=== PATIENT | female | born 1955 | race Caucasian/White ===

== ENCOUNTER → 2025-02-09 | Outpatient (CLI) | payer MEDICARE, MEDICAID, SELFPAY ==
[2025-02-09 10:48] LABS: Platelet Count 320 K/mm3 (150-450)
[2025-02-09 11:01] LABS: International Normalized Ratio 1.1
[2025-02-09 11:02] LABS: Partial Thromboplast Time 25.4 Seconds (24.1-36.2)
--- OUTSIDE RECORDS SUMMARY | 2025-02-09 11:24 | XMS RPT_ITS | CCD ---
Author Organization [facility] Care Team Providers Care Sales And Marketing Administrator Name Role Phone JOAN MATHEW Primary Care Physicia n NILSON HERNANDEZ, DR SALCIDO Admitting Unavailab le JOAN MATHEW Primary Care Unava ilable LUCRECIA LOVELL DO Attending Unavailable MARYCHUY MORENO MD Consulting Unavailable CRISTIAN HERNANDEZ, ROMMEL Consulting U TEQUILA Vera Attending Unavailable PCP, NONE Referring Unavailable JOAN HUERTA CNP Primary Care Unavailable JOAN HUERTA CNP Consulting Unavailable JOAN HUERTA CNP Attending Unavailable JOAN HUERTA CNP Admitting Unavailable PROVIDER, UNKNOWN Consulting Unavailable PROVIDER, UNKNOWN Consulting Unavailable JOAN HUERTA CNP Consulting Unavailable JOAN HUERTA CNP Admitting Unavailable JOAN HUERTA CNP Attending Unavailable JOAN HUERTA CNP Primary Care Unavailable PROVIDER, UNKNOWN Consulting Unavailable PROVIDER, UNKNOWN Consulting Unavailable JOAN HUERTA CNP Consulting Unavailable JOAN HUERTA CNP Admitting Unavailable BRADLEYJOAN BOLTON CNP Attending Unavailable JOAN HUERTA CNP Primary Care Unavailable PROVIDER, UNKNOWN Consulting Unavailable PROVIDER, UNKNOWN Consulting Unavailable JOAN HUERTA CNP Admitting Unavailable JOAN HUERTA CNP Attending Unavailable JOAN HUERTA CNP Consulting Unavailable JOAN HUERTA CNP Primary Care Unavailable PROVIDER, UNKNOWN Consulting Unavailable PROVIDER, UNKNOWN Consulting Unavailable JOAN HUERTA CNP Consulting Unavailable JOAN HUERTA CNP Attending Unavailable JOAN HUERTA CNP Primary Care Unavailable JOAN HUERTA CNP Admitting Unavailable PROVIDER, UNKNOWN Consulting Unavailable PROVIDER, UNKNOWN Consulting Unavailable JOAN HUERTA CNP Primary Care Unavailable JOAN HUERTA CNP Consulting Unavailable JOAN HUERTA CNP Attending Unavailable JOAN HUERTA CNP Admitting Unavailable PROVIDER, UNKNOWN Consulting Unavailable PROVIDER, UNKNOWN Consulting Unavailable JOAN HUERTA CNP Primary Care Unavailable JOAN HUERTA CNP Consulting Unavailable JOAN HUERTA CNP Attending Unavailable BRADLEY, JOAN FIBRE OPTIC CABLE SPLICER Admitting Unavailable PROVIDER, UNKNOWN Consulting Unavailable PROVIDER, UNKNOWN Consulting Unavailable BRADLEY JOAN CNP Consulting Unavailable STEW IRELAND MD Primary Care Unavailable STEW IRELAND MD Attending Unavailable STEW IRELAND MD Admitting Unavailable PROVIDER, UNKNOWN Consulting Unavailable PROVIDER, UNKNOWN Consulting Unavailable Jonathan HERNANDEZ, Dr. Larson Referring Provider Mitch SAENZ, Dr. Campos Attending Provider [phone] Shu HERNANDEZ, Dr. Mesa Primary Care Provider Allergies Allergy Classification Reported Allergen(s) Allergy Type Date of Onset Reaction(s) Facility (2 sources) traMADol; Translations: [tramadol] Drug Allergy 02-09-2025 unknown [facility] (1 source) traMADol Drug Allergy [facility] Repository Medications Current Medications Medication Drug Class(es) Dates Sig (Normalized) Sig (Original) acetaminophen 325 mg oral capsule (2 sources) Start: 02-09-2025 take 2 capsules by mouth every six hours as needed Acetaminophen 325 mg capsule Active 650 mg PO EVERY 6 HOURS as needed February 09, 2025 12:00am Start: 04-22-2023 acetaminophen Dose : 650 mg = 2 tab(s), Oral, q6hWA, PRN Pain, scale 1-10, 0 Refill(s) Start Date: 04/22/23 Status: Ordered Albuterol Sulfate 90 mcg/actuation HFA aerosol inhaler (1 source) Start: 02-09-2025 Albuterol Sulfate 90 mcg/actuation HFA aerosol inhaler Active INHALATION February 09, 2025 12:00am amLODIPine 5 mg oral tablet (1 source) Dihydropyridine Calcium Channel Javier Start: 04-18-2023 amLODIPine 5 mg oral tablet Dose : 5 mg = 1 tab(s), Oral, qDay Start Date: 04/18/23 Status: Ordered apixaban 5 mg oral tablet (1 source) Factor Xa Inhibitor Start: 04-22-2023 End: 05-22-2023 Eliquis 5 mg oral tablet Dose : 5 mg = 1 tab(s), Oral, BID, # 60 tab(s), 0 Refill(s), Pharmacy: [id number], 152.4, cm, 04/18/23 19:54:00 EDT, Height, 103, kg, 04/18/23 19:54:00 EDT, Dosing Weight Start Date: 04/22/23 Stop Date: 05/22/23 Status: Ordered atorvastatin 80 mg oral tablet (1 source) HMG-CoA Reductase Inhibitor Start: 04-18-2023 Lipitor 80 mg oral tablet Dose : 80 mg = 1 tab(s), Oral, qDay Start Date: 04/18/23 Status: Ordered clopidogrel 75 mg oral tablet (1 source) P2Y12 Platelet Inhibitor Start: 02-09-2025 take 1 tablet by mouth once daily Clopidogrel 75 mg tablet Active 75 mg PO daily February 09, 2025 12:00am FLUoxetine 20 mg oral capsule (2 sources) Serotonin Reuptake Inhibitor Start: 02-09-2025 take 1 capsule by mouth once daily Fluoxetine 20 mg capsule Active 20 mg PO daily February 09, 2025 12:00am Start: 04-18-2023 FLUoxetine 20 mg oral capsule Dose : 20 mg = 1 cap(s), Oral, qDay Start Date: 04/18/23 Status: Ordered gabapentin 100 mg oral capsule (1 source) Anti-epileptic Agent Start: 02-09-2025 Gabapentin 100 mg capsule Active mg PO February 09, 2025 12:00am hydroCHLOROthiazide 25 mg oral tablet (2 sources) Thiazide Diuretic Start: 02-09-2025 take 1 tablet by mouth once daily Hydrochlorothiazide 25 mg tablet Active 25 mg PO daily February 09, 2025 12:00am Start: 04-18-2023 hydroCHLOROthi azide 25 mg oral tablet Dose : 25 mg = 1 tab(s), Oral, qDay Start Date: 04/18/23 Status: Ordered levothyroxine sodium 0.2 mg oral tablet (2 sources) l-Thyroxine Start: 02-09-2025 take 1 tablet by mouth once daily Levothyroxine 200 mcg tablet Active 200 ug PO daily February 09, 2025 12:00am Start: 04-18-2023 levothyroxine 200 mcg (0.2 mg) oral tablet Dose : 200 mcg = 1 tab(s), Oral, qDay Start Date: 04/18/23 Status: Ordered metFORMIN hydrochloride 500 mg oral tablet (2 sources) Biguanide Start: 02-09-2025 take 1 tablet by mouth three times daily Metformin 500 mg tablet Active 500 mg PO THREE TIMES A DAY February 09, 2025 12:00am Start: 04-18-2023 metFORMIN 500 mg oral tablet (IR) Dose : 500 mg = 1 tab(s), Oral, TID Start Date: 04/18/23 Status: Ordered microencapsulated potassium chloride 20 meq extended release oral tablet (1 source) Start: 02-09-2025 take 1 tablet by mouth once daily Potassium Chloride 20 mEq tablet,ER particles/crystals Active 20 meq PO daily February 09, 2025 12:00am Problems Problem Classification Problem Date Documented Da te Episodic/Chronic Acute cerebrovascular disease (1 source) Cerebral infarction; Translations: [Cerebral infarction, unspecified] Chronic Acute cerebrovascular disease (1 source) Neurological symptom; Translations: [NIHSS score 4] Episodic Chronic obstructive pulmonary disease and bronchiectasis (2 sources) Chronic obstructive lung disease; Translations: [Chronic obstructive pulmonary disease, unspecified] Onset: 01-28-2025 Chronic Diabetes mellitus with complications (1 source) Type 2 diabetes mellitus with diabetic neuropathy, unspecified; Translations: [Type 2 diabetes mellitus with diabetic neuropathy, unspecified] Onset: 01-28-2025 Chronic Diabetes mellitus without complication (1 source) Type 2 diabetes mellitus without complication; Translations: [Type 2 diabetes mellitus without complications] Chronic Disorders of lipid metabolism (1 source) Hyperlipidemia, unspecified; Translations: [Hyperlipidemia, unspecified] Onset: 01-28-2025 Chronic Essential hypertension (2 sources) Essential hypertension; Translations: [Essential (primary) hypertension] Onset: 01-28-2025 Chronic Fluid and electrolyte disorders (1 source) Hypokalemia; Translations: [Hypokalemia] Onset: 01-28-2025 Episodic Genitourinary symptoms and ill-defined conditions (1 source) Personal history of urinary (tract) infections; Translations: [Personal history of urinary (tract) infections] Onset: 01-28-2025 Episodic Late effects of cerebrovascular disease (2 sources) 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; Translations: [Hemiplegia and hemiparesis following cerebral infarction affecting right dominant side] Chronic Malaise and fatigue (3 sources) Weakness; Translations: [Weakness] Onset: 01-28-2025 Episodic Nausea and vomiting (4 sources) Vomiting, unspecified; Translations: [Vomiting, unspecified] Onset: 01-24-2025 Episodic Other aftercare (1 source) Other long-term (current) drug therapy; Translations: [Other moth exterminator (current) drug therapy] Onset: 01-24-2025 Episodic Other circulatory disease (1 source) Personal history of transient ischemic attack (TIA), and cerebral infarction without residual deficits; Translations: [Personal history of transient ischemic attack (TIA), and cerebral infarction without residual deficits] Onset: 01-28-2025 Episodic Other gastrointestinal disorders (1 source) Diarrhea, unspecified; Translations: [Diarrhea, unspecified] Onset: 02-02-2025 Episodic Other lower respiratory disease (4 sources) Other nonspecific abnormal finding of lung field; Translations: [Other nonspecific abnormal finding of lung field] Onset: 01-24-2025 Episodic Other lower respiratory disease (1 source) Chronic cough; Translations: [Chronic cough] Onset: 01-24-2025 Episodic Other lower respiratory disease (2 sources) Lung mass; Translations: [Other nonspecific abnormal finding of lung field] 02-09-2025 Episodic Other nervous system disorders (1 source) Slurred speech; Translations: [Slurred speech] Episodic Other nutritional; endocrine; and metabolic disorders (3 sources) Abnormal weight loss; Translations: [Abnormal weight loss] Onset: 01-24-2025 Episodic Skin and subcutaneous tissue infections (1 source) Cellulitis of right finger; Translations: [Cellulitis of right finger] Onset: 01-05-2025 Episodic Thyroid disorders (4 sources) Hypothyroidism, unspecified; Translations: [Hypothyroidism, unspecified] Onset: 11-01-2024 Chronic Urinary tract infections (1 source) Urinary tract infectious disease; Translations: [Urinary tract infection, site not specified] Episodic Results Test Name Value Interpretation Reference Range Facility MODIFIED BARIUM SWALLOWon MODIFIED BARIUM SWALLOW [place] [address] Patient: WASHINGTON WOLF Phone#: : 1955 Age: 69 Gender: F Pt. Type: Out Account: [id number] Location: [facility] Ordering: JOAN HUERTA Exam Date: 02/02/2025/9:11 Family Phys: Charge Code: [id number] Physician: Ozark Order #: [id number] Dose#: PROCEDURE: CINERADIOGRAPHY MODIFIED BARIUM SWALLOW COMPARISON: [place], [place], MODIFIED BARIUM SWALLOW, 07/22/2023, 8:52. INDICATIONS: Vomiting. Diarrhea. TECHNIQUE: A swallowing evaluation was performed with fluoroscopy and speech therapy in the usual manner. TOTAL DOSE: 21.96 mGy Time: 1.5 minutes FINDINGS: Patient was given thin liquids, peach, cookie, and pudding textures. ORAL PHASE: Normal deglutition. PHARYNGEAL PHASE: Normal swallowing. ASPIRATION: None. STRUCTURE: Normal. No visible obstruction, stricture, or dilatation. OTHER: Negative. CONCLUSION: 1. No aspiration. Please refer to speech pathology for recommendations. Dictated by: Alyssa Fitzgerald MD on 02/02/2025 at 11:09 Approved by: Alyssa Fitzgerald MD on 02/02/2025 at 11:22 Normal [facility] CT CHEST W/CONTRASTon 2024 CT CHEST W/CONTRAST [place] [address] Patient: WASHINGTON WOLF Phone#: : 1955 Age: 69 Gender: F Pt. Type: Out Account: [id number] Location: [facility] Ordering: JOAN HUERTA Exam Date: 01/31/2025/9:27 Family Phys: Charge Code: [id number] Physician: Ozark Order #: [id number] Dose#: 4.70 PROCEDURE: CT CHEST WITH CONTRAST COMPARISON: None. INDICATIONS: Lung mass. TECHNIQUE: After obtaining the patient's consent, CT images were obtained with non-ionic intravenous contrast material. All CT scans at this facility use dose modulation, iterative reconstruction, and/or weight based dosing when appropriate to reduce radiation dose to as low as reasonably achievable. IV CONTRAST: Visipaque 320,65ml TOTAL DOSE: 4.70 CTDIvol(mGy) FINDINGS: LUNGS: Normal. No visible pulmonary disease. VASCULATURE: Normal. No visible pulmonary arterial thrombus or attenuation. PALOMO: Normal. No mass or adenopathy. MEDIASTINUM: Hypodense right paratracheal lymph node versus mass is present measuring 3.3 by 1.8 x 3.0 centimeters. Large subcarinal mass extending to the right of midline is present and measures 6.3 x 5.8 x 7.8 centimeters. Right hilar adenopathy is present. There are multiple lobular lesions in the right lower lobe. A 7 millimeter right upper lobe nodule is present. Two 7 millimeter and 11 millimeter left lower lobe nodules are present. Several sub centimeter left upper lobe nodules are present. CARDIAC: Normal. No enlargement, pericardial thickening, or significant calcification. AORTA: Normal. No aneurysm or dissection. PLEURA: Normal. No mass or effusion. CHEST WALL: Normal. No mass or axillary adenopathy. LIMITED ABDOMEN: Fatty changes of the liver are present. Limited images of the upper abdomen are unremarkable. BONES: Normal. No bony lesion or fracture. OTHER: Negative. Continued Report - Page 2 of 2 Patient: WASHINGTON WOLF Phone#: : 1955 Age: 69 Gender: F Pt. Type: Out Account: [id number] Location: [facility] Ordering: JOAN HUERTA Exam Date: 01/31/2025/9:27 Family Phys: Charge Code: [id number] Physician: Ozark Order #: [id number] Dose#: 4.70 CONCLUSION: 1. Right paratracheal and subcarinal mass is present. Right hilar adenopathy is present. Multiple bilateral pulmonary nodules are present. The largest are in the right lower lobe. Dictated by: Mckayla Ying MD on 01/31/2025 at 16:32 Approved by: Mckayla Ying MD on 01/31/2025 at 16:39 Normal [facility] CBC + DIFFon 01-30-2025 Baso # 0.01 x10EE3/UL Normal 0.00 - 0.10 [facility] Comment on above: Performed By: #### 2 [id number] #### [facility],[address] [place] [address] Basophils/100 WBC (Bld) 0.3 % Normal 0.0 - 2.0 [facility] Comment on above: Performed By: #### 2 76270 #### [facility],[address] [place] [address] 51727 CBC + DIFF Normal [facility] Comment on above: Result Comment: CBC- COMPLETE BLOOD COUNT Performed By: #### 2 94157 #### [facility],[address] [place] [address] 20273 EO # 0.22 x10EE3/UL Normal 0.00 - 0.50 [facility] Comment on above: Performed By: #### 2 95483 #### [facility],[address] [place] [address] 78177 Eosinophils/100 WBC (Bld) 4.1 % Normal 0.0 - 7.0 [facility] Comment on above: Performed By: #### 2 97097 #### [facility],[address] [place], [place] [id number] Erythrocyte distribution width (RBC) [Ratio] 14.7 % Normal 12.0 - 15.6 [facility] Comment on above: Performed By: #### 2 88943 #### [facility],[address] [place] [address] 77928 Hematocrit (Bld) [Volume fraction] 31.4 % Low 34.0 - 46.0 [facility] Comment on above: Performed By: #### 2 29700 #### [facility],[address] [place] [address] 12947 Hemoglobin (Bld) [Mass/Vol] 10.8 g/dL Low 12.0 - 16.0 [facility] Comment on above: Performed By: #### 2 83497 #### [facility],[address] [place] [address] 91280 Lymph # 1.51 x10EE3/UL Normal 0.80 - 2.80 [facility] Comment on above: Performed By: #### 2 12035 #### [facility],[address] [place] [address] 72924 Lymphocytes/100 WBC (Bld) 27.6 % Normal 20.0 - 45.0 [facility] Comment on above: Performed By: #### 2 60354 #### [facility],[address] [place] [address] MANUAL DIFF N/A Normal [facility] Comment on above: Performed By: #### 2 90054 #### [facility],[address] [place] [address] MCH (RBC) [Entitic mass] 30 pg Normal 27 - 33 [facility] Comment on above: Performed By: #### 2 28097 #### [facility],[address] [place] [address] MCHC 34 X10 3 Normal 32 - 36 [facility] Comment on above: Performed By: #### 2 13438 #### [facility],[address] [place] [address] MCV (RBC) [Entitic vol] 87 fL Normal 80 - 99 [facility] Comment on above: Performed By: #### 2 81498 #### [facility],[address] [place] [address] [place] # 0.50 x10EE3/UL Normal 0.20 - 1.00 [facility] Comment on above: Performed By: #### 2 41092 #### [facility],[address] [place] [address] MONOS % 9.1 % Normal 0.0 - 10.0 [facility] Comment on above: Performed By: #### 2 72406 #### [facility],[address] [place], [place] [id number] Morphology [place] (Bld) [Interp] N/A Normal [facility] Comment on above: Performed By: #### 2 66450 #### [facility],[address] [place] [address] Neut # 3.22 x10EE3/UL Normal 1.50 - 7.10 [facility] Comment on above: Performed By: #### 2 52247 #### [facility],[address] [place] [address] 69159 Neutrophils/100 WBC (Bld) 59.0 % Normal 46.0 - 76.0 [facility] Comment on above: Performed By: #### 2 50948 #### [facility],[address] [place] [address] 80022 PLATELET 251 x10EE3/UL Normal 150 - 450 [facility] Comment on above: Performed By: #### 2 23154 #### [facility],[address] [place] [address] 92676 Platelet mean volume (Bld) [Entitic vol] 10.5 fL Normal 6.6 - 10.5 [facility] Comment on above: Result Comment: AUTO MATED DIFFERENTIAL Performed By: #### 2 41611 #### [facility],[address] [place] [address] 50823 RBC 3.62 x 10EE6/UL Low 4.10 - 5.30 [facility] Comment on above: Performed By: #### 2 02228 #### [facility],[address] [place] [address] 32476 WBC 5.5 x 10EE3/UL Normal 4.5 - 10.8 [facility] Comment on above: Performed By: #### 2 75260 #### [facility],[address] [place] [address] 18347 CMP with eGFRon 01-30-2025 AGE 69 years Normal [facility] Comment on above: Performed By: #### 2 75748 #### [facility],[address] [place] [address] 24972 Albumin [Mass/Vol] 2.7 g/dL Low 3.4 - 5.0 [facility] Comment on above: Performed By: #### 2 19389 #### [facility],[address] [place] [address] 97049 Albumin/Globulin [Mass ratio] 0.6 {ratio} Low 0.9 - 1.6 [facility] Comment on above: Performed By: #### 2 01077 #### [facility],[address] [place] [address] 19232 ALK PHOS 109 U/L Normal 46 - 116 [facility] Comment on above: Performed By: #### 2 72954 #### [facility],[address] [place] [address] 77164 ALT [Catalytic activity/Vol] 16 U/L Normal 16 - 63 [facility] Comment on above: Performed By: #### 2 54306 #### [facility],[address] [place] [address] 84763 Anion gap [Moles/Vol] 12 mmol/L Normal 10 - 20 [facility] Comment on above: Performed By: #### 2 84269 #### [facility],[address] [place] [address] 70289 AST [Catalytic activity/Vol] 33 U/L Normal 13 - 39 [facility] Comment on above: Performed By: #### 2 95863 #### [facility],[address] [place] [address] 47949 B/C RATIO 13 ratio Normal 0 - 30 [facility] Comment on above: Performed By: #### 2 45389 #### [facility],[address] [place] [address] 80696 Bilirubin [Mass/Vol] 1.2 mg/dL High 0.2 - 1.0 [facility] Comment on above: Performed By: #### 2 14295 #### [facility],[address] [place] [address] 58668 Calcium [Mass/Vol] 8.9 mg/dL Normal 8.5 - 10.1 [facility] Comment on above: Performed By: #### 2 99051 #### [facility],[address] [place] [address] 04707 Chloride [Moles/Vol] 104 mmol/L Normal 98 - 107 [facility] Comment on above: Performed By: #### 2 74072 #### [facility],[address] [place] [address] 95467 CMP with eGFR Normal [facility] Comment on above: Result Comment: COMP REHENSIVE METABOLIC PANEL Performed By: #### 2 38638 #### [facility],[address] [place] [address] 04828 CO2 [Moles/Vol] 27.9 mmol/L Normal 21.0 - 32.0 [facility] Comment on above: Performed By: #### 2 16745 #### [facility],[address] [place] [address] Creatinine [Mass/Vol] 0.88 mg/dL Normal 0.55 - 1.02 [facility] Comment on above: Performed By: #### 2 79478 #### [facility],[address] [place] [address] GFR/1.73 sq M.predicted among non-blacks MDRD (S/P/Bld) [Vol rate/Area] mL/min/{1.73_m2} Normal 60 - 999 [facility] Comment on above: Performed By: #### 2 73230 #### [facility],[address] [place] [address] Result Comment: ACCO RDING TO THE NATIONAL KIDNEY DISEASE EDUCATION PROGRAM(NKDE), A NORMAL eGFR IS A VALUE GREATER THAN OR EQUAL TO 60 ML/MIN/1.73 SQ METERS. CHRONIC KIDNEY DISEASE: <60mL/MIN/1.73 SQ METERS KIDNEY FAILURE: <15mL/MIN/1.73 SQ METERS THIS TEST SHOULD ONLY BE USED FOR PATIENTS 18 YEARS OF AGE AND OLDER. Globulin (S) [Mass/Vol] 4.2 g/dL High 1.5 - 3.8 [facility] Comment on above: Performed By: #### 2 30494 #### [facility],[address] [place], [place] [id number] Glucose [Mass/Vol] 108 mg/dL High 74 - 106 [facility] Comment on above: Performed By: #### 2 56801 #### [facility],[address] [place] [address] 27063 Potassium [Moles/Vol] 3.3 mmol/L Low 3.5 - 5.1 [facility] Comment on above: Performed By: #### 2 81024 #### [facility],[address] [place] [address] 90702 Protein [Mass/Vol] 6.9 g/dL Normal 6.4 - 8.2 [facility] Comment on above: Performed By: #### 2 55696 #### [facility],[address] [place] [address] 86372 Sodium [Moles/Vol] 141 mmol/L Normal 136 - 145 [facility] Comment on above: Performed By: #### 2 78332 #### [facility],[address] [place] [address] 91899 Urea nitrogen [Mass/Vol] 11 mg/dL Normal 7 - 18 [facility] Comment on above: Performed By: #### 2 51937 #### [facility],[address] [place] [address] 77272 ABDOMEN 2 VIEWSon 01-24-2025 ABDOMEN [address] [address] Patient: WASHINGTON WOLF Phone#: : 1955 Age: 69 Gender: F Pt. Type: Out Account: [id number] Location: 052 Ordering: JOAN HUERTA Exam Date: 01/24/2025/10:17 Family Phys: Charge Code: [id number] Physician: Ozark Order #: [id number] Dose#: PROCEDURE: ABDOMEN 2 VIEWS COMPARISON: None. INDICATIONS: Vomiting and diarrhea. FINDINGS: BOWEL GAS PATTERN: Normal. No abnormal dilation or deviation. CALCIFICATIONS: None significant. OTHER: Degenerative changes of the spine are present. Curvature of the thoracolumbar spine to the right is present. Surgical clips are present in the right upper abdomen. CONCLUSION: 1. Nonspecific abdomen. Dictated by: Mckayla Ying MD on 01/24/2025 at 15:12 Approved by: Mckayla Ying MD on 01/24/2025 at 15:13 Normal [facility] C-REACTIVE PROTEINon 025 CRP 0.85 mg/dl Normal 0.00 - 0.90 [facility] Comment on above: Performed By: #### 2 37851 #### [facility],[address] [place] [address] 79504 CBC + DIFFon 01-24-2025 Baso # 0.03 x10EE3/UL Normal 0.00 - 0.10 [facility] Comment on above: Performed By: #### 2 27449 #### [facility],[address] [place] [address] 55482 Basophils/100 WBC (Bld) 0.3 % Normal 0.0 - 2.0 [facility] Comment on above: Performed By: #### 2 39967 #### [facility],[address] [place] [address] 54005 CBC + DIFF Normal [facility] Comment on above: Result Comment: CBC- COMPLETE BLOOD COUNT Performed By: #### 2 32524 #### [facility],[address] [place] [address] 73370 EO # 0.13 x10EE3/UL Normal 0.00 - 0.50 [facility] Comment on above: Performed By: #### 2 87750 #### [facility],[address] [place] [address] 36427 Eosinophils/100 WBC (Bld) 1.6 % Normal 0.0 - 7.0 [facility] Comment on above: Performed By: #### 2 83494 #### [facility],[address] [place] [address] 43810 Erythrocyte distribution width (RBC) [Ratio] 14.2 % Normal 12.0 - 15.6 [facility] Comment on above: Performed By: #### 2 18886 #### [facility],[address] [place] [address] Hematocrit (Bld) [Volume fraction] 36.3 % Normal 34.0 - 46.0 [facility] Comment on above: Performed By: #### 2 54161 #### [facility],[address] [place] [address] Hemoglobin (Bld) [Mass/Vol] 12.4 g/dL Normal 12.0 - 16.0 [facility] Comment on above: Performed By: #### 2 53443 #### [facility],[address] [place] [address] Lymph # 1.12 x10EE3/UL Normal 0.80 - 2.80 [facility] Comment on above: Performed By: #### 2 78695 #### [facility],[address] [place] [address] Lymphocytes/100 WBC (Bld) 13.4 % Low 20.0 - 45.0 [facility] Comment on above: Performed By: #### 2 65016 #### [facility],[address] [place] [address] MANUAL DIFF N/A Normal [facility] Comment on above: Performed By: #### 2 90089 #### [facility],[address] [place] [address] MCH (RBC) [Entitic mass] 29 pg Normal 27 - 33 [facility] Comment on above: Performed By: #### 2 82962 #### [facility],[address] [place] [address] MCHC 34 X10 3 Normal 32 - 36 [facility] Comment on above: Performed By: #### 2 18986 #### [facility],[address] [place], [place] [id number] MCV (RBC) [Entitic vol] 86 fL Normal 80 - 99 [facility] Comment on above: Performed By: #### 2 17493 #### [facility],[address] [place] [address] 87663 [place] # 0.53 x10EE3/UL Normal 0.20 - 1.00 [facility] Comment on above: Performed By: #### 2 46128 #### [facility],[address] [place] [address] 87277 MONOS % 6.4 % Normal 0.0 - 10.0 [facility] Comment on above: Performed By: #### 2 21003 #### [facility],[address] [place] [address] 27393 Morphology [place] (Bld) [Interp] N/A Normal [facility] Comment on above: Performed By: #### 2 70926 #### [facility],[address] [place] [address] 33989 Neut # 6.56 x10EE3/UL Normal 1.50 - 7.10 [facility] Comment on above: Performed By: #### 2 42956 #### [facility],[address] [place] [address] 88042 Neutrophils/100 WBC (Bld) 78.3 % High 46.0 - 76.0 [facility] Comment on above: Performed By: #### 2 04530 #### [facility],[address] [place] [address] 16311 PLATELET 291 x10EE3/UL Normal 150 - 450 [facility] Comment on above: Performed By: #### 2 50261 #### [facility],[address] [place] [address] 26616 Platelet mean volume (Bld) [Entitic vol] 11.2 fL High 6.6 - 10.5 [facility] Comment on above: Result Comment: AUTO MATED DIFFERENTIAL Performed By: #### 2 88376 #### [facility],[address] [place] [address] 92670 RBC 4.20 x 10EE6/UL Normal 4.10 - 5.30 [facility] Comment on above: Performed By: #### 2 57068 #### [facility],[address] [place] [address] 16995 WBC 8.4 x 10EE3/UL Normal 4.5 - 10.8 [facility] Comment on above: Performed By: #### 2 59948 #### [facility],[address] [place] [address] 91078 CHEST 2 VIEWSon 01-24-2025 CHEST [address] [address] Patient: WASHINGTON WOLF Phone#: : [phone] Age: 69 Gender: F Pt. Type: Out Account: [id number] Location: [facility] Ordering: JOAN HUERTA Exam Date: 01/24/2025/10:13 Family Phys: Charge Code: [id number] Physician: [place] Order #: [id number] Dose#: PROCEDURE: X-RAY CHEST 2 VIEWS COMPARISON: [facility], XR, CHEST 1 VIEW, 04/17/2023, 13:20. INDICATIONS: Cough, persistent. FINDINGS: LUNGS: Right hilar adenopathy are mass cannot be excluded. Right hilar mass is 4.5 centimeters. Right lower lobe nodules are present. Total dimension is 5.3 x 1.9 centimeters. Similar finding is not present on prior exam. Further evaluation by CT is recommended. VASCULATURE: Normal. Unremarkable pulmonary vasculature. CARDIAC: Normal. No cardiac silhouette abnormality or cardiomegaly. MEDIASTINUM: Calcification of the aorta is present. PLEURA: Normal. No effusion or pleural thickening. BONES: Normal. No fracture or visible bony lesion. OTHER: Negative. CONCLUSION: 1. Right hilar and right lower lobe masses. Further evaluation by CT is recommended. Dictated by: Mckayla Ying MD on 01/24/2025 at 15:08 Approved by: Mckayla Ying MD on 01/24/2025 at 15:11 Normal [facility] CMP with eGFRon 01-24-2025 AGE 69 years Normal [facility] Comment on above: Performed By: #### 2 71676 #### [facility],[address] [place] [address] 20731 Albumin [Mass/Vol] 3.3 g/dL Low 3.4 - 5.0 [facility] Comment on above: Performed By: #### 2 54704 #### [facility],[address] [place] [address] Albumin/Globulin [Mass ratio] 0.6 {ratio} Low 0.9 - 1.6 [facility] Comment on above: Performed By: #### 2 38676 #### [facility],[address] [place], [place] [id number] ALK PHOS 131 U/L High 46 - 116 [facility] Comment on above: Performed By: #### 2 84391 #### [facility],[address] [place], [place] [id number] ALT [Catalytic activity/Vol] 15 U/L Low 16 - 63 [facility] Comment on above: Performed By: #### 2 60087 #### [facility],[address] [place] [address] 46607 Anion gap [Moles/Vol] 16 mmol/L Normal 10 - 20 [facility] Comment on above: Performed By: #### 2 33875 #### [facility],[address] [place], [place] [id number] AST [Catalytic activity/Vol] 25 U/L Normal 13 - 39 [facility] Comment on above: Performed By: #### 2 43558 #### [facility],[address] [place] [address] 65544 B/C RATIO 16 ratio Normal 0 - 30 [facility] Comment on above: Performed By: #### 2 93929 #### [facility],[address] [place] [address] 54290 Bilirubin [Mass/Vol] 1.5 mg/dL High 0.2 - 1.0 [facility] Comment on above: Performed By: #### 2 10509 #### [facility],[address] [place] [address] 37669 Calcium [Mass/Vol] 10.1 mg/dL Normal 8.5 - 10.1 [facility] Comment on above: Performed By: #### 2 80334 #### [facility],[address] [place] [address] Chloride [Moles/Vol] 96 mmol/L Low 98 - 107 [facility] Comment on above: Performed By: #### 2 74996 #### [facility],[address] [place] [address] CMP with eGFR Normal [facility] Comment on above: Result Comment: COMP REHENSIVE METABOLIC PANEL Performed By: #### 2 55214 #### [facility],[address] [place], [place] [id number] CO2 [Moles/Vol] 26.6 mmol/L Normal 21.0 - 32.0 [facility] Comment on above: Performed By: #### 2 08762 #### [facility],[address] [place] [address] 34904 Creatinine [Mass/Vol] 1.48 mg/dL High 0.55 - 1.02 [facility] Comment on above: Performed By: #### 2 31354 #### [facility],[address] [place] [address] 44264 eGFR 35 ML/MINUTE Low 60 - 999 [facility] Comment on above: Performed By: #### 2 64860 #### [facility],[address] [place] [address] 97413 eGFR(AA) 42 ML/MINUTE Low 60 - 999 [facility] Comment on above: Result Comment: ACCO RDING TO THE NATIONAL KIDNEY DISEASE EDUCATION PROGRAM(NKDE), A NORMAL eGFR IS A VALUE GREATER THAN OR EQUAL TO 60 ML/MIN/1.73 SQ METERS. CHRONIC KIDNEY DISEASE: <60mL/MIN/1.73 SQ METERS KIDNEY FAILURE: <15mL/MIN/1.73 SQ METERS THIS TEST SHOULD ONLY BE USED FOR PATIENTS 18 YEARS OF AGE AND OLDER. Performed By: #### 2 70614 #### [facility],[address] [place] [address] 86444 Globulin (S) [Mass/Vol] 5.2 g/dL High 1.5 - 3.8 [facility] Comment on above: Performed By: #### 2 41724 #### [facility],[address] [place] [address] 65576 Glucose [Mass/Vol] 152 mg/dL High 74 - 106 [facility] Comment on above: Performed By: #### 2 00661 #### [facility],[address] [place] [address] 79103 Potassium [Moles/Vol] 3.0 mmol/L Low 3.5 - 5.1 [facility] Comment on above: Performed By: #### 2 72688 #### [facility],[address] [place] [address] 50088 Protein [Mass/Vol] 8.5 g/dL High 6.4 - 8.2 [facility] Comment on above: Performed By: #### 2 94228 #### [facility],[address] [place] [address] 36021 Sodium [Moles/Vol] 136 mmol/L Normal 136 - 145 [facility] Comment on above: Performed By: #### 2 07311 #### [facility],[address] [place] [address] 42229 Urea nitrogen [Mass/Vol] 23 mg/dL High 7 - 18 [facility] Comment on above: Performed By: #### 2 60211 #### [facility],[address] [place] [address] 93309 HEMOGLOBIN A1C (POM)on 01-24 Glucose [Mass/Vol] 162.8 mg/dL High 0.0 - 0.0 [facility] Comment on above: Result Comment: BLDo HEMOGLOBIN A1C REFERENCE RANGESBLDo Suggested Diagnosis HbA1c(%) HbA1C (mmol/mol Diabetic >/=6.5 >/=48 Prediabetes 5.7 - 6.4 39 - 47 Normal <5.7 <39 Performed By: #### 2 88871 #### [place] [address] HbA1c (Bld) [Mass fraction] 7.3 % High 0.0 - 6.5 [facility] Comment on above: Performed By: #### 2 44282 #### [place] [address] LIPASEon 01-24-2025 Lipase [Catalytic activity/Vol] 31.0 U/L Normal 15.0 - 78.0 [facility] Comment on above: Result Comment: *PLE ASE NOTE THAT RANGES FOR LIPASE HAVE CHANGED OF 08/21/23 DUE TO AN ASSAY UPDATE BY THE REPRODUCER.THE NEW ASSAY RANGE IS 6-250 U/L, WITH A REFERENCE RANGE OF 16-77 U/L. Performed By: #### 2 43870 #### [place] [id number] MAGNESIUMon 01-24-2025 Magnesium [Mass/Vol] 1.6 mg/dL Low 1.8 - 2.4 [facility] Comment on above: Performed By: #### 2 60299 #### [facility],[address] [place], [place] [id number] SEDRATEon 01-24-2025 SEDRATE 74 mm/hr High 0 - 30 [facility] Comment on above: Performed By: #### 2 33413 #### [place] [id number] T4-FREE (FREE THYROXINE)on 0 01-24-2025 Free T4 [Mass/Vol] 3.23 ng/dL High 0.76 - 1.46 [facility] Comment on above: Result Comment: P otential of falsely elevated results when biotin concentrations are > 10 ng/mL. Performed By: #### 2 41718 #### [facility],[address] [place] [address] 17889 TSHon 01-24-2025 TSH Qn m[IU]/L Low 0.35 - 3.74 [facility] Comment on above: Performed By: #### 2 39882 #### [facility],[address] [place] [address] 49506 WOUND CULTURE WITH GRAM STAI Non 01-05-2025 WOUND CULTURE WITH GRAM STAIN WOUND CULTURE 114CANDIDA ALBICANS 1+ Rosa albicans GRAM STAIN OF CULTURE No organisms seen Normal [facility] Comment on above: Performed By: #### 4 [id number] #### [place] [id number] [place] T4, FREE [CCL]on 11-03-2024 Free T4 [Mass/Vol] 0.7 ng/dL Low 0.9-1.7 [facility] Comment on above: Result Comment: [facility] [address] [place] [address] Uli Goodrich III, M.D. [id number] Performed By: #### 2 88268 #### [facility],[address] [place] [address] 91553 T4 Free SerPl-mCncon 025 Free T4 [Mass/Vol] 0.7 ng/dL Low 0.9-1.7 [facility] Comment on above: Order Comment: Speci men Type: BLOOD SPECIMEN Ordering Facility: [facility] Address: [address] [place] [address] Performed By: #### 3 024-7 #### [facility] CLIA [id number] [address] [place] [address] [place] TSHon 11-01-2024 TSH Qn 27.16 m[IU]/L High 0.35 - 3.74 [facility] Comment on above: Performed By: #### 2 72679 #### [facility],[address] [place] [address] LABORATORYOrdered By: Ho Vides on 04-22-2023 Blood Glucose Testing Reason Routine (04/22/23 11:27 AM) [facility] Glucose [Mass/Vol] 106 mg/dL Invalid Interpretation Code 82 - 115 mg/dL [facility] LABORATORYOrdered By: Daniela Ramachandran on 04-22-2023 Glucose [Mass/Vol] 134 mg/dL Invalid Interpretation Code 82 - 115 mg/dL [facility] .Auto Diffon 04-21-2023 Basophil, Absolute 0.0 10 3/mcL Normal 0.0-0.3 [facility] ([place]) Comment on above: Performed By: #### G IVANA TOBIN, RAFAEL, W, CBC, ADIFF #### [address] [address] Basophils/100 WBC (Bld) 0.7 % Normal 0.0-2.5 [facility] ([place]) Comment on above: Performed By: #### G IVANA TOBIN, RAFAEL, W, CBC, ADIFF #### [address] [address] Eosinophil, Absolute 0.3 10 3/mcL Normal 0.0-0.7 [facility] ([place]) Comment on above: Performed By: #### G FR, IVANA, BMP, MDW, CBC, ADIFF #### [address] [address] Eosinophils/100 WBC (Bld) 4.4 % Normal 0.0-6.0 [facility] ([place]) Comment on above: Performed By: #### G , IVANA, BMP, MDW, CBC, ADIFF #### [address] [address] Lymphocyte, Absolute 1.8 10 3/mcL Normal 0.9-4.3 [facility] ([place]) Comment on above: Performed By: #### G FR, IVANA, BMP, MDW, CBC, ADIFF #### [address] [address] Lymphocytes/100 WBC (Bld) 29.3 % Normal 20.0-40.0 [facility] ([place]) Comment on above: Performed By: #### G FR, ANEU, BMP, MDW, CBC, ADIFF #### [address] [address] Monocyte, Absolute 0.4 10 3/mcL Normal 0.1-1.4 [facility] ([place]) Comment on above: Performed By: #### G FR, ANEU, BMP, MDW, CBC, ADIFF #### [address] [address] Monocytes/100 WBC (Bld) 7.1 % Normal 2.0-13.0 [facility] ([place]) Comment on above: Performed By: #### G FR, ANEU, BMP, MDW, CBC, ADIFF #### [address] [address] Neutrophils/100 WBC (Bld) 58.5 % Normal 50.0-75.0 [facility] ([place]) Comment on above: Performed By: #### G FR, ANEU, BMP, MDW, CBC, ADIFF #### [address] [address] .GFRon 04-21-2023 GFR Non- >60 Normal [facility] ([place]) Comment on above: Result Comment: GFR Population mean for , Non- Americans Ages 20-29 = 116 mL/min/1.73 sq.m. Ages 30-39 = 107 mL/min/1.73 sq.m. Ages 40-49 = 99 mL/min/1.73 sq.m. Ages 50-59 = 93 mL/min/1.73 sq.m. Ages 60-69 = 85 mL/min/1.73 sq.m. Ages 70+ = 75 mL/min/1.73 sq.m. Chronic Kidney Disease: Less than 60 mL/min/1.73 square meters End Stage Renal Disease: Less than 15 mL/min/1.73 square meters Performed By: #### G FR, ANEU, BMP, MDW, CBC, ADIFF #### [address] [address] GFR >60 Normal [facility] ([place]) Comment on above: Result Comment: GFR Population mean for , Non- Americans Ages 20-29 = 116 mL/min/1.73 sq.m. Ages 30-39 = 107 mL/min/1.73 sq.m. Ages 40-49 = 99 mL/min/1.73 sq.m. Ages 50-59 = 93 mL/min/1.73 sq.m. Ages 60-69 = 85 mL/min/1.73 sq.m. Ages 70+ = 75 mL/min/1.73 sq.m. Chronic Kidney Disease: Less than 60 mL/min/1.73 square meters End Stage Renal Disease: Less than 15 mL/min/1.73 square meters Performed By: #### G IVANA TOBIN BMP, VINCENT, CBC, ADIFF #### [address] [address] .NEUABSon 04-21-2023 Neutrophil, Absolute 3.6 10 3/mcL Normal 2.3-8.1 [facility] ([place]) Comment on above: Performed By: #### G IVANA TOBIN BMP, MDW, CBC, ADIFF #### [address] [address] BMPon 04-21-2023 BUN/Creatinine Ratio 13.8 ratio Normal 10.0-22.0 [facility] ([place]) Comment on above: Performed By: #### G IVANA TOBIN BMP, MDW, CBC, ADIFF #### [address] [address] Calcium [Mass/Vol] 8.7 mg/dL Normal 8.7-10.4 [facility] ([place]) Comment on above: Performed By: #### G IVANA TOBIN BMP, VINCENT, CBC, ADIFF #### [address] [address] Chloride [Moles/Vol] 106 mmol/L Normal 98-110 [facility] ([place]) Comment on above: Performed By: #### G IVANA TOBIN BMP, VINCENT, CBC, ADIFF #### [address] [address] CO2 [Moles/Vol] 30 mmol/L Normal 22-32 [facility] ([place]) Comment on above: Performed By: #### G FR, IVANA, RAFAEL, W, CBC, ADIFF #### [address] [address] Creatinine [Mass/Vol] 0.65 mg/dL Normal 0.50-1.20 [facility] ([place]) Comment on above: Performed By: #### G , IVANA, RAFAEL, W, CBC, ADIFF #### [place] [phone] Electrolyte Balance 4.0 mEq/L Normal 4.0-15.0 [facility] ([place]) Comment on above: Performed By: #### G , IVANA, RAFAEL, VINCENT, CBC, ADIFF #### [place] [phone] Glucose [Mass/Vol] 123 mg/dL High 82-115 [facility] ([place]) Comment on above: Performed By: #### G IVANA TOBIN, RAFAEL, VINCENT, CBC, ADIFF #### [place] [phone] Potassium [Moles/Vol] 4.4 mmol/L Normal 3.5-5.0 [facility] ([place]) Comment on above: Performed By: #### G , IVANA, RAFAEL, W, CBC, ADIFF #### [address] [address] Sodium [Moles/Vol] 140 mmol/L Normal 136-145 [facility] ([place]) Comment on above: Performed By: #### G , IVANA, RAFAEL, W, CBC, ADIFF #### [address] [address] Urea nitrogen [Mass/Vol] 9.0 mg/dL Normal 8.0-22.0 [facility] ([place]) Comment on above: Performed By: #### G , IVANA, RAFAEL, MDW, CBC, ADIFF #### [address] [address] CBCon 04-21-2023 Erythrocyte distribution width (RBC) [Ratio] 13.6 % Normal 11.5-15.5 [facility] ([place]) Comment on above: Performed By: #### G FR, ANEU, BMP, MDW, CBC, ADIFF #### [place] [phone] Hematocrit (Bld) [Volume fraction] 36.7 % Normal 34.0-46.0 [facility] ([place]) Comment on above: Performed By: #### G FR, ANEU, BMP, MDW, CBC, ADIFF #### [place] [address] Hgb 12.5 G/dL Normal 12.0-16.0 [facility] ([place]) Comment on above: Performed By: #### G FR, IVANA, RAFAEL, MDW, CBC, ADIFF #### [place] [address] MCH (RBC) [Entitic mass] 31.6 pg Normal 27.0-33.0 [facility] ([place]) Comment on above: Performed By: #### G FR, ANEU, BMP, MDW, CBC, ADIFF #### [place] [address] MCHC 33.9 G/dL Normal 32.0-36.0 [facility] ([place]) Comment on above: Performed By: #### G FR, ANEU, BMP, MDW, CBC, ADIFF #### [place] [address] MCV (RBC) [Entitic vol] 93.1 fL Normal 80.0-99.0 [facility] ([place]) Comment on above: Performed By: #### G FR, ANEU, BMP, MDW, CBC, ADIFF #### [place] [phone] Platelet 184 10 3/mcL Normal 150-450 [facility] ([place]) Comment on above: Performed By: #### G FR, ANEU, BMP, MDW, CBC, ADIFF #### [facility] [address] [place] [address] Platelet mean volume (Bld) [Entitic vol] 10.3 fL Normal 6.6-10.5 [facility] ([place]) Comment on above: Performed By: #### G FR, ANEU, BMP, MDW, CBC, ADIFF #### [place] [id number] [address] [place] [address]60 RBC 3.94 10 6/mcL Low 4.10-5.30 [facility] ([place]) Comment on above: Performed By: #### G FR, ANEU, BMP, MDW, CBC, ADIFF #### [facility] [address] [place] [address] 74243 WBC 6.1 10 3/mcL Normal 4.5-10.8 [facility] ([place]) Comment on above: Performed By: #### G FR, ANEU, BMP, MDW, CBC, ADIFF #### [place] [id number] [address] [place] [address] LABORATORYOrdered By: Carly Cerda on 04-21-2023 Glucose [Mass/Vol] 121 mg/dL Invalid Interpretation Code 82 - 115 mg/dL [facility] LABORATORYOrdered By: SYSTEM SYSTEM on 04-21-2023 Basophils (Bld) [#/Vol] 0.0 103/mcL Invalid Interpretation Code 0.0 - 0.3 10^3/mcL AH Workflow SS Basophils/100 WBC (Bld) 0.7 % Invalid Interpretation Code 0.0 - 2.5 % AH Workflow SS Calcium [Mass/Vol] 8.7 mg/dL Invalid Interpretation Code 8.7 - 10.4 mg/dL ADM SS Chloride [Moles/Vol] 106 mmol/L Invalid Interpretation Code 98 - 110 mEq/L AH ADM SS CO2 [Moles/Vol] 30 mmol/L Invalid Interpretation Code 22 - 32 mEq/L AH ADM SS Creatinine [Mass/Vol] 0.65 mg/dL Invalid Interpretation Code 0.50 - 1.20 mg/dL ADM SS Electrolyte Balance 4.0 mEq/L Invalid Interpretation Code 4.0 - 15.0 mEq/L ADM SS Eosinophils (Bld) [#/Vol] 0.3 103/mcL Invalid Interpretation Code 0.0 - 0.7 10^3/mcL Workflow SS Eosinophils/100 WBC (Bld) 4.4 % Invalid Interpretation Code 0.0 - 6.0 % Workflow SS Erythrocyte distribution width (RBC) [Ratio] 13.6 % Invalid Interpretation Code 11.5 - 15.5 % Workflow SS GFR/1.73 sq M.predicted among blacks MDRD (S/P/Bld) [Vol rate/Area] ml/min/1.73sqm Invalid Interpretation Code Chemistry S Comment on above: Interpretive Data: GFR Population mean for , Non- Americans Ages 20-29 = 116 mL/min/1.73 sq.m. Ages 30-39 = 107 mL/min/1.73 sq.m. Ages 40-49 = 99 mL/min/1.73 sq.m. Ages 50-59 = 93 mL/min/1.73 sq.m. Ages 60-69 = 85 mL/min/1.73 sq.m. Ages 70+ = 75 mL/min/1.73 sq.m. Chronic Kidney Disease: Less than 60 mL/min/1.73 square meters End Stage Renal Disease: Less than 15 mL/min/1.73 square meters GFR/1.73 sq M.predicted among non-blacks MDRD (S/P/Bld) [Vol rate/Area] ml/min/1.73sqm Invalid Interpretation Code Chemistry S Comment on above: Interpretive Data: GFR Population mean for , Non- Americans Ages 20-29 = 116 mL/min/1.73 sq.m. Ages 30-39 = 107 mL/min/1.73 sq.m. Ages 40-49 = 99 mL/min/1.73 sq.m. Ages 50-59 = 93 mL/min/1.73 sq.m. Ages 60-69 = 85 mL/min/1.73 sq.m. Ages 70+ = 75 mL/min/1.73 sq.m. Chronic Kidney Disease: Less than 60 mL/min/1.73 square meters End Stage Renal Disease: Less than 15 mL/min/1.73 square meters Glucose [Mass/Vol] 123 mg/dL Invalid Interpretation Code 82 - 115 mg/dL ADM SS Hematocrit (Bld) [Volume fraction] 36.7 % Invalid Interpretation Code 34.0 - 46.0 % AH Workflow SS Hemoglobin (Bld) [Mass/Vol] 12.5 G/dL Invalid Interpretation Code 12.0 - 16.0 G/dL AH Workflow SS Lymphocytes (Bld) [#/Vol] 1.8 103/mcL Invalid Interpretation Code 0.9 - 4.3 10^3/mcL AH Workflow SS Lymphocytes/100 WBC (Bld) 29.3 % Invalid Interpretation Code 20.0 - 40.0 % AH Workflow SS Magnesium [Mass/Vol] 1.6 mg/dL Invalid Interpretation Code 1.6 - 2.4 mg/dL AH ADM SS MCH (RBC) [Entitic mass] 31.6 pg Invalid Interpretation Code 27.0 - 33.0 pg AH Workflow SS MCHC 33.9 G/dL Invalid Interpretation Code 32.0 - 36.0 G/dL AH Workflow SS MCV (RBC) [Entitic vol] 93.1 fL Invalid Interpretation Code 80.0 - 99.0 fL AH Workflow SS Monocytes (Bld) [#/Vol] 0.4 103/mcL Invalid Interpretation Code 0.1 - 1.4 10^3/mcL AH Workflow SS Monocytes/100 WBC (Bld) 7.1 % Invalid Interpretation Code 2.0 - 13.0 % AH Workflow SS Neutrophils (Bld) [#/Vol] 3.6 103/mcL Invalid Interpretation Code 2.3 - 8.1 10^3/mcL AH Workflow SS Neutrophils/100 WBC (Bld) 58.5 % Invalid Interpretation Code 50.0 - 75.0 % AH Workflow SS Platelet mean volume (Bld) [Entitic vol] 10.3 fL Invalid Interpretation Code 6.6 - 10.5 fL AH Workflow SS Platelets (Bld) [#/Vol] 184 103/mcL Invalid Interpretation Code 150 - 450 10^3/mcL AH Workflow SS Potassium [Moles/Vol] 4.4 mmol/L Invalid Interpretation Code 3.5 - 5.0 mEq/L AH ADM SS RBC (Bld) [#/Vol] 3.94 106/mcL Invalid Interpretation Code 4.10 - 5.30 10^6/mcL AH Workflow SS Sodium [Moles/Vol] 140 mmol/L Invalid Interpretation Code 136 - 145 mEq/L ADM SS Urea nitrogen [Mass/Vol] 9.0 mg/dL Invalid Interpretation Code 8.0 - 22.0 mg/dL AH ADM SS Urea nitrogen/Creatinine [Mass ratio] 13.8 ratio Invalid Interpretation Code 10.0 - 22.0 ratio AH ADM SS WBC (Bld) [#/Vol] 6.1 103/mcL Invalid Interpretation Code 4.5 - 10.8 10^3/mcL AH Workflow SS MGon 04-21-2023 Magnesium [Mass/Vol] 1.6 mg/dL Normal 1.6-2.4 [facility] ([place]) Comment on above: Performed By: #### G FR, ANEU, BMP, MDW, CBC, ADIFF #### [address] [address] .Auto Diffon 04-20-2023 Basophil, Absolute 0.0 10 3/mcL Normal 0.0-0.3 [facility] ([place]) Comment on above: Performed By: #### A PARMINDER, BMP, ADIFF, GFR, CBC #### [address] [address] Basophils/100 WBC (Bld) 0.7 % Normal 0.0-2.5 [facility] ([place]) Comment on above: Performed By: #### A PARMINDER, BMP, ADIFF, GFR, CBC #### [address] [address] Eosinophil, Absolute 0.1 10 3/mcL Normal 0.0-0.7 [facility] ([place]) Comment on above: Performed By: #### A PARMINDER, BMP, ADIFF, GFR, CBC #### [address] [address] Eosinophils/100 WBC (Bld) 2.2 % Normal 0.0-6.0 [facility] ([place]) Comment on above: Performed By: #### A PARMINDER, BMP, ADIFF, GFR, CBC #### [address] [address] Lymphocyte, Absolute 1.4 10 3/mcL Normal 0.9-4.3 [facility] ([place]) Comment on above: Performed By: #### A PARMINDER, BMP, ADIFF, GFR, CBC #### [address] [address] Lymphocytes/100 WBC (Bld) 20.5 % Normal 20.0-40.0 [facility] ([place]) Comment on above: Performed By: #### A PARMINDER, BMP, ADIFF, GFR, CBC #### [address] [address] Monocyte, Absolute 0.4 10 3/mcL Normal 0.1-1.4 [facility] ([place]) Comment on above: Performed By: #### A PARMINDER, BMP, ADIFF, GFR, CBC #### [address] [address] Monocytes/100 WBC (Bld) 5.6 % Normal 2.0-13.0 [facility] ([place]) Comment on above: Performed By: #### A PARMINDER, BMP, ADIFF, GFR, CBC #### [address] [address] Neutrophils/100 WBC (Bld) 71.0 % Normal 50.0-75.0 [facility] ([place]) Comment on above: Performed By: #### A PARMINDER, BMP, ADIFF, GFR, CBC #### [address] [address] .GFRon 04-20-2023 GFR Non- >60 Normal [facility] ([place]) Comment on above: Result Comment: GFR Population mean for , Non- Americans Ages 20-29 = 116 mL/min/1.73 sq.m. Ages 30-39 = 107 mL/min/1.73 sq.m. Ages 40-49 = 99 mL/min/1.73 sq.m. Ages 50-59 = 93 mL/min/1.73 sq.m. Ages 60-69 = 85 mL/min/1.73 sq.m. Ages 70+ = 75 mL/min/1.73 sq.m. Chronic Kidney Disease: Less than 60 mL/min/1.73 square meters End Stage Renal Disease: Less than 15 mL/min/1.73 square meters Performed By: #### G FR, ANEU, BMP, MDW, CBC, ADIFF #### [address] [address] GFR >60 Normal [facility] ([place]) Comment on above: Result Comment: GFR Population mean for , Non- Americans Ages 20-29 = 116 mL/min/1.73 sq.m. Ages 30-39 = 107 mL/min/1.73 sq.m. Ages 40-49 = 99 mL/min/1.73 sq.m. Ages 50-59 = 93 mL/min/1.73 sq.m. Ages 60-69 = 85 mL/min/1.73 sq.m. Ages 70+ = 75 mL/min/1.73 sq.m. Chronic Kidney Disease: Less than 60 mL/min/1.73 square meters End Stage Renal Disease: Less than 15 mL/min/1.73 square meters Performed By: #### G , IVANA, RAFAEL, W, CBC, ADIFF #### [address] [address] .NEUABSon 04-20-2023 Neutrophil, Absolute 4.9 10 3/mcL Normal 2.3-8.1 [facility] ([place]) Comment on above: Performed By: #### G FR, IVANA, RAFAEL, MDW, CBC, ADIFF #### [address] [address] [facility] BUN/Creatinine Ratio 14.3 ratio Normal 10.0-22.0 [facility] ([place]) Comment on above: Performed By: #### G FR, ANEU, BMP, MDW, CBC, ADIFF #### [address] [address] Calcium [Mass/Vol] 8.8 mg/dL Normal 8.7-10.4 [facility] ([place]) Comment on above: Performed By: #### G FR, ANEU, BMP, MDW, CBC, ADIFF #### [address] [address] Chloride [Moles/Vol] 107 mmol/L Normal 98-110 [facility] ([place]) Comment on above: Performed By: #### G FR, ANEU, BMP, MDW, CBC, ADIFF #### [address] [address] CO2 [Moles/Vol] 28 mmol/L Normal 22-32 [facility] ([place]) Comment on above: Performed By: #### G , IVANA, RAFAEL, W, CBC, ADIFF #### [address] [address] Creatinine [Mass/Vol] 0.63 mg/dL Normal 0.50-1.20 [facility] ([place]) Comment on above: Performed By: #### G , IVANA, RAFAEL, W, CBC, ADIFF #### [address] [address] Electrolyte Balance 5.0 mEq/L Normal 4.0-15.0 [facility] ([place]) Comment on above: Performed By: #### G , IVANA, RAFAEL, W, CBC, ADIFF #### [address] [address] Glucose [Mass/Vol] 118 mg/dL High 82-115 [facility] ([place]) Comment on above: Performed By: #### G , IVANA, RAFAEL, W, CBC, ADIFF #### [address] [address] Potassium [Moles/Vol] 4.3 mmol/L Normal 3.5-5.0 [facility] ([place]) Comment on above: Performed By: #### G FR, IVANA, BMP, MDW, CBC, ADIFF #### [address] [address] Sodium [Moles/Vol] 140 mmol/L Normal 136-145 [facility] ([place]) Comment on above: Performed By: #### G FR, IVANA, BMP, MDW, CBC, ADIFF #### [address] [address] Urea nitrogen [Mass/Vol] 9.0 mg/dL Normal 8.0-22.0 [facility] ([place]) Comment on above: Performed By: #### G FR, ANEU, BMP, MDW, CBC, ADIFF #### [address] [address] CBCon 04-20-2023 Erythrocyte distribution width (RBC) [Ratio] 13.6 % Normal 11.5-15.5 [facility] ([place]) Comment on above: Performed By: #### A PARMINDER, BMP, ADIFF, GFR, CBC #### [place] [phone] Hematocrit (Bld) [Volume fraction] 38.3 % Normal 34.0-46.0 [facility] ([place]) Comment on above: Performed By: #### A PARMINDER, BMP, ADIFF, GFR, CBC #### [place] [address] Hgb 12.8 G/dL Normal 12.0-16.0 [facility] ([place]) Comment on above: Performed By: #### A PARMINDER, BMP, ADIFF, GFR, CBC #### [address] [address] MCH (RBC) [Entitic mass] 31.4 pg Normal 27.0-33.0 [facility] ([place]) Comment on above: Performed By: #### A PARMINDER, BMP, ADIFF, GFR, CBC #### [place] [phone] MCHC 33.5 G/dL Normal 32.0-36.0 [facility] ([place]) Comment on above: Performed By: #### A PARMINDER, BMP, ADIFF, GFR, CBC #### [place] [address] MCV (RBC) [Entitic vol] 93.7 fL Normal 80.0-99.0 [facility] ([place]) Comment on above: Performed By: #### A PARMINDER, BMP, ADIFF, GFR, CBC #### [place] [id number] Platelet 196 10 3/mcL Normal 150-450 [facility] ([place]) Comment on above: Performed By: #### A PARMINDER, BMP, ADIFF, GFR, CBC #### [address] [address] Platelet mean volume (Bld) [Entitic vol] 10.4 fL Normal 6.6-10.5 [facility] ([place]) Comment on above: Performed By: #### A PARMINDER, BMP, ADIFF, GFR, CBC #### [address] [address] RBC 4.09 10 6/mcL Low 4.10-5.30 [facility] ([place]) Comment on above: Performed By: #### A PARMINDER, BMP, ADIFF, GFR, CBC #### [place] [id number] [place] [address] WBC 6.9 10 3/mcL Normal 4.5-10.8 [facility] ([place]) Comment on above: Performed By: #### A PARMINDER, BMP, ADIFF, GFR, CBC #### [facility] [address] [place] [address] LABORATORYOrdered By: Kaveh Drake on 04-20-2023 Blood Glucose Testing Reason Routine (04/20/23 9:44 PM) [facility] LABORATORYOrdered By: Byron Ramachandran on 04-20-2023 Blood Glucose Testing Reason Routine (04/20/23 4:15 PM) [facility] LABORATORYOrdered By: SYSTEM SYSTEM on 04-20-2023 Basophils (Bld) [#/Vol] 0.0 103/mcL Invalid Interpretation Code 0.0 - 0.3 10^3/mcL Workflow SS Basophils/100 WBC (Bld) 0.7 % Invalid Interpretation Code 0.0 - 2.5 % Workflow SS Calcium [Mass/Vol] 8.8 mg/dL Invalid Interpretation Code 8.7 - 10.4 mg/dL ADM SS Chloride [Moles/Vol] 107 mmol/L Invalid Interpretation Code 98 - 110 mEq/L ADM SS CO2 [Moles/Vol] 28 mmol/L Invalid Interpretation Code 22 - 32 mEq/L ADM SS Creatinine [Mass/Vol] 0.63 mg/dL Invalid Interpretation Code 0.50 - 1.20 mg/dL ADM SS Electrolyte Balance 5.0 mEq/L Invalid Interpretation Code 4.0 - 15.0 mEq/L ADM SS Eosinophils (Bld) [#/Vol] 0.1 103/mcL Invalid Interpretation Code 0.0 - 0.7 10^3/mcL AH Workflow SS Eosinophils/100 WBC (Bld) 2.2 % Invalid Interpretation Code 0.0 - 6.0 % Workflow SS Erythrocyte distribution width (RBC) [Ratio] 13.6 % Invalid Interpretation Code 11.5 - 15.5 % Workflow SS GFR/1.73 sq M.predicted among blacks MDRD (S/P/Bld) [Vol rate/Area] ml/min/1.73sqm Invalid Interpretation Code Chemistry S Comment on above: Interpretive Data: GFR Population mean for , Non- Americans Ages 20-29 = 116 mL/min/1.73 sq.m. Ages 30-39 = 107 mL/min/1.73 sq.m. Ages 40-49 = 99 mL/min/1.73 sq.m. Ages 50-59 = 93 mL/min/1.73 sq.m. Ages 60-69 = 85 mL/min/1.73 sq.m. Ages 70+ = 75 mL/min/1.73 sq.m. Chronic Kidney Disease: Less than 60 mL/min/1.73 square meters End Stage Renal Disease: Less than 15 mL/min/1.73 square meters GFR/1.73 sq M.predicted among non-blacks MDRD (S/P/Bld) [Vol rate/Area] ml/min/1.73sqm Invalid Interpretation Code Chemistry S Comment on above: Interpretive Data: GFR Population mean for , Non- Americans Ages 20-29 = 116 mL/min/1.73 sq.m. Ages 30-39 = 107 mL/min/1.73 sq.m. Ages 40-49 = 99 mL/min/1.73 sq.m. Ages 50-59 = 93 mL/min/1.73 sq.m. Ages 60-69 = 85 mL/min/1.73 sq.m. Ages 70+ = 75 mL/min/1.73 sq.m. Chronic Kidney Disease: Less than 60 mL/min/1.73 square meters End Stage Renal Disease: Less than 15 mL/min/1.73 square meters Glucose [Mass/Vol] 118 mg/dL Invalid Interpretation Code 82 - 115 mg/dL ADM SS Hematocrit (Bld) [Volume fraction] 38.3 % Invalid Interpretation Code 34.0 - 46.0 % Workflow SS Hemoglobin (Bld) [Mass/Vol] 12.8 G/dL Invalid Interpretation Code 12.0 - 16.0 G/dL Workflow SS Lymphocytes (Bld) [#/Vol] 1.4 103/mcL Invalid Interpretation Code 0.9 - 4.3 10^3/mcL AH Workflow SS Lymphocytes/100 WBC (Bld) 20.5 % Invalid Interpretation Code 20.0 - 40.0 % Workflow SS MCH (RBC) [Entitic mass] 31.4 pg Invalid Interpretation Code 27.0 - 33.0 pg AH Workflow SS MCHC 33.5 G/dL Invalid Interpretation Code 32.0 - 36.0 G/dL Workflow SS MCV (RBC) [Entitic vol] 93.7 fL Invalid Interpretation Code 80.0 - 99.0 fL Workflow SS Monocytes (Bld) [#/Vol] 0.4 103/mcL Invalid Interpretation Code 0.1 - 1.4 10^3/mcL Workflow SS Monocytes/100 WBC (Bld) 5.6 % Invalid Interpretation Code 2.0 - 13.0 % Workflow SS Neutrophils (Bld) [#/Vol] 4.9 103/mcL Invalid Interpretation Code 2.3 - 8.1 10^3/mcL Workflow SS Neutrophils/100 WBC (Bld) 71.0 % Invalid Interpretation Code 50.0 - 75.0 % Workflow SS Platelet mean volume (Bld) [Entitic vol] 10.4 fL Invalid Interpretation Code 6.6 - 10.5 fL Workflow SS Platelets (Bld) [#/Vol] 196 103/mcL Invalid Interpretation Code 150 - 450 10^3/mcL AH Workflow SS Potassium [Moles/Vol] 4.3 mmol/L Invalid Interpretation Code 3.5 - 5.0 mEq/L AH ADM SS RBC (Bld) [#/Vol] 4.09 106/mcL Invalid Interpretation Code 4.10 - 5.30 10^6/mcL AH Workflow SS Sodium [Moles/Vol] 140 mmol/L Invalid Interpretation Code 136 - 145 mEq/L ADM SS Urea nitrogen [Mass/Vol] 9.0 mg/dL Invalid Interpretation Code 8.0 - 22.0 mg/dL ADM SS Urea nitrogen/Creatinine [Mass ratio] 14.3 ratio Invalid Interpretation Code 10.0 - 22.0 ratio AH ADM SS WBC (Bld) [#/Vol] 6.9 103/mcL Invalid Interpretation Code 4.5 - 10.8 10^3/[facility] AH Workflow SS .GFRon 04-19-2023 GFR >60 Normal [facility] ([place]) Comment on above: Result Comment: GFR Population mean for , Non- Americans Ages 20-29 = 116 mL/min/1.73 sq.m. Ages 30-39 = 107 mL/min/1.73 sq.m. Ages 40-49 = 99 mL/min/1.73 sq.m. Ages 50-59 = 93 mL/min/1.73 sq.m. Ages 60-69 = 85 mL/min/1.73 sq.m. Ages 70+ = 75 mL/min/1.73 sq.m. Chronic Kidney Disease: Less than 60 mL/min/1.73 square meters End Stage Renal Disease: Less than 15 mL/min/1.73 square meters Performed By: #### G , CMP #### [address] [address] GFR Non- >60 Normal [facility] ([place]) Comment on above: Result Comment: GFR Population mean for , Non- Americans Ages 20-29 = 116 mL/min/1.73 sq.m. Ages 30-39 = 107 mL/min/1.73 sq.m. Ages 40-49 = 99 mL/min/1.73 sq.m. Ages 50-59 = 93 mL/min/1.73 sq.m. Ages 60-69 = 85 mL/min/1.73 sq.m. Ages 70+ = 75 mL/min/1.73 sq.m. Chronic Kidney Disease: Less than 60 mL/min/1.73 square meters End Stage Renal Disease: Less than 15 mL/min/1.73 square meters Performed By: #### G FR, CMP #### [address] [address] A1Con 04-19-2023 HbA1c (Bld) [Mass fraction] 7.2 % High 4.0-6.0 [facility] ([place]) Comment on above: Performed By: #### G FR, ANEU, BMP, MDW, CBC, ADIFF #### [address] [address] [facility] 04-19-2023 Albumin Level 3.3 G/dL Normal 3.2-4.8 [facility] ([place]) Comment on above: Performed By: #### Edith TOBIN, CMP #### [place] [address] Albumin/Globulin [Mass ratio] 1.1 {ratio} Normal 0.9-1.6 [facility] ([place]) Comment on above: Performed By: #### Edith TOBIN, CMP #### [place] [address] ALP [Catalytic activity/Vol] 98 U/L Normal 38-126 [facility] ([place]) Comment on above: Performed By: #### Edith TOBIN, CMP #### [place] [address] ALT [Catalytic activity/Vol] 17 U/L Normal 10-49 [facility] ([place]) Comment on above: Performed By: #### Edith TOBIN, CMP #### [place] [address] AST [Catalytic activity/Vol] 18 U/L Normal 8-34 [facility] ([place]) Comment on above: Performed By: #### Edith TOBIN, CMP #### [place] [address] Bili Total 1.00 mg/dL Normal 0.20-1.20 [facility] ([place]) Comment on above: Result Comment: Use of this assay is not recommended for patients undergoing treatment with eltrombopag due to the potential for falsely elevated results. Performed By: #### Edith TOBIN, CMP #### [place] [address] BUN/Creatinine Ratio 19.4 ratio Normal 10.0-22.0 [facility] ([place]) Comment on above: Performed By: #### Edith TOBIN, CMP #### [place] [phone] Calcium [Mass/Vol] 8.2 mg/dL Low 8.7-10.4 [facility] ([place]) Comment on above: Performed By: #### Edith TOBIN, CMP #### [address] [address] Chloride [Moles/Vol] 108 mmol/L Normal 98-110 [facility] ([place]) Comment on above: Performed By: #### G , CMP #### [address] [address] CO2 [Moles/Vol] 27 mmol/L Normal 22-32 [facility] ([place]) Comment on above: Performed By: #### G , CMP #### [address] [address] Creatinine [Mass/Vol] 0.62 mg/dL Normal 0.50-1.20 [facility] ([place]) Comment on above: Performed By: #### Edith TOBIN, CMP #### [address] [address] Electrolyte Balance 5.0 mEq/L Normal 4.0-15.0 [facility] ([place]) Comment on above: Performed By: #### Edith TOBIN, CMP #### [address] [address] Globulin 3.0 G/dL Normal 1.5-3.8 [facility] ([place]) Comment on above: Performed By: #### Edith TOBIN, CMP #### [address] [address] Glucose [Mass/Vol] 138 mg/dL High 82-115 [facility] ([place]) Comment on above: Performed By: #### Edith TOBIN, CMP #### [address] [address] Potassium [Moles/Vol] 4.0 mmol/L Normal 3.5-5.0 [facility] ([place]) Comment on above: Performed By: #### Edith TOBIN, CMP #### [address] [address] Sodium [Moles/Vol] 140 mmol/L Normal 136-145 [facility] ([place]) Comment on above: Performed By: #### Edith TOBIN, CMP #### [address] [address] Total Protein 6.3 G/dL Normal 5.7-8.2 [facility] ([place]) Comment on above: Result Comment: No te - New Reference Range in effect 20 Performed By: #### G , CMP #### [place] [id number] [place] [address] Urea nitrogen [Mass/Vol] 12.0 mg/dL Normal 8.0-22.0 [facility] ([place]) Comment on above: Performed By: #### G , CMP #### [facility] [address] [place] [address] LABORATORYOrdered By: SYSTEM SYSTEM on 04-19-2023 Albumin BCP dye [Mass/Vol] 3.3 G/dL Invalid Interpretation Code 3.2 - 4.8 G/dL ADM SS Albumin/Globulin [Mass ratio] 1.1 {ratio} Invalid Interpretation Code 0.9 - 1.6 ratio AH ADM SS ALP [Catalytic activity/Vol] 98 U/L Invalid Interpretation Code 38 - 126 U/L ADM SS ALT No additional P-5'-P [Catalytic activity/Vol] 17 U/L Invalid Interpretation Code 10 - 49 U/L AH ADM SS AST [Catalytic activity/Vol] 18 U/L Invalid Interpretation Code 8 - 34 U/L AH ADM SS Bilirubin [Mass/Vol] 1.00 mg/dL Invalid Interpretation Code 0.20 - 1.20 mg/dL AH ADM SS Comment on above: Interpretive Data: U se of this assay is not recommended for patients undergoing treatment with eltrombopag due to the potential for falsely elevated results. Calcium [Mass/Vol] 8.2 mg/dL Invalid Interpretation Code 8.7 - 10.4 mg/dL AH ADM SS Chloride [Moles/Vol] 108 mmol/L Invalid Interpretation Code 98 - 110 mEq/L AH ADM SS CO2 [Moles/Vol] 27 mmol/L Invalid Interpretation Code 22 - 32 mEq/L AH ADM SS Creatinine [Mass/Vol] 0.62 mg/dL Invalid Interpretation Code 0.50 - 1.20 mg/dL AH ADM SS Electrolyte Balance 5.0 mEq/L Invalid Interpretation Code 4.0 - 15.0 mEq/L AH ADM SS GFR/1.73 sq M.predicted among blacks MDRD (S/P/Bld) [Vol rate/Area] ml/min/1.73sqm Invalid Interpretation Code ADM Comment on above: Interpretive Data: GFR Population mean for , Non- Americans Ages 20-29 = 116 mL/min/1.73 sq.m. Ages 30-39 = 107 mL/min/1.73 sq.m. Ages 40-49 = 99 mL/min/1.73 sq.m. Ages 50-59 = 93 mL/min/1.73 sq.m. Ages 60-69 = 85 mL/min/1.73 sq.m. Ages 70+ = 75 mL/min/1.73 sq.m. Chronic Kidney Disease: Less than 60 mL/min/1.73 square meters End Stage Renal Disease: Less than 15 mL/min/1.73 square meters GFR/1.73 sq M.predicted among non-blacks MDRD (S/P/Bld) [Vol rate/Area] ml/min/1.73sqm Invalid Interpretation Code ADM Comment on above: Interpretive Data: GFR Population mean for , Non- Americans Ages 20-29 = 116 mL/min/1.73 sq.m. Ages 30-39 = 107 mL/min/1.73 sq.m. Ages 40-49 = 99 mL/min/1.73 sq.m. Ages 50-59 = 93 mL/min/1.73 sq.m. Ages 60-69 = 85 mL/min/1.73 sq.m. Ages 70+ = 75 mL/min/1.73 sq.m. Chronic Kidney Disease: Less than 60 mL/min/1.73 square meters End Stage Renal Disease: Less than 15 mL/min/1.73 square meters Globulin 3.0 G/dL Invalid Interpretation Code 1.5 - 3.8 G/dL ADM SS Glucose [Mass/Vol] 138 mg/dL Invalid Interpretation Code 82 - 115 mg/dL ADM SS Potassium [Moles/Vol] 4.0 mmol/L Invalid Interpretation Code 3.5 - 5.0 mEq/L ADM SS Protein [Mass/Vol] 6.3 G/dL Invalid Interpretation Code 5.7 - 8.2 G/dL ADM SS Comment on above: Interpretive Data: * *Note - New Reference Range in effect 20 Sodium [Moles/Vol] 140 mmol/L Invalid Interpretation Code 136 - 145 mEq/L AH ADM SS Urea nitrogen [Mass/Vol] 12.0 mg/dL Invalid Interpretation Code 8.0 - 22.0 mg/dL ADM SS Urea nitrogen/Creatinine [Mass ratio] 19.4 ratio Invalid Interpretation Code 10.0 - 22.0 ratio AH ADM SS No Panel Informationon 04-19 Microscopic examination of blood, culture Culture has been received in lab and is no growth to date. Routine cultures are held for 5 days. [facility] .Auto Diffon 04-18-2023 Basophil, Absolute 0.1 10 3/mcL Normal 0.0-0.3 [facility] ([place]) Comment on above: Performed By: #### G FR, ANEU, BMP, MDW, CBC, ADIFF #### [address] [address] Basophils/100 WBC (Bld) 1.0 % Normal 0.0-2.5 [facility] ([place]) Comment on above: Performed By: #### G FR, ANEU, BMP, MDW, CBC, ADIFF #### [address] [address] Eosinophil, Absolute 0.1 10 3/mcL Normal 0.0-0.7 [facility] ([place]) Comment on above: Performed By: #### G FR, ANEU, BMP, MDW, CBC, ADIFF #### [address] [address] Eosinophils/100 WBC (Bld) 1.3 % Normal 0.0-6.0 [facility] ([place]) Comment on above: Performed By: #### G FR, ANEU, BMP, MDW, CBC, ADIFF #### [address] [address] Lymphocyte, Absolute 1.8 10 3/mcL Normal 0.9-4.3 [facility] ([place]) Comment on above: Performed By: #### G FR, ANEU, BMP, MDW, CBC, ADIFF #### [address] [address] Lymphocytes/100 WBC (Bld) 23.8 % Normal 20.0-40.0 [facility] ([place]) Comment on above: Performed By: #### G FR, ANEU, BMP, MDW, CBC, ADIFF #### [address] [address] Monocyte, Absolute 0.6 10 3/mcL Normal 0.1-1.4 [facility] ([place]) Comment on above: Performed By: #### G FR, ANEU, BMP, MDW, CBC, ADIFF #### [address] [address] Monocytes/100 WBC (Bld) 7.7 % Normal 2.0-13.0 [facility] ([place]) Comment on above: Performed By: #### G FR, ANEU, BMP, MDW, CBC, ADIFF #### [address] [address] Neutrophils/100 WBC (Bld) 66.2 % Normal 50.0-75.0 [facility] ([place]) Comment on above: Performed By: #### G FR, ANEU, BMP, MDW, CBC, ADIFF #### [address] [address] .GFRon 04-18-2023 GFR >60 Normal [facility] ([place]) Comment on above: Result Comment: GFR Population mean for , Non- Americans Ages 20-29 = 116 mL/min/1.73 sq.m. Ages 30-39 = 107 mL/min/1.73 sq.m. Ages 40-49 = 99 mL/min/1.73 sq.m. Ages 50-59 = 93 mL/min/1.73 sq.m. Ages 60-69 = 85 mL/min/1.73 sq.m. Ages 70+ = 75 mL/min/1.73 sq.m. Chronic Kidney Disease: Less than 60 mL/min/1.73 square meters End Stage Renal Disease: Less than 15 mL/min/1.73 square meters Performed By: #### G FR, ANEU, BMP, MDW, CBC, ADIFF #### [address] [address] GFR Non- >60 Normal [facility] ([place]) Comment on above: Result Comment: GFR Population mean for , Non- Americans Ages 20-29 = 116 mL/min/1.73 sq.m. Ages 30-39 = 107 mL/min/1.73 sq.m. Ages 40-49 = 99 mL/min/1.73 sq.m. Ages 50-59 = 93 mL/min/1.73 sq.m. Ages 60-69 = 85 mL/min/1.73 sq.m. Ages 70+ = 75 mL/min/1.73 sq.m. Chronic Kidney Disease: Less than 60 mL/min/1.73 square meters End Stage Renal Disease: Less than 15 mL/min/1.73 square meters Performed By: #### G IVANA TOBIN BMP, VINCENT, CBC, ADIFF #### [address] [address] .MDWon 04-18-2023 Monocyte Distribution Width 17.68 Normal 0.00-20.00 [facility]) Comment on above: Result Comment: For ED adult patients suspected of sepsis, MDW<=20.0 does not rule out sepsis or risk of sepsis Performed By: #### G IVANA TOBIN BMP, VINCENT, CBC, ADIFF #### [address] [address] .NEUABSon 04-18-2023 Neutrophil, Absolute 4.9 10 3/mcL Normal 2.3-8.1 [facility] ([place]) Comment on above: Performed By: #### G IVANA TOBIN BMP, VINCENT, CBC, ADIFF #### [address] [address] BUN/Creatinine Ratio 13.5 ratio Normal 10.0-22.0 [facility] ([place]) Comment on above: Performed By: #### G IVANA TOBIN, RAFAEL, VINCENT, CBC, ADIFF #### [address] [address] Calcium [Mass/Vol] 8.9 mg/dL Normal 8.7-10.4 [facility] ([place]) Comment on above: Performed By: #### G , IVANA, RAFAEL, VINCENT, CBC, ADIFF #### [address] [address] Chloride [Moles/Vol] 106 mmol/L Normal 98-110 [facility] ([place]) Comment on above: Performed By: #### G FR, IVANA, RAFAEL, VINCENT, CBC, ADIFF #### [address] [address] CO2 [Moles/Vol] 26 mmol/L Normal 22-32 [facility] ([place]) Comment on above: Performed By: #### G , IVANA, RAFAEL, W, CBC, ADIFF #### [address] [address] Creatinine [Mass/Vol] 0.74 mg/dL Normal 0.50-1.20 [facility] ([place]) Comment on above: Performed By: #### G , IVANA, RAFAEL, VINCENT, CBC, ADIFF #### [place] [address] Electrolyte Balance 8.0 mEq/L Normal 4.0-15.0 [facility] ([place]) Comment on above: Performed By: #### G IVANA TOBIN, RAFAEL, VINCENT, CBC, ADIFF #### [place] [address] Glucose [Mass/Vol] 152 mg/dL High 82-115 [facility] ([place]) Comment on above: Performed By: #### G , IVANA, RAFAEL, VINCENT, CBC, ADIFF #### [place] [phone] Potassium [Moles/Vol] 3.4 mmol/L Low 3.5-5.0 [facility] ([place]) Comment on above: Performed By: #### G , IVANA, RAFAEL, W, CBC, ADIFF #### [place] [phone] Sodium [Moles/Vol] 140 mmol/L Normal 136-145 [facility] ([place]) Comment on above: Performed By: #### Edith TOBIN, IVANA, RAFAEL, W, CBC, ADIFF #### [place] [address] Urea nitrogen [Mass/Vol] 10.0 mg/dL Normal 8.0-22.0 [facility] ([place]) Comment on above: Performed By: #### G FR, ANEU, BMP, MDW, CBC, ADIFF #### [place] [id number] CBCon 04-18-2023 Erythrocyte distribution width (RBC) [Ratio] 13.4 % Normal 11.5-15.5 [facility] ([place]) Comment on above: Performed By: #### G FR, ANEU, BMP, MDW, CBC, ADIFF #### [place] [address] Hematocrit (Bld) [Volume fraction] 39.8 % Normal 34.0-46.0 [facility] ([place]) Comment on above: Performed By: #### G FR, IVANA, BMP, MDW, CBC, ADIFF #### [place] [id number] Hgb 13.4 G/dL Normal 12.0-16.0 [facility] ([place]) Comment on above: Performed By: #### G , IVANA, BMP, MDW, CBC, ADIFF #### [place] [id number] MCH (RBC) [Entitic mass] 31.1 pg Normal 27.0-33.0 [facility] ([place]) Comment on above: Performed By: #### G FR, ANEU, BMP, MDW, CBC, ADIFF #### [place] [id number] MCHC 33.6 G/dL Normal 32.0-36.0 [facility] [facility] Comment on above: Performed By: #### G FR, ANEU, BMP, MDW, CBC, ADIFF #### [place] [address] MCV (RBC) [Entitic vol] 92.6 fL Normal 80.0-99.0 [facility] ([place]) Comment on above: Performed By: #### G FR, ANEU, BMP, MDW, CBC, ADIFF #### [place] [id number] [place] [address] Platelet 199 10 3/mcL Normal 150-450 [facility] ([place]) Comment on above: Performed By: #### G FR, ANEU, BMP, MDW, CBC, ADIFF #### [place] [id number] [place] [phone] Platelet mean volume (Bld) [Entitic vol] 10.5 fL Normal 6.6-10.5 [facility] ([place]) Comment on above: Performed By: #### G FR, ANEU, BMP, MDW, CBC, ADIFF #### [place] [id number] [place] [address] RBC 4.30 10 6/mcL Normal 4.10-5.30 [facility] ([place]) Comment on above: Performed By: #### G FR, ANEU, BMP, MDW, CBC, ADIFF #### [address] [address] WBC 7.5 10 3/mcL Normal 4.5-10.8 [facility] ([place]) Comment on above: Performed By: #### G FR, ANEU, BMP, MDW, CBC, ADIFF #### [address] [address] LABORATORYOrdered By: SYSTEM SYSTEM on 04-18-2023 Basophils (Bld) [#/Vol] 0.1 103/mcL Invalid Interpretation Code 0.0 - 0.3 10^3/mcL Workflow SS Basophils/100 WBC (Bld) 1.0 % Invalid Interpretation Code 0.0 - 2.5 % Workflow SS Eosinophils (Bld) [#/Vol] 0.1 103/mcL Invalid Interpretation Code 0.0 - 0.7 10^3/mcL Workflow SS Eosinophils/100 WBC (Bld) 1.3 % Invalid Interpretation Code 0.0 - 6.0 % Workflow SS Erythrocyte distribution width (RBC) [Ratio] 13.4 % Invalid Interpretation Code 11.5 - 15.5 % Workflow SS HbA1c (Bld) [Mass fraction] 7.2 % Invalid Interpretation Code 4.0 - 6.0 % Auto Chem SS Hematocrit (Bld) [Volume fraction] 39.8 % Invalid Interpretation Code 34.0 - 46.0 % AH Workflow SS Hemoglobin (Bld) [Mass/Vol] 13.4 G/dL Invalid Interpretation Code 12.0 - 16.0 G/dL AH Workflow SS Lymphocytes (Bld) [#/Vol] 1.8 103/mcL Invalid Interpretation Code 0.9 - 4.3 10^3/mcL AH Workflow SS Lymphocytes/100 WBC (Bld) 23.8 % Invalid Interpretation Code 20.0 - 40.0 % AH Workflow SS MCH (RBC) [Entitic mass] 31.1 pg Invalid Interpretation Code 27.0 - 33.0 pg AH Workflow SS MCHC 33.6 G/dL Invalid Interpretation Code 32.0 - 36.0 G/dL AH Workflow SS MCV (RBC) [Entitic vol] 92.6 fL Invalid Interpretation Code 80.0 - 99.0 fL AH Workflow SS Monocyte distribution width Auto (Bld) [Entitic vol] 17.68 1 Invalid Interpretation Code 0.00 - 20.00 AH Workflow SS Comment on above: Result Comment: For ED adult patients suspected of sepsis, MDW<=20.0 does not rule out sepsis or risk of sepsis Monocytes (Bld) [#/Vol] 0.6 103/mcL Invalid Interpretation Code 0.1 - 1.4 10^3/mcL AH Workflow SS Monocytes/100 WBC (Bld) 7.7 % Invalid Interpretation Code 2.0 - 13.0 % AH Workflow SS Neutrophils (Bld) [#/Vol] 4.9 103/mcL Invalid Interpretation Code 2.3 - 8.1 10^3/mcL AH Workflow SS Neutrophils/100 WBC (Bld) 66.2 % Invalid Interpretation Code 50.0 - 75.0 % AH Workflow SS Platelet mean volume (Bld) [Entitic vol] 10.5 fL Invalid Interpretation Code 6.6 - 10.5 fL AH Workflow SS Platelets (Bld) [#/Vol] 199 103/mcL Invalid Interpretation Code 150 - 450 10^3/mcL AH Workflow SS RBC (Bld) [#/Vol] 4.30 106/mcL Invalid Interpretation Code 4.10 - 5.30 10^6/mcL AH Workflow SS WBC (Bld) [#/Vol] 7.5 103/mcL Invalid Interpretation Code 4.5 - 10.8 10^3/mcL AH Workflow SS LABORATORYOrdered By: Sylvia Montana on 04-18-2023 Cholesterol [Mass/Vol] 179 mg/dL Invalid Interpretation Code 50 - 199 mg/dL ADM SS Comment on above: Interpretive Data: C holesterol Reference Interval: Less than 200 Desirable 200-239 Borderline high risk 240 and above High risk Cholesterol in HDL [Mass/Vol] 30 mg/dL Invalid Interpretation Code 40 - 59 mg/dL ADM SS Cholesterol in LDL [Mass/Vol] 116 mg/dL Invalid Interpretation Code 0 - 129 mg/dL ADM SS Triglyceride [Mass/Vol] 163 mg/dL Invalid Interpretation Code 3 - 149 mg/dL ADM SS LIPIDon 04-18-2023 Cholesterol [Mass/Vol] 179 mg/dL Normal 50-199 [facility] ([place]) Comment on above: Result Comment: Chol esterol Reference Interval: Less than 200 Desirable 200-239 Borderline high risk 240 and above High risk Performed By: #### G , IVANA, RAFAEL, VINCENT, CBC, ADIFF #### [address] [address] Cholesterol in HDL [Mass/Vol] 30 mg/dL Low 40-59 [facility] ([place]) Comment on above: Performed By: #### G , IVANA, RAFAEL, VINCENT, CBC, ADIFF #### [address] [address] Cholesterol in LDL [Mass/Vol] 116 mg/dL Normal 0-129 [facility] ([place]) Comment on above: Performed By: #### G , VIANA, RAFAEL, VINCENT, CBC, ADIFF #### [address] [address] Triglyceride [Mass/Vol] 163 mg/dL High 3-149 [facility] ([place]) Comment on above: Performed By: #### G , IVANA, RAFAEL, W, CBC, ADIFF #### [address] [address] MRI BRAIN W/O CONTRASTon MRI BRAIN W/O CONTRAST ORIGINAL EXAMINATION: MRI OF THE BRAIN WITHOUT CONTRAST 04/18/2023 1:51 pm TECHNIQUE: Multiplanar multisequence MRI of the brain was performed without the administration of intravenous contrast. COMPARISON: Head CT [id number] from outside facility the. HISTORY: ORDERING SYSTEM PROVIDED HISTORY: Reason for Exam: TIA Fall. Difficulty walking. Right side and leg numbness. Right-sided weakness. FINDINGS: INTRACRANIAL STRUCTURES/VENTRICL ES: There is restricted diffusion in the left basal ganglia extending to the left periventricular region corresponding to hypodense area on CT consistent with acute infarct. No mass effect or midline shift. No evidence of an acute intracranial hemorrhage. The ventricles are mildly enlarged with commensurate enlargement of the sulci most consistent with mild age-related volume loss. The sellar/suprasellar regions appear unremarkable. The normal signal voids within the major intracranial vessels appear maintained. ORBITS: The visualized portion of the orbits demonstrate no acute abnormality. SINUSES: A mucous retention cyst is shown in the left maxillary sinus. The paranasal sinuses and mastoid air cells are predominantly clear however. BONES/SOFT TISSUES: The bone marrow signal intensity appears normal. The soft tissues demonstrate no acute abnormality. 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 Interpreted by: Brooke Jiang MD Preliminary Report By: Brooke Jiang MD Electronically signed By Brooke Jiang MD Dictated Date: 04/18/2023 4:17:50 PM Prelim Date: 04/18/2023 4:21:44 PM Sign Date: 04/18/2023 4:21:44 PM Ordering Provider: OMARI COOPER Normal [facility] ([place]) [facility] 04-18-2023 Color (U) Yellow Normal [facility] ([place]) Comment on above: Performed By: #### G IVANA TOBIN BMP, MDW, CBC, ADIFF #### [address] [address] Glucose (U) [Mass/Vol] Negative Normal Negative [facility] ([place]) Comment on above: Performed By: #### G IVANA TOBIN BMP, VINCENT, CBC, ADIFF #### [address] [address] Ketones Ql (U) 15 mg/dL Abnormal Neg-Trace [facility] ([place]) Comment on above: Performed By: #### G IVANA TOBIN BMP, MDW, CBC, ADIFF #### [address] [address] UA Appear Clear Normal Clear [facility] ([place]) Comment on above: Performed By: #### G FR, ANEU, RAFAEL, W, CBC, ADIFF #### [address] [address] UA Blood Negative Normal Neg-Trace [facility] ([place]) Comment on above: Performed By: #### G FR, ANEU, BMP, W, CBC, ADIFF #### [address] [address] UA Leuk Est Negative Normal Negative [facility] ([place]) Comment on above: Performed By: #### G FR, ANEU, BMP, W, CBC, ADIFF #### [address] [address] UA Nitrite Negative Normal Negative [facility] ([place]) Comment on above: Performed By: #### G FR, ANEU, BMP, W, CBC, ADIFF #### [address] [address] UA pH 5.0 Normal 5.0 - 8.0 [facility] ([place]) Comment on above: Performed By: #### G FR, ANEU, BMP, W, CBC, ADIFF #### [address] [address] UA Protein 30 mg/dL Normal Negative [facility] ([place]) Comment on above: Performed By: #### G FR, ANEU, BMP, MDW, CBC, ADIFF #### [address] [address] UA Spec Grav >=1.030 Abnormal 1.006-1.029 [facility] ([place]) Comment on above: Performed By: #### G FR, ANEU, BMP, MDW, CBC, ADIFF #### [address] [address] UA Specimen Type Clean Catch Normal [facility] ([place]) Comment on above: Performed By: #### G FR, ANEU, BMP, MDW, CBC, ADIFF #### [address] [address] UA Urobilinogen 1.0 E.U./dL Normal 0.2-1.0 [facility] ([place]) Comment on above: Performed By: #### G FR, ANEU, BMP, MDW, CBC, ADIFF #### [address] [address] Urobilinogen (U) [Mass/Vol] Negative Normal Neg-Trace [facility] ([place]) Comment on above: Performed By: #### G FR, ANEU, BMP, MDW, CBC, ADIFF #### [address] [address] .Auto Diffon 04-17-2023 Basophil, Absolute 0.1 10 3/mcL Normal 0.0-0.3 [facility] ([place]) Comment on above: Performed By: #### G FR, ANEU, BMP, MDW, CBC, ADIFF #### [address] [address] Basophils/100 WBC (Bld) 1.1 % Normal 0.0-2.5 [facility] ([place]) Comment on above: Performed By: #### G FR, ANEU, BMP, MDW, CBC, ADIFF #### [address] [address] Eosinophil, Absolute 0.1 10 3/mcL Normal 0.0-0.7 [facility] ([place]) Comment on above: Performed By: #### G FR, ANEU, BMP, MDW, CBC, ADIFF #### [address] [address] Eosinophils/100 WBC (Bld) 0.9 % Normal 0.0-6.0 [facility] ([place]) Comment on above: Performed By: #### G FR, ANEU, BMP, MDW, CBC, ADIFF #### [address] [address] Lymphocyte, Absolute 1.6 10 3/mcL Normal 0.9-4.3 [facility] ([place]) Comment on above: Performed By: #### G FR, ANEU, BMP, MDW, CBC, ADIFF #### [address] [address] Lymphocytes/100 WBC (Bld) 22.9 % Normal 20.0-40.0 [facility] ([place]) Comment on above: Performed By: #### G FR, ANEU, BMP, MDW, CBC, ADIFF #### [address] [address] Monocyte, Absolute 0.5 10 3/mcL Normal 0.1-1.4 [facility] ([place]) Comment on above: Performed By: #### G FR, ANEU, BMP, MDW, CBC, ADIFF #### [address] [address] Monocytes/100 WBC (Bld) 6.5 % Normal 2.0-13.0 [facility] ([place]) Comment on above: Performed By: #### G FR, ANEU, BMP, MDW, CBC, ADIFF #### [address] [address] Neutrophils/100 WBC (Bld) 68.6 % Normal 50.0-75.0 [facility] ([place]) Comment on above: Performed By: #### G FR, ANEU, BMP, MDW, CBC, ADIFF #### [address] [address] .GFRon 04-17-2023 GFR >60 Normal [facility] ([place]) Comment on above: Result Comment: GFR Population mean for , Non- Americans Ages 20-29 = 116 mL/min/1.73 sq.m. Ages 30-39 = 107 mL/min/1.73 sq.m. Ages 40-49 = 99 mL/min/1.73 sq.m. Ages 50-59 = 93 mL/min/1.73 sq.m. Ages 60-69 = 85 mL/min/1.73 sq.m. Ages 70+ = 75 mL/min/1.73 sq.m. Chronic Kidney Disease: Less than 60 mL/min/1.73 square meters End Stage Renal Disease: Less than 15 mL/min/1.73 square meters Performed By: #### G FR, ANEU, BMP, MDW, CBC, ADIFF #### [address] [address] GFR Non- >60 Normal [facility] ([place]) Comment on above: Result Comment: GFR Population mean for , Non- Americans Ages 20-29 = 116 mL/min/1.73 sq.m. Ages 30-39 = 107 mL/min/1.73 sq.m. Ages 40-49 = 99 mL/min/1.73 sq.m. Ages 50-59 = 93 mL/min/1.73 sq.m. Ages 60-69 = 85 mL/min/1.73 sq.m. Ages 70+ = 75 mL/min/1.73 sq.m. Chronic Kidney Disease: Less than 60 mL/min/1.73 square meters End Stage Renal Disease: Less than 15 mL/min/1.73 square meters Performed By: #### G , IVANA, RAFAEL, W, CBC, ADIFF #### [address] [address] .MDWon 04-17-2023 Monocyte Distribution Width 18.24 Normal 0.00-20.00 [facility] ([place]) Comment on above: Result Comment: For ED adult patients suspected of sepsis, MDW<=20.0 does not rule out sepsis or risk of sepsis Performed By: #### G , IVANA, RAFAEL, MDW, CBC, ADIFF #### [place] [address] .NEUABSon 04-17-2023 Neutrophil, Absolute 4.9 10 3/mcL Normal 2.3-8.1 [facility] ([place]) Comment on above: Performed By: #### G , IVANA, RAFAEL, MDW, CBC, ADIFF #### [address] [address] BMPon 04-17-2023 BUN/Creatinine Ratio 13.2 ratio Normal 10.0-22.0 [facility] ([place]) Comment on above: Performed By: #### G , IVANA, RAFAEL, MDW, CBC, ADIFF #### [address] [address] Calcium [Mass/Vol] 8.7 mg/dL Normal 8.7-10.4 [facility] ([place]) Comment on above: Performed By: #### G FR, ANEU, BMP, MDW, CBC, ADIFF #### [address] [address] Chloride [Moles/Vol] 105 mmol/L Normal 98-110 [facility] ([place]) Comment on above: Performed By: #### G FR, ANEU, BMP, MDW, CBC, ADIFF #### [address] [address] CO2 [Moles/Vol] 23 mmol/L Normal 22-32 [facility] ([place]) Comment on above: Performed By: #### G FR, ANEU, BMP, MDW, CBC, ADIFF #### [address] [address] Creatinine [Mass/Vol] 0.68 mg/dL Normal 0.50-1.20 [facility] ([place]) Comment on above: Performed By: #### G FR, IVANA, BMP, MDW, CBC, ADIFF #### [place] [phone] Electrolyte Balance 8.0 mEq/L Normal 4.0-15.0 [facility] ([place]) Comment on above: Performed By: #### G FR, ANEU, BMP, MDW, CBC, ADIFF #### [place] [phone] Glucose [Mass/Vol] 120 mg/dL High 82-115 [facility] ([place]) Comment on above: Performed By: #### G FR, ANEU, BMP, MDW, CBC, ADIFF #### [place] [phone] Potassium [Moles/Vol] 3.5 mmol/L Normal 3.5-5.0 [facility] ([place]) Comment on above: Result Comment: Spec imen slightly hemolyzed. Performed By: #### G FR, ANEU, BMP, MDW, CBC, ADIFF #### [address] [address] Sodium [Moles/Vol] 136 mmol/L Normal 136-145 [facility] ([place]) Comment on above: Performed By: #### G FR, ANEU, BMP, MDW, CBC, ADIFF #### [place] [address] Urea nitrogen [Mass/Vol] 9.0 mg/dL Normal 8.0-22.0 [facility] ([place]) Comment on above: Performed By: #### G FR, ANEU, BMP, MDW, CBC, ADIFF #### [place] [address] CBCon 04-17-2023 Erythrocyte distribution width (RBC) [Ratio] 13.4 % Normal 11.5-15.5 [facility] ([place]) Comment on above: Performed By: #### G FR, ANEU, BMP, MDW, CBC, ADIFF #### [place] [address] Hematocrit (Bld) [Volume fraction] 40.8 % Normal 34.0-46.0 [facility] ([place]) Comment on above: Performed By: #### G FR, ANEU, BMP, MDW, CBC, ADIFF #### [place] [address] Hgb 13.5 G/dL Normal 12.0-16.0 [facility] ([place]) Comment on above: Performed By: #### G FR, ANEU, BMP, MDW, CBC, ADIFF #### [place] [address] MCH (RBC) [Entitic mass] 30.9 pg Normal 27.0-33.0 [facility] ([place]) Comment on above: Performed By: #### G FR, ANEU, BMP, MDW, CBC, ADIFF #### [place] [address] MCHC 33.2 G/dL Normal 32.0-36.0 [facility] ([place]) Comment on above: Performed By: #### G FR, ANEU, BMP, MDW, CBC, ADIFF #### [place] [address] MCV (RBC) [Entitic vol] 93.3 fL Normal 80.0-99.0 [facility] ([place]) Comment on above: Performed By: #### G FR, ANEU, BMP, MDW, CBC, ADIFF #### [address] [address] Platelet 219 10 3/mcL Normal 150-450 [facility] ([place]) Comment on above: Performed By: #### G FR, ANEU, BMP, MDW, CBC, ADIFF #### [address] [address] Platelet mean volume (Bld) [Entitic vol] 10.4 fL Normal 6.6-10.5 [facility] ([place]) Comment on above: Performed By: #### G FR, ANEU, BMP, MDW, CBC, ADIFF #### [place] [address] RBC 4.38 10 6/mcL Normal 4.10-5.30 [facility] ([place]) Comment on above: Performed By: #### G FR, ANEU, BMP, MDW, CBC, ADIFF #### [place] [address] WBC 7.1 10 3/mcL Normal 4.5-10.8 [facility] ([place]) Comment on above: Performed By: #### G FR, ANEU, BMP, MDW, CBC, ADIFF #### [address] [address] LABORATORYOrdered By: Rosana Bauer on 04-17-2023 Appearance (U) Clear (04/17/23 11:05 PM) Invalid Interpretation Code Clear Auto Urine SS Bilirubin Ql (U) Negative (04/17/23 11:05 PM) Invalid Interpretation Code Neg-Trace AH Auto Urine SS Color (U) Yellow (04/17/23 11:05 PM) Invalid Interpretation Code AH Auto Urine SS Glucose Test strip (U) [Mass/Vol] Negative Invalid Interpretation Code Negative AH Auto Urine SS Hemoglobin Auto test strip (U) [Mass/Vol] Negative (04/17/23 11:05 PM) Invalid Interpretation Code Neg-Trace AH Auto Urine SS Ketones Ql (U) 15 mg/dL Invalid Interpretation Code Neg-Trace AH Auto Urine SS UA Leuk Est Negative (04/17/23 11:05 PM) Invalid Interpretation Code Negative AH Auto Urine SS UA Nitrite Negative (04/17/23 11:05 PM) Invalid Interpretation Code Negative AH Auto Urine SS UA pH 5.0 (04/17/23 11:05 PM) Invalid Interpretation Code 5.0 - 8.0 AH Auto Urine SS UA Protein 30 mg/dL Invalid Interpretation Code Negative AH Auto Urine SS UA Spec Grav >=1.030 *ABN* (04/17/23 11:05 PM) Invalid Interpretation Code 1.006-1.029 AH Auto Urine SS UA Specimen Type Clean Catch (04/17/23 11:05 PM) Invalid Interpretation Code AH Auto Urine SS UA Urobilinogen 1.0 E.U./dL Invalid Interpretation Code 0.2-1.0 AH Auto Urine SS LABORATORYOrdered By: SYSTEM SYSTEM on 04-17-2023 Monocyte distribution width Auto (Bld) [Entitic vol] 18.24 1 Invalid Interpretation Code 0.00 - 20.00 AH Workflow SS Comment on above: Result Comment: For ED adult patients suspected of sepsis, MDW<=20.0 does not rule out sepsis or risk of sepsis No Panel Informationon 04-17 Culture Urine 10,000 - 50,000 cfu/ml Multiple bacterial morphotypes present. Probable Contamination. Suggest recollection if clinically indicated. [facility] VitD, 1,25 Dihydroxyon 07-10 1,25 Dihydroxy VitD2 11.9 pg/mL Normal [facility] Comment on above: Performed By: #### 1 25VTD #### [facility] [address] [place], [place] [address] 1,25 Dihydroxy VitD3 48.3 pg/mL Normal [facility] Comment on above: Performed By: #### 1 25VTD #### [facility] [address] [place], [place] [address] Vit D,1,25 DiOH High 15.0-60.0 [facility] Comment on above: Result Comment: 60.2 This test was developed and its performance characteristics determined by [facility]'s [facility] [place] ([facility]). It has not been cleared or approved by the FDA. [facility] is regulated under CLIA as qualified to perform high complexity testing. This test is used for clinical purposes. It should not be regarded as investigational or for research. Performed By: #### 1 25VTD #### [facility] [address] [place] [address] Hemoglobin A1con 07-04-2020 HbA1c (Bld) [Mass fraction] 7.2 % High 4.3-5.6 [facility] Comment on above: Performed By: #### H WILLIAM1C #### [facility] [address] [place] [address] HbA1c (Bld) [Mass fraction] 160 mg/dL Normal [facility] Comment on above: Performed By: #### H BA1C #### [facility] [phone] Hemoglobin A1con 12-24-2019 HbA1c (Bld) [Mass fraction] 6.7 % High 4.3-5.6 [facility] Comment on above: Performed By: #### H WILLIAM1C #### [facility] [phone] HbA1c (Bld) [Mass fraction] 146 mg/dL Normal [facility] Comment on above: Performed By: #### H BA1C #### [facility] [phone] Hemoglobin A1con 09-28-2019 HbA1c (Bld) [Mass fraction] 7.1 % High 4.3-5.6 [facility] Comment on above: Performed By: #### H BA1C #### [facility] [address] [place] [address] HbA1c (Bld) [Mass fraction] 157 mg/dL Normal [facility] Comment on above: Performed By: #### H BA1C #### [facility] [address] [place] [address] Vital Signs Date Time Vital Sign Value Performing Clinician Facility 02-09-2025 09:50-0400 Body height 152.[address] Neo Castillo MD Work Phone: [facility] 02-09-2025 09:50-0400 Body mass index (BMI) [Ratio] 28.5 kg/m2 Dr. Neo Castillo MD Work Phone: [facility] 02-09-2025 09:50-0400 Body temperature 97.5 [degF] Dr. Neo Castillo MD Work Phone: [facility] 02-09-2025 09:50-0400 Body weight 66.[address] Neo Castillo MD Work Phone: [facility] 02-09-2025 09:50-0400 Diastolic blood pressure 69 mm[Hg] Dr. Neo Castillo MD Work Phone: [facility] 02-09-2025 09:50-0400 Heart rate 92 /min Dr. eNo Castlilo MD Work Phone: [facility] 02-09-2025 09:50-0400 Respiratory rate 18 /min Dr. Neo Castillo MD Work Phone: [facility] 02-09-2025 09:50-0400 SaO2% (BldA) [Mass fraction] 92 % Dr. Neo Castillo MD Work Phone: [facility] 02-09-2025 09:50-0400 Systolic blood pressure 114 mm[Hg] Dr. Neo Castillo MD Work Phone: [facility] 04-22-2023 11:45-0400 Reason For Taking VItal Signs DR OMARI COOPER MD [facility] 04-22-2023 10:19-04[address] Cuff Size DR OMARI COOPER MD [facility] 04-22-2023 10:19-[address] OMARI COOPER MD [address] [place] [address] 04-22-2023 10:19-[address] OMARI COOPER MD [address] [place] [address] 04-22-2023 10:19-0400 Body temperature 98.42 [degF] DR OMARI COOPER MD [address] [place] [address] 04-22-2023 10:19-0400 Diastolic Blood Pressure Non-Invasive [address] OMARI COOPER MD [address] [place] [address] 04-22-2023 10:19-0400 Heart rate 77 /min DR OMARI COOPER MD [address] [place] [address] 04-22-2023 10:19-0400 Respiratory rate 16 /min DR OMARI COOPER MD [address] [place] [address] 04-22-2023 10:19-0400 Systolic Blood Pressure Non-Invasive [address] OMARI COOPER MD [address] [place] [address] 04-22-2023 06:20-[address] Cuff Size DR OMARI COOPER MD [address] [place] [address] 04-22-2023 06:20-[address] OMARI COOPER MD [address] [place] [address] 04-22-2023 06:20-[address] OMARI COOPER MD [address] [place] [address] 04-22-2023 06:20-0400 Body temperature 98.6 [degF] DR OMARI COOPER MD [address] [place] [address] 04-22-2023 06:20-0400 Diastolic Blood Pressure Non-Invasive [address] OMARI COOPER MD [address] [place] [address] 04-22-2023 06:20-0400 Heart rate 71 /min DR OMARI COOPER MD [address] [place] [address] 04-22-2023 06:20-0400 Respiratory rate 20 /min DR OMARI COOPER MD [address] [place] [address] 04-22-2023 06:20-0400 Systolic Blood Pressure Non-Invasive [address] OMARI COOPER MD [address] [place] [address] 04-22-2023 05:24-0400 Reason For Taking VItal Signs DR OMARI COOPER MD [address] [place] [address] 04-22-2023 02:38-[address] Cuff Size DR OMARI COOPER MD [address] 04-22-2023 02:38-[address] OMARI COOPER MD [address] 04-22-2023 02:38-[address] OMARI COOPER MD [address] [place] [address] 04-22-2023 02:38-0400 Body temperature 98.42 [degF] DR OMARI COOPER MD [address] 04-22-2023 02:38-0400 Diastolic Blood Pressure Non-Invasive [address] OMARI COOPER MD [address] [place] [address] 04-22-2023 02:38-0400 Heart rate 66 /min DR OMARI COOPER MD [address] [place] [address] 04-22-2023 02:38-0400 Respiratory rate 18 /min DR OMARI COOPER MD [address] 04-22-2023 02:38-0400 Systolic Blood Pressure Non-Invasive [address] OMARI COOPER MD [address] [place] [address] 04-21-2023 23:04-0400 Heart rate 66 /min DR OMARI COOPER MD [address] 04-21-2023 15:50-0400 Body height 152.[address] OMARI COOPER MD [address] [place] [address] 04-21-2023 15:50-0400 Body weight [address] OMARI COOPER MD [address] [place] [address] 04-21-2023 15:50-0400 Body weight 44.35 kg/m2 DR OMARI COOPER MD [facility] [facility] 04-21-2023 03:02-0400 Heart rate 58 /min DR OMARI COOPER MD [address] [place] [address] 04-20-2023 23:22-0400 Heart rate 65 /min DR OMARI COOPER MD [address] [place] [address] 04-20-2023 18:51-0400 Heart rate 72 /min DR OMARI COOPER MD [address] [place] [address] 04-20-2023 16:11-0400 Heart rate 69 /min DR OMARI COOPER MD [address] 04-20-2023 07:45-0400 Mean blood pressure 85 mm[Hg] DR OMARI COOPER MD [address] 04-20-2023 07:00-0400 Mean blood pressure 93 mm[Hg] DR OMARI COOPER MD [address] [place] [address] 04-19-2023 03:00-0400 Heart rate 70 /min DR OMARI COOPER MD [address] [place] [address] 04-17-2023 20:55-0400 Body weight [address] OMARI COOPER MD [facility] Encounters Encounter Date Encounter Type Care Provider Facility Start: 02-09-2025 End: 02-09-[address] Neo Castillo MD Work Phone: [facility] Work Phone: Start: 02-09-2025 End: 02-09-[address] Andres Meyer DO -[facility] Work Phone: Start: 02-06-2025 ambulatory JOAN [facility] [employer] [facility] [facility] Start: 02-02-2025 End: 02-02-2025 ambulatory JOAN [employer] [facility] Start: 01-31-2025 End: 01-31-2025 ambulatory JOAN [employer] [facility] Start: 01-28-2025 ambulatory JOAN [employer] Start: 01-24-2025 End: 01-24-2025 ambulatory JOAN SULTANA [facility] Start: 01-05-2025 End: 01-05-2025 ambulatory TEQUILA MEYER [facility] Start: 11-01-2024 End: 11-01-2024 ambulatory JOAN SULTANA [facility] Start: 04-17-2023 End: 04-22-2023 Evaluation and management of inpatient DR OMARI COOPER MD Facility:A Start: 04-17-2023 End: 04-22-2023 Evaluation and management of inpatient DR OMARI COOPER MD [facility] Procedures Date Procedure Procedure Detail Performing Clinician Carpal tunnel syndrome (disorder) DR OMARI COOPER MD Plan of Treatment Date Care Activity Detail Author Partial thromboplastin time, activated [facility] Platelets [#/volume] in Blood [facility] Prothrombin time [facility] Payers Date Payer Category Payer Medicaid [id number] 2023 Medicare [id number] 2023 Private Health Insurance [id number] 1955 Unknown [id number] 2.16.8 [id number] 1955 Unknown [id number] 2.16. [id number] 1954 Unknown [id number] 2.16.8 [id number] 1954 Unknown [id number] 2.16.8 [id number] 1954 Unknown [id number] 2.16.8 [id number] 1954 Unknown [id number] 2.16.8 [id number] 1954 Unknown [id number] 2.16.8 [id number] 1954 Unknown [id number] 2.16.8 [id number] 1954 Unknown [id number] 2.16.8 [id number] 1954 Unknown [id number] 2.16.8 [id number] Unknown SHAYY [id number] Social History Date Type Detail Facility Start: 04-17-2023 End: 02-09-2025 Tobacco smoking status Ex-smoker (finding) [facility] Sex Assigned At Sex [facility] Start: 1955 Sex Assigned At Female [facility] Functional Status Date Assessment Result Facility 04-22-2023 Functional Status Current Home Treatments Oxygen therapy [facility] 04-22-2023 Functional Status Adult Protective Servic es [facility] 04-22-2023 Functional Status Room check performed [facility] 04-22-2023 Functional Status [facility] 04-22-2023 Functional Status Done [facility] 04-22-2023 Functional Status Min A 13 [facility] 04-22-2023 Functional Status [facility] 04-22-2023 Functional Status Hospital bed [facility] 04-21-[address] [facility] 04-21-2023 Functional Status One assist [facility] 04-21-[address] [facility] 04-21-2023 Functional Status One assist [facility] 04-21-[address] [facility] 04-21-2023 Functional Status Min A [address] [facility] 04-21-[address] [facility] 04-20-2023 Functional Status Multilevel home [facility] 04-20-[address] [facility] 04-20-2023 Functional Status Maintained [facility] 04-19-2023 Functional Status [facility] 04-19-2023 Functional Status [facility] 04-19-2023 Functional Status No Living Envi ronment Information Available [facility] 04-18-2023 Functional Status [facility] Mental Status Date Assessment Result Facility 04-22-2023 Mental Status Oriented x 4 [facility] 04-22-2023 Mental Status [facility] 04-22-2023 Mental Status [facility] Clinical Notes 04-17-2023 to 04-22-2023 Note Date & Type Note Facility 04-22-2023 Hospital Discharge instructions Patient Education 04/22/2023 12:47:22 Warning Signs of a Stroke Warning Signs of a Stroke A stroke is a medical emergency and should be treated right away every second counts. A stroke is caused by a decrease or block in blood flow to the brain. When this occurs, certain areas of the brain do not get enough oxygen, and brain cells begin to . A stroke can lead to brain damage and can sometimes be life-threatening. However, if someone having a stroke gets medical treatment right away, he or she has better chances of surviving and recovering from the stroke. Being able to recognize the symptoms of a stroke is very important. Types of strokes There are two main types of strokes: Ischemic strokes. This is the most common type of stroke. These strokes happen when a blood vessel that supplies blood to the brain is being blocked. Hemorrhagic strokes. These strokes result from bleeding in the brain due to a blood vessel leaking or bursting (rupturing). A transient ischemic attack (TIA) is a warning stroke that causes stroke-like symptoms that go away quickly. Unlike a stroke, a TIA does not cause permanent damage to the brain. However, the symptoms of a TIA are the same as a stroke, and they also require medical treatment right away. Having a TIA is a sign that you are at higher risk for a permanent stroke. Warning signs of a stroke The symptoms of stroke may vary and will reflect the part of the brain that is involved. Symptoms usually happen suddenly. BE FAST is an easy way to remember the main warning signs of a stroke. B - Balance Signs are dizziness, sudden trouble walking, or loss of balance. E - Eyes Signs are trouble seeing or a sudden change in vision. F - Face Signs are sudden weakness or numbness of the face, or the face or eyelid drooping on one side. A - Arms Signs are weakness or numbness in an arm. This happens suddenly and usually on one side of the body. S - Speech Signs are sudden trouble speaking, slurred speech, or trouble understanding what people say. T - Time Time to call emergency services. Write down what time symptoms started. Other signs of a stroke Some less common signs of a stroke include: A sudden, severe headache with no known cause. Nausea or vomiting. Seizure. A stroke may be happening even if only one BE FAST symptoms is present. These symptoms may represent a serious problem that is an emergency. Do not wait to see if the symptoms will go away. Get medical help right away. Call your local emergency services (911 in the [place] Do not drive yourself to the hospital. Summary A stroke is a medical emergency and should be treated right away every second counts. BE FAST is an easy way to remember the main warning signs of a stroke. Call local emergency services right away if you or someone else has any stroke symptoms, even if the symptoms go away. Make note of what time the first symptoms appeared. Emergency responders or emergency room staff will need to know this information. Do not wait to see if symptoms will go away. Call 911 even if only one of the BE FAST symptoms appears. This information is not intended to replace advice given to you by your health care provider. Make sure you discuss any questions you have with your health care provider. Document Released: 11/27/2017 Document Revised: 07/23/2018 Document Reviewed: 11/27/2017 [employer] Patient Education 2020 [employer] 04/22/2023 12:47:19 Stroke Prevention, [id number]-[id number] Stroke Prevention Some medical conditions and lifestyle choices can lead to a higher risk for a stroke. You can help to prevent a stroke by making nutrition, lifestyle, and other changes. What nutrition changes can be made? Eat healthy foods. ?Choose foods that are high in fiber. These include: ?Fresh fruits. ?Fresh vegetables. ?Whole grains. ?Eat at least 5 or more servings of fruits and vegetables each day. Try to fill half of your plate at each meal with fruits and vegetables. ?Choose lean protein foods. These include: ?Lowfat (lean) cuts of meat. ?Chicken without skin. ?Fish. ?Tofu. ?Beans. ?Nuts. ?Eat low-fat dairy products. ?Avoid foods that: ?Are high in salt (sodium). ?Have saturated fat. ?Have trans fat. ?Have cholesterol. ?Are processed. ?Are premade. Follow eating guidelines as told by your doctor. These may include: ?Reducing how many calories you eat and drink each day. ?Limiting how much salt you eat or drink each day to 1,500 milligrams (mg). ?Using only healthy fats for cooking. These include: ?[place] oil. ?Canola oil. ?Lowpoint oil. ?Counting how many carbohydrates you eat and drink each day. What lifestyle changes can be made? Try to stay at a healthy weight. Talk to your doctor about what a good weight is for you. Get at least 30 minutes of moderate physical activity at least 5 days a week. This can include: ?Fast walking. ?Biking. ?Swimming. Do not use any products that have nicotine or tobacco. This includes cigarettes and e-cigarettes. If you need help quitting, ask your doctor. Avoid being around tobacco smoke in general. Limit how much alcohol you drink to no more than 1 drink a day for non women and 2 drinks a day for men. One drink equals 12 oz of beer, 5 oz of wine, or 1 oz of hard liquor. Do not use drugs. Avoid taking control pills. Talk to your doctor about the risks of taking control pills if: ?You are over 35 years old. ?You smoke. ?You get migraines. ?You have had a blood clot. What other changes can be made? Manage your cholesterol. ?It is important to eat a healthy diet. ?If your cholesterol cannot be managed through your diet, you may also need to take medicines. Take medicines as told by your doctor. Manage your diabetes. ?It is important to eat a healthy diet and to exercise regularly. ?If your blood sugar cannot be managed through diet and exercise, you may need to take medicines. Take medicines as told by your doctor. Control your high blood pressure (hypertension). ?Try to keep your blood pressure below 130/80. This can help lower your risk of stroke. ?It is important to eat a healthy diet and to exercise regularly. ?If your blood pressure cannot be managed through diet and exercise, you may need to take medicines. Take medicines as told by your doctor. ?Ask your doctor if you should check your blood pressure at home. ?Have your blood pressure checked every year. Do this even if your blood pressure is normal. Talk to your doctor about getting checked for a sleep disorder. Signs of this can include: ?Snoring a lot. ?Feeling very tired. Take kwxj-yjx-bpoaklg and prescription medicines only as told by your doctor. These may include aspirin or blood thinners (antiplatelets or anticoagulants). Make sure that any other medical conditions you have are managed. Where to find more information [place] St[employer] Association: www.strokeassociation.org National Stroke Association: www.stroke.org Get help right away if: You have any symptoms of stroke. BE FAST is an easy way to remember the main warning signs: ?B - Balance. Signs are dizziness, sudden trouble walking, or loss of balance. ?E - Eyes. Signs are trouble seeing or a sudden change in how you see. ?F - Face. Signs are sudden weakness or loss of feeling of the face, or the face or eyelid drooping on one side. ?A - Arms. Signs are weakness or loss of feeling in an arm. This happens suddenly and usually on one side of the body. ?S - Speech. Signs are sudden trouble speaking, slurred speech, or trouble understanding what people say. ?T - Time. Time to call emergency services. Write down what time symptoms started. You have other signs of stroke, such as: ?A sudden, very bad headache with no known cause. ?Feeling sick to your stomach (nausea). ?Throwing up (vomiting). ?Jerky movements you cannot control (seizure). These symptoms may represent a serious problem that is an emergency. Do not wait to see if the symptoms will go away. Get medical help right away. Call your local emergency services (911 in the [place] Do not drive yourself to the hospital. Summary You can prevent a stroke by eating healthy, exercising, not smoking, drinking less alcohol, and treating other health problems, such as diabetes, high blood pressure, or high cholesterol. Do not use any products that contain nicotine or tobacco, such as cigarettes and e-cigarettes. Get help right away if you have any signs or symptoms of a stroke. This information is not intended to replace advice given to you by your health care provider. Make sure you discuss any questions you have with your health care provider. Document Released: 02/08/2013 Document Revised: 10/06/2019 Document Reviewed: 11/11/2017 [employer] Patient Education 2020 [employer] 04/22/2023 12:47:18 Stroke Prevention Stroke Prevention Some medical conditions and behaviors are associated with a higher chance of having a stroke. You can help prevent a stroke by making nutrition, lifestyle, and other changes, including managing any medical conditions you may have. What nutrition changes can be made? Eat healthy foods. You can do this by: ?Choosing foods high in fiber, such as fresh fruits and vegetables and whole grains. ?Eating at least 5 or more servings of fruits and vegetables a day. Try to fill half of your plate at each meal with fruits and vegetables. ?Choosing lean protein foods, such as lean cuts of meat, poultry without skin, fish, tofu, beans, and nuts. ?Eating low-fat dairy products. ?Avoiding foods that are high in salt (sodium). This can help lower blood pressure. ?Avoiding foods that have saturated fat, trans fat, and cholesterol. This can help prevent high cholesterol. ?Avoiding processed and premade foods. Follow your health care provider's specific guidelines for losing weight, controlling high blood pressure (hypertension), lowering high cholesterol, and managing diabetes. These may include: ?Reducing your daily calorie intake. ?Limiting your daily sodium intake to 1,500 milligrams (mg). ?Using only healthy fats for cooking, such as olive oil, canola oil, or sunflower oil. ?Counting your daily carbohydrate intake. What lifestyle changes can be made? Maintain a healthy weight. Talk to your health care provider about your ideal weight. Get at least 30 minutes of moderate physical activity at least 5 days a week. Moderate activity includes brisk walking, biking, and swimming. Do not use any products that contain nicotine or tobacco, such as cigarettes and e-cigarettes. If you need help quitting, ask your health care provider. It may also be helpful to avoid exposure to secondhand smoke. Limit alcohol intake to no more than 1 drink a day for non women and 2 drinks a day for men. One drink equals 12 oz of beer, 5 oz of wine, or 1 oz of hard liquor. Stop any illegal drug use. Avoid taking control pills. Talk to your health care provider about the risks of taking control pills if: ?You are over 35 years old. ?You smoke. ?You get migraines. ?You have ever had a blood clot. What other changes can be made? Manage your cholesterol levels. ?Eating a healthy diet is important for preventing high cholesterol. If cholesterol cannot be managed through diet alone, you may also need to take medicines. ?Take any prescribed medicines to control your cholesterol as told by your health care provider. Manage your diabetes. ?Eating a healthy diet and exercising regularly are important parts of managing your blood sugar. If your blood sugar cannot be managed through diet and exercise, you may need to take medicines. ?Take any prescribed medicines to control your diabetes as told by your health care provider. Control your hypertension. ?To reduce your risk of stroke, try to keep your blood pressure below 130/80. ?Eating a healthy diet and exercising regularly are an important part of controlling your blood pressure. If your blood pressure cannot be managed through diet and exercise, you may need to take medicines. ?Take any prescribed medicines to control hypertension as told by your health care provider. ?Ask your health care provider if you should monitor your blood pressure at home. ?Have your blood pressure checked every year, even if your blood pressure is normal. Blood pressure increases with age and some medical conditions. Get evaluated for sleep disorders (sleep apnea). Talk to your health care provider about getting a sleep evaluation if you snore a lot or have excessive sleepiness. Take kwfi-rkh-yriarvz and prescription medicines only as told by your health care provider. Aspirin or blood thinners (antiplatelets or anticoagulants) may be recommended to reduce your risk of forming blood clots that can lead to stroke. Make sure that any other medical conditions you have, such as atrial fibrillation or atherosclerosis, are managed. What are the warning signs of a stroke? The warning signs of a stroke can be easily remembered as BEFAST. B is for balance. Signs include: ?Dizziness. ?Loss of balance or coordination. ?Sudden trouble walking. E is for eyes. Signs include: ?A sudden change in vision. ?Trouble seeing. F is for face. Signs include: ?Sudden weakness or numbness of the face. ?The face or eyelid drooping to one side. A is for arms. Signs include: ?Sudden weakness or numbness of the arm, usually on one side of the body. S is for speech. Signs include: ?Trouble speaking (aphasia). ?Trouble understanding. T is for time. ?These symptoms may represent a serious problem that is an emergency. Do not wait to see if the symptoms will go away. Get medical help right away. Call your local emergency services (911 in the [place] Do not drive yourself to the hospital. Other signs of stroke may include: ?A sudden, severe headache with no known cause. ?Nausea or vomiting. ?Seizure. Where to find more information For more information, visit: [place] St[employer] Association: www.strokeassociation.org National Stroke Association: www.stroke.org Summary You can prevent a stroke by eating healthy, exercising, not smoking, limiting alcohol intake, and managing any medical conditions you may have. Do not use any products that contain nicotine or tobacco, such as cigarettes and e-cigarettes. If you need help quitting, ask your health care provider. It may also be helpful to avoid exposure to secondhand smoke. Remember BEFAST for warning signs of stroke. Get help right away if you or a loved one has any of these signs. This information is not intended to replace advice given to you by your health care provider. Make sure you discuss any questions you have with your health care provider. Document Released: 09/17/2005 Document Revised: 07/23/2018 Document Reviewed: 09/15/2017 [employer] Patient Education 2020 [employer] / ?.??. Follow Up Care 04/17/2023 20:31:47 With:[facility], Skilled [phone] Address:Unknown When:1-2 days With:JOAN HUERTA APRN-[employer] Address: [address] [place] [address] [phone] When:5 to 7 days With:[facility] Address: [address] [place] [address]- When:Within 5 Week(s) Comments:Stroke follow-up With:ROMMEL FOSTER MD Address: [address] [facility] [address] [facility] [place] [address]- When:Within 3 Week(s) Comments:Left atrial mass [facility] 04-22-2023 Note Discharge Instructions Thank you for allowing [facility] to assist you with your healthcare needs. The following is important discharge information regarding your hospital visit. Your Care Team JOAN HUERTA Your Diagnosis Stroke like symptoms What to do next Instructions From Your Doctor -> Continue apixaban, Lipitor 80 for stroke -> Follow-up with [facility] as outpatient -> Given mobile atheroma, continue apixaban 5 mg twice daily, continue to follow-up with cardiology as outpatient -> snf goal BP < 130/80 mmHg, goal LDL < 70, goal Hba1c <7% -> She will need 30-day monitor on DC. Follow Up Appointments Follow Up with [facility], [facility] [phone] When Within 1-2 days Follow Up with JOAN HUERTA When Within 5 to 7 days Where: [address] [place] [address]- [phone] Follow Up with [facility] When In 5 weeks Why: Stroke follow-up Where: [address] [place] [address]- Follow Up with ROMMEL FOSTER MD When In 3 weeks Why: Left atrial mass Where: [address] [facility] [address] [facility] [place] [place] [address]- The Following Activity and Diet Have Been Ordered for You Transfer of Care Activity - Ordered -- Activity As Tolerated, 04/22/23 11:22:00 EDT Transfer of Care Diet - Ordered -- Type of Diet: Regular Diet, 04/22/23 11:22:00 EDT The Following Equipment Has Been Ordered for You Home Equipment - None No qualifying data available. The Following Treatments Have Been Ordered for You Discharge Labs No qualifying data available. Discharge Radiology No qualifying data available. Other Therapies Discharge Event Monitor Instructions - Ordered -- 04/22/23 11:23:05 EDT, You have been ordered mobile outpatient telemetry. You should receive a device in the mail with further instructions. If you have not received a device within 7 days after discharge, please call [facility] at [phone]. Transfer of Care OT - Ordered -- Reason for therapy: Stroke, 04/22/23 11:22:00 EDT Transfer of Care PT - Ordered -- Reason for therapy: Stroke, 04/22/23 11:22:00 EDT Post Acute Orders Transfer of Care Code Status - Ordered -- Full Code, Constant Order Transfer of Care Orders Electronically Signed By - Ordered -- 04/22/23 11:22:00 EDT, LUCRECIA LOVELL DO Transfer of Care Prognosis - Ordered -- Fair, Patient Aware: Yes Transfer of Care Rehab Potential - Ordered -- Rehab potential fair, 04/22/23 11:22:37 EDT Someone Will Contact You Regarding These Home Health Referrals No home referrals have been ordered for you. No one will call you. Allergies traMADol Medications Please ask your primary doctor or pharmacist before taking any other medication not listed, including over the counter drugs, herbal medications, vitamins and or supplements as they may interact with your home medications. What How Much When Instructions Last Dose New acetaminophen 650 Milligram by mouth Every six (6) hours WHILE AWAKE as needed for Pain, scale 1-10 New apixaban (Eliquis 5 mg oral tablet) 1 tab(s) by mouth Two (2) times a day Duration: 30 Days Pickup at [facility] 1725 Unchanged amLODIPine (amLODIPine 5 mg oral tablet) 1 tab(s) by mouth Once a day Unchanged atorvastatin (Lipitor 80 mg oral tablet) 1 tab(s) by mouth Once a day Unchanged FLUoxetine (FLUoxetine 20 mg oral capsule) 1 cap by mouth Once a day Unchanged hydroCHLOROthiazide (hydroCHLOROthiazide 25 mg oral tablet) 1 tab(s) by mouth Once a day Unchanged levothyroxine (levothyroxine 200 mcg (0.2 mg) oral tablet) 1 tab(s) by mouth Once a day Unchanged metFORMIN (metFORMIN 500 mg oral tablet (IR)) 1 tab(s) by mouth Three (3) times a day Pharmacy Information [facility]: [address] [place], [place] [id number] [phone] What How Much When Comments Stop Taking meloxicam (meloxicam 7.5 mg oral tablet) 1 tab(s) by mouth Two (2) times a day Please take this list to your next doctor s visit. Bring all medications you take, including over the counter medications, herbals and other supplements with you to your doctor s visit. Patients and families are reminded to discard old lists and to update any records with all medication providers or retail pharmacies. Education Materials Warning Signs of a Stroke A stroke is a medical emergency and should be treated right away every second counts. A stroke is caused by a decrease or block in blood flow to the brain. When this occurs, certain areas of the brain do not get enough oxygen, and brain cells begin to . A stroke can lead to brain damage and can sometimes be life-threatening. However, if someone having a stroke gets medical treatment right away, he or she has better chances of surviving and recovering from the stroke. Being able to recognize the symptoms of a stroke is very important. Types of strokes There are two main types of strokes: Ischemic strokes. This is the most common type of stroke. These strokes happen when a blood vessel that supplies blood to the brain is being blocked. Hemorrhagic strokes. These strokes result from bleeding in the brain due to a blood vessel leaking or bursting (rupturing). A transient ischemic attack (TIA) is a warning stroke that causes stroke-like symptoms that go away quickly. Unlike a stroke, a TIA does not cause permanent damage to the brain. However, the symptoms of a TIA are the same as a stroke, and they also require medical treatment right away. Having a TIA is a sign that you are at higher risk for a permanent stroke. Warning signs of a stroke The symptoms of stroke may vary and will reflect the part of the brain that is involved. Symptoms usually happen suddenly. BE FAST is an easy way to remember the main warning signs of a stroke. B - Balance Signs are dizziness, sudden trouble walking, or loss of balance. E - Eyes Signs are trouble seeing or a sudden change in vision. F - Face Signs are sudden weakness or numbness of the face, or the face or eyelid drooping on one side. A - Arms Signs are weakness or numbness in an arm. This happens suddenly and usually on one side of the body. S - Speech Signs are sudden trouble speaking, slurred speech, or trouble understanding what people say. T - Time Time to call emergency services. Write down what time symptoms started. Other signs of a stroke Some less common signs of a stroke include: A sudden, severe headache with no known cause. Nausea or vomiting. Seizure. A stroke may be happening even if only one BE FAST symptoms is present. These symptoms may represent a serious problem that is an emergency. Do not wait to see if the symptoms will go away. Get medical help right away. Call your local emergency services (911 in the [place] Do not drive yourself to the hospital. Summary A stroke is a medical emergency and should be treated right away every second counts. BE FAST is an easy way to remember the main warning signs of a stroke. Call local emergency services right away if you or someone else has any stroke symptoms, even if the symptoms go away. Make note of what time the first symptoms appeared. Emergency responders or emergency room staff will need to know this information. Do not wait to see if symptoms will go away. Call 911 even if only one of the BE FAST symptoms appears. This information is not intended to replace advice given to you by your health care provider. Make sure you discuss any questions you have with your health care provider. Document Released: 11/27/2017 Document Revised: 07/23/2018 Document Reviewed: 11/27/2017 [employer] Patient Education 2020 [employer] / ?.??. Stroke Prevention Some medical conditions and lifestyle choices can lead to a higher risk for a stroke. You can help to prevent a stroke by making nutrition, lifestyle, and other changes. What nutrition changes can be made? Eat healthy foods. ? Choose foods that are high in fiber. These include: ? Fresh fruits. ? Fresh vegetables. ? Whole grains. ? Eat at least 5 or more servings of fruits and vegetables each day. Try to fill half of your plate at each meal with fruits and vegetables. ? Choose lean protein foods. These include: ? Lowfat (lean) cuts of meat. ? Chicken without skin. ? Fish. ? Tofu. ? Beans. ? Nuts. ? Eat low-fat dairy products. ? Avoid foods that: ? Are high in salt (sodium). ? Have saturated fat. ? Have trans fat. ? Have cholesterol. ? Are processed. ? Are premade. Follow eating guidelines as told by your doctor. These may include: ? Reducing how many calories you eat and drink each day. ? Limiting how much salt you eat or drink each day to 1,500 milligrams (mg). ? Using only healthy fats for cooking. These include: ? [place] oil. ? Canola oil. ? [place] oil. ? Counting how many carbohydrates you eat and drink each day. What lifestyle changes can be made? Try to stay at a healthy weight. Talk to your doctor about what a good weight is for you. Get at least 30 minutes of moderate physical activity at least 5 days a week. This can include: ? Fast walking. ? Biking. ? Swimming. Do not use any products that have nicotine or tobacco. This includes cigarettes and e-cigarettes. If you need help quitting, ask your doctor. Avoid being around tobacco smoke in general. Limit how much alcohol you drink to no more than 1 drink a day for non women and 2 drinks a day for men. One drink equals 12 oz of beer, 5 oz of wine, or 1 oz of hard liquor. Do not use drugs. Avoid taking control pills. Talk to your doctor about the risks of taking control pills if: ? You are over 35 years old. ? You smoke. ? You get migraines. ? You have had a blood clot. What other changes can be made? Manage your cholesterol. ? It is important to eat a healthy diet. ? If your cholesterol cannot be managed through your diet, you may also need to take medicines. Take medicines as told by your doctor. Manage your diabetes. ? It is important to eat a healthy diet and to exercise regularly. ? If your blood sugar cannot be managed through diet and exercise, you may need to take medicines. Take medicines as told by your doctor. Control your high blood pressure (hypertension). ? Try to keep your blood pressure below 130/80. This can help lower your risk of stroke. ? It is important to eat a healthy diet and to exercise regularly. ? If your blood pressure cannot be managed through diet and exercise, you may need to take medicines. Take medicines as told by your doctor. ? Ask your doctor if you should check your blood pressure at home. ? Have your blood pressure checked every year. Do this even if your blood pressure is normal. Talk to your doctor about getting checked for a sleep disorder. Signs of this can include: ? Snoring a lot. ? Feeling very tired. Take kuza-qla-nvxdhdg and prescription medicines only as told by your doctor. These may include aspirin or blood thinners (antiplatelets or anticoagulants). Make sure that any other medical conditions you have are managed. Where to find more information [place] Stroke Association: www.strokeassociation.org National Stroke Association: www.stroke.org Get help right away if: You have any symptoms of stroke. BE FAST is an easy way to remember the main warning signs: ? B - Balance. Signs are dizziness, sudden trouble walking, or loss of balance. ? E - Eyes. Signs are trouble seeing or a sudden change in how you see. ? F - Face. Signs are sudden weakness or loss of feeling of the face, or the face or eyelid drooping on one side. ? A - Arms. Signs are weakness or loss of feeling in an arm. This happens suddenly and usually on one side of the body. ? S - Speech. Signs are sudden trouble speaking, slurred speech, or trouble understanding what people say. ? T - Time. Time to call emergency services. Write down what time symptoms started. You have other signs of stroke, such as: ? A sudden, very bad headache with no known cause. ? Feeling sick to your stomach (nausea). ? Throwing up (vomiting). ? Jerky movements you cannot control (seizure). These symptoms may represent a serious problem that is an emergency. Do not wait to see if the symptoms will go away. Get medical help right away. Call your local emergency services (911 in the [place] Do not drive yourself to the hospital. Summary You can prevent a stroke by eating healthy, exercising, not smoking, drinking less alcohol, and treating other health problems, such as diabetes, high blood pressure, or high cholesterol. Do not use any products that contain nicotine or tobacco, such as cigarettes and e-cigarettes. Get help right away if you have any signs or symptoms of a stroke. This information is not intended to replace advice given to you by your health care provider. Make sure you discuss any questions you have with your health care provider. Document Released: 02/08/2013 Document Revised: 10/06/2019 Document Reviewed: 11/11/2017 [employer] Patient Education 2020 [employer] Stroke Prevention Some medical conditions and behaviors are associated with a higher chance of having a stroke. You can help prevent a stroke by making nutrition, lifestyle, and other changes, including managing any medical conditions you may have. What nutrition changes can be made? Eat healthy foods. You can do this by: ? Choosing foods high in fiber, such as fresh fruits and vegetables and whole grains. ? Eating at least 5 or more servings of fruits and vegetables a day. Try to fill half of your plate at each meal with fruits and vegetables. ? Choosing lean protein foods, such as lean cuts of meat, poultry without skin, fish, tofu, beans, and nuts. ? Eating low-fat dairy products. ? Avoiding foods that are high in salt (sodium). This can help lower blood pressure. ? Avoiding foods that have saturated fat, trans fat, and cholesterol. This can help prevent high cholesterol. ? Avoiding processed and premade foods. Follow your health care provider's specific guidelines for losing weight, controlling high blood pressure (hypertension), lowering high cholesterol, and managing diabetes. These may include: ? Reducing your daily calorie intake. ? Limiting your daily sodium intake to 1,500 milligrams (mg). ? Using only healthy fats for cooking, such as olive oil, canola oil, or sunflower oil. ? Counting your daily carbohydrate intake. What lifestyle changes can be made? Maintain a healthy weight. Talk to your health care provider about your ideal weight. Get at least 30 minutes of moderate physical activity at least 5 days a week. Moderate activity includes brisk walking, biking, and swimming. Do not use any products that contain nicotine or tobacco, such as cigarettes and e-cigarettes. If you need help quitting, ask your health care provider. It may also be helpful to avoid exposure to secondhand smoke. Limit alcohol intake to no more than 1 drink a day for non women and 2 drinks a day for men. One drink equals 12 oz of beer, 5 oz of wine, or 1 oz of hard liquor. Stop any illegal drug use. Avoid taking control pills. Talk to your health care provider about the risks of taking control pills if: ? You are over 35 years old. ? You smoke. ? You get migraines. ? You have ever had a blood clot. What other changes can be made? Manage your cholesterol levels. ? Eating a healthy diet is important for preventing high cholesterol. If cholesterol cannot be managed through diet alone, you may also need to take medicines. ? Take any prescribed medicines to control your cholesterol as told by your health care provider. Manage your diabetes. ? Eating a healthy diet and exercising regularly are important parts of managing your blood sugar. If your blood sugar cannot be managed through diet and exercise, you may need to take medicines. ? Take any prescribed medicines to control your diabetes as told by your health care provider. Control your hypertension. ? To reduce your risk of stroke, try to keep your blood pressure below 130/80. ? Eating a healthy diet and exercising regularly are an important part of controlling your blood pressure. If your blood pressure cannot be managed through diet and exercise, you may need to take medicines. ? Take any prescribed medicines to control hypertension as told by your health care provider. ? Ask your health care provider if you should monitor your blood pressure at home. ? Have your blood pressure checked every year, even if your blood pressure is normal. Blood pressure increases with age and some medical conditions. Get evaluated for sleep disorders (sleep apnea). Talk to your health care provider about getting a sleep evaluation if you snore a lot or have excessive sleepiness. Take ieym-dwx-nobtvka and prescription medicines only as told by your health care provider. Aspirin or blood thinners (antiplatelets or anticoagulants) may be recommended to reduce your risk of forming blood clots that can lead to stroke. Make sure that any other medical conditions you have, such as atrial fibrillation or atherosclerosis, are managed. What are the warning signs of a stroke? The warning signs of a stroke can be easily remembered as BEFAST. B is for balance. Signs include: ? Dizziness. ? Loss of balance or coordination. ? Sudden trouble walking. E is for eyes. Signs include: ? A sudden change in vision. ? Trouble seeing. F is for face. Signs include: ? Sudden weakness or numbness of the face. ? The face or eyelid drooping to one side. A is for arms. Signs include: ? Sudden weakness or numbness of the arm, usually on one side of the body. S is for speech. Signs include: ? Trouble speaking (aphasia). ? Trouble understanding. T is for time. ? These symptoms may represent a serious problem that is an emergency. Do not wait to see if the symptoms will go away. Get medical help right away. Call your local emergency services (911 in the [place] Do not drive yourself to the hospital. Other signs of stroke may include: ? A sudden, severe headache with no known cause. ? Nausea or vomiting. ? Seizure. Where to find more information For more information, visit: [place] Stroke Association: www.strokeassociation.org National Stroke Association: www.stroke.org Summary You can prevent a stroke by eating healthy, exercising, not smoking, limiting alcohol intake, and managing any medical conditions you may have. Do not use any products that contain nicotine or tobacco, such as cigarettes and e-cigarettes. If you need help quitting, ask your health care provider. It may also be helpful to avoid exposure to secondhand smoke. Remember BEFAST for warning signs of stroke. Get help right away if you or a loved one has any of these signs. This information is not intended to replace advice given to you by your health care provider. Make sure you discuss any questions you have with your health care provider. Document Released: 09/17/2005 Document Revised: 07/23/2018 Document Reviewed: 09/15/2017 [employer] Patient Education 2020 [employer] Additional Information VACCINATE! IT SAVES LIVES! Members of the community who have not yet received the COVID-19 vaccine and would like to receive it can visit one of [facility] vaccine clinics. There are many vaccine clinic locations within the [facility]. For locations and available times, please visit https://gettheshot.coronavirus.[place].gov/. It is important to note that some COVID mobile vaccine clinics are held outdoors and may be canceled in rainy or stormy conditions. To learn more about pediatric vaccinations (ages 5-11), we invite you to visit the [facility] webpage. https://www.[facility].org/pag es/6225-Cmrut-Scesiohshvj-Frequent jp-Azugf-Wcajrxvge.html To learn more about the COVID-19 vaccine, we invite you to visit the CDC website for a list of frequently asked questions.https://www.cdc.gov/ally navirus/2019-ncov/vaccines/faq.htm rimma [employer] Patient Portal Access Instructions: Stay connected with your healthcare team and access your personal medical information anytime with the [facility] Patient Portal. Please follow the directions below to create your [employer] account: 1.Access the email account you provided upon registration to the hospital/physician office.2.Look for an invitation email from [facility].3.Open the email and access the invitation link: Accept Invitation to [employer].4.Fill in the required nguyen to create your account. To access your account, visit [email or web address]. Click the blue button labeled Access Patient Portal and then log in with the username and password that you created in the steps above. You will be able to view your test results, lab results, a summary of your visits, upcoming appointments and more. There is also a convenient messaging option where you can send secure messages to your provider. In addition, you will have the ability to download any documents or summaries to your computer and/or send the information securely to a physician. Remember that your healthcare information is confidential, so carefully consider who you will allow to register on the [facility] Patient Portal for access to your information. You can also access the [facility] on the [facility] bacilio. Simply click on Patient Portal and then log into your account. If you would like to receive a full copy of your medical records, please contact the [facility] Medical Records Department by calling [phone], Thursday through Thursday between 8 a.m. and 4:30 p.m. HOW TO SAFELY DISPOSE OF PRESCRIPTION MEDICATIONS Please use one of the following methods to safely dispose of your unused medications. 1.Use a drug disposal kit: the drug disposal pouch allows you to safely discard your old and unused drugs. Ask your nurse to give you one when you are discharged.2.Visit a local take-back location: Many local pharmacies and police departments have programs that collect old and unwanted prescription drugs. Call your local pharmacy or go to http://TrustYou[employer]/4S5Nk9t to find one close to you.3.Make use of household items: Use cat litter or old coffee grounds to dispose medications if other options are not available. Mix your drugs with these household products, seal them in an airtight container and throw it into the garbage. Call [facility]: [phone] to be sure your drugs can be disposed of in this way. Some medicines may require a different approach.4.Never flush your medications down the toilet. IF YOU HAVE BEEN PRESCRIBED AN OPIOID FOR PAIN If you have been prescribed an opioid (such as hydrocodone, oxycodone or morphine), it is critical to understand the possible side effects and risks of opioid pain medications. Even when taken as directed, opioids can have several side effects including: Tolerance, meaning you might need to take more of a medication for the same pain relief. Nausea, vomiting and/or constipation. Sleepiness, dizziness, dry mouth, confusion, depression or itching. Physical dependence, meaning you have withdrawal symptoms when a medication is stopped, can develop within a few days. KNOW YOUR RESPONSIBILITIES It is important to know exactly how much and how often to take the opioid pain medications you are prescribed. Never take opioids in higher amounts or more often than prescribed. Do not combine opioids with alcohol or other drugs that cause drowsiness, such as benzodiazepines, also known as benzos, including diazepam and alprazolam, muscle relaxants or sleep aids. Never sell or share prescription opioids. This is illegal. Store opioids in a secure place and out of reach of others (including children, family, friends and visitors). The last page of this document has been signed and retained as a CHART COPY. Signatures Patient Education Materials Warning Signs of a Stroke Stroke Prevention, Leuh-ak-Vepx Stroke Prevention Medication Leaflets My discharge plan and instructions have been reviewed and explained to me and I,WASHINGTON WOLF understand my current condition and have read and understand these discharge instructions. I have received a written copy of the plan/instructions. If I have questions, I am aware that I should contact my doctor. 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 The following is important discharge information regarding your hospital visit. Your Care Team JOAN HUERTA APRN-RD Your Diagnosis Stroke like symptoms What to do next Instructions From Your Doctor -> Continue apixaban, Lipitor 80 for stroke -> Follow-up with [facility] as [facility] -> Given mobile atheroma, continue apixaban 5 mg twice daily, continue to follow-up with cardiology as outpatient -> snf goal BP < 130/80 mmHg, goal LDL < 70, goal Hba1c <7% -> She will need 30-day monitor on DC. Follow Up Appointments Follow Up with [facility], Skilled [phone] When Within 1-2 days Follow Up with JOAN HUERTA APRN-RD When Within 5 to 7 days Where: [address] [place] [address]- [phone] [facility] with [facility] When In 5 weeks Why: Stroke follow-up Where: [address] [place] [address]- Follow Up with ROMMEL FOSTER MD When In 3 weeks Why: Left atrial mass Where: [address] [facility] [address] [facility] [place] [address]- The Following Activity and Diet Have Been Ordered for You Transfer of Care Activity - Ordered -- Activity As Tolerated, 04/22/23 11:22:00 EDT Transfer of Care Diet - Ordered -- Type of Diet: Regular Diet, 04/22/23 11:22:00 EDT The Following Equipment Has Been Ordered for You No qualifying data available. The Following Treatments Have Been Ordered for You Discharge Labs No qualifying data available. Discharge Radiology No qualifying data available. Other Therapies Discharge Event Monitor Instructions - Ordered -- 04/22/23 11:23:05 EDT, You have been ordered mobile outpatient telemetry. You should receive a device in the mail with further instructions. If you have not received a device within 7 days after discharge, please call [facility] at [phone]. Transfer of Care OT - Ordered -- Reason for therapy: Stroke, 04/22/23 11:22:00 EDT Transfer of Care PT - Ordered -- Reason for therapy: Stroke, 04/22/23 11:22:00 EDT Post Acute Orders Transfer of Care Code Status - Ordered -- Full Code, Constant Order Transfer of Care Orders Electronically Signed By - Ordered -- 04/22/23 11:22:00 EDT, LUCRECIA LOVELL DO Transfer of Care Prognosis - Ordered -- Fair, Patient Aware: Yes Transfer of Care Rehab Potential - Ordered -- Rehab potential fair, 04/22/23 11:22:37 EDT Someone Will Contact You Regarding These Home Health Referrals No home referrals have been ordered for you. No one will call you. Allergies traMADol Medications Please ask your primary doctor or pharmacist before taking any other medication not listed, including over the counter drugs, herbal medications, vitamins and or supplements as they may interact with your home medications. What How Much When Instructions Last Dose New acetaminophen 650 Milligram by mouth Every six (6) hours WHILE AWAKE as needed for Pain, scale 1-10 New apixaban (Eliquis 5 mg oral tablet) 1 tab(s) by mouth Two (2) times a day Duration: 30 Days Pickup at [facility] Unchanged amLODIPine (amLODIPine 5 mg oral tablet) 1 tab(s) by mouth Once a day Unchanged atorvastatin (Lipitor 80 mg oral tablet) 1 tab(s) by mouth Once a day Unchanged FLUoxetine (FLUoxetine 20 mg oral capsule) 1 cap by mouth Once a day Unchanged hydroCHLOROthiazide (hydroCHLOROthiazide 25 mg oral tablet) 1 tab(s) by mouth Once a day Unchanged levothyroxine (levothyroxine 200 mcg (0.2 mg) oral tablet) 1 tab(s) by mouth Once a day Unchanged metFORMIN (metFORMIN 500 mg oral tablet (IR)) 1 tab(s) by mouth Three (3) times a day Pharmacy Information [facility]: [address] [place], [place] [id number] [phone] What How Much When Comments Stop Taking meloxicam (meloxicam 7.5 mg oral tablet) 1 tab(s) by mouth Two (2) times a day Please take this list to your next doctor s visit. Bring all medications you take, including over the counter medications, herbals and other supplements with you to your doctor s visit. Patients and families are reminded to discard old lists and to update any records with all medication providers or retail pharmacies. Education Materials Warning Signs of a Stroke A stroke is a medical emergency and should be treated right away every second counts. A stroke is caused by a decrease or block in blood flow to the brain. When this occurs, certain areas of the brain do not get enough oxygen, and brain cells begin to . A stroke can lead to brain damage and can sometimes be life-threatening. However, if someone having a stroke gets medical treatment right away, he or she has better chances of surviving and recovering from the stroke. Being able to recognize the symptoms of a stroke is very important. Types of strokes There are two main types of strokes: Ischemic strokes. This is the most common type of stroke. These strokes happen when a blood vessel that supplies blood to the brain is being blocked. Hemorrhagic strokes. These strokes result from bleeding in the brain due to a blood vessel leaking or bursting (rupturing). A transient ischemic attack (TIA) is a warning stroke that causes stroke-like symptoms that go away quickly. Unlike a stroke, a TIA does not cause permanent damage to the brain. However, the symptoms of a TIA are the same as a stroke, and they also require medical treatment right away. Having a TIA is a sign that you are at higher risk for a permanent stroke. Warning signs of a stroke The symptoms of stroke may vary and will reflect the part of the brain that is involved. Symptoms usually happen suddenly. BE FAST is an easy way to remember the main warning signs of a stroke. B - Balance Signs are dizziness, sudden trouble walking, or loss of balance. E - Eyes Signs are trouble seeing or a sudden change in vision. F - Face Signs are sudden weakness or numbness of the face, or the face or eyelid drooping on one side. A - Arms Signs are weakness or numbness in an arm. This happens suddenly and usually on one side of the body. S - Speech Signs are sudden trouble speaking, slurred speech, or trouble understanding what people say. T - Time Time to call emergency services. Write down what time symptoms started. Other signs of a stroke Some less common signs of a stroke include: A sudden, severe headache with no known cause. Nausea or vomiting. Seizure. A stroke may be happening even if only one BE FAST symptoms is present. These symptoms may represent a serious problem that is an emergency. Do not wait to see if the symptoms will go away. Get medical help right away. Call your local emergency services (911 in the [place] Do not drive yourself to the hospital. Summary A stroke is a medical emergency and should be treated right away every second counts. BE FAST is an easy way to remember the main warning signs of a stroke. Call local emergency services right away if you or someone else has any stroke symptoms, even if the symptoms go away. Make note of what time the first symptoms appeared. Emergency responders or emergency room staff will need to know this information. Do not wait to see if symptoms will go away. Call 911 even if only one of the BE FAST symptoms appears. This information is not intended to replace advice given to you by your health care provider. Make sure you discuss any questions you have with your health care provider. Document Released: 11/27/2017 Document Revised: 07/23/2018 Document Reviewed: 11/27/2017 [employer] Patient Education 2020 [employer] / ?.??. Stroke Prevention Some medical conditions and lifestyle choices can lead to a higher risk for a stroke. You can help to prevent a stroke by making nutrition, lifestyle, and other changes. What nutrition changes can be made? Eat healthy foods. ? Choose foods that are high in fiber. These include: ? Fresh fruits. ? Fresh vegetables. ? Whole grains. ? Eat at least 5 or more servings of fruits and vegetables each day. Try to fill half of your plate at each meal with fruits and vegetables. ? Choose lean protein foods. These include: ? Lowfat (lean) cuts of meat. ? Chicken without skin. ? Fish. ? Tofu. ? Beans. ? Nuts. ? Eat low-fat dairy products. ? Avoid foods that: ? Are high in salt (sodium). ? Have saturated fat. ? Have trans fat. ? Have cholesterol. ? Are processed. ? Are premade. Follow eating guidelines as told by your doctor. These may include: ? Reducing how many calories you eat and drink each day. ? Limiting how much salt you eat or drink each day to 1,500 milligrams (mg). ? Using only healthy fats for cooking. These include: ? [place] oil. ? Canola oil. ? [place] oil. ? Counting how many carbohydrates you eat and drink each day. What lifestyle changes can be made? Try to stay at a healthy weight. Talk to your doctor about what a good weight is for you. Get at least 30 minutes of moderate physical activity at least 5 days a week. This can include: ? Fast walking. ? Biking. ? Swimming. Do not use any products that have nicotine or tobacco. This includes cigarettes and e-cigarettes. If you need help quitting, ask your doctor. Avoid being around tobacco smoke in general. Limit how much alcohol you drink to no more than 1 drink a day for non women and 2 drinks a day for men. One drink equals 12 oz of beer, 5 oz of wine, or 1 oz of hard liquor. Do not use drugs. Avoid taking control pills. Talk to your doctor about the risks of taking control pills if: ? You are over 35 years old. ? You smoke. ? You get migraines. ? You have had a blood clot. What other changes can be made? Manage your cholesterol. ? It is important to eat a healthy diet. ? If your cholesterol cannot be managed through your diet, you may also need to take medicines. Take medicines as told by your doctor. Manage your diabetes. ? It is important to eat a healthy diet and to exercise regularly. ? If your blood sugar cannot be managed through diet and exercise, you may need to take medicines. Take medicines as told by your doctor. Control your high blood pressure (hypertension). ? Try to keep your blood pressure below 130/80. This can help lower your risk of stroke. ? It is important to eat a healthy diet and to exercise regularly. ? If your blood pressure cannot be managed through diet and exercise, you may need to take medicines. Take medicines as told by your doctor. ? Ask your doctor if you should check your blood pressure at home. ? Have your blood pressure checked every year. Do this even if your blood pressure is normal. Talk to your doctor about getting checked for a sleep disorder. Signs of this can include: ? Snoring a lot. ? Feeling very tired. Take uifn-vba-xwahung and prescription medicines only as told by your doctor. These may include aspirin or blood thinners (antiplatelets or anticoagulants). Make sure that any other medical conditions you have are managed. Where to find more information [place] Stroke Association: www.strokeassociation.org National Stroke Association: www.stroke.org Get help right away if: You have any symptoms of stroke. BE FAST is an easy way to remember the main warning signs: ? B - Balance. Signs are dizziness, sudden trouble walking, or loss of balance. ? E - Eyes. Signs are trouble seeing or a sudden change in how you see. ? F - Face. Signs are sudden weakness or loss of feeling of the face, or the face or eyelid drooping on one side. ? A - Arms. Signs are weakness or loss of feeling in an arm. This happens suddenly and usually on one side of the body. ? S - Speech. Signs are sudden trouble speaking, slurred speech, or trouble understanding what people say. ? T - Time. Time to call emergency services. Write down what time symptoms started. You have other signs of stroke, such as: ? A sudden, very bad headache with no known cause. ? Feeling sick to your stomach (nausea). ? Throwing up (vomiting). ? Jerky movements you cannot control (seizure). These symptoms may represent a serious problem that is an emergency. Do not wait to see if the symptoms will go away. Get medical help right away. Call your local emergency services (911 in the [place] Do not drive yourself to the hospital. Summary You can prevent a stroke by eating healthy, exercising, not smoking, drinking less alcohol, and treating other health problems, such as diabetes, high blood pressure, or high cholesterol. Do not use any products that contain nicotine or tobacco, such as cigarettes and e-cigarettes. Get help right away if you have any signs or symptoms of a stroke. This information is not intended to replace advice given to you by your health care provider. Make sure you discuss any questions you have with your health care provider. Document Released: 02/08/2013 Document Revised: 10/06/2019 Document Reviewed: 11/11/2017 [employer] Patient Education 2020 [employer] Stroke Prevention Some medical conditions and behaviors are associated with a higher chance of having a stroke. You can help prevent a stroke by making nutrition, lifestyle, and other changes, including managing any medical conditions you may have. What nutrition changes can be made? Eat healthy foods. You can do this by: ? Choosing foods high in fiber, such as fresh fruits and vegetables and whole grains. ? Eating at least 5 or more servings of fruits and vegetables a day. Try to fill half of your plate at each meal with fruits and vegetables. ? Choosing lean protein foods, such as lean cuts of meat, poultry without skin, fish, tofu, beans, and nuts. ? Eating low-fat dairy products. ? Avoiding foods that are high in salt (sodium). This can help lower blood pressure. ? Avoiding foods that have saturated fat, trans fat, and cholesterol. This can help prevent high cholesterol. ? Avoiding processed and premade foods. Follow your health care provider's specific guidelines for losing weight, controlling high blood pressure (hypertension), lowering high cholesterol, and managing diabetes. These may include: ? Reducing your daily calorie intake. ? Limiting your daily sodium intake to 1,500 milligrams (mg). ? Using only healthy fats for cooking, such as olive oil, canola oil, or sunflower oil. ? Counting your daily carbohydrate intake. What lifestyle changes can be made? Maintain a healthy weight. Talk to your health care provider about your ideal weight. Get at least 30 minutes of moderate physical activity at least 5 days a week. Moderate activity includes brisk walking, biking, and swimming. Do not use any products that contain nicotine or tobacco, such as cigarettes and e-cigarettes. If you need help quitting, ask your health care provider. It may also be helpful to avoid exposure to secondhand smoke. Limit alcohol intake to no more than 1 drink a day for non women and 2 drinks a day for men. One drink equals 12 oz of beer, 5 oz of wine, or 1 oz of hard liquor. Stop any illegal drug use. Avoid taking control pills. Talk to your health care provider about the risks of taking control pills if: ? You are over 35 years old. ? You smoke. ? You get migraines. ? You have ever had a blood clot. What other changes can be made? Manage your cholesterol levels. ? Eating a healthy diet is important for preventing high cholesterol. If cholesterol cannot be managed through diet alone, you may also need to take medicines. ? Take any prescribed medicines to control your cholesterol as told by your health care provider. Manage your diabetes. ? Eating a healthy diet and exercising regularly are important parts of managing your blood sugar. If your blood sugar cannot be managed through diet and exercise, you may need to take medicines. ? Take any prescribed medicines to control your diabetes as told by your health care provider. Control your hypertension. ? To reduce your risk of stroke, try to keep your blood pressure below 130/80. ? Eating a healthy diet and exercising regularly are an important part of controlling your blood pressure. If your blood pressure cannot be managed through diet and exercise, you may need to take medicines. ? Take any prescribed medicines to control hypertension as told by your health care provider. ? Ask your health care provider if you should monitor your blood pressure at home. ? Have your blood pressure checked every year, even if your blood pressure is normal. Blood pressure increases with age and some medical conditions. Get evaluated for sleep disorders (sleep apnea). Talk to your health care provider about getting a sleep evaluation if you snore a lot or have excessive sleepiness. Take szxj-vku-kcjxzwd and prescription medicines only as told by your health care provider. Aspirin or blood thinners (antiplatelets or anticoagulants) may be recommended to reduce your risk of forming blood clots that can lead to stroke. Make sure that any other medical conditions you have, such as atrial fibrillation or atherosclerosis, are managed. What are the warning signs of a stroke? The warning signs of a stroke can be easily remembered as BEFAST. B is for balance. Signs include: ? Dizziness. ? Loss of balance or coordination. ? Sudden trouble walking. E is for eyes. Signs include: ? A sudden change in vision. ? Trouble seeing. F is for face. Signs include: ? Sudden weakness or numbness of the face. ? The face or eyelid drooping to one side. A is for arms. Signs include: ? Sudden weakness or numbness of the arm, usually on one side of the body. S is for speech. Signs include: ? Trouble speaking (aphasia). ? Trouble understanding. T is for time. ? These symptoms may represent a serious problem that is an emergency. Do not wait to see if the symptoms will go away. Get medical help right away. Call your local emergency services (911 in the [place] Do not drive yourself to the hospital. Other signs of stroke may include: ? A sudden, severe headache with no known cause. ? Nausea or vomiting. ? Seizure. Where to find more information For more information, visit: [place] Stroke Association: www.strokeassociation.org National Stroke Association: www.stroke.org Summary You can prevent a stroke by eating healthy, exercising, not smoking, limiting alcohol intake, and managing any medical conditions you may have. Do not use any products that contain nicotine or tobacco, such as cigarettes and e-cigarettes. If you need help quitting, ask your health care provider. It may also be helpful to avoid exposure to secondhand smoke. Remember BEFAST for warning signs of stroke. Get help right away if you or a loved one has any of these signs. This information is not intended to replace advice given to you by your health care provider. Make sure you discuss any questions you have with your health care provider. Document Released: 09/17/2005 Document Revised: 07/23/2018 Document Reviewed: 09/15/2017 [employer] Patient Education 2020 [employer] Additional Information VACCINATE! IT SAVES LIVES! Members of the community who have not yet received the COVID-19 vaccine and would like to receive it can visit one of [facility] vaccine clinics. There are many vaccine clinic locations within the [facility]. For locations and available times, please visit https://gettheshot.coronavirus.pri o.gov/. It is important to note that some COVID mobile vaccine clinics are held outdoors and may be canceled in rainy or stormy conditions. To learn more about pediatric vaccinations (ages 5-11), we invite you to visit the [employer] webpage. https://www.[employer].org/pag es/0722-Ydiux-Fsvaawavpje-Frequent ni-Hhsbt-Dsfjsutpd.html To learn more about the COVID-19 vaccine, we invite you to visit the CDC website for a list of frequently asked questions.https://www.cdc.gov/ally navirus/2019-ncov/vaccines/faq.htm l [facility] Patient Portal Access Instructions: Stay connected with your healthcare team and access your personal medical information anytime with the [employer] [facility] Patient Portal. Please follow the directions below to create your [facility] account: 1.Access the email account you provided upon registration to the hospital/physician office.2.Look for an invitation email from [facility].3.Open the email and access the invitation link: Accept Invitation to [facility].4.Fill in the required nguyen to create your account. To access your account, visit [employer]. Click the blue button labeled Access Patient Portal and then log in with the username and password that you created in the steps above. You will be able to view your test results, lab results, a summary of your visits, upcoming appointments and more. There is also a convenient messaging option where you can send secure messages to your provider. In addition, you will have the ability to download any documents or summaries to your computer and/or send the information securely to a physician. Remember that your healthcare information is confidential, so carefully consider who you will allow to register on the [employer] Patient Portal for access to your information. You can also access the [facility] Patient Portal on the [facility]. Simply click on Patient Portal and then log into your account. If you would like to receive a full copy of your medical records, please contact the [facility] Medical Records Department by calling [phone], Thursday through Thursday between 8 a.m. and 4:30 p.m. HOW TO SAFELY DISPOSE OF PRESCRIPTION MEDICATIONS Please use one of the following methods to safely dispose of your unused medications. 1.Use a drug disposal kit: the drug disposal pouch allows you to safely discard your old and unused drugs. Ask your nurse to give you one when you are discharged.2.Visit a local take-back location: Many local pharmacies and police departments have programs that collect old and unwanted prescription drugs. Call your local pharmacy or go to http://[employer]You[employer]/3J3Sr9o to find one close to you.3.Make use of household items: Use cat litter or old coffee grounds to dispose medications if other options are not available. Mix your drugs with these household products, seal them in an airtight container and throw it into the garbage. Call [facility]: [phone] to be sure your drugs can be disposed of in this way. Some medicines may require a different approach.4.Never flush your medications down the toilet. IF YOU HAVE BEEN PRESCRIBED AN OPIOID FOR PAIN If you have been prescribed an opioid (such as hydrocodone, oxycodone or morphine), it is critical to understand the possible side effects and risks of opioid pain medications. Even when taken as directed, opioids can have several side effects including: Tolerance, meaning you might need to take more of a medication for the same pain relief. Nausea, vomiting and/or constipation. Sleepiness, dizziness, dry mouth, confusion, depression or itching. Physical dependence, meaning you have withdrawal symptoms when a medication is stopped, can develop within a few days. KNOW YOUR RESPONSIBILITIES It is important to know exactly how much and how often to take the opioid pain medications you are prescribed. Never take opioids in higher amounts or more often than prescribed. Do not combine opioids with alcohol or other drugs that cause drowsiness, such as benzodiazepines, also known as benzos, including diazepam and alprazolam, muscle relaxants or sleep aids. Never sell or share prescription opioids. This is illegal. Store opioids in a secure place and out of reach of others (including children, family, friends and visitors). The last page of this document has been signed and retained as a CHART COPY. Signatures Patient Education Materials Warning Signs of a Stroke Stroke Prevention, Evlx-cp-Izkm Stroke Prevention Medication Leaflets My discharge plan and instructions have been reviewed and explained to me and I,WASHINGTON WOLF understand my current condition and have read and understand these discharge instructions. I have received a written copy of the plan/instructions. If I have questions, I am aware that I should contact my doctor. 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 The following is important discharge information regarding your hospital visit. Your Care Team JOAN HUERTA Your Diagnosis Stroke like symptoms What to do next Instructions From Your Doctor -> Continue apixaban, Lipitor 80 for stroke -> Follow-up with [facility] as [facility] -> Given mobile atheroma, continue apixaban 5 mg twice daily, continue to follow-up with cardiology as outpatient -> watermaster goal BP < 130/80 mmHg, goal LDL < 70, goal Hba1c <7% -> She will need 30-day monitor on DC. Follow Up Appointments Follow Up with [facility], Skilled [phone] When Within 1-2 days Follow Up with JOAN HUERTA When Within 5 to 7 days Where: [address] [place] [address] [phone] Follow Up with [facility] When In 5 weeks Why: Stroke follow-up Where: [address] [place] [address]- Follow Up with ROMMEL FOSTER MD When In 3 weeks Why: Left atrial mass Where: [address] [facility] [place] [address]- The Following Activity and Diet Have Been Ordered for You Transfer of Care Activity - Ordered -- Activity As Tolerated, 04/22/23 11:22:00 EDT Transfer of Care Diet - Ordered -- Type of Diet: Regular Diet, 04/22/23 11:22:00 EDT The Following Equipment Has Been Ordered for You No qualifying data available. The Following Treatments Have Been Ordered for You Discharge Labs No qualifying data available. Discharge Radiology No qualifying data available. Other Therapies Discharge Event Monitor Instructions - Ordered -- 04/22/23 11:23:05 EDT, You have been ordered mobile outpatient telemetry. You should receive a device in the mail with further instructions. If you have not received a device within 7 days after discharge, please call [facility] at [phone]. Transfer of Care OT - Ordered -- Reason for therapy: Stroke, 04/22/23 11:22:00 EDT Transfer of Care PT - Ordered -- Reason for therapy: Stroke, 04/22/23 11:22:00 EDT Post Acute Orders Transfer of Care Code Status - Ordered -- Full Code, Constant Order Transfer of Care Orders Electronically Signed By - Ordered -- 04/22/23 11:22:00 EDT, LUCRECIA LOVELL DO Transfer of Care Prognosis - Ordered -- Fair, Patient Aware: Yes Transfer of Care Rehab Potential - Ordered -- Rehab potential fair, 04/22/23 11:22:37 EDT Someone Will Contact You Regarding These Home Health Referrals No home referrals have been ordered for you. No one will call you. Allergies traMADol Medications Please ask your primary doctor or pharmacist before taking any other medication not listed, including over the counter drugs, herbal medications, vitamins and or supplements as they may interact with your home medications. What How Much When Instructions Last Dose New acetaminophen 650 Milligram by mouth Every six (6) hours WHILE AWAKE as needed for Pain, scale 1-10 New apixaban (Eliquis 5 mg oral tablet) 1 tab(s) by mouth Two (2) times a day Duration: 30 Days Pickup at [facility] Unchanged amLODIPine (amLODIPine 5 mg oral tablet) 1 tab(s) by mouth Once a day Unchanged atorvastatin (Lipitor 80 mg oral tablet) 1 tab(s) by mouth Once a day Unchanged FLUoxetine (FLUoxetine 20 mg oral capsule) 1 cap by mouth Once a day Unchanged hydroCHLOROthiazide (hydroCHLOROthiazide 25 mg oral tablet) 1 tab(s) by mouth Once a day Unchanged levothyroxine (levothyroxine 200 mcg (0.2 mg) oral tablet) 1 tab(s) by mouth Once a day Unchanged metFORMIN (metFORMIN 500 mg oral tablet (IR)) 1 tab(s) by mouth Three (3) times a day Pharmacy Information [facility]: [address] [place], [place] [id number] [phone] What How Much When Comments Stop Taking meloxicam (meloxicam 7.5 mg oral tablet) 1 tab(s) by mouth Two (2) times a day Please take this list to your next doctor s visit. Bring all medications you take, including over the counter medications, herbals and other supplements with you to your doctor s visit. Patients and families are reminded to discard old lists and to update any records with all medication providers or retail pharmacies. Additional Information VACCINATE! IT SAVES LIVES! Members of the community who have not yet received the COVID-19 vaccine and would like to receive it can visit one of [facility] vaccine clinics. There are many vaccine clinic locations within the [facility]. For locations and available times, please visit [email or web address].[place].[email or web address] It is important to note that some COVID mobile vaccine clinics are held outdoors and may be canceled in rainy or stormy conditions. To learn more about pediatric vaccinations (ages 5-11), we invite you to visit the [facility] webpage. [email or web address] To learn more about the COVID-19 vaccine, we invite you to visit the CDC website for a list of frequently asked questions.https://www.cdc.gov/ally navirus/2019-ncov/vaccines/faq.htm [facility] Patient Portal Access Instructions: Stay connected with your healthcare team and access your personal medical information anytime with the [facility] Patient Portal. Please follow the directions below to create your [facility] account: 1.Access the email account you provided upon registration to the hospital/physician office.2.Look for an invitation email from [facility].3.Open the email and access the invitation link: Accept Invitation to [facility].4.Fill in the required nguyen to create your account. To access your account, visit [email or web address]. Click the blue button labeled Access Patient Portal and then log in with the username and password that you created in the steps above. You will be able to view your test results, lab results, a summary of your visits, upcoming appointments and more. There is also a convenient messaging option where you can send secure messages to your provider. In addition, you will have the ability to download any documents or summaries to your computer and/or send the information securely to a physician. Remember that your healthcare information is confidential, so carefully consider who you will allow to register on the [facility] Patient Portal for access to your information. You can also access the [facility] Patient Portal on the [facility]ilio. Simply click on Patient Portal and then log into your account. If you would like to receive a full copy of your medical records, please contact the [facility] Medical Records Department by calling [phone], Thursday through Thursday between 8 a.m. and 4:30 p.m. HOW TO SAFELY DISPOSE OF PRESCRIPTION MEDICATIONS Please use one of the following methods to safely dispose of your unused medications. 1.Use a drug disposal kit: the drug disposal pouch allows you to safely discard your old and unused drugs. Ask your nurse to give you one when you are discharged.2.Visit a local take-back location: Many local pharmacies and police departments have programs that collect old and unwanted prescription drugs. Call your local pharmacy or go to http://bit.ly/6Z8Oi9e to find one close to you.3.Make use of household items: Use cat litter or old coffee grounds to dispose medications if other options are not available. Mix your drugs with these household products, seal them in an airtight container and throw it into the garbage. Call [facility]: [phone] to be sure your drugs can be disposed of in this way. Some medicines may require a different approach.4.Never flush your medications down the toilet. IF YOU HAVE BEEN PRESCRIBED AN OPIOID FOR PAIN If you have been prescribed an opioid (such as hydrocodone, oxycodone or morphine), it is critical to understand the possible side effects and risks of opioid pain medications. Even when taken as directed, opioids can have several side effects including: Tolerance, meaning you might need to take more of a medication for the same pain relief. Nausea, vomiting and/or constipation. Sleepiness, dizziness, dry mouth, confusion, depression or itching. Physical dependence, meaning you have withdrawal symptoms when a medication is stopped, can develop within a few days. KNOW YOUR RESPONSIBILITIES It is important to know exactly how much and how often to take the opioid pain medications you are prescribed. Never take opioids in higher amounts or more often than prescribed. Do not combine opioids with alcohol or other drugs that cause drowsiness, such as benzodiazepines, also known as benzos, including diazepam and alprazolam, muscle relaxants or sleep aids. Never sell or share prescription opioids. This is illegal. Store opioids in a secure place and out of reach of others (including children, family, friends and visitors). The last page of this document has been signed and retained as a CHART COPY. Signatures Patient Education Materials Medication Leaflets My discharge plan and instructions have been reviewed and explained to me and I,W[place] WOLF understand my current condition and have read and understand these discharge instructions. I have received a written copy of the plan/instructions. If I have questions, I am aware that I should contact my doctor. 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 Type 2 diabetes Urinary tract infection Hypokalemia Hyperlipidemia Hypothyroidism Hospital Course 67-year-old female with PMHx COPD not on home O2, HTN, DM 2, hypothyroidism presents to ED from ED for right-sided deficits. History obtained by patient, ED physician, chart review. Daughter states that the patient was having slurred speech and incorrect word choice. Noted weakness this past Thursday(04/15) However, at 5 PM the patient fell due to her right-sided weakness. Patient had CT scan of the brain which showed caudate infarct. This was followed by an MRI which also confirmed the infarct. Patient had a 2D echocardiogram which shows 7 x 5 immobile lesion mass near the mitral valve and for this she underwent a PRINCE . 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 Few bubbles were noted on the 45th beat concerning for extracardiac shunt. Given these findings, it was determined that patient would benefit from anticoagulation. Patient was started on Eliquis 5 twice daily. Cardio was consulted and reviewed findings. Patient was noted to have a urinary tract infection and underwent 3 days of IV antibiotics for treatment. No longer on antibiotics. Allergies traMADol Consults Consult to Physician (Physician Consult) - Ordered -- 04/18/23 19:44:00 EDT, CAROL ANN OCAMPO MD, Routine, Stroke concern on CT. Transfer form for eval by neuro. Consult to Physician (Physician Consult) - Ordered -- 04/19/23 11:12:00 EDT, ROMMEL FOSTER MD, Routine, Stroke, Mass in [place]- needs further evaluation, query PRINCE v. cardiac MRI Imaging Results and Diagnostics MRI Brain w/o Contrast Result Date: April 18, 2023 Verified By: BROOKE JIANG MD CLINICAL STATEMENT: IMPRESSION: Acute infarct in the left basal ganglia extending to the left periventricularregion. Objective Vitals and Measurements T: 36.9 C (Oral) TMIN: 36.7 C (Oral) TMAX: 37.0 C (Oral) HR: 77 RR: 16 BP: 113/78 SpO2: 100% HT: 152.4 cm WT: 103.0 kg BMI: 44.35 Weight Dosing Weight: 103 kg (04/21/23) Dosing Weight: 103 kg (04/17/23) Please see today's progress note Code Status Code Status - Ordered -- 04/17/23 21:41:00 EDT, Full Code, Constant Order Admission Date 04/17/23 Discharge Date 04/22/23 Patient Instructions -> Continue apixaban, Lipitor 80 for stroke -> Follow-up with [facility] as outpatient -> Given mobile atheroma, continue apixaban 5 mg twice daily, continue to follow-up with cardiology as outpatient -> watermaster goal BP < 130/80 mmHg, goal LDL < 70, goal Hba1c <7% -> She will need 30-day monitor on DC. Medications New Prescription [id number] Milligram by mouth every six (6) hours WHILE AWAKE as needed Pain, scale 1-10. apixaban (Eliquis 5 mg oral tablet)1 tab(s) by mouth two (2) times a day for 30 Days. Refills: 0. Unchanged amLODIPine (amLODIPine 5 mg oral tablet)1 tab(s) by mouth once a day. atorvastatin (Lipitor 80 mg oral tablet)1 tab(s) by mouth once a day. FLUoxetine (FLUoxetine 20 mg oral capsule)1 cap by mouth once a day. hydroCHLOROthiazide (hydroCHLOROthiazide 25 mg oral tablet)1 tab(s) by mouth once a day. levothyroxine (levothyroxine 200 mcg (0.2 mg) oral tablet)1 tab(s) by mouth once a day. metFORMIN (metFORMIN 500 mg oral tablet (IR))1 tab(s) by mouth three (3) times a day. Discontinued meloxicam (meloxicam 7.5 mg oral tablet)1 tab(s) by mouth two (2) times a day. Follow Up Follow Up with JOAN HUERTA APRN-RD When Within 5 to 7 days Where: [address] [place] [address]- [phone] [facility] When In 5 weeks Why: Stroke follow-up Where: [address] [place] [address]- Follow Up with ROMMEL FOSTER MD When In 3 weeks Why: Left atrial mass Where: [address] [facility] [place] [address]- Follow Up Appointments No qualifying data available. Follow Up Labs/Studies Discharge Labs No Follow-up Labs Discharge Studies No Follow-up Studies Discharge Diet Transfer of Care Diet - Ordered -- Type of Diet: Regular Diet, 04/22/23 11:22:00 EDT Discharge Activity Transfer of Care Activity - Ordered -- Activity As Tolerated, 04/22/23 11:22:00 EDT Condition on Discharge Stable Readmission Risk/Palliative Score LACE Score: 13 (04/20/23 08:19:00) Palliative Total Score: 1 (04/20/23 08:19:00) Discharge Disposition Rehab Information Provided To Patient Time Spent >35 minutes with >50% of the time spent counseling patient and/or coordinating care Digitally Signed by LUCRECIA LOVELL DO on 04/22/2023 11:23 AM [facility] 04-22-2023 Note Date of Service 04/22/23 Chief Complaint 67-year-old female with PMHx COPD not on home O2, HTN, DM 2, hypothyroidism presents to ED from ED for right-sided deficits. History obtained by patient, ED physician, chart review. Daughter states that the patient was having slurred speech and incorrect word choice. Noted weakness this past Thursday(04/15) However, at 5 PM the patient fell due to her right-sided weakness. Patient had CT scan of the brain which showed caudate infarct. This was followed by an MRI which also confirmed the infarct. Patient had a 2D echocardiogram which shows 7 x 5 immobile lesion mass near the mitral valve and for this she underwent a PRINCE . 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 Few bubbles were noted on the 45th beat concerning for extracardiac shunt. Given these findings, it was determined that patient would benefit from anticoagulation. Patient was started on Eliquis 5 twice daily. Cardio was consulted and reviewed findings. Patient was noted to have a urinary tract infection and underwent 3 days of IV antibiotics for treatment. No longer on antibiotics. Subjective Patient seen and examined this morning. No new acute concerns. No chest pain, shortness of breath. Eagerly awaiting discharge so that she can start rehab. Objective Vitals and Measurements T: 37.0 C (Oral) TMIN: 36.7 C (Oral) TMAX: 37.6 C (Oral) HR: 71 RR: 20 BP: 103/66 SpO2: 97% HT: 152.4 cm WT: 103.0 kg BMI: 44.35 Intake and Output 7AM Yesterday to 7AM Today Intake and Output (Last 24 hours) Intake Oral Intake 480.00 Output Urinary Catheter Output: 2300.00 Total Summary Total Intake 480.00 Total Output 2300.00 Fluid Balance -1820.00 Physical Exam Constitutional - well nourished, alert, no gross deformities Head - atraumatic, normocephalic Eyes - Pupils equal, round, reactive to light, no conjunctival injection, extra ocular movements grossly intact, no scleral icterus Ears, Nose, and Throat - trachea midline Respiratory - Clear to auscultation without rales, rhonchi, wheezing or diminished breath sounds Cardiovascular - regular rate and rhythm without murmurs. Normal S1 and S2. No cyanosis or edema Gastrointestinal (Abdomen) -no significant abdominal distention Musculoskeletal - no obvious deformity, swelling, or clubbing. Skin: Skin normal color, texture and turgor with no lesions or eruptions Weight Dosing Weight: 103 kg (04/21/23) Dosing Weight: 103 kg (04/17/23) Medications Medications (15) Active Scheduled: (9) amLODIPine 5 mg tablet 5 mg 1 tab(s), Oral, qDay apixaban 5 mg tablet 5 mg 1 tab(s), Oral, BID atorvastatin 40 mg tablet 40 mg 1 tab(s), Oral, qDay cefTRIAXone IVP syringe 1 gram(s) 10 mL, IV Push (INT), qDay fluoxetine 20 mg Capsule 20 mg 1 cap(s), Oral, qDay hydrochlorothiazide 25 mg tablet 25 mg 1 tab(s), Oral, qDay insulin lispro 100 units/mL Soln (3 mL) Give 0-5 units/dose, Subcutaneous, TIDAC levothyroxine 200 mcg Tablet 200 mcg 1 tab(s), Oral, qDay metformin 500 mg Tablet 500 mg 1 tab(s), Oral, TID Continuous: (1) NS + KCL 20 mEq/L 1,000 mL 1,000 mL, Intravenous, 100 mL/hr PRN: (5) acetaminophen 325 mg Tablet 650 mg 2 tab(s), Oral, q6hWA melatonin 3 mg tablet 3 mg 1 tab(s), Oral, qHS melatonin 3 mg tablet 3 mg 1 tab(s), Oral, qHS ondansetron 2 mg/ 1 mL 2 mL INJ 4 mg 2 mL, IV Push, q4h ondansetron 4 mg DIS tablet 4 mg 1 tab(s), Oral, q6h Lab Results 04/21 05:04 WBC: 6.1 Hgb: 12.5 Hct: 36.7 Platelet: 184 Neutrophil %: 58.5 Glucose Level: 123 H Sodium Level: 140 Potassium Level: 4.4 BUN: 9.0 Creatinine Lvl (s): 0.65 Imaging Results and Diagnostics MRI Brain w/o Contrast Result Date: April 18, 2023 Verified By: BROOKE JIANG MD CLINICAL STATEMENT: IMPRESSION: Acute infarct in the left basal ganglia extending to the left periventricularregion. EKG No qualifying data available. 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 Type 2 diabetes Urinary tract infection Hypokalemia Hyperlipidemia Hypothyroidism On discharge: -> Continue apixaban, Lipitor 40 for stroke -> Follow-up with [facility] as outpatient -> Given mobile atheroma, continue apixaban 5 mg twice daily, continue to follow-up with cardiology as outpatient -> watermaster goal BP < 130/80 mmHg, goal LDL < 70, goal Hba1c <7% -> She will need 30-day monitor on DC. DVT aspirin Patient is full code Disposition: Pending Placement. (precert pending) Digitally Signed by LUCRECIA LOVELL DO on 04/22/2023 09:40 AM [facility] 04-21-2023 Note Date of Service 04/21/23 Chief Complaint 67-year-old female with PMHx COPD not on home O2, HTN, DM 2, hypothyroidism presents to ED from ED for right-sided deficits. History obtained by patient, ED physician, chart review. Daughter states that the patient was having slurred speech and incorrect word choice. Noted weakness this past Thursday(04/15) However, at 5 PM the patient fell due to her right-sided weakness. Patient had CT scan of the brain which showed left caudate infarct. This was followed by an MRI which also confirmed the infarct. Patient had a 2D echocardiogram which shows 7 x 5 immobile lesion mass near the mitral valve and for this she underwent a PRINCE . 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 Few bubbles were noted on the 45th beat concerning for extracardiac shunt. Given these findings, it was determined that patient would benefit from anticoagulation. Patient was started on Eliquis 5 twice daily. Subjective Patient seen and examined this morning. Patient states that she is tired and did not get much sleep overnight. She does report some improvement in her right leg. She is still significantly inhibited compared to baseline but was able to get up to walker with therapy (although short-lived). Objective Vitals and Measurements T: 37.6 C (Oral) TMIN: 36.5 C (Oral) TMAX: 37.6 C (Oral) HR: 67 RR: 20 BP: 139/88 SpO2: 97% Intake and Output 7AM Yesterday to 7AM Today Intake and Output (Last 24 hours) Intake Oral Intake 240.00 Output Urine Voided 600.00 Urinary Catheter Output: 2150.00 Total Summary Total Intake 240.00 Total Output 2750.00 Fluid Balance -2510.00 Physical Exam Constitutional - well nourished, alert, no gross deformities Head - atraumatic, normocephalic Eyes - Pupils equal, round, reactive to light, no conjunctival injection, extra ocular movements grossly intact, no scleral icterus Ears, Nose, and Throat - trachea midline Respiratory - Clear to auscultation without rales, rhonchi, wheezing or diminished breath sounds Cardiovascular - regular rate and rhythm without murmurs. Normal S1 and S2. No cyanosis or edema Gastrointestinal (Abdomen) -no significant abdominal distention Musculoskeletal - no obvious deformity, swelling, or clubbing. Skin: Skin normal color, texture and turgor with no lesions or eruptions Weight Dosing Weight: 103 kg (04/18/23) Dosing Weight: 103 kg (04/17/23) Medications Medications (15) Active Scheduled: (9) amLODIPine 5 mg tablet 5 mg 1 tab(s), Oral, qDay apixaban 5 mg tablet 5 mg 1 tab(s), Oral, BID atorvastatin 40 mg tablet 40 mg 1 tab(s), Oral, qDay cefTRIAXone IVP syringe 1 gram(s) 10 mL, IV Push (INT), qDay fluoxetine 20 mg Capsule 20 mg 1 cap(s), Oral, qDay hydrochlorothiazide 25 mg tablet 25 mg 1 tab(s), Oral, qDay insulin lispro 100 units/mL Soln (3 mL) Give 0-5 units/dose, Subcutaneous, TIDAC levothyroxine 200 mcg Tablet 200 mcg 1 tab(s), Oral, qDay metformin 500 mg Tablet 500 mg 1 tab(s), Oral, TID Continuous: (1) NS + KCL 20 mEq/L 1,000 mL 1,000 mL, Intravenous, 100 mL/hr PRN: (5) acetaminophen 325 mg Tablet 650 mg 2 tab(s), Oral, q6hWA melatonin 3 mg tablet 3 mg 1 tab(s), Oral, qHS melatonin 3 mg tablet 3 mg 1 tab(s), Oral, qHS ondansetron 2 mg/ 1 mL 2 mL INJ 4 mg 2 mL, IV Push, q4h ondansetron 4 mg DIS tablet 4 mg 1 tab(s), Oral, q6h Lab Results 04/21 05:04 WBC: 6.1 Hgb: 12.5 Hct: 36.7 Platelet: 184 Neutrophil %: 58.5 Glucose Level: 123 H Sodium Level: 140 Potassium Level: 4.4 BUN: 9.0 Creatinine Lvl (s): 0.65 04/20 12:54 WBC: 6.9 Hgb: 12.8 Hct: 38.3 Platelet: 196 Neutrophil %: 71.0 Glucose Level: 118 H Sodium Level: 140 Potassium Level: 4.3 BUN: 9.0 Creatinine Lvl (s): 0.63 Imaging Results and Diagnostics MRI Brain w/o Contrast Result Date: April 18, 2023 Verified By: BROOKE JIANG MD CLINICAL STATEMENT: IMPRESSION: Acute infarct in the left basal ganglia extending to the left periventricularregion. EKG No qualifying data available. 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 Type 2 diabetes Urinary tract infection Hypokalemia Hyperlipidemia Hypothyroidism S/p PRINCE. 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 Started on Eliquis. Will follow-up with cardiology as outpatient. Patient is also at risk for arrhythmia if it is amyloid. She will need 30-day monitor. Seen by neurology. Continue statin/Eliquis. snf goal BP < 130/80 mmHg, goal LDL < 70, goal Hba1c <7% Patient has received 3 days of ceftriaxone for empiric treatment of urinary tract infection. Cultures contaminated. PT/OT recommending inpatient therapy, patient is agreeable. DVT aspirin Patient is full code Disposition: Pending Placement. Digitally Signed by LUCRECIA LOVELL DO on 04/21/2023 12:15 PM [facility] 04-20-2023 Cardiology Progress note Date of Service 04/20/2023 Chief Complaint Mitral valve echodensity, acute left basal ganglia stroke Subjective Patient had PRINCE today which showed a mobile atheroma in the sinotubular junction. After discussion with neurology, decision has been made to start patient on apixaban 5 mg twice daily. The risk and benefits were explained to the patient and the patient's daughter over the phone. Objective Vitals and Measurements T: 36.5 C (Oral) TMIN: 36.4 C (Oral) TMAX: 36.6 C (Oral) HR: 69(Apical) RR: 20 BP: 134/66 SpO2: 90% Intake and Output 7AM Yesterday to 7AM Today Intake and Output (Last 24 hours) Intake Oral Intake 0.00 Output Urinary Catheter Output: 1000.00 Urine Count 1.00 Total Summary Total Intake 0.00 Total Output 1000.00 Fluid Balance -1000.00 Physical Exam General: Alert awake oriented 3 Head: Normocephalic atraumatic Eyes: Pupils equal reacting to light and accommodation Neck: Supple, trachea midline Chest: Clear to auscultation, no crackles, no wheezes Heart: S1, S2 normal, rate rhythm regular, no significant murmurs. Abdomen: Soft, bowel sounds present, nontender, no distention Extremities: Nontender, no edema Skin: Warm to touch, intact Weight Dosing Weight: 103 kg (04/18/23) Dosing Weight: 103 kg (04/17/23) Medications Medications (15) Active Scheduled: (9) amLODIPine 5 mg tablet 5 mg 1 tab(s), Oral, qDay apixaban 5 mg tablet 5 mg 1 tab(s), Oral, BID atorvastatin 40 mg tablet 40 mg 1 tab(s), Oral, qDay cefTRIAXone IVP syringe 1 gram(s) 10 mL, IV Push (INT), qDay fluoxetine 20 mg Capsule 20 mg 1 cap(s), Oral, qDay hydrochlorothiazide 25 mg tablet 25 mg 1 tab(s), Oral, qDay insulin lispro 100 units/mL Soln (3 mL) Give 0-5 units/dose, Subcutaneous, TIDAC levothyroxine 200 mcg Tablet 200 mcg 1 tab(s), Oral, qDay metformin 500 mg Tablet 500 mg 1 tab(s), Oral, TID Continuous: (1) NS + KCL 20 mEq/L 1,000 mL 1,000 mL, Intravenous, 100 mL/hr PRN: (5) acetaminophen 325 mg Tablet 650 mg 2 tab(s), Oral, q6hWA melatonin 3 mg tablet 3 mg 1 tab(s), Oral, qHS melatonin 3 mg tablet 3 mg 1 tab(s), Oral, qHS ondansetron 2 mg/ 1 mL 2 mL INJ 4 mg 2 mL, IV Push, q4h ondansetron 4 mg DIS tablet 4 mg 1 tab(s), Oral, q6h Lab Results 04/20 12:54 WBC: 6.9 Hgb: 12.8 Hct: 38.3 Platelet: 196 Neutrophil %: 71.0 Glucose Level: 118 H Sodium Level: 140 Potassium Level: 4.3 BUN: 9.0 Creatinine Lvl (s): 0.63 04/19 08:01 Glucose Level: 138 H Sodium Level: 140 Potassium Level: 4.0 BUN: 12.0 Creatinine Lvl (s): 0.62 EKG No qualifying data available. Assessment/Plan Orders: apixaban, Start: 04/20/23 21:00:00 EDT, Dose = 5 mg, = 1 tab(s), Oral, BID, Indication for Use Atrial fibrillation, 0, 04/20/23 15:28:00 EDT 1. 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 Moderate to severe concentric LVH: Likely hypertensive heart disease 3. CVA 4. Hypertension 5. Diabetes mellitus 6. Hyperlipidemia 7. Obstructive sleep apnea on nocturnal oxygen As patient was noted to have a mobile atheroma on the sinotubular junction on PRINCE today, decision was made to start apixaban 5 mg twice daily. Await final PRINCE report. Discontinue aspirin, continue with Eliquis and atorvastatin. Above was discussed by Dr. Smith with Neurology service. Digitally Signed by GUERA RIVERA MD on 04/20/2023 06:27 PM [facility] 04-20-2023 Cardiology Progress note Date of Service 04/20/2023 Chief Complaint Mitral valve echodensity, acute left basal ganglia stroke Subjective Patient had PRINCE today which showed a mobile atheroma in the sinotubular junction. After discussion with neurology, decision has been made to start patient on apixaban 5 mg twice daily. The risk and benefits were explained to the patient and the patient's daughter over the phone. Objective Vitals and Measurements T: 36.5 C (Oral) TMIN: 36.4 C (Oral) TMAX: 36.6 C (Oral) HR: 69(Apical) RR: 20 BP: 134/66 SpO2: 90% Intake and Output 7AM Yesterday to 7AM Today Intake and Output (Last 24 hours) Intake Oral Intake 0.00 Output Urinary Catheter Output: 1000.00 Urine Count 1.00 Total Summary Total Intake 0.00 Total Output 1000.00 Fluid Balance -1000.00 Physical Exam General: Alert awake oriented 3 Head: Normocephalic atraumatic Eyes: Pupils equal reacting to light and accommodation Neck: Supple, trachea midline Chest: Clear to auscultation, no crackles, no wheezes Heart: S1, S2 normal, rate rhythm regular, no significant murmurs. Abdomen: Soft, bowel sounds present, nontender, no distention Extremities: Nontender, no edema Skin: Warm to touch, intact Weight Dosing Weight: 103 kg (04/18/23) Dosing Weight: 103 kg (04/17/23) Medications Medications (15) Active Scheduled: (9) amLODIPine 5 mg tablet 5 mg 1 tab(s), Oral, qDay apixaban 5 mg tablet 5 mg 1 tab(s), Oral, BID atorvastatin 40 mg tablet 40 mg 1 tab(s), Oral, qDay cefTRIAXone IVP syringe 1 gram(s) 10 mL, IV Push (INT), qDay fluoxetine 20 mg Capsule 20 mg 1 cap(s), Oral, qDay hydrochlorothiazide 25 mg tablet 25 mg 1 tab(s), Oral, qDay insulin lispro 100 units/mL Soln (3 mL) Give 0-5 units/dose, Subcutaneous, TIDAC levothyroxine 200 mcg Tablet 200 mcg 1 tab(s), Oral, qDay metformin 500 mg Tablet 500 mg 1 tab(s), Oral, TID Continuous: (1) NS + KCL 20 mEq/L 1,000 mL 1,000 mL, Intravenous, 100 mL/hr PRN: (5) acetaminophen 325 mg Tablet 650 mg 2 tab(s), Oral, q6hWA melatonin 3 mg tablet 3 mg 1 tab(s), Oral, qHS melatonin 3 mg tablet 3 mg 1 tab(s), Oral, qHS ondansetron 2 mg/ 1 mL 2 mL INJ 4 mg 2 mL, IV Push, q4h ondansetron 4 mg DIS tablet 4 mg 1 tab(s), Oral, q6h Lab Results 04/20 12:54 WBC: 6.9 Hgb: 12.8 Hct: 38.3 Platelet: 196 Neutrophil %: 71.0 Glucose Level: 118 H Sodium Level: 140 Potassium Level: 4.3 BUN: 9.0 Creatinine Lvl (s): 0.63 04/19 08:01 Glucose Level: 138 H Sodium Level: 140 Potassium Level: 4.0 BUN: 12.0 Creatinine Lvl (s): 0.62 EKG No qualifying data available. Assessment/Plan Orders: apixaban, Start: 04/20/23 21:00:00 EDT, Dose = 5 mg, = 1 tab(s), Oral, BID, Indication for Use Atrial fibrillation, 0, 04/20/23 15:28:00 EDT 1. 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 Moderate to severe concentric LVH: Likely hypertensive heart disease 3. CVA 4. Hypertension 5. Diabetes mellitus 6. Hyperlipidemia 7. Obstructive sleep apnea on nocturnal oxygen As patient was noted to have a mobile atheroma on the sinotubular junction on PRINCE today, decision was made to start apixaban 5 mg twice daily. Await final PRINCE report. Discontinue aspirin, continue with Eliquis and atorvastatin. Above was discussed by Dr. Smith with Neurology service. Digitally Signed by GUERA RIVERA MD on 04/20/2023 06:27 PM [facility] 04-20-2023 Cardiology Progress note Date of Service 04/20/2023 Chief Complaint Mitral valve echodensity, acute left basal ganglia stroke Subjective Patient had PRINCE today which showed a mobile atheroma in the sinotubular junction. After discussion with neurology, decision has been made to start patient on apixaban 5 mg twice daily. The risk and benefits were explained to the patient and the patient's daughter over the phone. Objective Vitals and Measurements T: 36.5 C (Oral) TMIN: 36.4 C (Oral) TMAX: 36.6 C (Oral) HR: 69(Apical) RR: 20 BP: 134/66 SpO2: 90% Intake and Output 7AM Yesterday to 7AM Today Intake and Output (Last 24 hours) Intake Oral Intake 0.00 Output Urinary Catheter Output: 1000.00 Urine Count 1.00 Total Summary Total Intake 0.00 Total Output 1000.00 Fluid Balance -1000.00 Physical Exam General: Alert awake oriented 3 Head: Normocephalic atraumatic Eyes: Pupils equal reacting to light and accommodation Neck: Supple, trachea midline Chest: Clear to auscultation, no crackles, no wheezes Heart: S1, S2 normal, rate rhythm regular, no significant murmurs. Abdomen: Soft, bowel sounds present, nontender, no distention Extremities: Nontender, no edema Skin: Warm to touch, intact Weight Dosing Weight: 103 kg (04/18/23) Dosing Weight: 103 kg (04/17/23) Medications Medications (15) Active Scheduled: (9) amLODIPine 5 mg tablet 5 mg 1 tab(s), Oral, qDay apixaban 5 mg tablet 5 mg 1 tab(s), Oral, BID atorvastatin 40 mg tablet 40 mg 1 tab(s), Oral, qDay cefTRIAXone IVP syringe 1 gram(s) 10 mL, IV Push (INT), qDay fluoxetine 20 mg Capsule 20 mg 1 cap(s), Oral, qDay hydrochlorothiazide 25 mg tablet 25 mg 1 tab(s), Oral, qDay insulin lispro 100 units/mL Soln (3 mL) Give 0-5 units/dose, Subcutaneous, TIDAC levothyroxine 200 mcg Tablet 200 mcg 1 tab(s), Oral, qDay metformin 500 mg Tablet 500 mg 1 tab(s), Oral, TID Continuous: (1) NS + KCL 20 mEq/L 1,000 mL 1,000 mL, Intravenous, 100 mL/hr PRN: (5) acetaminophen 325 mg Tablet 650 mg 2 tab(s), Oral, q6hWA melatonin 3 mg tablet 3 mg 1 tab(s), Oral, qHS melatonin 3 mg tablet 3 mg 1 tab(s), Oral, qHS ondansetron 2 mg/ 1 mL 2 mL INJ 4 mg 2 mL, IV Push, q4h ondansetron 4 mg DIS tablet 4 mg 1 tab(s), Oral, q6h Lab Results 04/20 12:54 WBC: 6.9 Hgb: 12.8 Hct: 38.3 Platelet: 196 Neutrophil %: 71.0 Glucose Level: 118 H Sodium Level: 140 Potassium Level: 4.3 BUN: 9.0 Creatinine Lvl (s): 0.63 04/19 08:01 Glucose Level: 138 H Sodium Level: 140 Potassium Level: 4.0 BUN: 12.0 Creatinine Lvl (s): 0.62 EKG No qualifying data available. Assessment/Plan Orders: apixaban, Start: 04/20/23 21:00:00 EDT, Dose = 5 mg, = 1 tab(s), Oral, BID, Indication for Use Atrial fibrillation, 0, 04/20/23 15:28:00 EDT 1. 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 Moderate to severe concentric LVH: Likely hypertensive heart disease 3. CVA 4. Hypertension 5. Diabetes mellitus 6. Hyperlipidemia 7. Obstructive sleep apnea on nocturnal oxygen As patient was noted to have a mobile atheroma on the sinotubular junction on PRINCE today, decision was made to start apixaban 5 mg twice daily. Await final PRINCE report. Discontinue aspirin, continue with Eliquis and atorvastatin. Above was discussed by Dr. Smith with Neurology service. Digitally Signed by GUERA RIVERA MD on 04/20/2023 06:27 PM [facility] 04-20-2023 Note Exam Date Time Procedure Performing Provider Status 04/20/23 11:45 AM Transesophageal Echo cardiogram - CV Auth (Verified) [facility] 08-28-2023 Note Date of Service 04/20/23 Chief Complaint 67-year-old female with PMHx COPD not on home O2, HTN, DM 2, hypothyroidism presents to ED from ED for right-sided deficits. History obtained by patient, ED physician, chart review. Daughter states that the patient was having slurred speech and incorrect word choice. Noted weakness this past Thursday(04/15) However, at 5 PM the patient fell due to her right-sided weakness. Patient had CT scan of the brain which showed left caudate infarct. This was followed by an MRI which also confirmed the infarct. Patient had a 2D echocardiogram which shows 7 x 5 immobile lesion mass near the mitral valve and for this she is going to undergo PRINCE . Patient is on aspirin and statin at this time. Cardiology is consulted as well as neurology. Patient to be discharged to the [facility] because of family being there versus [facility]. Subjective Patient seen and examined after PRINCE. Doing well. Sitting up in bed. States she is working hard withphysical therapy and was able to get up with walker (she does admit she needs increased help). No fevers or chills. Denies recent weight loss. Denies any obvious bleeding. Other than her right leg weakness she has no acute concerns or complaints. Objective Vitals and Measurements T: 36.6 C (Oral) TMIN: 36.4 C (Oral) TMAX: 37.2 C (Oral) HR: 65 RR: 18 BP: 157/57 SpO2: 96% Intake and Output 7AM Yesterday to 7AM Today Intake and Output (Last 24 hours) Intake Oral Intake 0.00 Output Urinary Catheter Output: 1999. Urine Count 1.00 Total Summary Total Intake 0.00 Total Output 2000.00 Fluid Balance -2000.00 Physical Exam Constitutional - well nourished, alert, no gross deformities Head - atraumatic, normocephalic Eyes - Pupils equal, round, reactive to light, no conjunctival injection, extra ocular movements grossly intact, no scleral icterus Ears, Nose, and Throat - trachea midline Respiratory - Clear to auscultation without rales, rhonchi, wheezing or diminished breath sounds Cardiovascular - regular rate and rhythm without murmurs. Normal S1 and S2. No cyanosis or edema Gastrointestinal (Abdomen) -no significant abdominal distention Musculoskeletal - no obvious deformity, swelling, or clubbing. Skin: Skin normal color, texture and turgor with no lesions or eruptions Weight Dosing Weight: 103 kg (04/18/23) Dosing Weight: 103 kg (04/17/23) Medications Medications (15) Active Scheduled: (9) amLODIPine 5 mg tablet 5 mg 1 tab(s), Oral, qDay aspirin 81 mg EC 81 mg 1 tab(s), Oral, qDayM atorvastatin 40 mg tablet 40 mg 1 tab(s), Oral, qDay cefTRIAXone IVP syringe 1 gram(s) 10 mL, IV Push (INT), qDay fluoxetine 20 mg Capsule 20 mg 1 cap(s), Oral, qDay hydrochlorothiazide 25 mg tablet 25 mg 1 tab(s), Oral, qDay insulin lispro 100 units/mL Soln (3 mL) Give 0-5 units/dose, Subcutaneous, TIDAC levothyroxine 200 mcg Tablet 200 mcg 1 tab(s), Oral, qDay metformin 500 mg Tablet 500 mg 1 tab(s), Oral, TID Continuous: (1) NS + KCL 20 mEq/L 1,000 mL 1,000 mL, Intravenous, 100 mL/hr PRN: (5) acetaminophen 325 mg Tablet 650 mg 2 tab(s), Oral, q6hWA melatonin 3 mg tablet 3 mg 1 tab(s), Oral, qHS melatonin 3 mg tablet 3 mg 1 tab(s), Oral, qHS ondansetron 2 mg/ 1 mL 2 mL INJ 4 mg 2 mL, IV Push, q4h ondansetron 4 mg DIS tablet 4 mg 1 tab(s), Oral, q6h Lab Results 04/19 08:01 Glucose Level: 138 H Sodium Level: 140 Potassium Level: 4.0 BUN: 12.0 Creatinine Lvl (s): 0.62 EKG No qualifying data available. 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 Type 2 diabetes Urinary tract infection Hypokalemia Hyperlipidemia Hypothyroidism Cardiology consulted for PRINCE given possible echodensity. Additionally likely has hypertensive heartdisease however differentials do include amyloidosis. We will definitely follow-up with cardiology as outpatient. Patient is also at risk for arrhythmia if it is amyloid. She will need 30-day monitor. Seen by neurology. Continue aspirin/statin. PRINCE planned for today. Depending on PRINCE results, may need infectious disease consult to follow cardiac lesion given concern for endocarditis however at this time blood cultures are negative. CBC shows no leukocytosis. No fevers. Are likely thrombus. snf goal BP < 130/80 mmHg, goal LDL < 70, goal Hba1c <7% Patient has received 3 days of ceftriaxone for empiric treatment of urinary tract infection. Cultures contaminated. Okay to discontinue PT/OT recommending inpatient therapy, patient is agreeable. DVT aspirin Patient is full code Disposition: Pending PRINCE results. Depending on appearance May need infectious disease consult versus anticoagulation. Digitally Signed by LUCRECIA LOVELL DO on 04/20/2023 06:14 PM [id number] Neurology Progress note Date of Service April 20, 2023 Chief Complaint Stroke Subjective Patient seen and examined today. She continues to have right-sided weakness that is unchanged. Alsohaving some numbness. No new complaints. No headache, dizziness, double vision. Patient is scheduled for PRINCE today. No acute events overnight. Objective Vitals and Measurements T: 36.6 C (Oral) TMIN: 36.4 C (Oral) TMAX: 37.2 C (Oral) HR: 65 RR: 18 BP: 157/57 SpO2: 96% Intake and Output 7AM Yesterday to 7AM Today Intake and Output (Last 24 hours) Intake Oral Intake 0.00 Output Urinary Catheter Output: 2000.00 Urine Count 1.00 Total Summary Total Intake 0.00 Total Output 2000.00 Fluid Balance -2000.00 Physical Exam Neurologic Exam Mental Status: Orientation: oriented to person, [facility], and month Language: normal fluency, normal simple comprehension, normal repetition, and normal naming Speech: dysarthricmildly, easily understood Cranial Nerves: Pupils: 4mm -> 2mm bilaterally Visual Nguyen: full to confrontation bilaterally CN III, IV, : EOMI. No nystagmus CN V: normal light touch and temp sensation in V1, V2, V3, bilaterally. CN VII: face symmetric at rest. Facial muscle strength intact CN VIII: intact grossly CN IX/CN X: normal symmetric palate elevation, no uvula deviation CN XI: strength of trapezius and SCM muscles intact, bilaterally CN XII: tongue protrudes in the midline, no atrophy or fasciculations Sensation: Light touch: reduced in RUE/RLE Motor: Muscle Bulk: No atrophy or fasciculations Muscle Tone: physiologic tone in upper and lower extremities Involuntary movements: none Pronator drift: present in RUE Strength: LUE: 5/5 proximally, 5/5 distally RUE: 5-/5 proximally, 5-/5 distally LLE: 5/5 proximally, 5/5 distally RLE: 4+/5 proximally, 4+/5 distally Reflexes: R L B 2 2 T 2 2 P 2 2 Toes equivocal as the patient was pulling away/unable to relax Coordination: Syfggi-pcpj-vmmayw movements intact bilaterally Weight Dosing Weight: 103 kg (04/18/23) Dosing Weight: 103 kg (04/17/23) Medications Medications (15) Active Scheduled: (9) amLODIPine 5 mg tablet 5 mg 1 tab(s), Oral, qDay aspirin 81 mg EC 81 mg 1 tab(s), Oral, qDayM atorvastatin 40 mg tablet 40 mg 1 tab(s), Oral, qDay cefTRIAXone IVP syringe 1 gram(s) 10 mL, IV Push (INT), qDay fluoxetine 20 mg Capsule 20 mg 1 cap(s), Oral, qDay hydrochlorothiazide 25 mg tablet 25 mg 1 tab(s), Oral, qDay insulin lispro 100 units/mL Soln (3 mL) Give 0-5 units/dose, Subcutaneous, TIDAC levothyroxine 200 mcg Tablet 200 mcg 1 tab(s), Oral, qDay metformin 500 mg Tablet 500 mg 1 tab(s), Oral, TID Continuous: (1) NS + KCL 20 mEq/L 1,000 mL 1,000 mL, Intravenous, 100 mL/hr PRN: (5) acetaminophen 325 mg Tablet 650 mg 2 tab(s), Oral, q6hWA melatonin 3 mg tablet 3 mg 1 tab(s), Oral, qHS melatonin 3 mg tablet 3 mg 1 tab(s), Oral, qHS ondansetron 2 mg/ 1 mL 2 mL INJ 4 mg 2 mL, IV Push, q4h ondansetron 4 mg DIS tablet 4 mg 1 tab(s), Oral, q6h Lab Results 04/19 08:01 Glucose Level: 138 H Sodium Level: 140 Potassium Level: 4.0 BUN: 12.0 Creatinine Lvl (s): 0.62 Imaging Results and Diagnostics MRI Brain w/o Contrast Result Date: April 18, 2023 Verified By: BROOKE JIANG MD CLINICAL STATEMENT: IMPRESSION: Acute infarct in the left basal ganglia extending to the left periventricularregion. Assessment/Plan Acute stroke Left basal ganglia stroke Abnormal echocardiogram Work-up has revealed a left subcortical basal leanly infarct. Her work-up has also been remarkable for an immobile mass seen in the left atrium, that was commented to be secondary to likely degenerative changes opposed to a vegetation or thrombus. Plan: Aspirin 81 mg daily Lipitor 40 mg daily Patient unfortunately arrived in a prolonged fashion, would not recommend dual antiplatelet therapythis far out from the onset of her stroke symptoms Cardiology consult placed for a mobile mass seen in left atrium unsure if this is truly related to degenerative change or potentially represents a vegetation, thrombus or potentially some type of Libman-Sacks endocarditis. -Discussed pt with cardiology- they would like to start patient on anticoagulation based on PRINCE findings. This is reasonable form neuro side and can be started whenever needed from neuro standpoint. ASA can be discontinued unless needed from cardiac standpoint. Cardio on board. LDL 116 A1C 7.2% Stroke etiology, risk factors, & stroke prevention discussed in length by LIAISON OFFICER. Patient receptive to education at this time. ->Frequent neurochecks ->watermaster goal BP < 130/80 mmHg, goal LDL < 70, goal Hba1c <7% ->Avoid hypotension DVT prophylaxis-SCDs Case discussed with collaborating physician, who agrees with plan. Will follow PRINCE peripherally & follow up as needed. Please call/page with questions/concerns. Time Spent I spent a total of 51 minutes reviewing the patient s diagnostic labs/tests, seeing and examining the patient and documenting in the medical record. Digitally Signed by HINA MCCLAIN on 04/20/2023 10:23 AM Digitally Signed by HINA MCCLAIN on 04/20/2023 03:28 PM [id number] Cardiology Consult note Date of Service 04/19/2023 Reason for Consultation Abnormal echo Referring Physician Hospitalist History of Present Illness Patient is a 67-year-old female with past medical history of hypertension, diabetes mellitus, dyslipidemia, COPD, sleep apnea and nocturnal oxygen, hypothyroidism who is currently being treated for acute left basal ganglia stroke. Transthoracic echocardiogram performed yesterday showed moderate to severe concentric LVH, low normal systolic function EF of 55%, possible hypokinesis of anterolateral inferolateral myocardium. Patient had moderate mitral annular calcification. In addition there was a 7 x 5 mm mobile echodensity on LA aspect of posterior mitral annulus appears separate from the mitral annular calcification. Differential listed was degenerative changes versus mass. Patient also had a possible prominent bigg terminalis in the right atrium. No shunt was seen with bubble studies. Patient denies any chest pain or shortness of breath. Denies any palpitations lightheadedness dizziness or loss of consciousness. Patient denies any dysphagia loose teeth peptic ulcer disease. Patient has sleep apnea and uses nocturnal oxygen. No CPAP. Review of Systems All systems reviewed. No additional symptoms noted. Physical Exam Vitals and Measurements T: 36.7 C (Oral) TMIN: 36.6 C (Oral) TMAX: 37.2 C (Oral) HR: 65 RR: 18 BP: 139/75 SpO2: 98% HT: 152.4 cm WT: 103.0 kg BMI: 44.35 Weight Dosing Weight: 103 kg (04/18/23) Dosing Weight: 103 kg (04/17/23) General: Alert awake oriented 3 Head: Normocephalic atraumatic Eyes: Pupils equal reacting to light and accommodation Neck: Supple, trachea midline Chest: Clear to auscultation, no crackles, no wheezes Heart: S1, S2 normal, rate rhythm regular, no significant murmurs. Abdomen: Soft, bowel sounds present, nontender, no distention Extremities: Nontender, no edema Skin: Warm to touch, intact Lab Results 04/19 08:01 Glucose Level: 138 H Sodium Level: 140 Potassium Level: 4.0 BUN: 12.0 Creatinine Lvl (s): 0.62 04/18 06:03 WBC: 7.5 Hgb: 13.4 Hct: 39.8 Platelet: 199 Neutrophil %: 66.2 Glucose Level: 152 H Sodium Level: 140 Potassium Level: 3.4 L BUN: 10.0 Creatinine Lvl (s): 0.74 Assessment/Plan Stroke like symptoms Impression: 1. Echodensity in mitral valve on left atrial aspect: Degenerative changes versus mass 2. Moderate to severe concentric LVH: Likely hypertensive heart disease 3. CVA 4. Hypertension 5. Diabetes mellitus 6. Hyperlipidemia 7. Obstructive sleep apnea on nocturnal oxygen Plan: The echodensity in mitral valve left atrial aspect could be degenerative changes versus mass. Considering patient having acute CVA we will proceed with transesophageal echocardiogram. No contraindication noted for PRINCE. Patient has moderate to severe concentric LVH. Likely hypertensive heart disease. Differential includes amyloidosis. This work-up could be done as an outpatient. Continue aspirin Lipitor. Continue optimal blood pressure management. If the PRINCE does not show any significant pathology patient could be followed up with cardiology as outpatient. Explained procedural details for PRINCE. Enquired about potential contraindications for PRINCE inluding dysphagia, loose teeth, peptic ulcer disease, significant airway disease etc. Explained potential risks including but not limited to Esophageal perforation, respiratory or hemodynamic compromise etc. Patient expressed understanding and agreement with proceeding with PRINCE If no clear etiology found for CVA patient would benefit from outpatient 30-day CardioNet monitoring. Problem List/Past Medical History Ongoing No qualifying data Historical No qualifying data Procedure/Surgical History Carpal tunnel Medications Inpatient acetaminophen, 650 mg= 2 tab(s), Oral, q6hWA, PRN amLODIPine, 5 mg= 1 tab(s), Oral, qDay aspirin, 81 mg= 1 tab(s), Oral, qDayM cefTRIAXone, 1 gram(s)= 10 mL, IV Push (INT), qDay FLUoxetine, 20 mg= 1 cap(s), Oral, qDay HumaLOG 100 units/mL subcutaneous solution, Give 0-5 units/dose, Subcutaneous, TIDAC hydroCHLOROthiazide, 25 mg= 1 tab(s), Oral, qDay levothyroxine, 200 mcg= 1 tab(s), Oral, qDay Lipitor, 40 mg= 1 tab(s), Oral, qDay melatonin, 3 mg= 1 tab(s), Oral, qHS, PRN melatonin, 3 mg= 1 tab(s), Oral, qHS, PRN metFORMIN 500 mg oral tablet (IR), 500 mg= 1 tab(s), Oral, TID NS + 20mEq KCL/Liter IV Premix 1,000 mL, 1000 mL, Intravenous Zofran, 4 mg= 2 mL, IV Push, q4h, PRN Zofran ODT, 4 mg= 1 tab(s), Oral, q6h, PRN Home amLODIPine 5 mg oral tablet, 5 mg= 1 tab(s), Oral, qDay FLUoxetine 20 mg oral capsule, 20 mg= 1 cap(s), Oral, qDay hydroCHLOROthiazide 25 mg oral tablet, 25 mg= 1 tab(s), Oral, qDay levothyroxine 200 mcg (0.2 mg) oral tablet, 200 mcg= 1 tab(s), Oral, qDay Lipitor 80 mg oral tablet, 80 mg= 1 tab(s), Oral, qDay meloxicam 7.5 mg oral tablet, 7.5 mg= 1 tab(s), Oral, BID metFORMIN 500 mg oral tablet (IR), 500 mg= 1 tab(s), Oral, TID Allergies traMADol Social History Alcohol Use: Never., 04/17/2023 Substance Abuse Use: Never., 04/17/2023 Tobacco Nicotine Use: Former smoker, quit more than 30 days ago., 04/17/2023 Immunizations No qualifying data available. Digitally Signed by ROMMEL FOSTER MD on 04/19/2023 05:51 PM Digitally Signed by ROMMEL FOSTER MD on 04/19/2023 05:53 PM [id number] Note. MICRO - Microbiology PROCEDURE: Blood Culture (bacterial) [*1] SOURCE: Blood BODY SITE: COLLECTED DATE/TIME: 04/19/2023 14:04 EDT RECEIVED DATE/TIME: 04/19/2023 14:25 EDT START DATE/TIME: 04/19/2023 14:25 EDT FREE TEXT SOURCE: PRELIMINARY REPORTS Preliminary Report [] Verified Date/Time/Personnel: 04/19/2023 14:59 EDT Culture has been received in lab and is no growth to date. Routine cultures are held for 5 days. Performing Locations *1: This test was performed at: [facility], [address] [place] [address], [facility] , [facility] ([place])04-19-2023 Note. MICRO - Microbiology PROCEDURE: Blood Culture (bacterial) [*1] SOURCE: Blood BODY SITE: COLLECTED DATE/TIME: 04/19/2023 14:04 EDT RECEIVED DATE/TIME: 04/19/2023 14:25 EDT START DATE/TIME: 04/19/2023 14:25 EDT FREE TEXT SOURCE: PRELIMINARY REPORTS Preliminary Report [] Verified Date/Time/Personnel: 04/19/2023 14:59 EDT Culture has been received in lab and is no growth to date. Routine cultures are held for 5 days. Performing Locations *1: This test was performed at: [facility], [address] [place] [address], [id number] , [facility] ([place])04-19-2023 Neurology Consult note Date of Service April 19, 2023 Reason for Consultation Stroke Referring Physician Dr. Cooper History of Present Illness The patient is a 67-year-old woman with past medical history of type 2 diabetes, hypertension, COPD, and hypothyroidism who presented with right-sided weakness. She states that she believes her symptoms started on Thursday. She feels as though her right-sided weakness has been relatively unchanged. She has had no recent health changes or medication changes. She does admit to increased urinary frequency, but suspected that was due to drinking an excess amount of caffeine. Stroke work-up has been completed already. A left basal ganglia infarct was revealed. The patient'shemoglobin A1c is 7.2. LDL is slightly elevated at 116. Her blood pressure remains somewhat elevated between 1 30-1 60 systolic. An echocardiogram was completed which revealed an immobile mass in the left atrium, that was commented to be suspected to degenerative change as opposed to a vegetation or thrombus. The patient denies any recent chills, fevers. She denies IV drug use. She denies tobacco use and alcohol use. Review of Systems Review of systems discussed and reviewed. Negative other than that stated in HPI. Physical Exam Vitals and Measurements T: 37.2 C (Oral) TMIN: 36.6 C (Oral) TMAX: 37.2 C (Oral) HR: 60 RR: 18 BP: 145/59 SpO2: 100% HT: 152.4 cm WT: 103.0 kg BMI: 44.35 Weight Dosing Weight: 103 kg (04/18/23) Dosing Weight: 103 kg (04/17/23) Physical Examination: General: No acute distress. Well nourished. Wel developed. Eye: No conjunctival erythema. HEENT: Normocephalic. Atraumatic. Normal hearing. Moist oral mucosa. No pharyngeal erythema. MSK: Normal ROM. No tenderness. No swelling. No deformity. Skin: Warm. Dry. Intact. No rashes. No lesions. Psychiatric: Cooperative. Appropriate mood and affect. Neurologic: Higher cortical function: Patient was spontaneously alert and awake. No dysarthria or aphasia. CN: Visual nguyen intact. Pupils equally round and reactie to light. Optic disc margins sharp and intact. Extraocular muscles intact. Facial sensation equal over all trigeminal divisions to light touch. eye closure strong bilaterally. Very mild decreased right nasolabial fold. Strong bite strength bilaterally. Palate elevates in midline. Tongue protrudes in midline. Shoulders elevate symmetrically. Head turns with equal strength bilaterally. Motor: No tremor. Normal bulk for age. No spasticity. R L Deltoid 5 5 Bicep 5 5 Tricep 4- 5 Open Shank Coverer 4- 5 Wrist Flex 5 5 Wrist Ext 5 5 Finger Flex 5 5 Finger Ext 5 5 FDI 5 5 APB 5 5 Hip Flex 4- 5 Knee Flex 4- 5 Knee Ext 4- 5 Plantarflex 4- 5 Dorsiflex 4- 5 EHL 4- 5 Sensation: Intact to light touch in all four extremities Reflexes: R L Brach 2+ 2+ Biceps 2+ 2+ Triceps 2+ 2+ Patella 3+ 2+ Achilles 2+ 2+ Plantar Extensor Down Coordination: FNF performed normally bilaterally. Unable to fully assess [id number] due to current weakness. Gait: Deferred at this time due to weakness. Lab Results 04/19 08:01 Glucose Level: 138 H Sodium Level: 140 Potassium Level: 4.0 BUN: 12.0 Creatinine Lvl (s): 0.62 04/18 06:03 WBC: 7.5 Hgb: 13.4 Hct: 39.8 Platelet: 199 Neutrophil %: 66.2 Glucose Level: 152 H Sodium Level: 140 Potassium Level: 3.4 L BUN: 10.0 Creatinine Lvl (s): 0.74 Imaging Results and Diagnostics MRI Brain w/o Contrast Result Date: April 18, 2023 Verified By: BROOKE JIANG MD CLINICAL STATEMENT: IMPRESSION: Acute infarct in the left basal ganglia extending to the left periventricularregion. Assessment/Plan Stroke like symptoms Orders: Blood Culture (bacterial) Blood Culture (bacterial) Consult to Physician Left basal ganglia stroke Type 2 diabetes Hyperlipidemia Hypertension Abnormal echocardiogram The patient is a 67-year-old woman with past medical history of type 2 diabetes, hypertension, COPD, and hypothyroidism, who presented with subacute right-sided weakness since Thursday of this past week. Work-up has revealed a left subcortical basal leanly infarct. Her work-up has also been remarkable for an immobile mass seen in the left atrium, that was commented to be secondary to likely degenerative changes opposed to a vegetation or thrombus. Plan: Aspirin 81 mg daily Lipitor 40 mg daily Patient unfortunately arrived in a prolonged fashion, would not recommend dual antiplatelet therapythis far out from the onset of her stroke symptoms Cardiology consult placed for a mobile mass seen in left atrium unsure if this is truly related to degenerative change or potentially represents a vegetation, thrombus or potentially some type of Libman-Sacks endocarditis. Given that this would significantly change her management depending on the etiology, would recommend further evaluation per cardiology recommendation with [facility] versus cardiac MRI Will continue to follow. Yun Rowan DO Neurology >35 mins was spent in [id number] time and coordination of care for this patient, including butnot limited to personally gathering history, examining the patient, reviewing labs and images and records, counseling patient and/or family about diagnosis and potential workup if applicable, as detailed above as well as discussing the case with patient's nurse/medical team where applicable. Problem List/Past Medical History Ongoing No qualifying data Historical No qualifying data Procedure/Surgical History Carpal tunnel Medications Inpatient acetaminophen, 650 mg= 2 tab(s), Oral, q6hWA, PRN amLODIPine, 5 mg= 1 tab(s), Oral, qDay aspirin, 81 mg= 1 tab(s), Oral, qDayM cefTRIAXone, 1 gram(s)= 10 mL, IV Push (INT), qDay FLUoxetine, 20 mg= 1 cap(s), Oral, qDay HumaLOG 100 units/mL subcutaneous solution, Give 0-5 units/dose, Subcutaneous, TIDAC hydroCHLOROthiazide, 25 mg= 1 tab(s), Oral, qDay levothyroxine, 200 mcg= 1 tab(s), Oral, qDay Lipitor, 80 mg= 1 tab(s), Oral, qDay melatonin, 3 mg= 1 tab(s), Oral, qHS, PRN melatonin, 3 mg= 1 tab(s), Oral, qHS, PRN metFORMIN 500 mg oral tablet (IR), 500 mg= 1 tab(s), Oral, TID NS + 20mEq KCL/Liter IV Premix 1,000 mL, 1000 mL, Intravenous Zofran, 4 mg= 2 mL, IV Push, q4h, PRN Zofran ODT, 4 mg= 1 tab(s), Oral, q6h, PRN Home amLODIPine 5 mg oral tablet, 5 mg= 1 tab(s), Oral, qDay FLUoxetine 20 mg oral capsule, 20 mg= 1 cap(s), Oral, qDay hydroCHLOROthiazide 25 mg oral tablet, 25 mg= 1 tab(s), Oral, qDay levothyroxine 200 mcg (0.2 mg) oral tablet, 200 mcg= 1 tab(s), Oral, qDay Lipitor 80 mg oral tablet, 80 mg= 1 tab(s), Oral, qDay meloxicam 7.5 mg oral tablet, 7.5 mg= 1 tab(s), Oral, BID metFORMIN 500 mg oral tablet (IR), 500 mg= 1 tab(s), Oral, TID Allergies traMADol Social History Alcohol Use: Never., 04/17/2023 Substance Abuse Use: Never., 04/17/2023 Tobacco Nicotine Use: Former smoker, quit more than 30 days ago., 04/17/2023 Immunizations No qualifying data available. Digitally Signed by YUN ROWAN DO on 04/19/2023 12:38 PM [id number] Note. MICRO - Microbiology PROCEDURE: Urine Culture [*1] SOURCE: Urine BODY SITE: COLLECTED DATE/TIME: 04/17/2023 23:05 EDT RECEIVED DATE/TIME: 04/17/2023 23:22 EDT START DATE/TIME: 04/17/2023 23:22 EDT FREE TEXT SOURCE: FINAL REPORTS Final Report [] Verified Date/Time/Personnel: 04/19/2023 09:17 EDT 10,000 - 50,000 cfu/ml Multiple bacterial morphotypes present. Probable Contamination. Suggest recollection if clinically indicated. PRELIMINARY REPORTS Preliminary Report [] Verified Date/Time/Personnel: 04/18/2023 13:01 EDT Culture results pending. Performing Locations *1: This test was performed at: [facility] [address] [place] [address], [phone] , [facility] ([place])04-18-2023 Note ORIGINAL EXAMINATION: MRI OF THE BRAIN WITHOUT CONTRAST 04/18/2023 1:51 pm TECHNIQUE: Multiplanar multisequence MRI of the brain was performed without the administration of intravenous contrast. COMPARISON: [place] [id number] from outside facility the. HISTORY: ORDERING SYSTEM PROVIDED HISTORY: Reason for Exam: TIA Fall. Difficulty walking. Right side and leg numbness. Right-sided weakness. FINDINGS: INTRACRANIAL STRUCTURES/VENTRICLES: There is restricted diffusion in the left basal ganglia extending to the left periventricular region corresponding to hypodense area on CT consistent with acute infarct. No mass effect or midline shift. No evidence of an acute intracranial hemorrhage. The ventricles are mildly enlarged with commensurate enlargement of the sulci most consistent with mild age-related volume loss. The sellar/suprasellar regions appear unremarkable. The normal signal voids within the major intracranial vessels appear maintained. ORBITS: The visualized portion of the orbits demonstrate no acute abnormality. SINUSES: A mucous retention cyst is shown in the left maxillary sinus. The paranasal sinuses and mastoid air cells are predominantly clear however. BONES/SOFT TISSUES: The bone marrow signal intensity appears normal. The soft tissues demonstrate no acute abnormality. 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 Interpreted by: Brooke Jiang MD Preliminary Report By: Brooke Jiang MD Electronically signed By Brooke Jiang MD Dictated Date: 04/18/2023 4:17:50 PM Prelim Date: 04/18/2023 4:21:44 PM Sign Date: 04/18/2023 4:21:44 PM Ordering Provider: [facility]08-26-2023 Note* Exam Date Time Procedure Performing Provider Status 04/18/23 9:09 AM Echocardiogram, Adul t with Bubble Study- Auth (Verified) [facility] 08-26-2023 History and physical note Date of Service 04/17/23 Chief Complaint Patient states has not felt well since Thursday after fall denies hitting head, has been getting weaker and weaker everyday. Today need help with ambulation and became incontinent of bowel . History of Present Illness 67-year-old female with PMHx COPD not on home O2, HTN, DM 2, hypothyroidism presents to ED from ED for right-sided deficits. History obtained by patient, ED physician, chart review. Daughter states that the patient was having slurred speech and incorrect word choice. Noted weakness this past Thursday. Initially had attributed to grief as 1 day prior and had a in the family with .However, at 5 PM the patient fell due to her right-sided weakness. No reported LOC or headimpact. The patient denies difficulty swallowing, acute visual changes. She has been having a burning sensation in the feet. Weakness is ongoing. She denies other acute complaints. No current tobaccouse. No current ASA use. In the ED she was initially tachycardic. Rate normalized at the time my evaluation. Labs and imaging obtained at [facility] on 04/17/[address] head showed mildly diminished attenuation of the left caudate nucleus suspicious for ischemia. CXR shows no acute disease. CTA carotid shows hard plaque at origin of ICA bilaterally with no significant stenosis or aneurysmal dilatation. CTA head shows no significant stenosis or aneurysmal dilatation. UA showed 4+ bacteria, 25 leukocytes concerning for infection. CMP with T. bili 1.2, globulin 4.1, alk phos 123, glucose 135. Otherwise no remarkable abnormality. ECG is NSR. She was transferred from ER to our ER. Reason for transfer is for evaluation by neurology. NIH was 4 in the ED for mild to moderate aphasia, partial sensory loss, RLE motor deficit, dysarthria. Review of Systems Pertinent review of systems are included in the HPI. All other systems were reviewed and are negative for acute changes from the patient's baseline. Physical Exam Vitals and Measurements T: 36.4 C (Oral) HR: 114 RR: 18 BP: 161/82 SpO2: 96% WT: 103.0 kg Weight Dosing Weight: 103 kg (04/17/23) GA: Alert and oriented x3, no acute distress Abd: Not distended HEENT: NCAT, sclera anicteric, oral mucosa moist Pulmonary: No tachypnea or use of accessory respiratory muscles. MSK: No gross deformities Cardiovascular: Not tachycardic Skin: Warm and dry Neuro: Right-sided upper and lower extremity 4+ strength. Cranial nerves II through XII with no gross deficit. Speech is fluid. Psychiatric: Thought content, associations, attention are all normal. Assessment/Plan Left caudate nucleus CVA. Patient with right-sided deficits over at least the past 2 days. Also with intermittent dysarthria. 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 She was transferred to our ER for evaluation by neurologist. imaging showed CTA head neck with no LVO or significant steno sis. CT showing left caudate nucleus infarct. -MRI brain -Echo with bubble -Lipid profile -Neurology consult ASA 81 mg DM 2. Chronic. Glucose was elevated at . ADA diet and ISS A1c Concern for UTI. She was treated for concern for UTI. Had 25 leukocytes and 4+ bacteria. She has nosigns or symptoms. We will continue empiric ceftriaxone for now Follow-up urine culture HTN. BP is currently stable. We will address home medications once verified. COPD. Not currently in exacerbation. No wheezing on examination. O2 saturation is in the low 90s. She is not on home O2. Continue medications. Medications were not verified by pharmacy at the time of this dictation. Reconciliation to be completed once medications are verified; will address additional chronic medical problems at that time. DVT prophylaxis: SCDs Note dictated using voice recognition software and may contain typographical errors. Problem List/Past Medical History Ongoing No qualifying data Historical No qualifying data Procedure/Surgical History Carpal tunnel Medications No qualifying data available Allergies traMADol Social History Alcohol Use: Never., 04/17/2023 Substance Abuse Use: Never., 04/17/2023 Tobacco Nicotine Use: Former smoker, quit more than 30 days ago., 04/17/2023 Family History Nonsignificant Immunizations No qualifying data available. Code Status Code Status - Ordered -- 04/17/23 21:41:00 EDT, Full Code, Constant Order Digitally Signed by OMARI COOPER MD on 04/17/2023 09:55 PM [id number] History and physical note Date of Service 04/17/23 Chief Complaint Patient states has not felt well since Thursday after fall denies hitting head, has been getting weaker and weaker everyday. Today need help with ambulation and became incontinent of bowel . History of Present Illness 67-year-old female with PMHx COPD not on home O2, HTN, DM 2, hypothyroidism presents to ED from ED for right-sided deficits. History obtained by patient, ED physician, chart review. Daughter states that the patient was having slurred speech and incorrect word choice. Noted weakness this past Thursday. Initially had attributed to grief as 1 day prior and had a in the family with .However, at 5 PM the patient fell due to her right-sided weakness. No reported LOC or headimpact. The patient denies difficulty swallowing, acute visual changes. She has been having a burning sensation in the feet. Weakness is ongoing. She denies other acute complaints. No current tobaccouse. No current ASA use. In the ED she was initially tachycardic. Rate normalized at the time my evaluation. Labs and imaging obtained at [facility] on 04/17/[address] head showed mildly diminished attenuation of the left caudate nucleus suspicious for ischemia. CXR shows no acute disease. CTA carotid shows hard plaque at origin of ICA bilaterally with no significant stenosis or aneurysmal dilatation. CTA head shows no significant stenosis or aneurysmal dilatation. UA showed 4+ bacteria, 25 leukocytes concerning for infection. CMP with T. bili 1.2, globulin 4.1, alk phos 123, glucose 135. Otherwise no remarkable abnormality. ECG is NSR. She was transferred from ER to our ER. Reason for transfer is for evaluation by neurology. NIH was 4 in the ED for mild to moderate aphasia, partial sensory loss, RLE motor deficit, dysarthria. Review of Systems Pertinent review of systems are included in the HPI. All other systems were reviewed and are negative for acute changes from the patient's baseline. Physical Exam Vitals and Measurements T: 36.4 C (Oral) HR: 114 RR: 18 BP: 161/82 SpO2: 96% WT: 103.0 kg Weight Dosing Weight: 103 kg (04/17/23) GA: Alert and oriented x3, no acute distress Abd: Not distended HEENT: NCAT, sclera anicteric, oral mucosa moist Pulmonary: No tachypnea or use of accessory respiratory muscles. MSK: No gross deformities Cardiovascular: Not tachycardic Skin: Warm and dry Neuro: Right-sided upper and lower extremity 4+ strength. Cranial nerves II through XII with no gross deficit. Speech is fluid. Psychiatric: Thought content, associations, attention are all normal. Assessment/Plan Left caudate nucleus CVA. Patient with right-sided deficits over at least the past 2 days. Also with intermittent dysarthria. 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 She was transferred to our ER for evaluation by neurologist. imaging showed CTA head neck with no LVO or significant steno sis. CT showing left caudate nucleus infarct. -MRI brain -Echo with bubble -Lipid profile -Neurology consult ASA 81 mg DM 2. Chronic. Glucose was elevated at . ADA diet and ISS A1c Concern for UTI. She was treated for concern for UTI. Had 25 leukocytes and 4+ bacteria. She has nosigns or symptoms. We will continue empiric ceftriaxone for now Follow-up urine culture HTN. BP is currently stable. We will address home medications once verified. COPD. Not currently in exacerbation. No wheezing on examination. O2 saturation is in the low 90s. She is not on home O2. Continue medications. Medications were not verified by pharmacy at the time of this dictation. Reconciliation to be completed once medications are verified; will address additional chronic medical problems at that time. DVT prophylaxis: SCDs Note dictated using voice recognition software and may contain typographical errors. Problem List/Past Medical History Ongoing No qualifying data Historical No qualifying data Procedure/Surgical History Carpal tunnel Medications No qualifying data available Allergies traMADol Social History Alcohol Use: Never., 04/17/2023 Substance Abuse Use: Never., 04/17/2023 Tobacco Nicotine Use: Former smoker, quit more than 30 days ago., 04/17/2023 Family History Nonsignificant Immunizations No qualifying data available. Code Status Code Status - Ordered -- 04/17/23 21:41:00 EDT, Full Code, Constant Order Digitally Signed by OMARI COOPER MD on 04/17/2023 09:55 PM [facility] [id number] Evaluation + Plan noteExtracted from: Title:History and Physical Author:ARCADIO COOPER ON Date:04/17/23 Left caudate nucleus CVA. Pa tient with right-sided deficits over at least the past 2 days. Also with intermittent dysarthria. 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 She was transferred to our ER for evaluation by neurologist. imaging showed CTA head neck with no LVO or significant stenosis. CT showing left caudate nucleus infarct. -MRI brain -Echo with bubble -Lipid profile -Neurology consult ASA 81 mg DM 2. Chronic. Glucose was elevated at . ADA diet and ISS A1c Concern for UTI. She was treated for concern for UTI. Had 25 leukocytes and 4+ bacteria. She has no signs or symptoms. We will continue empiric ceftriaxone for now Follow-up urine culture HTN. BP is currently stable. We will address home medications once verified. COPD. Not currently in exacerbation. No wheezing on examination. O2 saturation is in the low 90s. She is not on home O2. Continue medications. Medications were not verified by pharmacy at the time of this dictation. Reconciliation to be completed once medications are verified; will address additional chronic medical problems at that time. DVT prophylaxis: SCDs Note dictated using voice recognition software and may contain typographical errors. Addendum by OMARI COOPER MD on April 18, 2023 05:15:30 EDT Medications not yet verified. They will need reconciled. [facility] Evaluation note* Diagnosis Onset Date Resolution Status Admit Date Lung mass acute February 09 9:39am [facility] Work Phone: Hospital course Narrative No data available for this section [facility] Reason for referral (narrative)No reason for referral information availableBlKaiser [facility] Work Phone: Summary Purpose Family History No Family History Records Found No data available for this section No Family History Records FoundNo Family History Records FoundNo Family History Records FoundNo Family History Records Found Advance Directives No Advanced Directives Records FoundNo Advanced Directives Records FoundNo Advanced Directives Records FoundNo Advanced Directives Records FoundNo Advanced Directives Records Found Chief Complaint and Reason for Visit Chief Complaint Admit Date Pulmonary Nodules February 09, 2025 9:39 am Reason for Visit Admit Date Lung mass February 09, 2025 9:39 am Additional Source Comments INFORMATION SOURCE (unrecogn ized section and content) DATE CREATED AUTHOR 07/10/2020 [facility] DATE CREATED AUTHOR AUTHOR'S ORGANIZ ATION 04/23/2023 [facility] ([place]) DATE CREATED AUTHOR AUTHOR'S ORGANIZ ATION 11/05/2024 [facility] DATE CREATED AUTHOR AUTHOR'S ORGANIZ ATION [facility]/08/2025 [facility] DATE CREATED AUTHOR AUTHOR'S UNRULY ATION 02/08/2025 [facility] Patient Care team informatio n (unrecognized section and content) Team Status: Active Member Role Status Dates Dr. Stew Ireland MD Primary Care Provider Active Team Status: Inactive Member Role Status Dates Dr. Neo Castillo MD Referring Provider Active Start: February 09, 2025 End: February 09, 2025 Dr. Andres Meyer DO Attending Provider Active S tart: February 09, 2025 End: February 09, 2025 Dr. Stew Ireland MD Primary Care Provider Active Start: February 09, 2025 End: February 09, 2025 Goals (unrecognized section and content) Goals may be documented in a n alternate section FOR RECORDS PERTAINING TO PATIENTS WHO ARE OR HAVE BEEN ENROLLED IN A CHEMICAL DEPENDENCY/SUBSTANCEABUSE PROGRAM, SOME INFORMATION MAY BE OMITTED. This clinical summary was aggregated from multiple sources. Caution should be exercised in using it in the provision of clinical care. This summary normalizes information from multiple sources, and as a consequence, information in this document may materially change the coding, format and clinical context of patient data. In addition, data may be omitted in some cases. CLINICAL DECISIONS SHOULD BE BASED ON THE PRIMARY CLINICAL RECORDS. [employer] provides no warranty or guarantee of the accuracy or completeness of information in this document.
== END | disposition home or self-care (01) ==
PROVIDERS: PCP Student in an Organized Health Care Education/Training Program; Referring Provider Internal Medicine Critical Care Medicine; Visit Provider Internal Medicine Critical Care Medicine
DX: R91.8 Other nonspecific abnormal finding of lung field (principal)
CPT/HCPCS: 36415; 85049; 85610; 85730

== ENCOUNTER 2025-02-16 10:42 | Day surgery (SDC) | payer MEDICARE, MEDICAID, SELFPAY ==
--- NOTE | 2025-02-13 13:35 | PCM.HP.STD ---
HPI - General HPI Narrative The patient is a 69-year-old female who was initially referred to the pulmonary medicine office on February 09, 2025 for the evaluation of a lung mass. The patient presented to our office with a questionable history of COPD and chronic tobacco dependency, currently in remission, after having undergone an chest x-ray which was abnormal. Accordingly, a dedicated chest CT was obtained and follow-up. That imaging study was completed through [facility], dated January 31, 2025, and demonstrated a large peritracheal mass measuring 3 x 3.3 cm along with a large subcarinal mass measuring 7 cm and multiple additional subcentimeter nodules scattered bilaterally. The patient has a [id number] smoking history, having quit completely in 2021. She did not grow up in a smoking household. The patient has never been evaluated by a web press operator assistant in the past. She has never completed pulmonary function studies. The patient does not utilize any inhalers at her baseline. However, she does report that she utilizes 2 L/min of supplemental oxygen on a nightly basis. In addition, the patient is currently prescribed Plavix due to a history of CVA. [facility] Home Medications ?Medication ?Instructions ?Recorded ?Last Taken ?Type acetaminophen 325 mg capsule 650 mg PO Q6H PRN 02/09/25 Unknown History albuterol sulfate 90 mcg/actuation inhalation 02/09/25 Unknown History aerosol inhaler clopidogrel 75 mg tablet 75 mg PO QDAY 02/09/25 Unknown History fluoxetine 20 mg capsule 20 mg PO QDAY 02/09/25 Unknown History gabapentin 100 mg capsule mg PO 02/09/25 Unknown History hydrochlorothiazide 25 mg tablet 25 mg PO QDAY 02/09/25 Unknown History levothyroxine 200 mcg tablet 200 mcg PO QDAY 02/09/25 Unknown History metformin 500 mg tablet 500 mg PO TID 02/09/25 Unknown History potassium chloride 20 mEq 20 meq PO QDAY 02/09/25 Unknown History tablet,extended release(part/cryst) Allergy/AdvReac Type Severity Reaction Status Date / Time tramadol Allergy Unknown unknown Verified 02/09/25 09:55 Social History (Updated 02/09/25 @ 09:53 by Libby Spence LPN) Smoking Status: Former smoker how long ago did patient quit smokin stopped smoke 1.5 packs days. ROS ROS Narrative 10 systems were reviewed with pertinent positives as noted in HPI. Physical Exam Const alert and no apparent distress General Appearance: cooperative HEENT normocephalic and head/scalp atraumatic Eyes PERRL and EOMs intact bilaterally Neck supple General: trachea midline Resp normal respiratory effort Auscultation: diminished lung sounds Cardio regular rate and regular rhythm GI normal to inspection, nondistended, normoactive bowel sounds Extremity no clubbing, cyanosis or edema Skin General Skin Exam: no breakdown Neuro CN's II-XII intact bilaterally and no focal motor deficits Psych cooperative and affect normal Assessment & Plan Assessment/Plan (1) Lung mass: PLAN: The patient presented to the outpatient pulmonary office for the evaluation of lung masses which was identified on CT imaging of the chest through [facility] dated January 31, 2025. The dominant lesions are located in the right paratracheal region along with the subcarinal region. In light of the patient's tobacco abuse history, these findings are worrisome for malignancy. Accordingly, I would recommend that we proceed with EBUS facilitated transbronchial needle aspiration to obtain a definitive diagnosis. The risks and benefits of the proposed procedure were discussed with the patient. She is in agreement to proceed. The patient was instructed to continue to hold her Plavix until after the biopsies have been completed.
--- NOTE | 2025-02-14 21:19 | PAT.ANE_ITS ---
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 When Was Last Pacemaker Check QUESTION #4 FULL TEXT: You/Your Family Experience fever (hyperthermia) with Anesthesia Last Oral Intake Last Oral intake: Last Oral Intake NPO since Meds taken in AM with sips of water? 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 Female Yes 02/14/25 11:59 HX of Motion Sickness Yes 02/14/25 11:59 HX of N/V After Surgery No 02/14/25 11:59 Non-Smoker Yes 02/14/25 11:59 Duration of Surgery greater Yes 02/14/25 11:59 than 60 minutes Number of Risk Factors 4 02/14/25 11:59 PONV Score Severe Risk 02/14/25 11:59 Height & Weight Height & Weight: Anesthesia: Height & Weight Height 5 ft 02/09/25 09:50 Respiratory Assessment Respiratory Assessment - power plant installer: Respiratory Tract Infection Hx - power plant installer Hx Respiratory Tract Infection No 02/14/25 11:59 STOP Sleep Apnea STOP Sleep Apnea - power plant installer: STOP Sleep Apnea - power plant installer Hx Hypertension Yes: CONTROLLED WITH MED 02/14/25 11:59 Hx Sleep Apnea No 02/14/25 11:59 CPAP BIPAP Do you snore loudly (louder No 02/14/25 11:59 than talking or can be heard Do you often feel tired/ Yes 02/14/25 11:59 fatigued/ sleepy during daytime? Has anyone observed you stop No 02/14/25 11:59 breathing during sleep? STOP Results Positive 02/14/25 11:59 QUESTION #5 FULL TEXT : Do you snore loudly (louder than talking or can be heard through closed doors)? 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 Specify any problems Hx of Preganancy in last 3 No 02/14/25 11:59 Months Nurse Filling Out Transfusion DSCHRIBER 02/14/25 11:59 & Questions: Date: 02/14/25 02/14/25 11:59 Time: 12:00 02/14/25 11:59 Patient unable to answer at this time (ie. confused, unrespo /Reproduction History /Reproductive History - power plant installer: /Reproductive Hx- power plant installer Hx Now No 02/14/25 11:59 Gestational Age (in weeks): EDC: Hx Hx Para Hx Section SAB No 02/14/25 11:59 PFSH Medical History (Updated 02/14/25 @ 12:11 by Ana Laura Medina) Wears glasses Wears dentures Depression Thyroid disease Diabetes Rheumatoid arthritis Walker as ambulation aid High cholesterol Easy bruising Stroke/cerebrovascular accident Syncope Dietary restriction Vomiting History of IBS Gastric reflux Former smoker On home oxygen therapy COPD (chronic obstructive pulmonary disease) Shortness of breath on exertion History of edema Cardiology follow-up encounter Hypertension Home Medications ?Medication ?Instructions ?Recorded ?Last Taken ?Type acetaminophen 325 mg capsule 650 mg PO Q6H PRN pain Unknown History albuterol sulfate 90 mcg/actuation 2 puff inhalation Q 6H PRN 02/09/25 Unknown History aerosol inhaler shortness of breath or wheez ing clopidogrel 75 mg tablet 75 mg PO QDAY 02/09/2502/09 History fluoxetine 20 mg capsule 20 mg PO QDAY 02/09/25 Unkno wn History gabapentin 100 mg capsule 200 mg PO QHS 02/09/25 Unkno wn History hydrochlorothiazide 25 mg tablet 25 mg PO QDAY 5 Unknown History levothyroxine 200 mcg tablet 200 mcg PO QDAY 02/09/25 Unknown History metformin 500 mg tablet 1,000 mg PO DAILY 02/09/25 U nknown History potassium chloride 20 mEq 20 meq PO QDAY 02/09/25 Unkn own History tablet,extended release(part/cryst) amlodipine 5 mg tablet 5 mg PO DAILY 02/14/25 Unkno wn History aspirin 81 mg tablet,delayed 81 mg PO DAILY 02/14/25 U nknown History release (Adult Aspirin Regimen) atorvastatin 80 mg tablet (Lipitor) 80 mg PO QHS 02/14 Unknown History famotidine 20 mg tablet (Pepcid) 20 mg PO DAILY Unknown History metformin 500 mg tablet 500 mg PO QHS 02/14/25 Unkno wn History Allergy/AdvReac Type Severity Reaction Status Date / Time tramadol Allergy Unknown unknown Verified 02/14/25 11:59 Surgical History (Updated 02/14/25 @ 12:11 by Ana Laura Medina) History of Hx laparoscopic cholecystectomy Social History (Updated 02/09/25 @ 09:53 by Libby Spence LPN) Smoking Status: Former smoker how long ago did patient quit smokin stopped smoke 1.5 packs days. Audit: Pertinent Findings Pertinent Findings EKG Perinent findings: April 17, 2023. Normal sinus rhythm. Right bundle b ranch block. Left posterior fascicular block. (See echo below). Echo (EF%) pertinent findings: October 01, 2023. Normal systolic function. No aortic stenosis. Consult pertinent findings: May 03, 2024. Dr. Colon. 1. CVA?continue aspirin and Plavix. Continue atorvastatin. 2. Hzcntsfyvoqc-bnjtptkbys-dnwqayqg hydrochlorothiazide and amlodipine. Recommendation Anesthesia Recommendation Anesthesia recommendation: OPTIMIZED for anesthesia
[2025-02-16] VITALS (9 sets, daily range): BP systolic 93–139; BP diastolic 63–70; PULSE 98–122; RESP 16–20; TEMP 36.3–36.9; O2SAT 92–96; BMI 28.0
--- NOTE | 2025-02-16 | ASPIG_PTH ---
PATIENT: WASHINGTON WOLF LOC: EN U#:[id number] AGE/SX: 69/F ROOM: RE02/16/[address]: Dr. Andres Meyer DO : 1955 BED: DIS: 02/16/2025 SPEC #: [id number] RECD: 02/16/25 12:00 STATUS: DIANA COLLEEN #: [id number] PAOLO: 02/16/25 00:[address]: Andres Meyer DEPT: CYTOLOGY RECD BY: Isabelle Anglin ENTERED: 02/16/25 13:00 SP TYPE: ASP OUT OTHR DR: Dr. Bonita Ireland MD Tissues: A - Lung, NOS B - Lung, NOS Procedures: FNA Specimen Adequacy Immunohistochemical Stains Special Stain Group II Surgery Specimen Level IV Cytology Other IHC Stain ADDITIONAL HEADER OPERATION: Endobronchial ultrasound PRE-OP DIAGNOSIS: Lung mass TISSUE SUBMITTED: A- B : EBUS DIAGNOSIS CYTOLOGY A. TBNA, site 7, #1-3, EBUS (smear x6, cytospin, cellblock): * Non-diagnostic (necrotic material). B. TBNA, site 4R, #4-6, EBUS (smear x6, cytospin, cellblock): - Neuroendocrine tumor - see note. Note: IHC was performed. The tumor cells are: Positive for E-cadherin, panKeratin (focal), CK5/6 (focal), Chromogranin, Synaptophysin, and Ki67 (approximately 25% by manual immunohistologic technique). Negative for Calretinin, CK20, GATA3, CD45, p40, and Napsin A. These findings support a diagnosis of neuroendocrine tumor. The limited amount of material present for evaluation limits the assessment and does not allow reliable distinction between atypical carcinoid and large cell neuroendocrine carcinoma. Selected slides/images were reviewed in intradepartmental consultation by Dr Perry Johansen (thoracic pathology division, [facility]. COMMENT The specimen is evaluated at the time of biopsy by Dr. Chiu. Immediate Evaluation = 1. Abundant debris suggestive of necrosis. Few atypical cells, degenerated. Few benign bronchial cells. 2. Abundant debris. Benign bronchial cells. 3. Abundant debris and blood. Few benign bronchial cells. 4. Atypical cells suspicious for carcinoma. 5. Atypical cells suspicious for carcinoma. 6. Non-diagnostic (acellular). CYTOLOGY STUDY Slides are reviewed. All matched controls reacted appropriately. These tests were developed and their performance characteristics determined by [facility]. They may not have been cleared or approved by the U.[place]. Food and Drug Administration. The FDA has determined that such clearance or approval is not necessary.? The above immunohistochemical/dualISH?markers are reviewed by the Pathologist. CYTOLOGY GROSS A. Received labeled with the patient's name and and designated EBUS, TBNA, site 7 #1-3. The specimen consists of two stained smears for AMANUEL. B. Received labeled with the patient's name and and designated EBUS, TBNA, site 4R #4-6. The specimen consists of two stained smears for AMANUEL. CPT: 05707o8,[id number]
[2025-02-16] MEDS: Lactated Ringers 1,000 ML 15 ML IV (11:14)
--- NOTE | 2025-02-16 11:22 | PCM.PRE.AN2 ---
ASA Classification* ASA Classification ASA Classification: 3 Assessment & Plan Anesthesia* Anesthesia Assessment Anesthesia Assessment: Discussed sedation and/or anesthesia options, risks, benefits, and alternatives with patient/parents/legal guardian/POA. Questions invited. The patient/parents/legal guardian/POA seems to understand and agrees to proceed with anesthesia plan. Reviewed the physical assessment, medical history, allergy history and patient home medications list prior to surgery/procedure/anesthetic and documented any changes. Performed airway and anesthesia risk assessments. Anesthesia Type Anesthesia Type: General History Source History Obtained from:: Patient and Chart Anesthesia Focused Assessment* Temperature: 97.4 F Pulse Rate: 101 Blood Pressure: 104/68 Respiratory Rate: 17 Pulse Ox: 93 Oxygen Delivery Method: Room Air Airway Assessment Mouth opens: >3 cm Mallampati Score: I Teeth Condition: Full (Patient has full upper and lower dentures. 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 When Was Last Pacemaker Check QUESTION #4 FULL TEXT: You/Your Family Experience fever (hyperthermia) with Anesthesia Last Oral Intake Last Oral intake: Last Oral Intake NPO since 00:00 02/16/25 11:08 Meds taken in AM with sips of water? 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 Female Yes 02/14/25 11:59 HX of Motion Sickness Yes 02/14/25 11:59 HX of N/V After Surgery No 02/14/25 11:59 Non-Smoker Yes 02/14/25 11:59 Duration of Surgery greater Yes 02/14/25 11:59 than 60 minutes Number of Risk Factors 4 02/14/25 11:59 PONV Score Severe Risk 02/14/25 11:59 Height & Weight Height & Weight: Anesthesia: Height & Weight Height 5 ft 02/16/25 11:08 Weight: 65 kg 02/16/25 11:08 Body Mass Index (BMI) 28.0 02/16/25 11:08 Respiratory Assessment Respiratory Assessment - home appliance installer: Respiratory Tract Infection Hx - home appliance installer Hx Respiratory Tract Infection No 02/14/25 11:59 Any additional information?: Yes Hx Respiratory Tract Infection: No History of Anesthesia Respiratory Infection details: Patient has chronic cough. Increasing in frequency more recently. STOP Sleep Apnea STOP Sleep Apnea - home appliance installer: STOP Sleep Apnea - home appliance installer Hx Hypertension Yes: CONTROLLED WITH MED 02/14/25 11:59 Hx Sleep Apnea No 02/14/25 11:59 CPAP BIPAP Do you snore loudly (louder No 02/14/25 11:59 than talking or can be heard Do you often feel tired/ Yes 02/14/25 11:59 fatigued/ sleepy during daytime? Has anyone observed you stop No 02/14/25 11:59 breathing during sleep? STOP Results Positive 02/14/25 11:59 QUESTION #5 FULL TEXT : Do you snore loudly (louder than talking or can be heard through closed doors)? 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 Specify any problems Hx of Preganancy in last 3 No 02/14/25 11:59 Months Nurse Filling Out Transfusion DSCHRIBER 02/14/25 11:59 & Questions: Date: 02/14/25 02/14/25 11:59 Time: 12:00 02/14/25 11:59 Patient unable to answer at this time (ie. confused, unrespo /Reproduction History /Reproductive History - home appliance installer: /Reproductive Hx- home appliance installer Hx Now No 02/14/25 11:59 Gestational Age (in weeks): EDC: Hx Hx Para Hx Section SAB No 02/14/25 11:59 Active Medications Active Medications: Current Medications Generic Name Dose Route Start Last Admin Trade Name Freq PRN Reason Stop Dose Admin Lactated Ringer's 1,000 mls @ 15 mls/hr 02/16/25 11:00 02/16/25 11:14 IV 15 mls/hr .Q48H PACO Administration PFSH Medical History Wears glasses Wears dentures Depression Thyroid disease Diabetes Rheumatoid arthritis Walker as ambulation aid High cholesterol Easy bruising Stroke/cerebrovascular accident Syncope Dietary restriction Vomiting History of IBS Gastric reflux Former smoker On home oxygen therapy COPD (chronic obstructive pulmonary disease) Shortness of breath on exertion History of edema Cardiology follow-up encounter Hypertension Home Medications ?Medication ?Instructions ?Recorded ?Last Taken ?Type acetaminophen 325 mg capsule 650 mg PO Q6H PRN pain 02/09/25 02/15/25 History albuterol sulfate 90 mcg/actuation 2 puff inhalation Q6H PRN 02/09/25 02/15/25 History aerosol inhaler shortness of breath or wheezing clopidogrel 75 mg tablet 75 mg PO QDAY 02/09/25 02/09/25 History fluoxetine 20 mg capsule 20 mg PO QDAY 02/09/25 02/16/25 History gabapentin 100 mg capsule 200 mg PO QHS 02/09/25 02/15/25 History hydrochlorothiazide 25 mg tablet 25 mg PO QDAY 02/09/25 02/16/25 History levothyroxine 200 mcg tablet 200 mcg PO QDAY 02/09/25 02/16/25 History metformin 500 mg tablet 1,000 mg PO DAILY 02/09/25 02/16/25 History potassium chloride 20 mEq 20 meq PO QDAY 02/09/25 02/16/25 History tablet,extended release(part/cryst) amlodipine 5 mg tablet 5 mg PO DAILY 02/14/25 02/16/25 History aspirin 81 mg tablet,delayed 81 mg PO DAILY 02/14/25 02/16/25 History release (Adult Aspirin Regimen) atorvastatin 80 mg tablet (Lipitor) 80 mg PO QHS 02/14/25 02/15/25 History famotidine 20 mg tablet (Pepcid) 20 mg PO DAILY 02/14/25 02/16/25 History metformin 500 mg tablet 500 mg PO QHS 02/14/25 02/15/25 History Allergy/AdvReac Type Severity Reaction Status Date / Time tramadol Allergy Unknown unknown Verified 02/16/25 11:05 Surgical History History of Hx laparoscopic cholecystectomy Social History Smoking Status: Former smoker how long ago did patient quit smokin stopped smoke 1.5 packs days. Review of Systems (Anesthesia) ROS Narrative System reviewed and no additional complaints, except as documented.
[2025-02-16 11:31] LABS: Bedside Glucose 141 mg/dL (74-106)
[2025-02-16] MEDS: Lidocaine Jelly 2% 20 ML Syringe (URO-JET) 1 APPLIC (12:15)
--- NOTE | 2025-02-16 12:35 | PCM.POST.ANE ---
Anesthesia: Postop Eval I Current Vital Signs Temperature: 98.4 F Pulse Rate: 118 Blood Pressure: 139/70 Respiratory Rate: 20 Pulse Ox: 93 Assessment Airway patent: Yes Spontaneous unlabored respirations: Yes nausea: No Vomiting: No Anesthesia Complication: No Fluid Hydration Crystalloid volume administer (ml): 300 Total IV fluid infused: 300 Progress Note Anesthesia document: Postop Eval 1 completed: Yes
--- NOTE | 2025-02-16 12:36 | OP.BRONCH_ITS ---
Patient Name: Gwen Schultz Procedure Date: 02/16/2025 11:28 AM Date of : 1955 Age: 69 Procedure: Bronchoscopy Indications: Mediastinal adenopathy, Lung mass suspicious for cancer Providers: Andres Meyer MD Complications: No immediate complications Procedure: Pre-Anesthesia Assessment: - A History and Physical has been performed. Patient meds and allergies have been reviewed. The risks and benefits of the procedure and the sedation options and risks were discussed with the patient. All questions were answered and informed consent was obtained. Patient identification and proposed procedure were verified prior to the procedure by the physician and the nurse in the procedure room. Mental Status Examination: alert and oriented. Airway Examination: normal oropharyngeal airway. Respiratory Examination: poor air movement. CV Examination: normal. ASA Grade Assessment: II - A patient with mild systemic disease. After reviewing the risks and benefits, the patient was deemed in satisfactory condition to undergo the procedure. The anesthesia plan was to use general anesthesia. Immediately prior to administration of medications, the patient was re-assessed for adequacy to receive sedatives. The heart rate, respiratory rate, oxygen saturations, blood pressure, adequacy of pulmonary ventilation, and response to care were monitored throughout the procedure. The physical status of the patient was re-assessed after the procedure. After I obtained informed consent, the scope was passed under direct vision. Throughout the procedure, the patient's blood pressure, pulse, and oxygen saturations were monitored continuously. The ultrasound bronchoscope was introduced through the mouth, via laryngeal mask airway and advanced to the tracheobronchial tree. The procedure was accomplished without difficulty. The patient tolerated the procedure well. Findings: The laryngeal mask airway is in good position. The vocal cords appear normal. The subglottic space is normal. The trachea is of normal caliber. The [place] is sharp. The tracheobronchial tree was examined to at least the first subsegmental level. Bronchial mucosa and anatomy are normal; there are no endobronchial lesions, and no secretions. The scope was withdrawn and replaced with the EBUS bronchoscope to accomplish the ultrasound examination. Lymph Nodes: An endobronchial ultrasound endoscope was utilized to systematically examine the right lower paratracheal region (level 4R) and subcarinal mediastinum (level 7) in order to assist with guiding the biopsy needle. Lymph node/mass sampling was performed via endobronchial ultrasound for suspected lung cancer. Sampling by transbronchial needle aspiration was also performed using an Olympus ViziShot 21 gauge needle in the right lower paratracheal region (level 4R) and subcarinal mediastinum (level 7) and sent for routine cytology. - The 7 (subcarinal) node was evaluated. Three samples with the needle were obtained. - The 4R (lower paratracheal) node was evaluated. Three samples with the needle were obtained. Impression: - Mediastinal adenopathy - Lung mass suspicious for cancer - The airway examination was normal. - Endobronchial ultrasound was performed. - Lymph node/mass sampling was performed. Recommendation: - Await biopsy results. Procedure Code(s): --- Professional --- 62610, Bronchoscopy, rigid or flexible, including fluoroscopic guidance, when performed; with endobronchial ultrasound (EBUS) guided transtracheal and/or transbronchial sampling (eg, aspiration[s]/biopsy[ies]), one or two mediastinal and/or hilar lymph node stations or structures Diagnosis Code(s): --- Professional --- R59.0, Localized enlarged lymph nodes R91.8, Other nonspecific abnormal finding of lung field R09.89, Other specified symptoms and signs involving the circulatory and respiratory systems CPT copyright 2021 [employer]. All rights reserved. The codes documented in this report are preliminary and upon [employer] reader review may be revised to meet current compliance requirements. DO Andres Bailey MD 02/16/2025 12:36:15 PM This report has been signed electronically. Number of Addenda: 0 Note Initiated On: 02/16/2025 11:28 AM
--- NOTE | 2025-02-16 18:12 | POSTOPAN2_ITS ---
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 Spontaneous unlabored Yes 02/16/25 18:11 LEGAL NURSE CONSULTANT.CSIR respirations Mental status nausea No 02/16/25 18:11 LEGAL NURSE CONSULTANT.CSIR Vomiting No 02/16/25 18:11 LEGAL NURSE CONSULTANT.CSIR Anesthesia Postop Eval I: Fluid Summary Crystalloid volume administer 300 02/16/25 18:11 LEGAL NURSE CONSULTANT.CSIR (ml) Colloids volume administered ( ml) Blood Product volume administered (ml) Total IV fluid infused 300 02/16/25 18:11 LEGAL NURSE CONSULTANT.CSIR Anesthesia Postop Eval I: Summary Notes Anesthesia Complication No 02/16/25 18:11 LEGAL NURSE CONSULTANT.CSIR Anesthesia Complication Comment: Post-operative progress note Anesthesia: Postop Eval II Evaluation Mental status: Awake Pain Level: 1 nausea: No Vomiting: No
--- NOTE | 2025-02-16 18:12 | PCM.POSTANE2 ---
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 Spontaneous unlabored Yes 02/16/25 18:11 CHUCKING AND BORING MACHINE OPERATOR.CSIR respirations Mental status nausea No 02/16/25 18:11 CHUCKING AND BORING MACHINE OPERATOR.CSIR Vomiting No 02/16/25 18:11 CHUCKING AND BORING MACHINE OPERATOR.CSIR Anesthesia Postop Eval I: Fluid Summary Crystalloid volume administer 300 02/16/25 18:11 CHUCKING AND BORING MACHINE OPERATOR.CSIR (ml) Colloids volume administered ( ml) Blood Product volume administered (ml) Total IV fluid infused 300 02/16/25 18:11 CHUCKING AND BORING MACHINE OPERATOR.CSIR Anesthesia Postop Eval I: Summary Notes Anesthesia Complication No 02/16/25 18:11 CHUCKING AND 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
== END 2025-02-16 13:40 | disposition home or self-care (01) ==
LOC: EN 10:47 → AC 10:48
PROVIDERS: PCP Student in an Organized Health Care Education/Training Program; Referring Provider Internal Medicine Critical Care Medicine; Visit Provider Internal Medicine Critical Care Medicine
PROC: BB4BZZZ Ultrasonography of Pleura (ICD-10-PCS; CPT 31652; principal; 2025-02-16 11:00)
DX: C7A.8 Other malignant neuroendocrine tumors (principal); J44.9 Chronic obstructive pulmonary disease, unspecified; E11.9 Type 2 diabetes mellitus without complications; I10 Essential (primary) hypertension; E78.00 Pure hypercholesterolemia, unspecified; Z99.81 Dependence on supplemental oxygen; Z79.02 Long term (current) use of antithrombotics/antiplatelets; Z79.82 Long term (current) use of aspirin; Z79.84 Long term (current) use of oral hypoglycemic drugs; Z79.899 Other long term (current) drug therapy; Z87.891 Personal history of nicotine dependence
CPT/HCPCS: 31652; 82962; 88161; 88172; 88305; 88313; 88341; 88342

== ENCOUNTER → 2025-03-07 | Outpatient (CLI) | payer MEDICARE, MEDICAID, SELFPAY ==
--- NOTE | 2025-03-07 09:30 | PET_ITS ---
PROCEDURE: PET/CT TUMOR BASE -THIGH INIT 03/07/2025 REASON FOR EXAM: 69 y/o F with LUNG TECHNIQUE: Following the intravenous administration of radionucleotide, image acquisition on a dedicated PET/CT unit was performed at one hour post injection. A preliminary CT study encompassing the Skull base, neck, chest, abdomen, pelvis, and proximal thighs was performed for purposes of attenuation correction and anatomic localization. The proximal thighs were also included. The patient's blood glucose level was 125 mg/dL (allowable range: 50-180 mg/dL). RADIOPHARMACEUTICAL: 14.034 mCi 18F-FDG (Fluorodeoxyglucose F18) IV was injected into he patient. RADIATION DOSE SUMMARY: Effective Dose: Approximately 7 mSv for a standard whole-body PET scan Organ Doses: Varies by organ, with higher doses typically to the bladder, liver, and brain COMPARISON: COMPARISON FROM CT, PET OR OTHER PERTINENT EXAMS: . FINDINGS: Physiologic uptake: There may be expected metabolic uptake within the brain, tongue and floor of the mouth and larynx/vocal cords, heart, trixie (many normal individuals have hilar uptake in less than 3 nodes with mildly avid hilar nodes less than 2.7 SUV), liver and spleen, system, and GI tract and symmetric muscle uptake. FDG AVID AND NON-AVID LESIONS. Reported avid SUV values (g/mL*) are maximum SUV. NECK: Right tonsil uptake and left vocal cord uptake represent tonsillitis. inflammatory process, or physiologic uptake. The vocal cord uptake may represent phonation prior to imaging. At the base of the neck there is a paratracheal FDG avid lesion/estimated 2.5 cm FDG avid lymph node is seen in the right subclavicular right lobe of the thyroid gland demonstrates a 1 cm hypermetabolic focus. There is a hypermetabolic lesion in the left T1 vertebral body CHEST: Chest wall-the FDG-avid nodules are seen in the left axilla close to the left shoulder joint. Axilla-subcentimeter left axillary nodule is FDG avid. Subpleural low-level nodule is seen. Subcentimeter lesion in the right axilla is FDG avid Lung parenchyma- There are two tiny subcentimeter FDG avid pulmonary nodules. There are 7 subcentimeter left subpleural nodules and two on the right. Mediastinum-2.8 cm right periaortic FDG avid lesion. Marked FDG-avid in the pericardium includes a 2.5 and a 3.2 cm AP window lymph nodes are identified which are FDG-avid. A subcarinal 5.6 cm mass is FDG avid. Pleura- Seven left side and two right side subcentimeter FDG avid A 3.6 cm right perihilar mass is highly FDG avid. ABDOMEN: Stomach- No significant abnormalities. Liver- No significant abnormalities. Spleen- No significant abnormalities. Pancrease- No significant abnormalities. Kidneys- The pattern of uptake in the kidneys is suspicious, but difficult to prove metastatic due to the normal physiologic uptake.. Bowel- Normal bowel activity. Spine- FDG avid L3 lesion.. Also in left sacral alum and distal sacral lesion. PELVIS: Bowel- Normal physiologic bowel activity is identified. Masses- There are no pelvic masses. LOWER EXTREMITIES: Bones- With the use of bone window settings, there are no osteolytic or osteoblastic lesions. There are no FDG avid lesions within the visualized portion of the axial skeleton. PET/PET/CT Tumor Base -Thigh Init IMPRESSION: FDG avid- Numerous metastatic lesions in base of neck, through the chest includ ing mediastinal, right perihilar, pulmonary and subpleural and spinal and sacral foci. Suspicious- suspicious kidney uptake pattern Non-FDG avid- No non-FDG avid cysts. Other: No additional comments. Please note the low-dose CT scan was performed to facilitate PET image reconstr uction and anatomic localization and does not replace a diagnostic CT. Any diagnostic CT requested and performed at the time of the PET will be reported separately. Reading [facility]
--- OUTSIDE RECORDS SUMMARY | 2025-03-07 11:20 | XMS RPT_ITS | CCD ---
Author Organization [facility] Care Team Providers Care Vacuum Kettle Cook Name Role Phone JOAN MATHEW Primary Care [...] Consulting Unavailable JOAN HUERTA CNP Consulting Unavailable BONITA IRELAND MD Primary Care Unavailable BONITA IRELAND MD Attending Unavailable BONITA IRELAND MD Admitting Unavailable PROVIDER, UNKNOWN Consulting Unavailable PROVIDER, UNKNOWN Consulting Unavailable Jonathan HERNANDEZ, Dr. Larson Referring Provider Mitch SAENZ, Dr. Campos Attending Provider [phone] Shu HERNANDEZ, Dr. Mesa Primary Care Provider Dr. Andres Meyer DO Referring Provider Mitch SAENZ, Dr. Campos Other Provider Shu HERNANDEZ, Dr. Mesa Referring Provider Patrice GLIDING PILOT INSTRUCTOR-C, Latoya Attending Provider Kalashleightti, Bonita Primary Care Unavailable Dai Meyerk Attending Unavailable Neo Castillo Referring Unavailable BrownAndres Attending Unavailable Kalisetti, Bonita Primary Care Unavailable Brown, Andres Attending Unavailable Brown, Andres Referring Unavailable Brown, Andres Consulting Unavailable Kalisetti, Bonita Primary Care Unavailable Brown, Andres Attending Unavailable Kalisetti, Bonita Primary Care Unavailable Brown, Andres Referring Unavailable Brown, Andres Attending Unavailable Kalisetti, Bonita Primary Care Unavailable Brown, Andres Referring Unavailable Kalisetti, Bonita Referring Unavailable Patrice GLIDING PILOT INSTRUCTOR, Latoya Attending Unavailable Kalisetti, Bonita Primary Care Unavailable Kalisetti, Bonita Primary Care Unavailable Patrice GLIDING PILOT INSTRUCTOR, Latoya Attending Unavailable Patrice GLIDING PILOT INSTRUCTOR, Latoya Referring Unavailable Allergies Allergy Classification Reported Allergen(s) Allergy Type Date of Onset Reaction(s) Facility (5 sources) traMADol; Translations: [tramadol] Drug Allergy 02-09-2025 unknown [facility] (1 source) traMADol Drug Allergy [facility] Repository (1 source) traMADol Drug Allergy 02-28-2025 [facility] Repository Medications Current Medications Medication Drug Class(es) Dates Sig (Normalized) Sig (Original) acetaminophen 325 mg oral capsule (5 sources) Start: 02-09-2025 take 2 capsules by mouth every six hours as needed for pain Acetaminophen 325 mg capsule Active 650 mg PO EVERY 6 HOURS as needed for pain February 09, 2025 12:00am Start: 04-22-2023 acetaminophen Dose : 650 mg = 2 tab(s), Oral, q6hWA, PRN Pain, scale 1-10, 0 Refill(s) Start Date: 04/22/23 Status: Ordered [id number] 200 actuat albuterol 0.09 mg/actuat metered dose inhaler (3 sources) beta2-Adrenergic Agonist Start: 02-09-2025 Albuterol Sulfate 90 mcg/actuation HFA aerosol inhaler Active 2 NMA INHALATION EVERY 6 HOURS as needed for shortness of breath or wheezing February 09, 2025 12:00am Albuterol Sulfate 90 mcg/actuation HFA aerosol inhaler (1 source) Start: 02-09-2025 Albuterol Sulfate 90 mcg/actuation HFA aerosol inhaler Active INHALATION February 09, 2025 12:00am amLODIPine 5 mg oral tablet (4 sources) Dihydropyridine Calcium Channel Javier Start: 02-14-2025 take 1 tablet by mouth once daily Amlodipine 5 mg tablet Active 5 mg PO DAILY February 14, 2025 12:00am Start: 04-18-2023 amLODIPine 5 m g oral tablet Dose : 5 mg = 1 tab(s), Oral, qDay Start Date: 04/18/23 Status: Ordered apixaban 5 mg oral tablet (1 source) Factor Xa Inhibitor Start: 04-22-2023 End: 05-22-2023 Eliquis 5 mg oral tablet Dose : 5 mg = 1 tab(s), Oral, BID, # 60 tab(s), 0 Refill(s), Pharmacy: [id number], 152.4, cm, 04/18/23 19:54:00 EDT, Height, 103, kg, 04/18/23 19:54:00 EDT, Dosing Weight Start Date: 04/22/23 Stop Date: 05/22/23 Status: Ordered aspirin 81 mg delayed release oral tablet (3 sources) Platelet Aggregation Inhibitor, Nonsteroidal Anti-inflammatory Drug Start: 02-14-2025 take 1 tablet by mouth once daily Aspirin (Adult Aspirin Regimen) 81 mg tablet,delayed release (DR/EC) Active 81 mg PO DAILY February 14, 2025 12:00am atorvastatin 80 mg oral tablet (4 sources) HMG-CoA Reductase Inhibitor Start: 02-14-2025 take 1 tablet by mouth at bedtime Atorvastatin (Lipitor) 80 mg tablet Active 80 mg PO AT BEDTIME February 14, 2025 12:00am Start: 04-18-2023 Lipitor 80 mg oral tablet Dose : 80 mg = 1 tab(s), Oral, qDay Start Date: 04/18/23 Status: Ordered clopidogrel 75 mg oral tablet (4 sources) P2Y12 Platelet Inhibitor Start: 02-09-2025 take 1 tablet by mouth once daily Clopidogrel 75 mg tablet Active 75 mg PO daily February 09, 2025 12:00am famotidine 20 mg oral tablet (3 sources) Histamine-2 Receptor Antagonist Start: 02-14-2025 take 1 tablet by mouth once daily Famotidine (Pepcid) 20 mg tablet Active 20 mg PO DAILY February 14, 2025 12:00am FLUoxetine 20 mg oral capsule (5 sources) Serotonin Reuptake Inhibitor Start: 02-09-2025 take 1 capsule by mouth once daily Fluoxetine 20 mg capsule Active 20 mg PO daily February 09, 2025 12:00am Start: 04-18-2023 FLUoxetine 20 mg oral capsule Dose : 20 mg = 1 cap(s), Oral, qDay Start Date: 04/18/23 Status: Ordered gabapentin 100 mg oral capsule (4 sources) Anti-epileptic Agent Start: 02-09-2025 take 2 capsules by mouth at bedtime Gabapentin 100 mg capsule Active 200 mg PO AT BEDTIME February 09, 2025 12:00am Start: 02-09-2025 Gabapentin 100 mg capsule Active mg PO February 09, 2025 12:00am hydroCHLOROthiazide 25 mg oral tablet (5 sources) Thiazide Diuretic Start: 02-09-2025 take 1 tablet by mouth once daily Hydrochlorothiazide 25 mg tablet Active 25 mg PO daily February 09, 2025 12:00am Start: 04-18-2023 hydroCHLOROthi azide 25 mg oral tablet Dose : 25 mg = 1 tab(s), Oral, qDay Start Date: 04/18/23 Status: Ordered levothyroxine sodium 0.2 mg oral tablet (5 sources) l-Thyroxine Start: 02-09-2025 take 1 tablet by mouth once daily Levothyroxine 200 mcg tablet Active 200 ug PO daily February 09, 2025 12:00am Start: 04-18-2023 levothyroxine 200 mcg (0.2 mg) oral tablet Dose : 200 mcg = 1 tab(s), Oral, qDay Start Date: 04/18/23 Status: Ordered metFORMIN hydrochloride 500 mg oral tablet (8 sources) Biguanide Start: 02-14-2025 take 1 tablet by mouth at bedtime Metformin 500 mg tablet Active 500 mg PO AT BEDTIME February 14, 2025 12:00am Start: 02-09-2025 take 2 tablets by mo [facility] once daily Metformin 500 mg tablet Active 1000 mg PO DAILY February 09, 2025 12:00am Start: 02-09-2025 take 1 tablet by sherice three times daily Metformin 500 mg tablet Active 500 mg PO THREE TIMES A DAY February 09, 2025 12:00am Start: 04-18-2023 metFORMIN 500 mg oral tablet (IR) Dose : 500 mg = 1 tab(s), Oral, TID Start Date: 04/18/23 Status: Ordered microencapsulated potassium chloride 20 meq extended release oral tablet (4 sources) Start: 02-09-2025 take 1 tablet by mouth once daily Potassium Chloride 20 mEq tablet,ER particles/crystals Active 20 meq PO daily February 09, 2025 12:00am Problems Problem Classification Problem Date Documented Da te Episodic/Chronic Acute cerebrovascular disease (1 source) Cerebral infarction; Translations: [Cerebral infarction, unspecified] Chronic Acute cerebrovascular disease (1 source) Neurological symptom; Translations: [NIHSS score 4] Episodic Chronic obstructive pulmonary disease and bronchiectasis (7 sources) Chronic obstructive lung disease; Translations: [Chronic obstructive pulmonary disease, unspecified] Onset: 01-28-2025 Chronic Comment on above: PRN INHALER Diabetes mellitus with complications (1 source) Type [...] cerebral infarction affecting right dominant side] Chronic Lymphadenitis (1 source) Localized enlarged lymph nodes; Translations: [Localized enlarged lymph nodes] Onset: 02-16-2025 Episodic Malaise and fatigue (3 sources) Weakness; Translations: [Weakness] Onset: 01-28-2025 Episodic Nausea and vomiting (4 sources) Vomiting, unspecified; Translations: [Vomiting, unspecified] Onset: 01-24-2025 Episodic Other aftercare (1 source) Other vermin exterminator (current) drug therapy; Translations: [Other vermin exterminator (current) drug therapy] Onset: 01-24-2025 Episodic Other and unspecified benign neoplasm (2 sources) Neuroendocrine neoplasm of lung; Translations: [Other benign neuroendocrine tumors] 02-28-2025 Episodic Other and unspecified benign neoplasm (1 source) Other benign neuroendocrine tumors; Translations: [Other benign neuroendocrine tumors] Onset: 03-01-2025 Episodic Other circulatory disease (1 source) Personal history of transient ischemic attack (TIA), and cerebral infarction without residual deficits; Translations: [Personal history of transient ischemic attack (TIA), and cerebral infarction without residual deficits] Onset: 01-28-2025 Episodic Other circulatory disease (1 source) Other specified symptoms and signs involving the circulatory and respiratory systems; Translations: [Other specified symptoms and signs involving the circulatory and respiratory systems] Onset: 02-16-2025 Episodic Other gastrointestinal disorders (1 source) Diarrhea, unspecified; Translations: [Diarrhea, unspecified] Onset: 02-02-2025 Episodic Other lower respiratory disease (6 sources) Other nonspecific abnormal finding of lung field; Translations: [Other nonspecific abnormal finding of lung field] Onset: 01-24-2025 Episodic Other lower respiratory disease (1 source) Chronic cough; Translations: [Chronic cough] Onset: 01-24-2025 Episodic Other lower respiratory disease (10 sources) Lung mass; Translations: [Other nonspecific abnormal [...] unspecified; Translations: [Hypothyroidism, unspecified] Onset: 11-01-2024 Chronic Unclassified (1 source) Neuroendocrine neoplasm of lung Unclassified (2 sources) D3A.8 - Other benign neuroendocrine tumors Urinary tract infections (1 source) Urinary tract infectious disease; Translations: [Urinary tract infection, site not specified] Episodic Results Test Name Value Interpretation Reference Range Facility Pulmonary Visit Reporton Pulmonary Visit Report [facility] [place] [facility] [address] [place] [address] OFFICE VISIT Date of Service: 02/28/25 MR#: [id number] Acct: [id number] Name: GWEN WOLF Rep #: [id number] : 1955 Provider: SID Ibrahim Age/Sex: 69/F Location: 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 I am referring her to [facility] by way of [facility] for evaluation and treatment. I have ordered a PET scan for cancer staging. All questions were answered, and emotional support provided. (2) COPD (chronic obstructive pulmonary disease): Status: Chronic Qualifiers: COPD type: emphysema Emphysema type: centrilobular Qualified Code(s): J43.2 - Centrilobular emphysema Comment: PRN INHALER Plan: She is agreeable to a pulmonary function test for clarification and quantification of disease. She likely has some degree of COPD. If the test indicate only mild COPD, test results will be discussed at the 6 month follow up as she is essentially asymptomatic at this time. However, if she has moderate or worse COPD with either hyperinflation or air trapping, I will call the daughter to notify her. They agree to call the office with new or worsening symptoms or if she develops an exacerbation. Orders: Orders PET/CT Tumor Base -Thigh Init Today D3A.8 - Other benign neuroendocrine tumors, R91.8 - Other nonspecific abnormal finding of lung field PFT Complete - DLCO, Spirometry b/a bronchodilators, lung volumes 03/09/25 J44.9 - Chronic obstructive pulmonary disease, unspecified Referrals [facility]: Oncology Referral [facility] D3A.8 - Other benign neuroendocrine tumors Plan Details Additional Comments: This note was generated with [employer] software. It may contain incorrect words, spelling, and punctuation that were not noted in checking the note before signing. Follow Up: 6 Months HPI Biopsy Results Chief Complaint: Test results HPI Comments Details: This patient presents to the office today to discuss test results. She is in a wheelchair. She is accompanied today by 2 daughters and 2 granddaughters. She has not recently been to the ED or urgent care for any respiratory illness. She has not required any antibiotics or prednisone for any breathing problems. She is not currently on a maintenance inhaler. She does have an albuterol rescue inhaler but has used it very rarely. She is not sure if it has been helpful when utilized. She does have a greater than 80-lfjd-iopi smoking history smoking between 1/2 to 1 pack/day quitting completely in 2021. She reports occasional shortness of breath on exertion. She has a daily cough that can be productive of clear to pale yellow-colored sputum. She does experience wheezing but denies any chest tightness, chest pain or palpitations. She denies any fever, chills or body aches. She is compliant with supplemental oxygen wearing 2 L/min with sleep. She is currently residing in a detention and reports that they check her oxygen saturation several times throughout the day. She does note that it is usually checked when she is sitting at rest on room air and found to be greater than 90%. Test results personally reviewed with the patient: EBUS completed on February 16, 2025. Tissue pathology has returned and is consistent Neuroendocrine tumor. Intake Vital Signs 02/16/25 11:08 02/28/25 09:51 Height 5 ft 5 ft Weight: 142 lb BMI 27.7 BP 96/60 Blood Pressure Location Lt brachial Position Sitting Respiration 18 Pulse 113 H Pulse Source Monitor Temp 97.5 F L Temperature Source Temporal Artery Pulse Oximetry (%) 98 Oxygen Delivery Method room air Intake Visit Reasons: Biopsy Results Air Quality Chemist Required: No DME Vendor: yarely canales Accompanied by: family Allergies tramadol Allergy (Unknown, Verified 02/28/25 14:56) unknown Medications ???Medication ???Instructions ???Recorded ???Confirmed ???Type acetaminophen 325 mg capsule 650 mg PO Q6H PRN pain 02/09/25 History albuterol sulfate 90 mcg/actuation 2 puff inhalation Q6H PRN 02/28/25 History aerosol inhaler shortness of breath or wheezing clopidogrel 75 mg tablet 75 mg PO QDAY 02/09/25 02/28/25 Hi story fluoxetine 20 mg capsule 20 mg PO QDAY 02/09/25 02/28/25 Hi story gabapentin 100 mg capsule 200 mg PO QHS 02/09/25 02/28/25 Hi story hydrochlorothiazide 25 mg tablet 25 mg PO QDAY 02/09/25 02/28/25 Hi story levothyroxine 200 mcg tablet 200 mcg PO QDAY 02/09/25 02/28/25 History metformin 500 mg tablet 1,000 mg PO DAILY 02/09/25 5 History potassium chloride 20 mEq 20 meq PO QDAY 02/09/25 02/28/25 H istory tablet,extended release(par (more content not included)... Normal [facility] Bedside Glucoseon 02-16-2025 FINGERSTICK GLU 141 mg/dL High 74-106 [facility] Comment on above: Result Comment: REMY BRADSHAW OF PATIENT CARE PER NURSING PROTOCOL Performed By: #### L 501.080 #### [facility] [address] [place], [address] Bronchoscopy Reporton 2024 Bronchoscopy Report [facility] Medical Records Department [address] [place] [address] Bronchoscopy Report MR#: [id number] Acct: [id number] Name: GWEN WOLF Rep #: [id number] : 1955 69 From: Andres Meyer DO PCP: Dr. Bonita Ireland MD Status:[facility] Patient Name: Gwen Wolf Procedure Date: 02/16/2025 11:28 AM Date of : 1955 Age: 69 Procedure: Bronchoscopy Indications: Mediastinal adenopathy, Lung mass suspicious for cancer Providers: Andres Meyer MD Complications: No immediate complications Procedure: Pre-Anesthesia Assessment: - A History and Physical has been performed. Patient meds and allergies have been reviewed. The risks and benefits of the procedure and the sedation options and risks were discussed with the patient. All questions were answered and informed consent was obtained. Patient identification and proposed procedure were verified prior to the procedure by the physician and the nurse in the procedure room. Mental Status Examination: alert and oriented. Airway Examination: normal oropharyngeal airway. Respiratory Examination: poor air movement. CV Examination: normal. ASA Grade Assessment: II - A patient with mild systemic disease. After reviewing the risks and benefits, the patient was deemed in satisfactory condition to undergo the procedure. The anesthesia plan was to use general anesthesia. Immediately prior to administration of medications, the patient was re-assessed for adequacy to receive sedatives. The heart rate, respiratory rate, oxygen saturations, blood pressure, adequacy of pulmonary ventilation, and response to care were monitored throughout the procedure. The physical status of the patient was re-assessed after the procedure. After I obtained informed consent, the scope was passed under direct vision. Throughout the procedure, the patient's blood pressure, pulse, and oxygen saturations were monitored continuously. The ultrasound bronchoscope was introduced through the mouth, via laryngeal mask airway and advanced to the tracheobronchial tree. The procedure was accomplished without difficulty. The patient tolerated the procedure well. Findings: The laryngeal mask airway is in good position. The vocal cords appear normal. The subglottic space is normal. The trachea is of normal caliber. The [place] is sharp. The tracheobronchial tree was examined to at least the first subsegmental level. Bronchial mucosa and anatomy are normal; there are no endobronchial lesions, and no secretions. The scope was withdrawn and replaced with the EBUS bronchoscope to accomplish the ultrasound examination. Lymph Nodes: An endobronchial ultrasound endoscope was utilized to systematically examine the right lower paratracheal region (level 4R) and subcarinal mediastinum (level 7) in order to assist with guiding the biopsy needle. Lymph node/mass sampling was performed via endobronchial ultrasound for suspected lung cancer. Sampling by transbronchial needle aspiration was also performed using an Olympus ViziShot 21 gauge needle in the right lower paratracheal region (level 4R) and subcarinal mediastinum (level 7) and sent for routine cytology. - The 7 (subcarinal) node was evaluated. Three samples with the needle were obtained. - The 4R (lower paratracheal) node was evaluated. Three samples with the needle were obtained. Impression: - Mediastinal adenopathy - Lung mass suspicious for cancer - The airway examination was normal. - Endobronchial ultrasound was performed. - Lymph node/mass sampling was performed. Recommendation: - Await biopsy results. Procedure Code(s): --- Professional --- 81921, Bronchoscopy, rigid or flexible, including fluoroscopic guidance, when performed; with endobronchial ultrasound (EBUS) guided transtracheal and/or transbronchial sampling (eg, aspiration[s]/biopsy [ies]), one or two mediastinal and/or hilar lymph node stations or structures Diagnosis Code(s): --- Professional --- R59.0, Localized enlarged lymph nodes R91.8, Other nonspecific abnormal finding of lung field R09.89, Other specified symptoms and signs involving the circulatory and respiratory systems CPT copyright 2021 [employer]. All rights reserved. The codes documented in this report are preliminary and upon child care group leader review may be revised to meet current compliance requirements. DO Andres Bailey MD 02/16/2025 12:36:15 PM This report has been signed electronically. Number of Addenda: 0 Note Initiated On: 02/16/2025 11:28 AM 02/16/25 1236 Date Andres Meyer DO Cosigner Signature: Date (if indicated) CC: Dr. Andres Meyer DO; Dr. Bonita Ireland MD Date Dictated: 02/16/258 Date Transcri (more content not included)... Normal [facility] Gl[facility] at [facility] deOrdered By: Andres Meyer on 02-16-2025 Glucose [Mass/Vol] 141 mg/dL High 74-106 [facility] Comment on above: MANAGEMENT OF PATIEN T CARE PER NURSING PROTOCOL Immunohistochemical Stainson 02-16-2025 Immunohistochemical Stains Patient Age/Sex Location Account Attending Physician GWEN WOLF 69/F EN [id number] Dr. Andres Meyer, Specimen: [id number] Received: 02/16/25-1200 Status: DIANA Jean Num: [id number] Spec Type: ASP OUT Subm Dr: DO LESVIA Markham OPERATION: Endobronchial ultrasound PRE-OP DIAGNOSIS: Lung mass TISSUE SUBMITTED: A- B : EBUS DIAGNOSIS CYTOLOGY A. TBNA, site 7, #1-3, EBUS (smear x6, cytospin, cellblock): * Non-diagnostic (necrotic material). B. TBNA, site 4R, #4-6, EBUS (smear x6, cytospin, cellblock): - Neuroendocrine tumor - see note. Note: IHC was performed. The tumor cells are: Positive for E-cadherin, panKeratin (focal), CK5/6 (focal), Chromogranin, Synaptophysin, and Ki67 (approximately 25% by manual immunohistologic technique). Negative for Calretinin, CK20, GATA3, CD45, p40, and Napsin A. These findings support a diagnosis of neuroendocrine tumor. The limited amount of material present for evaluation limits the assessment and does not allow reliable distinction between atypical carcinoid and large cell neuroendocrine carcinoma. Selected slides/images were reviewed in intradepartmental consultation by Dr Perry Johansen (thoracic pathology division, [facility]. COMMENT The specimen is evaluated at the time of biopsy by Dr. Chiu. Immediate Evaluation = 1. Abundant debris suggestive of necrosis. Few atypical cells, degenerated. Few benign bronchial cells. 2. Abundant debris. Benign bronchial cells. 3. Abundant debris and blood. Few benign bronchial cells. 4. Atypical cells suspicious for carcinoma. 5. Atypical cells suspicious for carcinoma. 6. Non-diagnostic (acellular). CYTOLOGY STUDY Slides are reviewed. All matched controls reacted appropriately. These tests were developed and their performance characteristics determined by [facility]. They may not have been cleared or approved by the U.S. Food and Drug Administration. The FDA has determined that such clearance or approval is not Patient Age/Sex Location Account Attending Physician MARYANNGWEN Edith 69/F EN [id number] Dr. Andres Meyer, DO necessary.??? The above immunohistochemical/ dualISH???markers are reviewed by the Pathologist. CYTOLOGY GROSS A. Received labeled with the patient's name and and designated EBUS, TBNA, site 7 #1-3. The specimen consists of two stained smears for AMANUEL. B. Received labeled with the patient's name and and designated EBUS, TBNA, site 4R #4-6. The specimen consists of two stained smears for AMANUEL. CPT: 12317k3,68572t4,8834 2,[id number] Signed (signature on file) Dr. Greer Chiu MD 02/23/25 1521 Normal [facility] Comment on above: Performed By: #### P KRZYSZTOFNY #### [facility] [place], [address] MR/POSTOP.ANEon 02-16-2025 MR/POSTOP.[facility] Medical Records Department [address] [address] Anesthesia Postop Eval I 02/16/25 1235 MR#: [id number] Acct: [id number] Name: GWEN WOLF Rep #: [id number] : 1955 69 From: Beena Juarez CRNA PCP: Dr. Bonita Ireland MD Status:[facility] Y Race: C Location: EN Anesthesia: Postop Eval I Current Vital Signs Temperature: 98.4 F Pulse Rate: 118 Blood Pressure: 139/70 Respiratory Rate: 20 Pulse Ox: 93 Assessment Airway patent: Yes Spontaneous unlabored respirations: Yes nausea: No Vomiting: No Anesthesia Complication: No Fluid Hydration Crystalloid volume administer (ml): 300 Total IV fluid infused: 300 Progress Note Anesthesia document: Postop Eval 1 completed: Yes 02/16/251811 Date Beena Juarez CRNA Cosigner Signature: Date CC: Signed Normal [facility] [id number] 02-16-2025 MR/POSTOPAN2 [facility] Medical Records Department [address] [place] [address] Anesthesia Postop Eval II 02/16/25 181 MR#: [id number] Acct: [id number] Name: GWEN WOLF Rep #: [id number] : 1955 69 From: Beena Juarez CRNA PCP: Dr. Bonita Ireland MD Status:[facility] Y Race: C Location: EN Anesthesia Postop Eval I Sum Postop Eval Completion status Anesthesia document: Postop Eval 1 completed: Yes Anesthesia Postop Eval I Summary Anesthesia Postop Eval I Summary: Anesthesia Postop Eval I: Assessment Summary Airway patent Yes 02/16/25 18:11 PLANT OPERATIONS MANAGER.CSIR Spontaneous unlabored Yes 02/16/25 18:11 PLANT OPERATIONS MANAGER.CSIR respirations Mental status nausea No 02/16/25 18:11 PLANT OPERATIONS MANAGER.CSIR Vomiting No 02/16/25 18:11 PLANT OPERATIONS MANAGER.CSIR Anesthesia Postop Eval I: Fluid Summary Crystalloid volume administer 300 02/16/25 18:11 PLANT OPERATIONS MANAGER.CSIR (ml) Colloids volume administered ( ml) Blood Product volume administered (ml) Total IV fluid infused 300 02/16/25 18:11 PLANT OPERATIONS MANAGER.CSIR Anesthesia Postop Eval I: Summary Notes Anesthesia Complication No 02/16/25 18:11 PLANT OPERATIONS MANAGER.CSIR Anesthesia Complication Comment: Post-operative progress note Anesthesia: Postop Eval II Evaluation Mental status: Awake Pain Level: 1 nausea: No Vomiting: No 02/16/25 181 Date Beena Juarez PLANT OPERATIONS MANAGER Cosigner Signature: Date CC: Signed Normal [facility] MR/TRISTIANon 02-14-2025 /[facility] Medical Records Department [address] [place] [address] PAT - Anesthesia 02/14/252118 MR#: [id number] Acct: [id number] Name: GWEN WOLF Rep #: [id number] : 1955 69 From: Nicola Hameed MD PCP: Dr. Bonita Ireland MD Status:[facility] Y Race: C Location: EN Pre-Assessment Diagnosis/Proposed Procedure Planned Operative Procedure(s): EBUS Anesthesia History Anesthesia History - clinical supervisor: Anesthesia History - clinical supervisor Hx Hospitalization No 02/14/25 11:59 Any Problems With Anesthesia No 02/14/25 11:59 Cholinesterase deficiency No 02/14/25 11:59 You/Your Family Experience No 02/14/25 11:59 fever (hyperthermia) with Relationship Recent Exposure to Contagious Disease Does patient have nerve No 02/14/25 11:59 stimulator Patient instructed to have device shut off --Does patient have Pacemaker or ICD? When Was Last Pacemaker Check QUESTION #4 FULL TEXT: You/Your Family Experience fever (hyperthermia) with Anesthesia Last Oral Intake Last Oral intake: Last Oral Intake NPO since Meds taken in AM with sips of water? Meds patient instructed to take am of surgery PONV PONV - clinical supervisor: PONV - clinical supervisor Female Yes 02/14/25 11:59 HX of Motion Sickness Yes 02/14/25 11:59 HX of N/V After Surgery No 02/14/25 11:59 Non-Smoker Yes 02/14/25 11:59 Duration of Surgery greater Yes 02/14/25 11:59 than 60 minutes Number of Risk Factors 4 02/14/25 11:59 PONV Score Severe Risk 02/14/25 11:59 Height Weight Height Weight: Anesthesia: Height Weight Height 5 ft 02/09/25 09:50 Respiratory Assessment Respiratory Assessment - clinical supervisor: Respiratory Tract Infection Hx - clinical supervisor Hx Respiratory Tract Infection No 02/14/25 11:59 STOP Sleep Apnea STOP Sleep Apnea - clinical supervisor: STOP Sleep Apnea - clinical supervisor Hx Hypertension Yes: CONTROLLED WITH MED 02/14/25 11:59 Hx Sleep Apnea No 02/14/25 11:59 CPAP BIPAP Do you snore loudly (louder No 02/14/25 11:59 than talking or can be heard Do you often feel tired/ Yes 02/14/25 11:59 fatigued/ sleepy during daytime? Has anyone observed you stop No 02/14/25 11:59 breathing during sleep? STOP Results Positive 02/14/25 11:59 QUESTION #5 FULL TEXT : Do you snore loudly (louder than talking or can be heard through closed doors)? 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 Specify any problems Hx of Preganancy in last 3 No 02/14/25 11:59 Months Nurse Filling Out Transfusion DSCHRIBER 02/14/25 11:59 Questions: Date: 02/14/25 02/14/25 11:59 Time: 12:00 02/14/25 11:59 Patient unable to answer at this time (ie. confused, unrespo /Reproducti on History /Reproducti ve History - clinical supervisor: /Reproducti ve Hx- clinical supervisor Hx Now No 02/14/25 11:59 Gestational Age (in weeks): EDC: Hx Hx Para Hx Section SAB No 02/14/25 11:59 [facility] Medical History (Updated 02/14/25 @ 12:11 by Ana Laura Medina) Wears glasses Wears dentures Depression Thyroid disease Diabetes Rheumatoid arthritis Walker as ambulation aid High cholesterol Easy bruising Stroke/cerebrovascul ar accident Syncope Dietary restriction Vomiting History of IBS Gastric reflux Former smoker On home oxygen therapy COPD (chronic obstructive pulmonary disease) Shortness of breath on exertion History of edema Cardiology follow-up encounter Hypertension Home Medications ???Medication ???Instructions ???Recorded ???Last Taken ???Type acetaminophen 325 mg capsule 650 mg PO Q6H PRN pain 02/09/25 Un known History albuterol sulfate 90 mcg/actuation 2 puff inhalation Q6H PRN Unknown History aerosol inhaler shortness of breath or wheezing clopidogrel 75 mg tablet 75 mg PO QDAY 02/09/25 02/09/25 Hi story fluoxetine 20 mg capsule 20 mg (more content not included)... Normal [facility] Activated partial thrombopla stin time (aPTT) in platelet poor plasma by coagulation aOrdered By: Andres Meyer on 02-09-2025 aPTT Coag (PPP) [Time] 25.4 s 24.1-36.2 [facility] International normalized rat io (INR) calculationOrdered By: Andres Meyer on 02-09-2025 INR Coag (Bld) [Relative time] 1.1 {INR} [facility] PLATELET COUNTon 02-09-2025 Platelets (Bld) [#/Vol] 320 10*3/uL Normal 150-450 [facility] Comment on above: Performed By: #### L 300.3900, L100.0625, L300.4310 #### [facility] [address] [place], [address] Partial Thromboplast Timeon 02-09-2025 aPTT Coag (Bld) [Time] 25.4 s Normal 24.1-36.2 [facility] Comment on above: Performed By: #### L 300.3900, L100.0625, L300.4310 ####[facility] [address] [place], [address] Platelet countOrdered By: Nguyen on 02-09-2025 Platelets (Bld) [#/Vol] 320 10*3/uL 150-450 [facility] Prothrombin Time w/INRon INR Coag (PPP) [Relative time] 1.1 {INR} Normal [facility] Comment on above: Performed By: #### L 300.3900, L100.0625, L300.4310 ####[facility] [address] [place], [address] PT Coag (PPP) [Time] 14.0 s Normal 11.7-14.9 [facility] Comment on above: Performed By: #### L 300.3900, L100.0625, L300.4310 ####[facility] [address] [place], [address] Prothrombin timeOrdered By: Andres Meyer on 02-09-2025 PT Coag (PPP) [Time] 14.0 s 11.7-14.9 [facility] Pulmonary Visit Reporton Pulmonary Visit Report [facility] [place] [facility] [address] [place] [address] OFFICE VISIT Date of Service: 02/09/25 MR#: [id number] Acct: [id number] Name: GWEN WOLF Rep #: [id number] : 1955 Provider: Dr. Andres Meyer DO Age/Sex: 69/F Location: [facility] Status: Signed Assessment and Plan Assessment and Plan (1) Lung mass: Status: Acute Plan: The patient presented today for the evaluation of lung masses which were identified on CT imaging of the chest through [facility] dated January 31, 2025. The dominant lesions are located in the right paratracheal region along with the subcarinal region. In light of the patient's tobacco abuse history, these findings are worrisome for malignancy. Accordingly, I would recommend that we proceed with EBUS facilitated transbronchial needle aspiration to obtain a definitive diagnosis. The risks and benefits of the proposed procedure were discussed with the patient. She is in agreement to proceed. Preprocedural lab work will be obtained. Orders: Orders PLATELET COUNT Today Prothrombin Time w/INR Today R91.8 - Other nonspecific abnormal finding of lung field Partial Thromboplast Time Today R91.8 - Other nonspecific abnormal finding of lung field HPI HPI Comments Details: The patient is a 69-year-old female who presents to the clinic today in referral for the evaluation of a lung mass. Multiple family members were present at today's office visit. The patient presented to our office today with a questionable history of COPD and chronic tobacco dependency, currently in remission, after having undergone an chest x-ray which was abnormal. Accordingly, a dedicated chest CT was obtained and follow-up. That imaging study was completed through [facility], dated January 31, 2025, and demonstrated a large peritracheal mass measuring 3 x 3.3 cm along with a large subcarinal mass measuring 7 cm and multiple additional subcentimeter nodules scattered bilaterally. The patient has a 16-ugsd-vovy smoking history, having quit completely in 2021. She did not grow up in a smoking household. The patient has never been evaluated by a seedling puller in the past. She has never completed pulmonary function studies. The patient does not utilize any inhalers at her baseline. However, she does report that she utilizes 2 L/min of supplemental oxygen on a nightly basis. The patient does have baseline exertional shortness of breath along with an occasional wheeze and cough. In addition, the patient is currently prescribed Plavix due to a history of CVA. Intake Vital Signs 02/09/25 09:50 Height 5 ft Weight: 146 lb BMI 28.5 BP 114/69 Blood Pressure Location Rt brachial Position Sitting Respiration 18 Pulse 92 Pulse Source Monitor Temp 97.5 F L Temperature Source Temporal Artery Pulse Oximetry (%) 92 Oxygen Delivery Method room air Intake Visit Reasons: Pulmonary Nodules Air Quality Chemist Required: No Is patient in pain?: No Allergies tramadol Allergy (Unknown, Verified 02/09/25 09:55) unknown Medications ???Medication ???Instructions ???Recorded ???Confirmed ???Type acetaminophen 325 mg capsule 650 mg PO Q6H PRN 02/09/25 5 History albuterol sulfate 90 mcg/actuation inhalation 02/09/25 02/09/25 His tory aerosol inhaler clopidogrel 75 mg tablet 75 mg PO QDAY 02/09/25 02/09/25 Hi story fluoxetine 20 mg capsule 20 mg PO QDAY 02/09/25 02/09/25 Hi story gabapentin 100 mg capsule mg PO 02/09/25 02/09/25 History hydrochlorothiazide 25 mg tablet 25 mg PO QDAY 02/09/25 02/09/25 Hi story levothyroxine 200 mcg tablet 200 mcg PO QDAY 02/09/25 02/09/25 History metformin 500 mg tablet 500 mg PO TID 02/09/25 02/09/25 Hi story potassium chloride 20 mEq 20 meq PO QDAY 02/09/25 02/09/25 H istory tablet,extended release(part/cryst) Have you fallen in the past year?: No PFSH Social History (Updated 02/09/25 @ 09:53 by Libby Spence LPN) Smoking Status: Former smoker how long ago did patient quit smokin stopped smoke 1.5 packs days. Review of Systems Resp Respiratory: Yes as per HPI Exam Const Constitutional: Positive conversant, cooperative, in no acute respiratory distress, well developed, well nourished and good hygiene Head Head: Yes normocephalic and Yes atraumatic Eyes Eye: Positive clear conjunctiva; Negative nystagmus or scleral abnormality Ears Ear: Positive hearing normal and external ears normal Nose Nose: Yes external nose normal Mouth Mouth: Positive oral mucosae normal and posterior oropharynx is adequate; Negative no lesions Neck Neck: Positive normal visual inspection and trachea midline; Negative lymphadenopathy Chest Wall Chest: Positive symmetric chest movement Normal AP diameter. (more content not included)... Normal [facility] MODIFIED BARIUM SWALLOWon MODIFIED BARIUM SWALLOW [facility] [address] [place], [place] [id number] Patient: GWEN WOLF Phone#: : 1955 Age: 69 Gender: F Pt. Type: Out Account: [id number] Location: [facility] Ordering: JOAN HUERTA Exam Date: 02/02/2025/9:11 Family Phys: Charge Code: [id number] Physician: Loving Order #: [id number] Dose#: PROCEDURE: CINERADIOGRAPHY MODIFIED BARIUM SWALLOW COMPARISON: [place], MODIFIED BARIUM SWALLOW, 07/22/2023, 8:52. INDICATIONS: [...] Fitzgerald MD on 02/02/2025 at 11:22 Normal [facility] CT CHEST W/CONTRASTon 2024 CT CHEST W/CONTRAST [address] [address] Patient: GWEN WOLF Phone#: : 1955 Age: 69 Gender: F Pt. Type: Out Account: [id number] Location: 052 Ordering: JOAN HUERTA Exam Date: 01/31/20259:27 Family Phys: Charge Code: [id number] Physician: Loving Order #: [id number] Dose#: 4.70 PROCEDURE: CT CHEST WITH CONTRAST [...] Report - Page 2 of 2 Patient: GWEN WOLF Phone#: : 1955 Age: 69 Gender: F Pt. Type: Out Account: [id number] Location: 052 Ordering: JOAN HUERTA Exam Date: 01/31/2025/9:27 Family Phys: Charge Code: [id number] Physician: Loving Order #: [id number] Dose#: 4.70 CONCLUSION: 1. Right paratracheal and subcarinal mass is present. Right hilar adenopathy is present. Multiple bilateral pulmonary nodules are present. The largest are in the right lower lobe. Dictated by: Mckayla Ying MD on 01/31/2025 at 16:32 Approved by: Mckayla Ying MD on 01/31/2025 at 16:39 Normal [facility] CBC + DIFFon 01-30-2025 Baso # 0.01 x10EE3/UL Normal 0.00 - 0.10 [facility] Comment on above: Performed By: #### 2 30931 #### [place] [address] Basophils/100 WBC (Bld) 0.3 % Normal 0.0 - 2.0 [facility] Comment on above: Performed By: #### 2 05899 #### [facility],[address] [place] [address] CBC + DIFF Normal [facility] Comment on above: Result Comment: CBC- COMPLETE BLOOD COUNT Performed By: #### 2 97471 #### [place] [address] EO # 0.22 x10EE3/UL Normal 0.00 - 0.50 [facility] Comment on above: Performed By: #### 2 10981 #### [facility],[address] [place] [address] Eosinophils/100 WBC (Bld) 4.1 % Normal 0.0 - 7.0 [facility] Comment on above: Performed By: #### 2 57267 #### [place] [address] Erythrocyte distribution width (RBC) [Ratio] 14.7 % Normal 12.0 - 15.6 [facility] Comment on above: Performed By: #### 2 54310 #### [facility],[address] [place] [address] Hematocrit (Bld) [Volume fraction] 31.4 % Low 34.0 - 46.0 [facility] Comment on above: Performed By: #### 2 69621 #### [facility],[address] [place], [place] [id number] Hemoglobin (Bld) [Mass/Vol] 10.8 g/dL Low 12.0 - 16.0 [facility] Comment on above: Performed By: #### 2 86964 #### [facility],[address] [place] [address] Lymph # 1.51 x10EE3/UL Normal 0.80 - 2.80 [facility] Comment on above: Performed By: #### 2 13333 #### [facility],[address] [place] [address] Lymphocytes/100 WBC (Bld) 27.6 % Normal 20.0 - 45.0 [facility] Comment on above: Performed By: #### 2 80345 #### [facility],[address] [place] [address] MANUAL DIFF N/A Normal [facility] Comment on above: Performed By: #### 2 87031 #### [facility],[address] [place], [place] [id number] MCH (RBC) [Entitic mass] 30 pg Normal 27 - 33 [facility] Comment on above: Performed By: #### 2 56179 #### [facility],[address] [place], [place] [id number] MCHC 34 X10 3 Normal 32 - 36 [facility] Comment on above: Performed By: #### 2 81702 #### [facility],[address] [place], [place] [id number] MCV (RBC) [Entitic vol] 87 fL Normal 80 - 99 [facility] Comment on above: Performed By: #### 2 82659 #### [facility],[address] [place] [address] [place] # 0.50 x10EE3/UL Normal 0.20 - 1.00 [facility] Comment on above: Performed By: #### 2 91807 #### [facility],[address] [place] [address] MONOS % 9.1 % Normal 0.0 - 10.0 [facility] Comment on above: Performed By: #### 2 34668 #### [facility],[address] [place] [address] Morphology [place] (Bld) [Interp] N/A Normal [facility] Comment on above: Performed By: #### 2 31934 #### [facility],[address] [place] [address] Neut # 3.22 x10EE3/UL Normal 1.50 - 7.10 [facility] Comment on above: Performed By: #### 2 89510 #### [facility],[address] [place] [address] Neutrophils/100 WBC (Bld) 59.0 % Normal 46.0 - 76.0 [facility] Comment on above: Performed By: #### 2 53890 #### [facility],[address] [place] [address] PLATELET 251 x10EE3/UL Normal 150 - [address] [facility] Comment on above: Performed By: #### 2 57990 #### [facility],[address] [place] [address] Platelet mean volume (Bld) [Entitic vol] 10.5 fL Normal 6.6 - 10.5 [facility] Comment on above: Result Comment: AUTO MATED DIFFERENTIAL Performed By: #### 2 81468 #### [facility],[address] [place] [address]60[address] RBC 3.62 x 10EE6/UL Low 4.10 - 5.30 [facility] Comment on above: Performed By: #### 2 86891 #### [facility],[address] [place] [address] 15164 WBC 5.5 x 10EE3/UL Normal 4.5 - 10.8 [facility] Comment on above: Performed By: #### 2 33248 #### [facility],[address] [place] [address] 15850 CMP with eGFRon 01-30-2025 AGE 69 years Normal [facility] Comment on above: Performed By: #### 2 43313 #### [facility],[address] [place] [address] Albumin [Mass/Vol] 2.7 g/dL Low 3.4 - 5.0 [facility] Comment on above: Performed By: #### 2 86907 #### [facility],[address] [place], [place] [phone] Albumin/Globulin [Mass ratio] 0.6 {ratio} Low 0.9 - 1.6 [facility] Comment on above: Performed By: #### 2 79760 #### [facility],[address] [place] [address] ALK PHOS 109 U/L Normal 46 - 116 [facility] Comment on above: Performed By: #### 2 99953 #### [facility],[address] [place] [address]77 ALT [Catalytic activity/Vol] 16 U/L Normal 16 - 63 [facility] Comment on above: Performed By: #### 2 16472 #### [facility],[address] [place] [address] 12093 Anion gap [Moles/Vol] 12 mmol/L Normal 10 - 20 [facility] Comment on above: Performed By: #### 2 39146 #### [facility],[address] [place] [address] 17368 AST [Catalytic activity/Vol] 33 U/L Normal 13 - 39 [facility] Comment on above: Performed By: #### 2 15085 #### [facility],[address] [place] [address] B/C RATIO 13 ratio Normal 0 - 30 [facility] Comment on above: Performed By: #### 2 76113 #### [facility],[address] [place] [address] Bilirubin [Mass/Vol] 1.2 mg/dL High 0.2 - 1.0 [facility] Comment on above: Performed By: #### 2 60992 #### [facility],[address] [place] [address] Calcium [Mass/Vol] 8.9 mg/dL Normal 8.5 - 10.1 [facility] Comment on above: Performed By: #### 2 58111 #### [facility],[address] [place] [address] 93516 Chloride [Moles/Vol] 104 mmol/L Normal 98 - 107 [facility] Comment on above: Performed By: #### 2 00014 #### [facility],[address] [place] [address] CMP with eGFR Normal [facility] Comment on above: Result Comment: COMP REHENSIVE METABOLIC PANEL Performed By: #### 2 44643 #### [facility],[address] [place] [address]236 CO2 [Moles/Vol] 27.9 mmol/L Normal 21.0 - 32.0 [facility] Comment on above: Performed By: #### 2 58033 #### [facility],[address] [place] [address]7930 Creatinine [Mass/Vol] 0.88 mg/dL Normal 0.55 - 1.02 [facility] Comment on above: Performed By: #### 2 10034 #### [facility],[address] [place] [address] GFR/1.73 sq M.predicted among non-blacks MDRD (S/P/Bld) [Vol rate/Area] mL/min/{1.73_m2} Normal 60 - 999 [facility] Comment on above: Performed By: #### 2 87183 #### [facility],[address] [place] [address] Result Comment: ACCO RDING TO THE NATIONAL KIDNEY DISEASE EDUCATION PROGRAM(NKDE), A NORMAL eGFR IS A VALUE GREATER THAN OR EQUAL TO 60 ML/MIN/1.73 SQ METERS. CHRONIC KIDNEY DISEASE: <60mL/MIN/1.73 SQ METERS KIDNEY FAILURE: <15mL/MIN/1.73 SQ METERS THIS TEST SHOULD ONLY BE USED FOR PATIENTS 18 YEARS OF AGE AND OLDER. Globulin (S) [Mass/Vol] 4.2 g/dL High 1.5 - 3.8 [facility] Comment on above: Performed By: #### 2 10479 #### [facility],[address] [place] [address]673 Glucose [Mass/Vol] 108 mg/dL High 74 - 106 [facility] Comment on above: Performed By: #### 2 16197 #### [facility],[address] [place] [address] Potassium [Moles/Vol] 3.3 mmol/L Low 3.5 - 5.1 [facility] Comment on above: Performed By: #### 2 85181 #### [facility],[address] [place] [address] Protein [Mass/Vol] 6.9 g/dL Normal 6.4 - 8.2 [facility] Comment on above: Performed By: #### 2 23773 #### [facility],[address] [place] [address] 01790 Sodium [Moles/Vol] 141 mmol/L Normal 136 - 145 [facility] Comment on above: Performed By: #### 2 41053 #### [facility],[address] [place] [address] 75661 Urea nitrogen [Mass/Vol] 11 mg/dL Normal 7 - 18 [facility] Comment on above: Performed By: #### 2 85583 #### [facility],[address] [place], [place] [address] ABDOMEN 2 VIEWSon 01-24-2025 ABDOMEN 2 VIEWS [place] [address] Patient: GWEN WOLF Phone#: : 1955 Age: 69 Gender: F Pt. Type: Out Account: [id number] Location: 052 Ordering: JOAN HUERTA Exam Date: 01/24/2025/10:17 Family Phys: Charge Code: [id number] Physician: Loving Order #: [id number] Dose#: PROCEDURE: ABDOMEN 2 VIEWS COMPARISON: None. [...] Ying MD on 01/24/2025 at 15:13 Normal [facility] C-REACTIVE PROTEINon 025 CRP 0.85 mg/dl Normal 0.00 - 0.90 [facility] Comment on above: Performed By: #### 2 95786 #### [facility],[address] [place] [address] CBC + DIFFon 01-24-2025 Baso # 0.03 x10EE3/UL Normal 0.00 - 0.10 [facility] Comment on above: Performed By: #### 2 72102 #### [address] [address] Basophils/100 WBC (Bld) 0.3 % Normal 0.0 - 2.0 [facility] Comment on above: Performed By: #### 2 70183 #### [address],[place] [address] CBC + DIFF Normal [facility] Comment on above: Result Comment: CBC- COMPLETE BLOOD COUNT Performed By: #### 2 64651 #### [facility],[address] [place] [address] EO # 0.13 x10EE3/UL Normal 0.00 - 0.50 [facility] Comment on above: Performed By: #### 2 29933 #### [facility],[address] [place] [address] Eosinophils/100 WBC (Bld) 1.6 % Normal 0.0 - 7.0 [facility] Comment on above: Performed By: #### 2 82396 #### [facility],[address] [place] [address] Erythrocyte distribution width (RBC) [Ratio] 14.2 % Normal 12.0 - 15.6 [facility] Comment on above: Performed By: #### 2 16716 #### [facility],[address] [place] [address] Hematocrit (Bld) [Volume fraction] 36.3 % Normal 34.0 - 46.0 [facility] Comment on above: Performed By: #### 2 65935 #### [facility],[address] [place] [address] 14584 Hemoglobin (Bld) [Mass/Vol] 12.4 g/dL Normal 12.0 - 16.0 [facility] Comment on above: Performed By: #### 2 20985 #### [facility],[address] [place] [address] 48525 Lymph # 1.12 x10EE3/UL Normal 0.80 - 2.80 [facility] Comment on above: Performed By: #### 2 28565 #### [facility],[address] [place] [address] 68373 Lymphocytes/100 WBC (Bld) 13.4 % Low 20.0 - 45.0 [facility] Comment on above: Performed By: #### 2 28831 #### [facility],[address] [place] [address] MANUAL DIFF N/A Normal [facility] Comment on above: Performed By: #### 2 50619 #### [facility],[address] [place] [address] MCH (RBC) [Entitic mass] 29 pg Normal 27 - 33 [facility] Comment on above: Performed By: #### 2 06841 #### [facility],[address] [place] [address] MCHC 34 X10 3 Normal 32 - 36 [facility] Comment on above: Performed By: #### 2 90300 #### [facility],[address] [place] [address] MCV (RBC) [Entitic vol] 86 fL Normal 80 - 99 [facility] Comment on above: Performed By: #### 2 62533 #### [facility],[address] [place] [address] [place] # 0.53 x10EE3/UL Normal 0.20 - 1.00 [facility] Comment on above: Performed By: #### 2 01023 #### [facility],[address] [place] [address] MONOS % 6.4 % Normal 0.0 - 10.0 [facility] Comment on above: Performed By: #### 2 27230 #### [facility],[address] [place] [address] Morphology [place] (Bld) [Interp] N/A Normal [facility] Comment on above: Performed By: #### 2 39281 #### [facility],[address] [place] [address] Neut # 6.56 x10EE3/UL Normal 1.50 - 7.10 [facility] Comment on above: Performed By: #### 2 37104 #### [facility],[address] [place] [address] 15906 Neutrophils/100 WBC (Bld) 78.3 % High 46.0 - 76.0 [facility] Comment on above: Performed By: #### 2 76071 #### [facility],[address] [place] [address] 54444 PLATELET 291 x10EE3/UL Normal 150 - [address] [facility] Comment on above: Performed By: #### 2 58935 #### [facility],[address] [place] [address] 72284 Platelet mean volume (Bld) [Entitic vol] 11.2 fL High 6.6 - 10.5 [facility] Comment on above: Result Comment: AUTO MATED DIFFERENTIAL Performed By: #### 2 32361 #### [facility],[address] [place] [address] 40219 RBC 4.20 x 10EE6/UL Normal 4.10 - 5.30 [facility] Comment on above: Performed By: #### 2 92464 #### [facility],[address] [place] [address] 43843 WBC 8.4 x 10EE3/UL Normal 4.5 - 10.8 [facility] Comment on above: Performed By: #### 2 19304 #### [facility],[address] [place] [address] 05167 CHEST 2 VIEWSon 01-24-2025 CHEST 2 VIEWS [place] [address] Patient: GWEN WOLF Phone#: : 1955 Age: 69 Gender: F Pt. Type: Out Account: [id number] Location: [facility] Ordering: JOAN HUERTA Exam Date: 01/24/2025/10:13 Family Phys: Charge Code: [id number] Physician: Loving Order #: [id number] Dose#: PROCEDURE: X-RAY CHEST 2 VIEWS COMPARISON: [facility], XR, CHEST 1 VIEW, 04/17/2023, 13:20. INDICATIONS: [...] Ying MD on 01/24/2025 at 15:11 Normal [facility] CMP with eGFRon 01-24-2025 AGE 69 years Normal [facility] Comment on above: Performed By: #### 2 64790 #### [facility],[address] [place] [address] 46141 Albumin [Mass/Vol] 3.3 g/dL Low 3.4 - 5.0 [facility] Comment on above: Performed By: #### 2 99630 #### [facility],[address] [place] [address] 43874 Albumin/Globulin [Mass ratio] 0.6 {ratio} Low 0.9 - 1.6 [facility] Comment on above: Performed By: #### 2 50182 #### [facility],[address] [place] [address] 07048 ALK PHOS 131 U/L High 46 - 116 [facility] Comment on above: Performed By: #### 2 09302 #### [facility],[address] [place] [address] 00182 ALT [Catalytic activity/Vol] 15 U/L Low 16 - 63 [facility] Comment on above: Performed By: #### 2 66391 #### [facility],[address] [place] [address] 12874 Anion gap [Moles/Vol] 16 mmol/L Normal 10 - 20 [facility] Comment on above: Performed By: #### 2 86778 #### [facility],[address] [place] [address] 83238 AST [Catalytic activity/Vol] 25 U/L Normal 13 - 39 [facility] Comment on above: Performed By: #### 2 11687 #### [facility],[address] [place] [address] 50350 B/C RATIO 16 ratio Normal 0 - 30 [facility] Comment on above: Performed By: #### 2 96636 #### [facility],[address] [place] [address] 13150 Bilirubin [Mass/Vol] 1.5 mg/dL High 0.2 - 1.0 [facility] Comment on above: Performed By: #### 2 36958 #### [facility],[address] [place] [address] 84923 Calcium [Mass/Vol] 10.1 mg/dL Normal 8.5 - 10.1 [facility] Comment on above: Performed By: #### 2 03121 #### [facility],[address] [place] [address] 20016 Chloride [Moles/Vol] 96 mmol/L Low 98 - 107 [facility] Comment on above: Performed By: #### 2 88909 #### [facility],[address] [place] [address] 03285 CMP with eGFR Normal [facility] Comment on above: Result Comment: COMP REHENSIVE METABOLIC PANEL Performed By: #### 2 46866 #### [facility],[address] [place] [address] 05877 CO2 [Moles/Vol] 26.6 mmol/L Normal 21.0 - 32.0 [facility] Comment on above: Performed By: #### 2 55829 #### [facility],[address] [place] [address] 48397 Creatinine [Mass/Vol] 1.48 mg/dL High 0.55 - 1.02 [facility] Comment on above: Performed By: #### 2 44642 #### [facility],[address] [place] [address] 33828 eGFR 35 ML/MINUTE Low 60 - 999 [facility] Comment on above: Performed By: #### 2 53396 #### [facility],[address] [place] [address] 06351 eGFR(AA) 42 ML/MINUTE Low 60 - 999 [facility] Comment on above: Result Comment: ACCO RDING TO THE NATIONAL KIDNEY DISEASE EDUCATION PROGRAM(NKDE), A NORMAL eGFR IS A VALUE GREATER THAN OR EQUAL TO 60 ML/MIN/1.73 SQ METERS. CHRONIC KIDNEY DISEASE: <60mL/MIN/1.73 SQ METERS KIDNEY FAILURE: <15mL/MIN/1.73 SQ METERS THIS TEST SHOULD ONLY BE USED FOR PATIENTS 18 YEARS OF AGE AND OLDER. Performed By: #### 2 04566 #### [facility],[address] [place] [address] 16918 Globulin (S) [Mass/Vol] 5.2 g/dL High 1.5 - 3.8 [facility] Comment on above: Performed By: #### 2 92781 #### [facility],[address] [place] [address] 45382 Glucose [Mass/Vol] 152 mg/dL High 74 - 106 [facility] Comment on above: Performed By: #### 2 11128 #### [facility],[address] [place] [address] 73868 Potassium [Moles/Vol] 3.0 mmol/L Low 3.5 - 5.1 [facility] Comment on above: Performed By: #### 2 82699 #### [facility],[address] [place] [address] 37017 Protein [Mass/Vol] 8.5 g/dL High 6.4 - 8.2 [facility] Comment on above: Performed By: #### 2 84837 #### [facility],[address] [place], [place] [id number] Sodium [Moles/Vol] 136 mmol/L Normal 136 - 145 [facility] Comment on above: Performed By: #### 2 13291 #### [facility],[address] [place], [place] [id number] Urea nitrogen [Mass/Vol] 23 mg/dL High 7 - 18 [facility] Comment on above: Performed By: #### 2 72518 #### [facility],[address] [place], [place] [id number] HEMOGLOBIN A1C (POM)on 01-24 Glucose [Mass/Vol] 162.8 mg/dL High 0.0 - 0.0 [facility] Comment on above: Result Comment: BLDo HEMOGLOBIN A1C REFERENCE RANGESBLDo Suggested Diagnosis HbA1c(%) HbA1C (mmol/mol Diabetic >/=6.5 >/=48 Prediabetes 5.7 - 6.4 39 - 47 Normal <5.7 <39 Performed By: #### 2 59426 #### [facility],[address] [place], [place] [id number] HbA1c (Bld) [Mass fraction] 7.3 % High 0.0 - 6.5 [facility] Comment on above: Performed By: #### 2 33247 #### [facility],[address] [place], [place] [phone] LIPASEon 01-24-2025 Lipase [Catalytic activity/Vol] 31.0 U/L Normal 15.0 - 78.0 [facility] Comment on above: Result Comment: *PLE ASE NOTE THAT RANGES FOR LIPASE HAVE CHANGED OF 08/21/23 DUE TO AN ASSAY UPDATE BY THE BRILLIANDEER LOOPER.THE NEW ASSAY RANGE IS 6-250 U/L, WITH A REFERENCE RANGE OF 16-77 U/L. Performed By: #### 2 52103 #### [facility],[address] [place] [address] 45751 MAGNESIUMon 01-24-2025 Magnesium [Mass/Vol] 1.6 mg/dL Low 1.8 - 2.4 [facility] Comment on above: Performed By: #### 2 91959 #### [facility],[address] [place], [place] [phone] SEDRATEon 01-24-2025 SEDRATE 74 mm/hr High 0 - 30 [facility] Comment on above: Performed By: #### 2 98896 #### [facility],[address] [place] [address] T4-FREE (FREE THYROXINE)on 0 01-24-2025 Free T4 [Mass/Vol] 3.23 ng/dL High 0.76 - 1.46 [facility] Comment on above: Result Comment: P otential of falsely elevated results when biotin concentrations are > 10 ng/mL. Performed By: #### 2 45569 #### [facility],[address] [place], [place] [phone] TSHon 01-24-2025 TSH Qn m[IU]/L Low 0.35 - 3.74 [facility] Comment on above: Performed By: #### 2 74829 #### [facility],[address] [place], [place] [phone] WOUND CULTURE WITH GRAM STAI Non 01-05-2025 WOUND CULTURE WITH GRAM STAIN WOUND CULTURE 114CANDIDA ALBICANS 1+ Rosa albicans GRAM STAIN OF CULTURE No organisms seen Normal [facility] Comment on above: Performed By: #### 4 [id number] #### [facility] [address] T4, FREE [CCL]on 11-03-2024 Free T4 [Mass/Vol] 0.7 ng/dL Low 0.9-1.7 [facility] Comment on above: Result Comment: [facility] [address] [place] [address] Uli Goodrich III, M.D. [id number] Performed By: #### 2 84055 #### [facility],[address] [place], [place] [id number] T4 Free SerPl-mCncon 025 Free T4 [Mass/Vol] 0.7 ng/dL Low 0.9-1.7 [facility] Comment on above: Order Comment: Speci men Type: BLOOD SPECIMEN Ordering Facility: [facility] Address: [address] [place] [address] Performed By: #### 3 024-7 #### [facility] CLIA [id number] [address] [place] [address] [place] TSHon 11-01-2024 TSH Qn 27.16 m[IU]/L High 0.35 - 3.74 [facility] Comment on above: Performed By: #### 2 49685 #### [facility],[address] [place] [address] LABORATORYOrdered By: Ho Vides on 04-22-2023 Blood Glucose Testing Reason Routine (04/22/23 11:27 AM) [facility] Glucose [Mass/Vol] 106 mg/dL Invalid Interpretation Code 82 - 115 mg/dL [facility] LABORATORYOrdered By: Daniela Ramachandran on 04-22-2023 Glucose [Mass/Vol] 134 mg/dL Invalid Interpretation Code 82 - 115 mg/dL [facility] .Auto Diffon 04-21-2023 Basophil, Absolute 0.0 10 3/mcL Normal 0.0-0.3 [facility] ([place]) Comment on above: Performed By: #### G FR, ANEU, BMP, MDW, CBC, ADIFF #### [facility] [address] [place] [address] 15293 Basophils/100 WBC (Bld) 0.7 % Normal 0.0-2.5 A [facility] ([place] Comment on above: Performed By: #### G FR, ANEU, BMP, MDW, CBC, ADIFF #### [address] [address] Eosinophil, Absolute 0.3 10 3/mcL Normal 0.0-0.7 [facility] ([place] Comment on above: Performed By: #### G FR, ANEU, BMP, MDW, CBC, ADIFF #### [address] [address] Eosinophils/100 WBC (Bld) 4.4 % Normal 0.0-6.0 [facility] ([place]) Comment on above: Performed By: #### G FR, ANEU, BMP, MDW, CBC, ADIFF #### [address] [address] Lymphocyte, Absolute 1.8 10 3/mcL Normal 0.9-4.3 [facility] ([place] Comment on above: Performed By: #### G FR, ANEU, BMP, MDW, CBC, ADIFF #### [address] [address] Lymphocytes/100 WBC (Bld) 29.3 % Normal 20.0-40.0 [facility] ([place] Comment on above: Performed By: #### G FR, ANEU, BMP, MDW, CBC, ADIFF #### [address] [address] Monocyte, Absolute 0.4 10 3/mcL Normal 0.1-1.4 [facility] ([place] Comment on above: Performed By: #### G FR, ANEU, BMP, MDW, CBC, ADIFF #### [address] [address] Monocytes/100 WBC (Bld) 7.1 % Normal 2.0-13.0 A [facility] ([place] Comment on above: Performed By: #### G FR, ANEU, BMP, MDW, CBC, ADIFF #### [address] [address] Neutrophils/100 WBC (Bld) 58.5 % Normal 50.0-75.0 [facility] ([place] Comment on above: Performed By: #### G FR, IVANA, RAFAEL, VICNENT, CBC, ADIFF #### [address] [address] .GFRon 04-21-2023 GFR Non- >60 Normal [facility] ([place] Comment on above: Result Comment: GFR Population [...] meters Performed By: #### G FR, ANEU, RAFAEL, VINCENT, CBC, ADIFF #### [address] [address] GFR >60 Normal [facility] ([place] Comment on above: Result Comment: GFR Population [...] Performed By: #### G FR, ANEU, BMP, VINCENT, CBC, ADIFF #### [address] [address] .NEUABSon 04-21-2023 Neutrophil, Absolute 3.6 10 3/mcL Normal 2.3-8.1 [facility] ([place] Comment on above: Performed By: #### G FR, ANEU, BMP, MDW, CBC, ADIFF #### [address] [address] BMPon 04-21-2023 BUN/Creatinine Ratio 13.8 ratio Normal 10.0-22.0 [facility] ([place] Comment on above: Performed By: #### G FR, ANEU, BMP, MDW, CBC, ADIFF #### [place] [phone] Calcium [Mass/Vol] 8.7 mg/dL Normal 8.7-10.4 [facility] ([place] Comment on above: Performed By: #### G FR, ANEU, BMP, MDW, CBC, ADIFF #### [place] [phone] Chloride [Moles/Vol] 106 mmol/L Normal 98-110 [facility] ([place] Comment on above: Performed By: #### G FR, ANEU, BMP, MDW, CBC, ADIFF #### [place] [phone] CO2 [Moles/Vol] 30 mmol/L Normal 22-32 [facility] ([place] Comment on above: Performed By: #### G FR, ANEU, BMP, MDW, CBC, ADIFF #### [address] [address] Creatinine [Mass/Vol] 0.65 mg/dL Normal 0.50-1.20 [facility] ([place]) Comment on above: Performed By: #### G FR, ANEU, BMP, MDW, CBC, ADIFF #### [address] [address] Electrolyte Balance 4.0 mEq/L Normal 4.0-15.0 [facility] ([place]) Comment on above: Performed By: #### G FR, ANEU, BMP, MDW, CBC, ADIFF #### [address] [address] Glucose [Mass/Vol] 123 mg/dL High 82-115 [facility] ([place] Comment on above: Performed By: #### G FR, ANEU, BMP, MDW, CBC, ADIFF #### [place] [phone] Potassium [Moles/Vol] 4.4 mmol/L Normal 3.5-5.0 [facility] ([place] Comment on above: Performed By: #### G FR, ANEU, BMP, MDW, CBC, ADIFF #### [place] [phone] Sodium [Moles/Vol] 140 mmol/L Normal 136-145 [facility] ([place] Comment on above: Performed By: #### G FR, ANEU, BMP, MDW, CBC, ADIFF #### [place] [address] Urea nitrogen [Mass/Vol] 9.0 mg/dL Normal 8.0-22.0 [facility] ([place] Comment on above: Performed By: #### G FR, ANEU, BMP, MDW, CBC, ADIFF #### [place] [address] CBCon 04-21-2023 Erythrocyte distribution width (RBC) [Ratio] 13.6 % Normal 11.5-15.5 [facility] ([place] Comment on above: Performed By: #### G FR, ANEU, BMP, MDW, CBC, ADIFF #### [place] [address] Hematocrit (Bld) [Volume fraction] 36.7 % Normal 34.0-46.0 [facility] ([place] Comment on above: Performed By: #### G FR, ANEU, BMP, MDW, CBC, ADIFF #### [place] [phone] Hgb 12.5 G/dL Normal 12.0-16.0 [facility] ([place] Comment on above: Performed By: #### G FR, ANEU, BMP, MDW, CBC, ADIFF #### [place] [address] MCH (RBC) [Entitic mass] 31.6 pg Normal 27.0-33.0 [facility] ([place] Comment on above: Performed By: #### G FR, IVANA, BMP, MDW, CBC, ADIFF #### [place] [address] MCHC 33.9 G/dL Normal 32.0-36.0 [facility] ([place] Comment on above: Performed By: #### G FR, IVANA, BMP, MDW, CBC, ADIFF #### [place] [address] MCV (RBC) [Entitic vol] 93.1 fL Normal 80.0-99.0 A [facility] ([place] Comment on above: Performed By: #### G , IVANA, BMP, MDW, CBC, ADIFF #### [place] [address] Platelet 184 10 3/mcL Normal 150-450 [facility] ([place] Comment on above: Performed By: #### G , IVANA, BMP, MDW, CBC, ADIFF #### [place] [address] Platelet mean volume (Bld) [Entitic vol] 10.3 fL Normal 6.6-10.5 [facility] ([place] Comment on above: Performed By: #### G FR, ANEU, BMP, MDW, CBC, ADIFF #### [place] [address] RBC 3.94 10 6/mcL Low 4.10-5.30 [facility] ([place] Comment on above: Performed By: #### G FR, ANEU, BMP, MDW, CBC, ADIFF #### [place] [address] WBC 6.1 10 3/mcL Normal 4.5-10.8 [facility] ([place] Comment on above: Performed By: #### G FR, ANEU, BMP, MDW, CBC, ADIFF #### [place] [address] LABORATORYOrdered By: Carly Cerda on 04-21-2023 Glucose [Mass/Vol] 121 mg/dL Invalid Interpretation Code 82 - 115 mg/dL [facility] LABORATORYOrdered By: SYSTEM SYSTEM on 04-21-2023 [...] - 110 mEq/L ADM SS CO2 [Moles/Vol] 30 mmol/L Invalid Interpretation Code 22 - 32 mEq/L ADM SS Creatinine [Mass/Vol] 0.65 mg/dL Invalid [...] 46.0 % Workflow SS Hemoglobin (Bld) [Mass/Vol] 12.5 G/dL Invalid Interpretation Code 12.0 - 16.0 G/dL Workflow SS Lymphocytes (Bld) [#/Vol] 1.8 103/mcL Invalid Interpretation Code 0.9 - 4.3 10^3/mcL Workflow SS Lymphocytes/100 WBC (Bld) 29.3 % Invalid Interpretation Code 20.0 - 40.0 % Workflow SS Magnesium [Mass/Vol] 1.6 mg/dL Invalid Interpretation Code 1.6 - 2.4 mg/dL ADM SS MCH (RBC) [Entitic mass] 31.6 pg Invalid Interpretation Code 27.0 - 33.0 pg Workflow SS MCHC 33.9 G/dL Invalid Interpretation Code 32.0 - 36.0 G/dL Workflow SS MCV (RBC) [Entitic vol] 93.1 fL Invalid Interpretation Code 80.0 - 99.0 fL Workflow SS Monocytes (Bld) [#/Vol] 0.4 103/mcL Invalid Interpretation Code 0.1 - 1.4 10^3/mcL Workflow SS Monocytes/100 WBC (Bld) 7.1 % [...] mg/dL ADM SS Urea nitrogen/Creatinine [Mass ratio] 13.8 ratio Invalid Interpretation Code 10.0 - 22.0 ratio AH ADM SS WBC (Bld) [#/Vol] 6.1 103/mcL Invalid Interpretation Code 4.5 - 10.8 10^3/mcL Workflow SS MGon 04-21-2023 Magnesium [Mass/Vol] 1.6 mg/dL Normal 1.6-2.4 [facility] ([place] Comment on above: Performed By: #### G FR, ANEU, BMP, MDW, CBC, ADIFF #### [address] [address] .Auto Diffon 04-20-2023 Basophil, Absolute 0.0 10 3/mcL Normal 0.0-0.3 [facility] ([place] Comment on above: Performed By: #### A PARMINDER, BMP, ADIFF, GFR, CBC #### [address] [address] Basophils/100 WBC (Bld) 0.7 % Normal 0.0-2.5 A [facility] ([place]) Comment on above: Performed By: #### A PARMINDER, BMP, ADIFF, GFR, CBC #### [address] [address] Eosinophil, Absolute 0.1 10 3/mcL Normal 0.0-0.7 [facility] ([place]) Comment on above: Performed By: #### A PARMINDER, BMP, ADIFF, GFR, CBC #### [address] [address] Eosinophils/100 WBC (Bld) 2.2 % Normal 0.0-6.0 [facility] ([place]) Comment on above: Performed By: #### A PARMINDER, BMP, ADIFF, GFR, CBC #### [address] [address] Lymphocyte, Absolute 1.4 10 3/mcL Normal 0.9-4.3 [facility] ([place]) Comment on above: Performed By: #### A PARMINDER, BMP, ADIFF, GFR, CBC #### [address] [address] Lymphocytes/100 WBC (Bld) 20.5 % Normal 20.0-40.0 [facility] ([place]) Comment on above: Performed By: #### A PARMINDER, BMP, ADIFF, GFR, CBC #### [address] [address] Monocyte, Absolute 0.4 10 3/mcL Normal 0.1-1.4 [facility] ([place] Comment on above: Performed By: #### A PARMINDER, BMP, ADIFF, GFR, CBC #### [address] [address] Monocytes/100 WBC (Bld) 5.6 % Normal 2.0-13.0 [facility] ([place]) Comment on above: Performed By: #### A PARMINDER, BMP, ADIFF, GFR, CBC #### [address] [address] Neutrophils/100 WBC (Bld) 71.0 % Normal 50.0-75.0 [facility] ([place]) Comment on above: Performed By: #### A PARMINDER, BMP, ADIFF, GFR, CBC #### [address] [address] .GFRon 04-20-2023 GFR Non- >60 Normal [facility] ([place]) Comment on above: Result Comment: GFR Population [...] FR, ANEU, BMP, W, CBC, ADIFF #### [place] [address] GFR >60 Normal [facility] ([place]) Comment on above: Result Comment: GFR Population [...] FR, ANEU, BMP, MDW, CBC, ADIFF #### [place] [id number] [address] [place] [address] .NEUABSon 04-20-2023 Neutrophil, Absolute 4.9 10 3/mcL Normal 2.3-8.1 [facility] ([place] Comment on above: Performed By: #### G FR, ANEU, BMP, MDW, CBC, ADIFF #### Candace [address] [address] BMPon 04-20-2023 BUN/Creatinine Ratio 14.3 ratio Normal 10.0-22.0 [facility] ([place] Comment on above: Performed By: #### G FR, ANEU, BMP, MDW, CBC, ADIFF #### [address] [address] Calcium [Mass/Vol] 8.8 mg/dL Normal 8.7-10.4 [facility] ([place] Comment on above: Performed By: #### G FR, ANEU, BMP, MDW, CBC, ADIFF #### [place] [phone] Chloride [Moles/Vol] 107 mmol/L Normal 98-110 [facility] ([place] Comment on above: Performed By: #### G FR, ANEU, BMP, MDW, CBC, ADIFF #### [place] [phone] CO2 [Moles/Vol] 28 mmol/L Normal 22-32 [facility] ([place] Comment on above: Performed By: #### G FR, ANEU, BMP, MDW, CBC, ADIFF #### [place] [phone] Creatinine [Mass/Vol] 0.63 mg/dL Normal 0.50-1.20 [facility] ([place] Comment on above: Performed By: #### G FR, ANEU, BMP, MDW, CBC, ADIFF #### [place] [phone] Electrolyte Balance 5.0 mEq/L Normal 4.0-15.0 [facility] ([place]) Comment on above: Performed By: #### G FR, ANEU, BMP, MDW, CBC, ADIFF #### [place] [phone] Glucose [Mass/Vol] 118 mg/dL High 82-115 [facility] ([place] Comment on above: Performed By: #### G FR, ANEU, BMP, MDW, CBC, ADIFF #### [address] [address] Potassium [Moles/Vol] 4.3 mmol/L Normal 3.5-5.0 [facility] ([place]) Comment on above: Performed By: #### G IVANA TOBIN, RAFAEL, W, CBC, ADIFF #### [place] [address] Sodium [Moles/Vol] 140 mmol/L Normal 136-145 [facility] ([place] Comment on above: Performed By: #### G , IVANA, RAFAEL, W, CBC, ADIFF #### [place] [address] Urea nitrogen [Mass/Vol] 9.0 mg/dL Normal 8.0-22.0 [facility] ([place] Comment on above: Performed By: #### G IVANA TOBIN, RAFAEL, W, CBC, ADIFF #### [place] [address] CBCon 04-20-2023 Erythrocyte distribution width (RBC) [Ratio] 13.6 % Normal 11.5-15.5 [facility] ([place] Comment on above: Performed By: #### A PARMINDER, BMP, ADIFF, GFR, CBC #### [place] [address] Hematocrit (Bld) [Volume fraction] 38.3 % Normal 34.0-46.0 [facility] ([place] Comment on above: Performed By: #### A PARMINDER, BMP, ADIFF, GFR, CBC #### [place] [address] Hgb 12.8 G/dL Normal 12.0-16.0 [facility] ([place] Comment on above: Performed By: #### A PARMINDER, BMP, ADIFF, GFR, CBC #### [place] [address] MCH (RBC) [Entitic mass] 31.4 pg Normal 27.0-33.0 [facility] ([place] Comment on above: Performed By: #### A PARMINDER, BMP, ADIFF, GFR, CBC #### [place] [address] MCHC 33.5 G/dL Normal 32.0-36.0 [facility] ([place] Comment on above: Performed By: #### A PARMINDER, BMP, ADIFF, GFR, CBC #### [address] [address] MCV (RBC) [Entitic vol] 93.7 fL Normal 80.0-99.0 A [facility] ([place] Comment on above: Performed By: #### A PARMINDER, BMP, ADIFF, GFR, CBC #### [address] [address] Platelet 196 10 3/mcL Normal 150-450 [facility] ([place] Comment on above: Performed By: #### A PAMRINDER, BMP, ADIFF, GFR, CBC #### [address] [address] Platelet mean volume (Bld) [Entitic vol] 10.4 fL Normal 6.6-10.5 [facility] ([place] Comment on above: Performed By: #### A PARMINDER, BMP, ADIFF, GFR, CBC #### [address] [address] RBC 4.09 10 6/mcL Low 4.10-5.30 [facility] ([place] Comment on above: Performed By: #### A PARMINDER, BMP, ADIFF, GFR, CBC #### [address] [address] WBC 6.9 10 3/mcL Normal 4.5-10.8 [facility] ([place] Comment on above: Performed By: #### A PARMINDER, BMP, ADIFF, GFR, CBC #### [address] [address] LABORATORYOrdered By: Kaveh Drake on 04-20-2023 Blood Glucose Testing Reason Routine (04/20/23 9:44 PM) [facility] LABORATORYOrdered By: Byron Ramachandran on 04-20-2023 Blood Glucose Testing Reason Routine (04/20/23 4:15 PM) [facility] LABORATORYOrdered By: [employer] on 04-20-2023 Basophils (Bld) [#/Vol] 0.0 [...] 0.7 10^3/mcL Workflow SS Eosinophils/100 WBC (Bld) 2.2 % [...] Invalid Interpretation Code 0.9 - 4.3 10^3/mcL Workflow SS Lymphocytes/100 WBC (Bld) 20.5 % Invalid Interpretation Code 20.0 - 40.0 % Workflow SS MCH (RBC) [Entitic mass] 31.4 pg Invalid Interpretation Code 27.0 - 33.0 pg Workflow SS MCHC 33.5 G/dL Invalid Interpretation [...] mEq/L AH ADM SS Urea nitrogen [Mass/Vol] 9.0 mg/dL Invalid Interpretation Code 8.0 - 22.0 mg/dL ADM SS Urea nitrogen/Creatinine [Mass ratio] 14.3 ratio Invalid Interpretation Code 10.0 - 22.0 ratio AH ADM SS WBC (Bld) [#/Vol] 6.9 103/mcL Invalid Interpretation Code 4.5 - 10.8 10^3/mcL Workflow SS .GFRon 04-19-2023 GFR >60 Normal [facility] ([place] Comment on above: Result Comment: GFR Population [...] Performed By: #### G FR, CMP #### [place] [address] GFR Non- >60 Normal [facility] ([place] Comment on above: Result Comment: GFR Population [...] Performed By: #### G FR, CMP #### [address] [address] A1Con 04-19-2023 HbA1c (Bld) [Mass fraction] 7.2 % High 4.0-6.0 [facility] ([place] Comment on above: Performed By: #### G , ANEU, BMP, MDW, CBC, ADIFF #### [address] [address] CMPon 04-19-2023 Albumin Level 3.3 G/dL Normal 3.2-4.8 [facility] ([place] Comment on above: Performed By: #### G , CMP #### [place] [id number] Albumin/Globulin [Mass ratio] 1.1 {ratio} Normal 0.9-1.6 [facility] ([place] Comment on above: Performed By: #### Edith TOBIN, CMP #### [address] [address] ALP [Catalytic activity/Vol] 98 U/L Normal 38-126 [facility] ([place] Comment on above: Performed By: #### G FR, CMP #### [address] [address] ALT [Catalytic activity/Vol] 17 U/L Normal 10-49 [facility] ([place] Comment on above: Performed By: #### Edith FR, CMP #### [address] [address] AST [Catalytic activity/Vol] 18 U/L Normal 8-34 [facility] ([place] Comment on above: Performed By: #### G , CMP #### [address] [address] Bili Total 1.00 mg/dL Normal 0.20-1.20 [facility] ([place] Comment on above: Result Comment: Use of this assay is not recommended for patients undergoing treatment with eltrombopag due to the potential for falsely elevated results. Performed By: #### Edith TOBIN, CMP #### [place] [phone] BUN/Creatinine Ratio 19.4 ratio Normal 10.0-22.0 [facility] ([place] Comment on above: Performed By: #### Edith TOBIN, CMP #### [address] [address] Calcium [Mass/Vol] 8.2 mg/dL Low 8.7-10.4 [facility] ([place] Comment on above: Performed By: #### Edith TOBIN, CMP #### [address] [address] Chloride [Moles/Vol] 108 mmol/L Normal 98-110 [facility] ([place] Comment on above: Performed By: #### Edith TOBIN, CMP #### [place] [phone] CO2 [Moles/Vol] 27 mmol/L Normal 22-32 [facility] ([place] Comment on above: Performed By: #### Edith TOBIN, CMP #### [place] [phone] Creatinine [Mass/Vol] 0.62 mg/dL Normal 0.50-1.20 [facility] ([place] Comment on above: Performed By: #### G , CMP #### [address] [address] Electrolyte Balance 5.0 mEq/L Normal 4.0-15.0 [facility] ([place] Comment on above: Performed By: #### G , CMP #### [place] [phone] Globulin 3.0 G/dL Normal 1.5-3.8 [facility] ([place] Comment on above: Performed By: #### G , CMP #### [address] [address] Glucose [Mass/Vol] 138 mg/dL High 82-115 [facility] ([place] Comment on above: Performed By: #### G , CMP #### [address] [address] Potassium [Moles/Vol] 4.0 mmol/L Normal 3.5-5.0 [facility] ([place] Comment on above: Performed By: #### G , CMP #### [address] [address] Sodium [Moles/Vol] 140 mmol/L Normal 136-145 [facility] ([place] Comment on above: Performed By: #### Edith TOBIN, CMP #### [address] [address] Total Protein 6.3 G/dL Normal 5.7-8.2 [facility] ([place] Comment on above: Result Comment: No te - New Reference Range in effect 20 Performed By: #### G , CMP #### [address] [address] Urea nitrogen [Mass/Vol] 12.0 mg/dL Normal 8.0-22.0 [facility] ([place] Comment on above: Performed By: #### Edith TOBIN, CMP #### [address] [address] LABORATORYOrdered By: SYSTEM SYSTEM on 04-19-2023 Albumin [...] Invalid Interpretation Code 10 - 49 U/L ADM SS AST [Catalytic activity/Vol] 18 U/L Invalid Interpretation Code 8 - 34 U/L ADM SS Bilirubin [Mass/Vol] 1.00 mg/dL Invalid Interpretation Code 0.20 - 1.20 mg/dL ADM SS Comment on above: Interpretive Data: U se of this assay is not recommended for patients undergoing treatment with eltrombopag due to the potential for falsely elevated results. Calcium [Mass/Vol] 8.2 mg/dL Invalid Interpretation Code 8.7 - 10.4 mg/dL ADM SS Chloride [Moles/Vol] 108 mmol/L Invalid Interpretation Code 98 - 110 mEq/L ADM SS CO2 [Moles/Vol] 27 mmol/L Invalid Interpretation Code 22 - 32 mEq/L ADM SS Creatinine [Mass/Vol] 0.62 mg/dL Invalid Interpretation Code 0.50 - 1.20 mg/dL ADM SS Electrolyte Balance 5.0 mEq/L Invalid Interpretation Code 4.0 - 15.0 mEq/L ADM SS GFR/1.73 sq M.predicted among blacks MDRD (S/P/Bld) [Vol rate/Area] ml/min/1.73sqm Invalid Interpretation Code ADM SS Comment on above: Interpretive Data: GFR Population [...] [Vol rate/Area] ml/min/1.73sqm Invalid Interpretation Code ADM SS Comment on above: Interpretive Data: GFR Population [...] Invalid Interpretation Code 1.5 - 3.8 G/dL AH ADM SS Glucose [Mass/Vol] 138 mg/dL Invalid Interpretation Code 82 - 115 mg/dL AH ADM SS Potassium [Moles/Vol] 4.0 mmol/L Invalid Interpretation Code 3.5 - 5.0 mEq/L AH ADM SS Protein [Mass/Vol] 6.3 G/dL Invalid Interpretation Code 5.7 - 8.2 G/dL AH ADM SS Comment on above: Interpretive Data: * *Note - New Reference Range in effect 20 Sodium [Moles/Vol] 140 mmol/L Invalid Interpretation Code 136 - 145 mEq/L AH ADM SS Urea nitrogen [Mass/Vol] 12.0 mg/dL Invalid Interpretation Code 8.0 - 22.0 mg/dL AH ADM SS Urea nitrogen/Creatinine [Mass ratio] 19.4 ratio Invalid Interpretation Code 10.0 - 22.0 ratio AH ADM SS No Panel Informationon 04-19 Microscopic examination of blood, culture Culture has been received in lab and is no growth to date. Routine cultures are held for 5 days. [facility] .Auto Diffon 04-18-2023 Basophil, Absolute 0.1 10 3/mcL Normal 0.0-0.3 [facility] ([place] Comment on above: Performed By: #### G , ANEU, BMP, MDW, CBC, ADIFF #### [address] [address] Basophils/100 WBC (Bld) 1.0 % Normal 0.0-2.5 A [facility] ([place] Comment on above: Performed By: #### G FR, ANEU, BMP, MDW, CBC, ADIFF #### [address] [address] Eosinophil, Absolute 0.1 10 3/mcL Normal 0.0-0.7 [facility] ([place] Comment on above: Performed By: #### G FR, ANEU, BMP, MDW, CBC, ADIFF #### [address] [address] Eosinophils/100 WBC (Bld) 1.3 % Normal 0.0-6.0 [facility] ([place] Comment on above: Performed By: #### G FR, ANEU, BMP, MDW, CBC, ADIFF #### [address] [address] Lymphocyte, Absolute 1.8 10 3/mcL Normal 0.9-4.3 [facility] ([place] Comment on above: Performed By: #### G FR, ANEU, BMP, MDW, CBC, ADIFF #### [address] [address] Lymphocytes/100 WBC (Bld) 23.8 % Normal 20.0-40.0 [facility] ([place] Comment on above: Performed By: #### G FR, ANEU, BMP, MDW, CBC, ADIFF #### [address] [address] Monocyte, Absolute 0.6 10 3/mcL Normal 0.1-1.4 [facility] ([place] Comment on above: Performed By: #### G FR, ANEU, BMP, MDW, CBC, ADIFF #### [address] [address] Monocytes/100 WBC (Bld) 7.7 % Normal 2.0-13.0 [facility] ([place] Comment on above: Performed By: #### G FR, ANEU, BMP, MDW, CBC, ADIFF #### [address] [address] Neutrophils/100 WBC (Bld) 66.2 % Normal 50.0-75.0 [facility] ([place] Comment on above: Performed By: #### G FR, ANEU, BMP, MDW, CBC, ADIFF #### [address] [address] .GFRon 04-18-2023 GFR >60 Normal [facility] ([place] Comment on above: Result Comment: GFR Population [...] FR, ANEU, BMP, MDW, CBC, ADIFF #### [address] [address] GFR Non- >60 Normal [facility] ([place] Comment on above: Result Comment: GFR Population [...] FR, ANEU, BMP, MDW, CBC, ADIFF #### [address] [address] .MDWon 04-18-2023 Monocyte Distribution Width 17.68 Normal 0.00-20.00 [facility] ([place] Comment on above: Result Comment: For ED adult patients suspected of sepsis, MDW<=20.0 does not rule out sepsis or risk of sepsis Performed By: #### G FR, ANEU, BMP, MDW, CBC, ADIFF #### [address] [address] .NEUABSon 04-18-2023 Neutrophil, Absolute 4.9 10 3/mcL Normal 2.3-8.1 [facility] ([place] Comment on above: Performed By: #### G FR, ANEU, BMP, MDW, CBC, ADIFF #### [address] [address] BMPon 04-18-2023 BUN/Creatinine Ratio 13.5 ratio Normal 10.0-22.0 [facility] ([place] Comment on above: Performed By: #### G FR, ANEU, BMP, MDW, CBC, ADIFF #### [place] [phone] Calcium [Mass/Vol] 8.9 mg/dL Normal 8.7-10.4 [facility] ([place] Comment on above: Performed By: #### G FR, ANEU, RAFAEL, MDW, CBC, ADIFF #### [place] [address] Chloride [Moles/Vol] 106 mmol/L Normal 98-110 [facility] ([place] Comment on above: Performed By: #### G FR, IVANA, RAFAEL, W, CBC, ADIFF #### [place] [address] CO2 [Moles/Vol] 26 mmol/L Normal 22-32 [facility] ([place] Comment on above: Performed By: #### G FR, ANEU, BMP, MDW, CBC, ADIFF #### [place] [address] Creatinine [Mass/Vol] 0.74 mg/dL Normal 0.50-1.20 [facility] ([place] Comment on above: Performed By: #### G FR, ANEU, BMP, MDW, CBC, ADIFF #### [place] [phone] Electrolyte Balance 8.0 mEq/L Normal 4.0-15.0 [facility] ([place] Comment on above: Performed By: #### G FR, ANEU, BMP, MDW, CBC, ADIFF #### [address] [address] Glucose [Mass/Vol] 152 mg/dL High 82-115 [facility] ([place] Comment on above: Performed By: #### G FR, ANEU, BMP, W, CBC, ADIFF #### [address] [address] Potassium [Moles/Vol] 3.4 mmol/L Low 3.5-5.0 [facility] ([place] Comment on above: Performed By: #### G FR, ANEU, BMP, MDW, CBC, ADIFF #### [address] [address] Sodium [Moles/Vol] 140 mmol/L Normal 136-145 [facility] ([place] Comment on above: Performed By: #### G FR, IVANA, RAFAEL, MDW, CBC, ADIFF #### [place] [phone] Urea nitrogen [Mass/Vol] 10.0 mg/dL Normal 8.0-22.0 [facility] ([place] Comment on above: Performed By: #### G , IVANA, RAFAEL, W, CBC, ADIFF #### [address] [address] CBCon 04-18-2023 Erythrocyte distribution width (RBC) [Ratio] 13.4 % Normal 11.5-15.5 [facility] ([place] Comment on above: Performed By: #### G FR, ANEU, BMP, MDW, CBC, ADIFF #### [place] [phone] Hematocrit (Bld) [Volume fraction] 39.8 % Normal 34.0-46.0 [facility] ([place] Comment on above: Performed By: #### G FR, ANEU, BMP, MDW, CBC, ADIFF #### [address] [address] Hgb 13.4 G/dL Normal 12.0-16.0 [facility] ([place] Comment on above: Performed By: #### G FR, ANEU, BMP, MDW, CBC, ADIFF #### [address] [address] MCH (RBC) [Entitic mass] 31.1 pg Normal 27.0-33.0 [facility] ([place] Comment on above: Performed By: #### G FR, ANEU, BMP, MDW, CBC, ADIFF #### [place] [address] MCHC 33.6 G/dL Normal 32.0-36.0 [facility] ([place] Comment on above: Performed By: #### G FR, ANEU, BMP, MDW, CBC, ADIFF #### [place] [address] MCV (RBC) [Entitic vol] 92.6 fL Normal 80.0-99.0 A [facility] ([place] Comment on above: Performed By: #### G FR, ANEU, BMP, MDW, CBC, ADIFF #### [place] [address] Platelet 199 10 3/mcL Normal 150-450 [facility] ([place] Comment on above: Performed By: #### G FR, ANEU, BMP, MDW, CBC, ADIFF #### [place] [address] Platelet mean volume (Bld) [Entitic vol] 10.5 fL Normal 6.6-10.5 [facility] ([place] Comment on above: Performed By: #### G FR, ANEU, BMP, MDW, CBC, ADIFF #### [place] [address] RBC 4.30 10 6/mcL Normal 4.10-5.30 [facility] ([place] Comment on above: Performed By: #### G FR, ANEU, BMP, MDW, CBC, ADIFF #### [place] [address] WBC 7.5 10 3/mcL Normal 4.5-10.8 [facility] ([place] Comment on above: Performed By: #### G FR, ANEU, BMP, MDW, CBC, ADIFF #### [place] [address] LABORATORYOrdered By: SYSTEM SYSTEM on 04-18-2023 Basophils (Bld) [#/Vol] 0.1 103/mcL Invalid Interpretation Code 0.0 - 0.3 10^3/mcL AH Workflow SS Basophils/100 WBC (Bld) 1.0 % Invalid Interpretation Code 0.0 - 2.5 % AH Workflow SS Eosinophils (Bld) [#/Vol] 0.1 103/mcL Invalid Interpretation Code 0.0 - 0.7 10^3/mcL AH Workflow SS Eosinophils/100 WBC (Bld) 1.3 % Invalid Interpretation Code 0.0 - 6.0 % AH Workflow SS Erythrocyte distribution width (RBC) [Ratio] 13.4 % Invalid Interpretation Code 11.5 - 15.5 % AH Workflow SS HbA1c (Bld) [Mass fraction] 7.2 % Invalid Interpretation Code 4.0 - 6.0 % AH Auto Chem SS Hematocrit (Bld) [Volume fraction] [...] 04-18-2023 Cholesterol [Mass/Vol] 179 mg/dL Normal 50-199 [facility] ([place]) Comment on above: Result Comment: Chol esterol Reference Interval: Less than 200 Desirable 200-239 Borderline high risk 240 and above High risk Performed By: #### G , IVANA, RAFAEL, W, CBC, ADIFF #### [address] [address] Cholesterol in HDL [Mass/Vol] 30 mg/dL Low 40-59 [facility] ([place]) Comment on above: Performed By: #### G , IVANA, RAFAEL, MDW, CBC, ADIFF #### [facility] [address] [place] [address] Cholesterol in LDL [Mass/Vol] 116 mg/dL Normal 0-129 [facility] ([place] Comment on above: Performed By: #### G , RAFAEL HEATH, VINCENT, CBC, ADIFF #### [facility] [address] [place] [address] Triglyceride [Mass/Vol] 163 mg/dL High 3-149 A [facility] ([place] Comment on above: Performed By: #### G , RAFAEL HEATH, VINCENT, CBC, ADIFF #### [facility] [address] [place] [address] MRI BRAIN W/O CONTRASTon MRI BRAIN W/O CONTRAST ORIGINAL EXAMINATION: MRI OF THE BRAIN WITHOUT CONTRAST 04/18/2023 1:51 pm TECHNIQUE: Multiplanar multisequence MRI of the brain was performed without the administration of intravenous contrast. COMPARISON: [place] [id number] from outside facility the. HISTORY: ORDERING SYSTEM PROVIDED HISTORY: Reason for Exam: TIA Fall. Difficulty walking. Right side and leg numbness. Right-sided weakness. FINDINGS: INTRACRANIAL STRUCTURES/VENTRICLE S: There is restricted diffusion in the left [...] to the left periventricular region. Interpreted by: Guerline Jiang MD Preliminary Report By: Guerline Jiang MD Electronically signed By Guerline Jiang MD Dictated Date: 04/18/2023 4:17:50 PM Prelim Date: 04/18/2023 4:21:44 PM Sign Date: 04/18/2023 4:21:44 PM Ordering Provider: OMARI COOPER Normal [facility] ([place]) UAon 04-18-2023 Color (U) Yellow Normal [facility] ([place] Comment on above: Performed By: #### Edith TOBIN, RAFAEL HEATH, VINCENT, CBC, ADIFF #### [address] [address] Glucose (U) [Mass/Vol] Negative Normal Negative [facility] ([place] Comment on above: Performed By: #### G , IVANA, RAFAEL, VINCENT, CBC, ADIFF #### [address] [address] Ketones Ql (U) 15 mg/dL Abnormal Neg-Trace [facility] ([place] Comment on above: Performed By: #### G , IVANA, RAFAEL, VINCENT, CBC, ADIFF #### [place] [address] UA Appear Clear Normal Clear [facility] ([place] Comment on above: Performed By: #### Edith TOBIN, IVANA, RAFAEL, VINCENT, CBC, ADIFF #### [address] [address] UA Blood Negative Normal Neg-Trace [facility] ([place] Comment on above: Performed By: #### Edith TOBIN, IVANA, RAFAEL, VINCENT, CBC, ADIFF #### [address] [address] UA Leuk Est Negative Normal Negative [facility] ([place] Comment on above: Performed By: #### Edith TOBIN, IVANA, RAFAEL, VINCENT, CBC, ADIFF #### [address] [address] UA Nitrite Negative Normal Negative [facility] ([place] Comment on above: Performed By: #### G , IVANA, RAFAEL, VINCENT, CBC, ADIFF #### [place] [phone] UA pH 5.0 Normal 5.0 - 8.0 [facility] ([place] Comment on above: Performed By: #### G , IVANA, RAFAEL, VINCENT, CBC, ADIFF #### [place] [phone] UA Protein 30 mg/dL Normal Negative [facility] ([place] Comment on above: Performed By: #### G , IVANA, RAFAEL, W, CBC, ADIFF #### [place] [address] UA Spec Grav >=1.030 Abnormal 1.006-1.029 [facility] ([place] Comment on above: Performed By: #### Edith TOBIN, IVANA, RAFAEL, W, CBC, ADIFF #### [place] [address] UA Specimen Type Clean Catch Normal [facility] ([place] Comment on above: Performed By: #### Edith TOBIN, IVANA, RAFAEL, W, CBC, ADIFF #### [place] [address] UA Urobilinogen 1.0 E.U./dL Normal 0.2-1.0 [facility] ([place] Comment on above: Performed By: #### Edith TOBIN, IVANA, RAFAEL, W, CBC, ADIFF #### [place] [address] Urobilinogen (U) [Mass/Vol] Negative Normal Neg-Trace [facility] ([place] Comment on above: Performed By: #### Edith TOBIN, IVANA, RAFAEL, W, CBC, ADIFF #### [place] [address] .Auto Diffon 04-17-2023 Basophil, Absolute 0.1 10 3/mcL Normal 0.0-0.3 [facility] ([place] Comment on above: Performed By: #### G , IVANA, RAFAEL, MDW, CBC, ADIFF #### [place] [address] Basophils/100 WBC (Bld) 1.1 % Normal 0.0-2.5 A [facility] ([place] Comment on above: Performed By: #### G , IVANA, RAFAEL, W, CBC, ADIFF #### [place] [address] Eosinophil, Absolute 0.1 10 3/mcL Normal 0.0-0.7 [facility] ([place] Comment on above: Performed By: #### G FR, ANEU, BMP, MDW, CBC, ADIFF #### [address] [address] Eosinophils/100 WBC (Bld) 0.9 % Normal 0.0-6.0 [facility] ([place] Comment on above: Performed By: #### G FR, ANEU, BMP, MDW, CBC, ADIFF #### [address] [address] Lymphocyte, Absolute 1.6 10 3/mcL Normal 0.9-4.3 [facility] ([place] Comment on above: Performed By: #### G FR, ANEU, BMP, MDW, CBC, ADIFF #### [address] [address] Lymphocytes/100 WBC (Bld) 22.9 % Normal 20.0-40.0 [facility] ([place] Comment on above: Performed By: #### G FR, ANEU, BMP, MDW, CBC, ADIFF #### [address] [address] Monocyte, Absolute 0.5 10 3/mcL Normal 0.1-1.4 [facility] ([place] Comment on above: Performed By: #### G FR, ANEU, BMP, MDW, CBC, ADIFF #### [address] [address] Monocytes/100 WBC (Bld) 6.5 % Normal 2.0-13.0 [facility] ([place] Comment on above: Performed By: #### G FR, ANEU, BMP, MDW, CBC, ADIFF #### [address] [address] Neutrophils/100 WBC (Bld) 68.6 % Normal 50.0-75.0 [facility] ([place] Comment on above: Performed By: #### G FR, ANEU, BMP, MDW, CBC, ADIFF #### [address] [address] .GFRon 08-25-2023 GFR >60 Normal [facility] ([place] Comment on above: Result Comment: GFR Population [...] FR, ANEU, BMP, MDW, CBC, ADIFF #### [address] [address] GFR Non- >60 Normal [facility] ([place] Comment on above: Result Comment: GFR Population [...] FR, ANEU, BMP, MDW, CBC, ADIFF #### [address] [address] .MDWon 04-17-2023 Monocyte Distribution Width 18.24 Normal 0.00-20.00 [facility] ([place] Comment on above: Result Comment: For ED adult patients suspected of sepsis, MDW<=20.0 does not rule out sepsis or risk of sepsis Performed By: #### G FR, ANEU, BMP, MDW, CBC, ADIFF #### [address] [address] .NEUABSon 04-17-2023 Neutrophil, Absolute 4.9 10 3/mcL Normal 2.3-8.1 [facility] ([place] Comment on above: Performed By: #### G FR, ANEU, BMP, MDW, CBC, ADIFF #### [address] [address] BMPon 04-17-2023 BUN/Creatinine Ratio 13.2 ratio Normal 10.0-22.0 [facility] ([place] Comment on above: Performed By: #### G FR, ANEU, BMP, MDW, CBC, ADIFF #### [place] [address] Calcium [Mass/Vol] 8.7 mg/dL Normal 8.7-10.4 [facility] ([place] Comment on above: Performed By: #### G FR, ANEU, BMP, MDW, CBC, ADIFF #### [place] [address] Chloride [Moles/Vol] 105 mmol/L Normal 98-110 [facility] ([place] Comment on above: Performed By: #### G FR, ANEU, BMP, MDW, CBC, ADIFF #### [place] [address] CO2 [Moles/Vol] 23 mmol/L Normal 22-32 [facility] ([place] Comment on above: Performed By: #### G FR, ANEU, BMP, MDW, CBC, ADIFF #### [place] [address] Creatinine [Mass/Vol] 0.68 mg/dL Normal 0.50-1.20 [facility] ([place] Comment on above: Performed By: #### G FR, ANEU, BMP, MDW, CBC, ADIFF #### [place] [address] Electrolyte Balance 8.0 mEq/L Normal 4.0-15.0 [facility] ([place] Comment on above: Performed By: #### G FR, ANEU, BMP, MDW, CBC, ADIFF #### [address] [address] [address] Glucose [Mass/Vol] 120 mg/dL High 82-115 [facility] ([place]) Comment on above: Performed By: #### G , IVANA, RAFAEL, W, CBC, ADIFF #### [address] [address] Potassium [Moles/Vol] 3.5 mmol/L Normal 3.5-5.0 [facility] ([place]) Comment on above: Result Comment: Spec imen slightly hemolyzed. Performed By: #### G , IVANA, RAFAEL, MDW, CBC, ADIFF #### [place] [id number] Sodium [Moles/Vol] 136 mmol/L Normal 136-145 [facility] ([place]) Comment on above: Performed By: #### G , IVANA, RAFAEL, W, CBC, ADIFF #### [place] [id number] Urea nitrogen [Mass/Vol] 9.0 mg/dL Normal 8.0-22.0 [facility] ([place]) Comment on above: Performed By: #### G , IVANA, RAFAEL, W, CBC, ADIFF #### [address] [address] CBCon 04-17-2023 Erythrocyte distribution width (RBC) [Ratio] 13.4 % Normal 11.5-15.5 [facility] ([place] Comment on above: Performed By: #### G , IVANA, RAFAEL, MDW, CBC, ADIFF #### [address] [address] Hematocrit (Bld) [Volume fraction] 40.8 % Normal 34.0-46.0 [facility] ([place]) Comment on above: Performed By: #### G , IVANA, RAFAEL, MDW, CBC, ADIFF #### [address] [address] Hgb 13.5 G/dL Normal 12.0-16.0 [facility] ([place]) Comment on above: Performed By: #### G FR, ANEU, BMP, MDW, CBC, ADIFF #### [place] [id number] MCH (RBC) [Entitic mass] 30.9 pg Normal 27.0-33.0 [facility] ([place]) Comment on above: Performed By: #### G FR, ANEU, BMP, MDW, CBC, ADIFF #### [place] [id number] MCHC 33.2 G/dL Normal 32.0-36.0 [facility] ([place]) Comment on above: Performed By: #### G FR, ANEU, BMP, MDW, CBC, ADIFF #### [place] [address] MCV (RBC) [Entitic vol] 93.3 fL Normal 80.0-99.0 A [facility] ([place]) Comment on above: Performed By: #### G FR, ANEU, BMP, MDW, CBC, ADIFF #### [place] [address] Platelet 219 10 3/mcL Normal 150-450 [facility] ([place]) Comment on above: Performed By: #### G FR, ANEU, BMP, MDW, CBC, ADIFF #### [place] [address] Platelet mean volume (Bld) [Entitic vol] 10.4 fL Normal 6.6-10.5 [facility] ([place]) Comment on above: Performed By: #### G FR, ANEU, BMP, MDW, CBC, ADIFF #### [place] [address] RBC 4.38 10 6/mcL Normal 4.10-5.30 [facility] ([place] Comment on above: Performed By: #### G FR, ANEU, BMP, MDW, CBC, ADIFF #### [place] [address] WBC 7.1 10 3/mcL Normal 4.5-10.8 [facility] ([place]) Comment on above: Performed By: #### G FR, ANEU, BMP, MDW, CBC, ADIFF #### [facility] [address] [place] [address] LABORATORYOrdered By: Rosana Bauer on 04-17-2023 Appearance (U) Clear (04/17/23 11:05 PM) Invalid Interpretation Code Clear AH Auto Urine SS Bilirubin Ql (U) Negative [...] Probable Contamination. Suggest recollection if clinically indicated. [facility] VitD, 1,25 Dihydroxyon 07-10 1,25 Dihydroxy VitD2 11.9 pg/mL Normal [facility] Reference Lab Comment on above: Performed By: #### 1 25VTD #### [facility] Chemistry [address] [place], [place] [address] 1,25 Dihydroxy VitD3 48.3 pg/mL Normal [facility] Reference Lab Comment on above: Performed By: #### 1 25VTD #### [facility] Chemistry [address] [place], [place] [address] Vit D,1,25 DiOH High 15.0-60.0 [facility] Reference Lab Comment on above: Result Comment: 60.2 This test was developed and its performance characteristics determined by [facility]'s [facility] [place] ( [facility]). It has not been cleared or approved by the FDA. [facility] is regulated under CLIA as qualified to perform high complexity testing. This test is used for clinical purposes. It should not be regarded as investigational or for research. Performed By: #### 1 25VTD #### [facility] Chemistry [address] [place], [place] [address] Hemoglobin A1con 07-04-2020 HbA1c (Bld) [Mass fraction] 7.2 % High 4.3-5.6 [facility] Reference Lab Comment on above: Performed By: #### H BA1C #### [facility] Routine Lab [address] [place], [place] [address] HbA1c (Bld) [Mass fraction] 160 mg/dL Normal [facility] Reference Lab Comment on above: Performed By: #### H BA1C #### [facility] Routine Lab [address] [place], [place] [address] Hemoglobin A1con 12-24-2019 HbA1c (Bld) [Mass fraction] 6.7 % High 4.3-5.6 [facility] Reference Lab Comment on above: Performed By: #### H BA1C #### [facility] Routine Lab [address] [place], [place] [address] HbA1c (Bld) [Mass fraction] 146 mg/dL Normal [facility] Reference Lab Comment on above: Performed By: #### H BA1C #### [facility] Routine Lab [address] [place], [place] [id number] Hemoglobin A1con 09-28-2019 HbA1c (Bld) [Mass fraction] 7.1 % High 4.3-5.6 [facility] Reference Lab Comment on above: Performed By: #### H BA1C #### [facility] Routine Lab [address] [place] [place], [place] [id number] HbA1c (Bld) [Mass fraction] 157 mg/dL Normal [facility] Reference Lab Comment on above: Performed By: #### H BA1C #### [facility] Routine Lab [address] [place], [place] [phone] Vital Signs Date Time Vital Sign Value Performing Clinician Facility 02-28-2025 09:51-0400 Body height 152.[address] Neo Castillo MD Work Phone: [facility] 02-28-2025 09:51-0400 Body mass index (BMI) [Ratio] 27.7 kg/m2 Dr. Neo Castillo MD Work Phone: [facility] 02-28-2025 09:51-0400 Body temperature 97.5 [degF] Dr. Neo Castillo MD Work Phone: [facility] 02-28-2025 09:51-0400 Body weight 64.[address] Neo Castillo MD Work Phone: [facility] 02-28-2025 09:51-0400 Diastolic blood pressure 60 mm[Hg] Dr. Neo Castillo MD Work Phone: [facility] 02-28-2025 09:51-0400 Heart rate 113 /min Dr. Neo Castillo MD Work Phone: [facility] 02-28-2025 09:51-0400 Respiratory rate 18 /min Dr. Neo Castillo MD Work Phone: [facility] 02-28-2025 09:51-0400 SaO2% (BldA) [Mass fraction] 98 % Dr. Neo Castillo MD Work Phone: [facility] 02-28-2025 09:51-0400 Systolic blood pressure 96 mm[Hg] Dr. Neo Castillo MD Work Phone: [facility] 02-16-2025 18:11-0400 Body temperature 98.4 [degF] Dr. Neo Castillo MD Work Phone: [facility] 02-16-2025 18:11-0400 Diastolic blood pressure 70 mm[Hg] Dr. Neo Castillo MD Work Phone: [facility] 02-16-2025 18:11-0400 Heart rate 118 /min Dr. Neo Castillo MD Work Phone: [facility] 02-16-2025 18:11-0400 Respiratory rate 20 /min Dr. Neo Castillo MD Work Phone: [facility] 02-16-2025 18:11-0400 SaO2% (BldA) [Mass fraction] 93 % Dr. Neo Castillo MD Work Phone: [facility] 02-16-2025 18:11-0400 Systolic blood pressure 139 mm[Hg] Dr. Neo Castillo MD Work Phone: [facility] 02-16-2025 13:00-0400 Diastolic blood pressure 63 mm[Hg] Dr. Neo Castillo MD Work Phone: [facility] 02-16-2025 13:00-0400 Heart rate 98 /min Dr. Neo Castillo MD Work Phone: [facility] 02-16-2025 13:00-0400 Respiratory rate 18 /min Dr. Neo Castillo MD Work Phone: [facility] 02-16-2025 13:00-0400 Systolic blood pressure 93 mm[Hg] Dr. Neo Castillo MD Work Phone: [facility] 02-16-2025 12:27-0400 Inhaled oxygen flow rate 11 L/min Dr. Neo Castillo MD Work Phone: [facility] 02-16-2025 11:08-0400 Body height 152.[address] Neo Castillo MD Work Phone: 6(518)549-550367 [place] [address] 02-16-2025 11:08-0400 Body mass index (BMI) [Ratio] 28 kg/m2 Dr. Neo Castillo MD Work Phone: 8(530)075-843682 [address] 02-16-2025 11:08-0400 Body weight [address] Neo Castillo MD Work Phone: 3(692)126-078982 [address] 02-09-2025 09:50-0400 Body height 152.[address] Neo Castillo MD Work Phone: 4(006)070-920167 [place] [address] 02-09-2025 09:50-0400 Body mass index (BMI) [Ratio] 28.5 kg/m2 Dr. Neo Castillo MD Work Phone: 4(568)540-361567 [place] [address] 02-09-2025 09:50-0400 Body temperature 97.5 [degF] Dr. Neo Castillo MD Work Phone: 7(853)033-305867 [place] [address] 02-09-2025 09:50-0400 Body weight 66.[address] Neo Castillo MD Work Phone: [facility] 02-09-2025 09:50-0400 Diastolic blood pressure 69 mm[Hg] Dr. Neo Castillo MD Work Phone: 9(533)186-592967 [place] [address] 02-09-2025 09:50-0400 Heart rate 92 /min Dr. Neo Castillo MD Work Phone: 1(385)733-424867 [place] [address] 02-09-2025 09:50-0400 Respiratory rate 18 /min Dr. Neo Castillo MD Work Phone: 8(885)936-897167 [place] [address] 02-09-2025 09:50-0400 SaO2% (BldA) [Mass fraction] 92 % Dr. Neo Castillo MD Work Phone: [facility] 02-09-2025 09:50-0400 Systolic blood pressure 114 mm[Hg] Dr. Neo Castillo MD Work Phone: [facility] 04-22-2023 11:45-0400 Reason For Taking VItal Signs DR OMARI COOPER MD [address] [place] [address] 04-22-2023 10:19-04[address] Pressure Cuff Size DR OMARI COOPER MD [address] 04-22-2023 10:19-[address] OMARI COOPER MD [address] 04-22-2023 10:19-[address] OMARI COOPER MD [address] [place] [address] 04-22-2023 10:19-0400 Body temperature 98.42 [degF] DR OMARI COOPER MD [address] 04-22-2023 10:19-0400 Diastolic Blood Pressure Non-Invasive [address] OMARI COOPER MD [address] [place] [address] 04-22-2023 10:19-0400 Heart rate 77 /min DR OMARI COOPER MD [address] [place] [address] 04-22-2023 10:19-0400 Respiratory rate 16 /min DR OMARI COOPER MD [address] [place] [address] 04-22-2023 10:19-0400 Systolic Blood Pressure Non-Invasive [address] OMARI COOPER MD [address] [place] [address] 04-22-2023 06:20-[address] Cuff Size DR OMARI COOPER MD [address] [place] [address] 04-22-2023 06:20-[address] OMARI COOPER MD [address] [place] [address] 04-22-2023 06:20-[address] OMARI COOPER MD [address] [place] [address] 04-22-2023 06:20-0400 Body temperature 98.6 [degF] DR OMARI COOPER MD [address] [place] [address] 04-22-2023 06:20-0400 Diastolic Blood Pressure Non-Invasive [address] OMARI COOPER MD [address] [place] [address] 04-22-2023 06:20-0400 Heart rate 71 /min DR OMARI COOPER MD [address] [place] [address] 04-22-2023 06:20-0400 Respiratory rate 20 /min DR OMARI COOPER MD [address] [place] [address] 04-22-2023 06:20-0400 Systolic Blood Pressure Non-Invasive [address] OMARI COOPER MD [address] [place] [address] 04-22-2023 05:24-0400 Reason For Taking VItal Signs DR OMARI COOPER MD [address] [place] [address] 04-22-2023 02:38-[address] Cuff Size DR OMARI COOPER MD [address] [place] [address] 04-22-2023 02:38-[address] OMARI COOPER MD [address] [place] [address] 04-22-2023 02:38-[address] OMARI COOPER MD [address] [place] [address] 04-22-2023 02:38-0400 Body temperature 98.42 [degF] DR OMARI COOPER MD [address] [place] [address] 04-22-2023 02:38-0400 Diastolic Blood Pressure Non-Invasive [address] OMARI COOPER MD [address] [place] [address] 04-22-2023 02:38-0400 Heart rate 66 /min DR OMARI COOPER MD [address] [place] [address] 04-22-2023 02:38-0400 Respiratory rate 18 /min DR OMARI COOPER MD [address] [place] [address] 04-22-2023 02:38-0400 Systolic Blood Pressure Non-Invasive [address] OMARI COOPER MD [address] [place] [address] 04-21-2023 23:04-0400 Heart rate 66 /min DR OMARI COOPER MD [address] [place] [address] 04-21-2023 15:50-0400 Body height 152.[address] OMARI COOPER MD [address] [place] [address] 04-21-2023 15:50-0400 Body weight [address] OMARI COOPER MD [address] [place] [address] 04-21-2023 15:50-0400 Body weight 44.35 kg/m2 DR OMARI COOPER MD [address] [place] [address] 04-21-2023 03:02-0400 Heart rate 58 /min DR OMARI COOPER MD [address] [place] [address] 04-20-2023 23:22-0400 Heart rate 65 /min DR OMARI COOPER MD [address] [place] [address] 04-20-2023 18:51-0400 Heart rate 72 /min DR OMRAI COOPER MD [address] [place] [address] 04-20-2023 16:11-0400 Heart rate 69 /min DR OMARI COOPER MD [address] [place] [address] 04-20-2023 07:45-0400 Mean blood pressure 85 mm[Hg] DR OMARI COOPER MD [address] [place] [address] 04-20-2023 07:00-0400 Mean blood pressure 93 mm[Hg] DR OMARI COOPER MD [address] [place] [address] 04-19-2023 03:00-0400 Heart rate 70 /min DR OMARI COOPER MD [address] [place] [address] 04-17-2023 20:55-0400 Body weight [address] OMARI COOPER MD [address] [place] [address] Encounters Encounter Date Encounter Type Care Provider Facility Start: 03-09-2025 ambulatory Bonita Segundo ty:[facility] Start: 02-28-2025 End: 02-28-2025 Patient encounter procedure Latoya Ibrahim NP-C -[facility] Work Phone: Start: 02-28-2025 End: 02-28-[address] Neo Castillo MD Work Phone: -[facility] Start: 02-16-2025 Non-patient / Non-visit Dr. Andres Hart own DO -[facility] Start: 02-16-2025 End: 02-16-2025 Admission to same day surgery center Dr. Andres Meyer DO -[facility] Work Phone: Start: 02-16-2025 End: 02-16-[address] Neo Castillo MD Work Phone: [facility] Work Phone: Start: 02-13-2025 ambulatory Andres Meyer Facility:[facility] Start: 02-13-2025 Non-patient / Non-visit Dr. Andres Hart own DO -[facility] Start: 02-09-2025 End: 02-09-[address] Andres Meyer DO -[facility] Work Phone: Start: 02-09-2025 End: 02-09-[address] Neo Castillo MD Work Phone: [facility] Work Phone: Start: 02-09-2025 End: 02-09-2025 ambulatory Andres Meyer Facility:[facility] Start: 02-06-2025 ambulatory JOAN NEWSP[employer]NAGING [employer]OR [facility] Start: 02-02-2025 End: 02-02-2025 ambulatory JOAN NEWSPAPER MANAGING EDITOR [facility] Start: 01-31-2025 End: 01-31-2025 ambulatory JOAN NEWSPAPER MANAGING EDITOR [facility] Start: 01-28-2025 ambulatory JOAN NEWSPAPER MANAGING EDITOR [facility] Start: 01-24-2025 End: 01-24-2025 ambulatory JOAN NEWSPAPER MANAGING EDITOR [facility] Start: 01-05-2025 End: 01-05-2025 ambulatory [facility] Start: 11-01-2024 End: 11-01-2024 ambulatory JOAN [facility] Start: 04-17-2023 End: 04-22-2023 Evaluation and management of inpatient DR OMARI COOPER MD Facility:A Start: 04-17-2023 End: 04-22-2023 Evaluation and management of inpatient DR OMARI COOPER MD [facility] Procedures Date Procedure Procedure Detail Performing Clinician Start: 02-16-2025 Endoscopic ultrasono [address] of bronchus [address] Neo Castillo MD Work Phone: Carpal tunnel syndro me (disorder) DR OMARI COOPER MD Plan of Treatment Date Care Activity Detail Author Start: 02-16-2025 [facility] ebus guided sampl 1/2 node station/strux BRONCH EBUS SAMPLNG 1/2 NODE [facility] Start: 02-16-2025 Patient discharge [facility] Measurement of respi ratory function [facility] Partial thromboplast in time, activated [facility] Patient referral [facility] Work Phone: Platelets [#/volume] in Blood [facility] Positron emission tomography with computed tomography [facility] Prothrombin time [facility] Payers Date Payer Category Payer Unknown [id number] 2025 Self-pay 2023 Medicaid [id number] 2023 Medicare [id number] 2023 Private Health Insurance [id number] 1955 Unknown [id number] 2.16.8 [id number] 1955 Unknown [id number] 2.16. [id number] 1955 Unknown [id number] 2.16.8 40.1.748651.3.579.2.651 1955 Unknown [id number] 2.16.8 40.1.928280.3.579.2.651 1954 Unknown [id number] 2.16.8 40.1.052563.3.579.2.651 1954 Unknown [id number] 2.16.8 40.1.931772.3.579.2.651 1954 Unknown [id number] 2.16.8 40.1.171422.3.579.2.651 1954 Unknown [id number] 2.16.8 40.1.422833.3.579.2.651 1954 Unknown [id number] 2.16.8 40.1.508558.3.579.2.651 1954 Unknown [id number] 2.16.8 40.1.011643.3.579.2.651 Unknown [id number] Unknown [id number] 2.16.8 40.1.519179.3.579.2.462 Unknown [id number] 2.16.8 40.1.611723.3.579.2.462 Unknown [id number] 2.16.8 40.1.651232.3.579.2.462 Unknown [id number] 2.16.8 40.1.448966.3.579.2.462 Unknown [id number] 2.16.8 40.1.360956.3.579.2.462 Unknown [id number] 2.16.8 40.1.065290.3.579.2.462 Unknown [id number] 2.16.8 40.1.607939.3.579.2.462 Social History Date Type Detail Facility Start: 04-17-2023 End: 02-14-2025 Tobacco smoking status Ex-smoker (finding) [facility] Sex Assigned At Sex [facility] Start: 1955 Sex Assigned At Female [facility] NEGATED: Highlighted row Not [facility] Goals Date Patient Goal Desired Activity /State Functional Status Date Assessment Result Facility 04-22-2023 Functional Status Current Home Treatments Oxygen therapy [facility] 04-22-2023 Functional Status Adult Protective Servic es [facility] 04-22-2023 Functional Status Room check performed [facility] 04-22-2023 Functional Status [facility] 04-22-2023 Functional Status Done [facility] 04-22-2023 Functional Status Min A 13 [facility] 04-22-2023 Functional Status [facility] 04-22-2023 Functional Status Hospital bed [facility] 04-21-2023 Functional Status [facility] 04-21-2023 Functional Status One assist [facility] 04-21-2023 Functional Status [facility] 04-21-2023 Functional Status One assist [facility] 04-21-2023 Functional Status [facility] 04-21-2023 Functional Status Min A 26 [facility] 04-21-2023 Functional Status [facility] 04-20-2023 Functional Status Multilevel home [facility] 04-20-2023 Functional Status [facility] 04-20-2023 Functional [facility] Functional Status [facility] 04-19-2023 Functional Status [facility] 04-19-2023 Functional Status No Living Envi ronment Information Available [facility] 04-18-2023 Functional Status [facility] Mental Status Date Assessment Result Facility 02-16-2025 Cognitive function Voice/Name [facility] Work Phone: 04-22-2023 Mental Status Oriented x 4 [facility] 04-22-2023 Mental Status [facility] 04-22-2023 Mental Status [facility] Clinical Notes 04-17-2023 to 02-16-2025 Note Date & Type Note Facility 02-16-2025 Consult note Note Date/Time February 16, 2025 11:41am [facility] Medical Records Department [address] [place] [address] Pre-Anesthesia Evaluation 02/16/25 1122 MR#: [id number] Acct: [id number] Name: GWEN WOLF Rep #:[id number] : 1955 69 From: Nicola Hameed MD PCP: Dr. Bonita Ireland MD Status:R EG SDC Y Race: C Location: [place] [address] ASA Classification* ASA Classification ASA Classification: 3 Assessment & Plan Anesthesia* Anesthesia Assessment Anesthesia Assessment: Discussed sedation and/or anesthesia options, risks, benefits, and alternatives with patient/parents/legal guardian/POA. Questions invited. The patient/parents/legal guardian/POA seems to understand and agrees to proceedwith anesthesia plan. Reviewed the physical assessment, medical history, allergy history and patient home medications list prior to surgery/procedure/anesthetic and documented any changes. Performed airway and anesthesia risk assessments. Anesthesia Type Anesthesia Type: General History Source History Obtained from:: Patient and Chart Anesthesia Focused Assessment* Temperature: 97.4 F Pulse Rate: 101 Blood Pressure: 104/68 Respiratory Rate: 17 Pulse Ox: 93 Oxygen Delivery Method: Room Air Airway Assessment Mouth opens: >3 cm Mallampati Score: I Teeth Condition: Full (Patient has full upper and lower dentures. They will come out.) Neck Range of motion (ROM): Full ROM Labs Anesthesia Preop lab: CBC Plt Count 320 K/mm3 (150-450) 02/09/25 10:35 02/09/25 CHEMISTRY COAG PT 14.0 SECONDS (11.7-14.9) 02/09/25 10:35 Pre-Assessment Diagnosis/Proposed Procedure Planned Operative Procedure(s): EBUS Anesthesia History Anesthesia History - clinical supervisor: Anesthesia History - clinical supervisor Hx Hospitalization No 02/14/25 11:59 Any Problems With Anesthesia No 02/14/25 11:59 Cholinesterase deficiency No 02/14/25 11:59 You/Your Family Experience No 02/14/25 11:59 fever (hyperthermia) with Relationship Recent Exposure to Contagious No 02/16/25 11:08 Disease Does patient have nerve No 02/14/25 11:59 stimulator Patient instructed to have device shut off --Does patient have Pacemaker No 02/16/25 11:08 or ICD? When Was Last Pacemaker Check QUESTION #4 FULL TEXT: You/Your Family Experience fever (hyperthermia) with Anesthesia Last Oral Intake Last Oral intake: Last Oral Intake NPO since 00:00 02/16/25 11:08 Meds taken in AM with sips of water? Meds patient instructed to take am of surgery PONV PONV - clinical supervisor: PONV - clinical supervisor Female Yes 02/14/25 11:59 HX of Motion Sickness Yes 02/14/25 11:59 HX of N/V After Surgery No 02/14/25 11:59 Non-Smoker Yes 02/14/25 11:59 Duration of Surgery greater Yes 02/14/25 11:59 than 60 minutes Number of Risk Factors 4 02/14/25 11:59 PONV Score Severe Risk 02/14/25 11:59 Height & Weight Height & Weight: Anesthesia: Height & Weight Height 5 ft 02/16/25 11:08 Weight: 65 kg 02/16/25 11:08 Body Mass Index (BMI) 28.0 02/16/25 11:08 Respiratory Assessment Respiratory Assessment - clinical supervisor: Respiratory Tract Infection Hx - clinical supervisor Hx Respiratory Tract Infection No 02/14/25 11:59 Any additional information?: Yes Hx Respiratory Tract Infection: No History of Anesthesia Respiratory Infection details: Patient has chronic cough. Increasingin frequency more recently. STOP Sleep Apnea STOP Sleep Apnea - clinical supervisor: STOP Sleep Apnea - clinical supervisor Hx Hypertension Yes: CONTROLLED WITH MED 02/14/25 11:59 Hx Sleep Apnea No 02/14/25 11:59 CPAP BIPAP Do you snore loudly (louder No 02/14/25 11:59 than talking or can be heard Do you often feel tired/ Yes 02/14/25 11:59 fatigued/ sleepy during daytime? Has anyone observed you stop No 02/14/25 11:59 breathing during sleep? STOP Results Positive 02/14/25 11:59 QUESTION #5 FULL TEXT : Do you snore loudly (louder than talking or can be heard through closed doors)? 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 Specify any problems Hx of Preganancy in last 3 No 02/14/25 11:59 Months Nurse Filling Out Transfusion DSCHRIBER 02/14/25 11:59 & Questions: Date: 02/14/25 02/14/25 11:59 Time: 12:00 02/14/25 11:59 Patient unable to answer at this time (ie. confused, unrespo /Reproduction History /Reproductive History - clinical supervisor: /Reproductive Hx- clinical supervisor Hx Now No 02/14/25 11:59 Gestational Age (in weeks): EDC: Hx Hx Para Hx Section SAB No 02/14/25 11:59 Active Medications Active Medications: Current Medications Generic Name Dose Route Start Last Admin Trade Name Freq PRN Reason Stop Dose Admin Lactated Ringer's 1,000 mls @ 15 mls/hr 02/16/25 11:00 02/16/25 11:14 IV 15 mls/hr .Q48H PACO Administration PFSH Medical History Wears glasses Wears dentures Depression Thyroid disease Diabetes Rheumatoid arthritis Walker as ambulation aid High cholesterol Easy bruising Stroke/cerebrovascular accident Syncope Dietary restriction Vomiting History of IBS Gastric reflux Former smoker On home oxygen therapy COPD (chronic obstructive pulmonary disease) Shortness of breath on exertion History of edema Cardiology follow-up encounter Hypertension Home Medications ?Medication ?Instructions ?Recorded ?Last Taken ?Type acetaminophen 325 mg capsule 650 mg PO Q6H PRN pain 02/15/25 History albuterol sulfate 90 mcg/actuation 2 puff inhalation Q 6H PRN 02/09/25 02/15/25 History aerosol inhaler shortness of breath or wheez ing clopidogrel 75 mg tablet 75 mg PO QDAY 02/09/2502/09 History fluoxetine 20 mg capsule 20 mg PO QDAY 02/09/2502/16 History gabapentin 100 mg capsule 200 mg PO QHS 02/09/2502/15 History hydrochlorothiazide 25 mg tablet 25 mg PO QDAY 5 02/16/25 History levothyroxine 200 mcg tablet 200 mcg PO QDAY 02/09/25 02/16/25 History metformin 500 mg tablet 1,000 mg PO DAILY 02/09/25 0 02/16/25 History potassium chloride 20 mEq 20 meq PO QDAY 02/09/2501/23 History tablet,extended release(part/cryst) amlodipine 5 mg tablet 5 mg PO DAILY 02/14/2502/16 History aspirin 81 mg tablet,delayed 81 mg PO DAILY 02/14/25 0 02/16/25 History release (Adult Aspirin Regimen) atorvastatin 80 mg tablet (Lipitor) 80 mg PO QHS 02/1402/15/25 History famotidine 20 mg tablet (Pepcid) 20 mg PO DAILY 02/16/25 History metformin 500 mg tablet 500 mg PO QHS 02/14/2502/15 History Allergy/AdvReac Type Severity Reaction Status Date / Time tramadol Allergy Unknown unknown Verified 02/16/25 11:05 Surgical History History of Hx laparoscopic cholecystectomy Social History Smoking Status: Former smoker how long ago did patient quit smokin stopped smoke 1.5 packs days. Review of Systems (Anesthesia) ROS Narrative System reviewed and no additional complaints, except as documented. 02/16/25 1141 <Electronically signed by Nicola bruno MD> Date _ Nicola Hameed MD Cosigner Signature: Date CC: ~ Signed [facility] Work Phone: 1(481) 274-386906-26-2025 History and physical note Author Andres Meyer [facility] Note Date/Time February 16, 2025 10:5 5am [facility] Medical Records Department [address] [place] [address] History & Physical Exam 02/13/25 1335 MR#: [id number] Acct: [id number] Name: GWEN WOLF Rep #:[id number] : 1955 69 From: Andres Meyer DO PCP: Dr. Bonita Ireland MD Status:R [facility] Location: [place] [address] HPI - General HPI Narrative The patient is a 69-year-old female who was initially referred to the pulmonary medicine office on February 09, 2025 for the evaluation of a lung mass. The patient presented to our office with a questionable history of COPD and chronic tobacco dependency, currently in remission, after having undergone an chest x- ray which was abnormal. Accordingly, a dedicated chest CT was obtained and follow- up. That imaging study was completed through [facility], datedJanuary 31, 2025, and demonstrated a large peritracheal mass measuring 3 x 3.3 cm along with a large subcarinal mass measuring 7 cm and multiple additional subcentimeter nodules scattered bilaterally. The patient has a 72-ogaz-pyqr smoking history, having quit completely in 2021. She did not grow up in a smoking household. The patient has never been evaluated by a seedling puller in the past. She has never completed pulmonary function studies. The patient does not utilize any inhalers at her baseline. However, she does report that she utilizes 2 L/min of supplemental oxygen on a nightly basis. In addition, the patient is currently prescribed Plavix due to a history of CVA. [facility] Home Medications ?Medication ?Instructions ?Recorded ?Last Taken ?Type acetaminophen 325 mg capsule 650 mg PO Q6H PRN 5 Unknown History albuterol sulfate 90 mcg/actuation inhalation 02/09/25 Unknown History aerosol inhaler clopidogrel 75 mg tablet 75 mg PO QDAY 02/09/25 Unkno wn History fluoxetine 20 mg capsule 20 mg PO QDAY 02/09/25 Unkno wn History gabapentin 100 mg capsule mg PO 02/09/25 Unknown Histo ry hydrochlorothiazide 25 mg tablet 25 mg PO QDAY 5 Unknown History levothyroxine 200 mcg tablet 200 mcg PO QDAY 02/09/25 Unknown History metformin 500 mg tablet 500 mg PO TID 02/09/25 Unkno wn History potassium chloride 20 mEq 20 meq PO QDAY 02/09/25 Unkn own History tablet,extended release(part/cryst) Allergy/AdvReac Type Severity Reaction Status Date / Time tramadol Allergy Unknown unknown Verified 02/09/25 09:55 Social History (Updated 02/09/25 @ 09:53 by Libby Spence LPN) Smoking Status: Former smoker how long ago did patient quit smokin stopped smoke 1.5 packs days. SeeControl 10 systems were reviewed with pertinent positives as noted in HPI. Physical Exam Const alert and no apparent distress General Appearance: cooperative HEENT normocephalic and head/scalp atraumatic Eyes PERRL and EOMs intact bilaterally Neck supple General: trachea midline Resp normal respiratory effort Auscultation: diminished lung sounds Cardio regular rate and regular rhythm GI normal to inspection, nondistended, normoactive bowel sounds Extremity no clubbing, cyanosis or edema Skin General Skin Exam: no breakdown Neuro CN's II-XII intact bilaterally and no focal motor deficits Psych cooperative and affect normal Assessment & Plan Assessment/Plan (1) Lung mass: PLAN: The patient presented to the outpatient pulmonary office for the evaluation of lung masses which was identified on CT imaging of the chest through [facility] dated January 31, 2025. The dominant lesions are locatedin the right paratracheal region along with the subcarinal region. In light of the patient's tobacco abuse history, these findings are worrisome for malignancy. Accordingly, I would recommend that we proceed with EBUS facilitated transbronchial needle aspiration to obtain a definitive diagnosis. The risks and benefits of the proposed procedure were discussed with the patient. She is in agreement to proceed. The patient was instructed to continue to hold her Plavix until after the biopsies have been completed. 02/13/25 3396 <Electronically signed by Andres Meyer DO> Cosigner Signature (if applicable): CC: Dr. Andres Meyer DO; Dr. Bonita Ireland MD~ Signed ADDENDUM by Dr. Andres Meyer DO on 02/16/25 at 1055 Addendum I have examined the patient and the H&P has been reviewed. There are no clinicalchanges since date of exam. 02/16/25 1055<Electronically signed by Andres Meyer DO> Cosigner Signature (if applicable): cc: Dr. Andres Meyer DO; Dr. Bonita Ireland MD ~* Signed [facility] Work Phone: 1(454) 361-829206-26-2025 Procedure note [facility] Medical Records Department [address] [place] [address] Bronchoscopy Report MR#: [id number] Acct: [id number] Name: GWEN WOLF Rep #:[id number] : 1955 69 From: Andres Meyer DO PCP: Dr. Bonita Ireland MD Status:R [facility] Patient Name: Gwen Wolf Procedure Date: 02/16/2025 11:28 AM Date of : 1955 Age: 69 Procedure: Bronchoscopy Indications: Mediastinal adenopathy, Lung mass suspicious for cancer Providers: Andres Meyer MD Complications: No immediate complications Procedure: Pre-Anesthesia Assessment: - A History and Physical has been performed. Patient meds and allergies have been reviewed. The risks and benefits of the procedure and the sedation options and risks were discussed with the patient. All questions were answered and informed consent was obtained. Patient identification and proposed procedure were verified prior to the procedure by the physician and the nurse in the procedure room. Mental Status Examination: alert and oriented. Airway Examination: normal oropharyngeal airway. Respiratory Examination: poor air movement. CV Examination: normal. ASA Grade Assessment: II - A patient with mild systemic disease. After reviewing the risks and benefits, the patient was deemed in satisfactory condition to undergo the procedure. The anesthesia plan was to use general anesthesia. Immediately prior to administration of medications, the patient was re-assessed for adequacy to receive sedatives. The heart rate, respiratory rate, oxygen saturations, blood pressure, adequacy of pulmonary ventilation, and response to care were monitored throughout the procedure. The physical status of the patient was re-assessed after the procedure. After I obtained informed consent, the scope was passed under direct vision. Throughout the procedure, the patient's blood pressure, pulse, and oxygen saturations were monitored continuously. The ultrasound bronchoscope was introduced through the mouth, via laryngeal mask airway and advanced to the tracheobronchial tree. The procedure was accomplished without difficulty. The patient tolerated the procedure well. Findings: The laryngeal mask airway is in good position. The vocal cords appear normal. The subglottic space is normal. The trachea is of normal caliber. The [place] is sharp. The tracheobronchial tree was examined to at least the first subsegmental level. Bronchial mucosa and anatomy are normal; there are no endobronchial lesions, and no secretions. The scope was withdrawn and replaced with the EBUS bronchoscope to accomplish the ultrasound examination. Lymph Nodes: An endobronchial ultrasound endoscope was utilized to systematically examine the right lower paratracheal region (level 4R) and subcarinal mediastinum (level 7) in order to assist with guiding the biopsy needle. Lymph node/mass sampling was performed via endobronchial ultrasound for suspected lung cancer. Sampling by transbronchial needle aspiration was also performed using an Olympus ViziShot 21 gauge needle in the right lower paratracheal region (level 4R) and subcarinal mediastinum (level 7) and sent for routine cytology. - The 7 (subcarinal) node was evaluated. Three samples with the needle were obtained. - The 4R (lower paratracheal) node was evaluated. Three samples with the needle were obtained. Impression: - Mediastinal adenopathy - Lung mass suspicious for cancer - The airway examination was normal. - Endobronchial ultrasound was performed. - Lymph node/mass sampling was performed. Recommendation: - Await biopsy results. Procedure Code(s): --- Professional --- 31100, Bronchoscopy, rigid or flexible, including fluoroscopic guidance, when performed; with endobronchial ultrasound (EBUS) guided transtracheal and/or transbronchial sampling (eg, aspiration[s]/biopsy[ies]), one or two mediastinal and/or hilar lymph node stations or structures Diagnosis Code(s): --- Professional --- R59.0, Localized enlarged lymph nodes R91.8, Other nonspecific abnormal finding of lung field R09.89, Other specified symptoms and signs involving the circulatory and respiratory systems CPT copyright 2021 [employer]. All rights reserved. The codes documented in this report are preliminary and upon child care group leader review may be revised to meet current compliance requirements. DO Andres Bailey MD 02/16/2025 12:36:15 PM This report has been signed electronically. Number of Addenda: 0 Note Initiated On: 02/16/2025 11:28 AM 02/16/25 1236 Date _ Andres Meyer DO Cosigner Signature: Date (if indicated) CC: Dr. Andres Meyer DO; Dr. Bonita Ireland MD ~ Date Dictated: 02/16/25 1128 Date Transcribed: Digital Marketing Consultant: DB Signed [facility]06-26-2025 Consult note [facility] Medical Records Department [address] [place] [address] Pre-Anesthesia Evaluation 02/16/251121 MR#: [id number] Acct: [id number] Name: GWEN WOLF Rep #:[id number] : 1955 69 From: Nicola Hameed MD PCP: Dr. Bonita Ireland MD Status:R [facility] Y Race: C Location: [place] [address] ASA Classification* ASA Classification ASA Classification: 3 Assessment & Plan Anesthesia* Anesthesia Assessment Anesthesia Assessment: Discussed sedation and/or anesthesia options, risks, benefits, and alternatives with patient/parents/legal guardian/POA. Questions invited. The patient/parents/legal guardian/POA seems to understand and agrees to proceedwith anesthesia plan. Reviewed the physical assessment, medical history, allergy history and patient home medications list prior to surgery/procedure/anesthetic and documented any changes. Performed airway and anesthesia risk assessments. Anesthesia Type Anesthesia Type: General History Source History Obtained from:: Patient and Chart Anesthesia Focused Assessment* Temperature: 97.4 F Pulse Rate: 101 Blood Pressure: 104/68 Respiratory Rate: 17 Pulse Ox: 93 Oxygen Delivery Method: Room Air Airway Assessment Mouth opens: >3 cm Mallampati Score: I Teeth Condition: Full (Patient has full upper and lower dentures. They will come out.) Neck Range of motion (ROM): Full ROM Labs Anesthesia Preop lab: CBC Plt Count 320 K/mm3 (150-450) 02/09/25 10:35 02/09/25 CHEMISTRY COAG PT 14.0 SECONDS (11.7-14.9) 02/09/25 10:35 Pre-Assessment Diagnosis/Proposed Procedure Planned Operative Procedure(s): EBUS Anesthesia History Anesthesia History - clinical supervisor: Anesthesia History - clinical supervisor Hx Hospitalization No 02/14/25 11:59 Any Problems With Anesthesia No 02/14/25 11:59 Cholinesterase deficiency No 02/14/25 11:59 You/Your Family Experience No 02/14/25 11:59 fever (hyperthermia) with Relationship Recent Exposure to Contagious No 02/16/25 11:08 Disease Does patient have nerve No 02/14/25 11:59 stimulator Patient instructed to have device shut off --Does patient have Pacemaker No 02/16/25 11:08 or ICD? When Was Last Pacemaker Check QUESTION #4 FULL TEXT: You/Your Family Experience fever (hyperthermia) with Anesthesia Last Oral Intake Last Oral intake: Last Oral Intake NPO since 00:00 02/16/25 11:08 Meds taken in AM with sips of water? Meds patient instructed to take am of surgery PONV PONV - clinical supervisor: PONV - clinical supervisor Female Yes 02/14/25 11:59 HX of Motion Sickness Yes 02/14/25 11:59 HX of N/V After Surgery No 02/14/25 11:59 Non-Smoker Yes 02/14/25 11:59 Duration of Surgery greater Yes 02/14/25 11:59 than 60 minutes Number of Risk Factors 4 02/14/25 11:59 PONV Score Severe Risk 02/14/25 11:59 Height & Weight Height & Weight: Anesthesia: Height & Weight Height 5 ft 02/16/25 11:08 Weight: 65 kg 02/16/25 11:08 Body Mass Index (BMI) 28.0 02/16/25 11:08 Respiratory Assessment Respiratory Assessment - clinical supervisor: Respiratory Tract Infection Hx - clinical supervisor Hx Respiratory Tract Infection No 02/14/25 11:59 Any additional information?: Yes Hx Respiratory Tract Infection: No History of Anesthesia Respiratory Infection details: Patient has chronic cough. Increasingin frequency more recently. STOP Sleep Apnea STOP Sleep Apnea - clinical supervisor: STOP Sleep Apnea - clinical supervisor Hx Hypertension Yes: CONTROLLED WITH MED 02/14/25 11:59 Hx Sleep Apnea No 02/14/25 11:59 CPAP BIPAP Do you snore loudly (louder No 02/14/25 11:59 than talking or can be heard Do you often feel tired/ Yes 02/14/25 11:59 fatigued/ sleepy during daytime? Has anyone observed you stop No 02/14/25 11:59 breathing during sleep? STOP Results Positive 02/14/25 11:59 QUESTION #5 FULL TEXT : Do you snore loudly (louder than talking or can be heard through closeddoors)? 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 Specify any problems Hx of Preganancy in last 3 No 02/14/25 11:59 Months Nurse Filling Out Transfusion DSCHRIBER 02/14/25 11:59 & Questions: Date: 02/14/25 02/14/25 11:59 Time: 12:00 02/14/25 11:59 Patient unable to answer at this time (ie. confused, unrespo /Reproduction History /Reproductive History - clinical supervisor: /Reproductive Hx- clinical supervisor Hx Now No 02/14/25 11:59 Gestational Age (in weeks): EDC: Hx Hx Para Hx Section SAB No 02/14/25 11:59 Active Medications Active Medications: Current Medications Generic Name Dose Route Start Last Admin Trade Name Freq PRN Reason Stop Dose Admin Lactated Ringer's 1,000 mls @ 15 mls/hr 02/16/25 11:00 02/16/25 11:14 IV 15 mls/hr .Q48H PACO Administration PFSH Medical History Wears glasses Wears dentures Depression Thyroid disease Diabetes Rheumatoid arthritis Walker as ambulation aid High cholesterol Easy bruising Stroke/cerebrovascular accident Syncope Dietary restriction Vomiting History of IBS Gastric reflux Former smoker On home oxygen therapy COPD (chronic obstructive pulmonary disease) Shortness of breath on exertion History of edema Cardiology follow-up encounter Hypertension Home Medications ?Medication ?Instructions ?Recorded ?Last Taken ?Type acetaminophen 325 mg capsule 650 mg PO Q6H PRN pain 02/15/25 History albuterol sulfate 90 mcg/actuation 2 puff inhalation Q 6H PRN 02/09/25 02/15/25 History aerosol inhaler shortness of breath or wheez ing clopidogrel 75 mg tablet 75 mg PO QDAY 02/09/2502/09 History fluoxetine 20 mg capsule 20 mg PO QDAY 02/09/2502/16 History gabapentin 100 mg capsule 200 mg PO QHS 02/09/2502/15 History hydrochlorothiazide 25 mg tablet 25 mg PO QDAY 5 02/16/25 History levothyroxine 200 mcg tablet 200 mcg PO QDAY 02/09/25 02/16/25 History metformin 500 mg tablet 1,000 mg PO DAILY 02/09/25 0 02/16/25 History potassium chloride 20 mEq 20 meq PO QDAY 02/09/2501/23 History tablet,extended release(part/cryst) amlodipine 5 mg tablet 5 mg PO DAILY 02/14/2502/16 History aspirin 81 mg tablet,delayed 81 mg PO DAILY 02/14/25 0 02/16/25 History release (Adult Aspirin Regimen) atorvastatin 80 mg tablet (Lipitor) 80 mg PO QHS 02/1402/15/25 History famotidine 20 mg tablet (Pepcid) 20 mg PO DAILY 02/16/25 History metformin 500 mg tablet 500 mg PO QHS 02/14/2502/15 History Allergy/AdvReac Type Severity Reaction Status Date / Time tramadol Allergy Unknown unknown Verified 02/16/25 11:05 Surgical History History of Hx laparoscopic cholecystectomy Social History Smoking Status: Former smoker how long ago did patient quit smokin stopped smoke 1.5 packs days. Review of Systems (Anesthesia) ROS Narrative System reviewed and no additional complaints, except as documented. 02/16/25 1141 kiana HERNANDEZ> Date _ Nicola Hameed MD Cosigner Signature: Date CC: ~ Signed [facility]06-26-2025 History and physical note [facility] Medical Records Department [address] [place] [address] History & Physical Exam 02/13/25 1335 MR#: [id number] Acct: [id number] Name: GWEN WOLF Rep #:[id number] : 1955 69 From: Andres Meyer DO PCP: Dr. Bonita Ireland MD Status:[facility] Location: [place] [address] HPI - General HPI Narrative The patient is a 69-year-old female who was initially referred to the pulmonary medicine office on February 09, 2025 for the evaluation of a lung mass. The patient presented to our office with a questionable history of COPD and chronic tobacco dependency, currently in remission, after having undergone an chest x-ray which was abnormal. Accordingly, a dedicated chest CT was obtained and follow-up. That imaging study was completed through [facility], datedJanuary 31, 2025, and demonstrated a large peritracheal mass measuring 3 x 3.3 cm along with a large subcarinal mass measuring 7 cm and multiple additional subcentimeter nodules scattered bilaterally. The patient has a 51-xswl-eyrq smoking history, having quit completely in 2021. She did not grow upin a smoking household. The patient has never been evaluated by a seedling puller in the past. She has never completed pulmonary function studies. The patient does not utilize any inhalers at her baseline. However, she does report that she utilizes 2 L/min of supplemental oxygen on a nightly basis. In addition, the patient is currently prescribed Plavix due to a history of CVA. [facility] Home Medications ?Medication ?Instructions ?Recorded ?Last Taken ?Type acetaminophen 325 mg capsule 650 mg PO Q6H PRN 5 Unknown History albuterol sulfate 90 mcg/actuation inhalation 02/09/25 Unknown History aerosol inhaler clopidogrel 75 mg tablet 75 mg PO QDAY 02/09/25 Unkno wn History fluoxetine 20 mg capsule 20 mg PO QDAY 02/09/25 Unkno wn History gabapentin 100 mg capsule mg PO 02/09/25 Unknown Histo ry hydrochlorothiazide 25 mg tablet 25 mg PO QDAY 5 Unknown History levothyroxine 200 mcg tablet 200 mcg PO QDAY 02/09/25 Unknown History metformin 500 mg tablet 500 mg PO TID 02/09/25 Unkno wn History potassium chloride 20 mEq 20 meq PO QDAY 02/09/25 Unkn own History tablet,extended release(part/cryst) Allergy/AdvReac Type Severity Reaction Status Date / Time tramadol Allergy Unknown unknown Verified 02/09/25 09:55 Social History (Updated 02/09/25 @ 09:53 by Libby Spence LPN) Smoking Status: Former smoker how long ago did patient quit smokin stopped smoke 1.5 packs days. ROS ROS Narrative 10 systems were reviewed with pertinent positives as noted in HPI. Physical Exam Const alert and no apparent distress General Appearance: cooperative HEENT normocephalic and head/scalp atraumatic Eyes PERRL and EOMs intact bilaterally Neck supple General: trachea midline Resp normal respiratory effort Auscultation: diminished lung sounds Cardio regular rate and regular rhythm GI normal to inspection, nondistended, normoactive bowel sounds Extremity no clubbing, cyanosis or edema Skin General Skin Exam: no breakdown Neuro CN's II-XII intact bilaterally and no focal motor deficits Psych cooperative and affect normal Assessment & Plan Assessment/Plan (1) Lung mass: PLAN: The patient presented to the outpatient pulmonary office for the evaluation of lung masses which was identified on CT imaging of the chest through [facility] dated January 31, 2025. The dominant lesions are locatedin the right paratracheal region along with the subcarinal region. In lightof the patient's tobacco abuse history, these findings are worrisome for malignancy. Accordingly, Iwould recommend that we proceed with EBUS facilitated transbronchial needle aspiration to obtain a definitive diagnosis. The risks and benefits of the proposed procedure were discussed with the patient. She is in agreement to proceed. The patient was instructed to continue to hold her Plavix until after the biopsies have been completed. 02/13/25 1338 Cosigner Signature (if applicable): CC: Dr. Andres Meyer DO; Dr. Bonita Ireland MD~ Signed ADDENDUM by Dr. Andres Meyer DO on 02/16/25 at 1055 Addendum I have examined the patient and the H&P has been reviewed. There are no clinicalchanges since date of exam. 02/16/25 1055 Cosigner Signature (if applicable): cc: Dr. Andres Meyer DO; Dr. Bonita Ireland MD ~* Signed [facility]06-23-2025 [facility] Medical Records Department [address] [place] [id number] History Physical Exam 02/13/25 1335 MR#: [id number] Acct: [id number] Name: GWEN WOLF Rep #: [id number] : 1955 69 From: Andres Meyer DO PCP: Dr. Bonita Ireland MD Status:[facility] Location: [place] [address] HPI - General HPI Narrative The patient is a 69-year-old female who was initially referred to the pulmonary medicine office on February 09, 2025 for the evaluation of a lung mass. The patient presented to our office with a questionable history of COPD and chronic tobacco dependency, currently in remission, after having undergone an chest x-ray which was abnormal. Accordingly, a dedicated chest CT was obtained and follow-up. That imaging study was completed through [facility], dated January 31, 2025, and demonstrated a large peritracheal mass measuring 3 x 3.3 cm along with a large subcarinal mass measuring 7 cm and multiple additional subcentimeter nodules scattered bilaterally. The patient has a 01-tiqu-ztbn smoking history, having quit completely in 2021. She did not grow up in a smoking household. The patient has never been evaluated by a seedling puller in the past. She has never completed pulmonary function studies. The patient does not utilize any inhalers at her baseline. However, she does report that she utilizes 2 L/min of supplemental oxygen on a nightly basis. In addition, the patient is currently prescribed Plavix due to a history of CVA. [facility] Home Medications ???Medication ???Instructions ???Recorded ???Last Taken ???Type acetaminophen 325 mg capsule 650 mg PO Q6H PRN 02/09/25 Unknown History albuterol sulfate 90 mcg/actuation inhalation 02/09/25 Unknown Hist ory aerosol inhaler clopidogrel 75 mg tablet 75 mg PO QDAY 02/09/25 Unknown His tory fluoxetine 20 mg capsule 20 mg PO QDAY 02/09/25 Unknown His tory gabapentin 100 mg capsule mg PO 02/09/25 Unknown History hydrochlorothiazide 25 mg tablet 25 mg PO QDAY 02/09/25 Unknown His tory levothyroxine 200 mcg tablet 200 mcg PO QDAY 02/09/25 Unknown H istory metformin 500 mg tablet 500 mg PO TID 02/09/25 Unknown His tory potassium chloride 20 mEq 20 meq PO QDAY 02/09/25 Unknown Hi story tablet,extended release(part/cryst) Allergy/AdvReac Type Severity Reaction Status Date / Time tramadol Allergy Unknown unknown Verified 02/09/25 09:55 Social History (Updated 02/09/25 @ 09:53 by Libby Spence LPN) Smoking Status: Former smoker how long ago did patient quit smokin stopped smoke 1.5 packs days. ROS ROS Narrative 10 systems were reviewed with pertinent positives as noted in HPI. Physical Exam Const alert and no apparent distress General Appearance: cooperative HEENT normocephalic and head/scalp atraumatic Eyes PERRL and EOMs intact bilaterally Neck supple General: trachea midline Resp normal respiratory effort Auscultation: diminished lung sounds Cardio regular rate and regular rhythm GI normal to inspection, nondistended, normoactive bowel sounds Extremity no clubbing, cyanosis or edema Skin General Skin Exam: no breakdown Neuro CN's II-XII intact bilaterally and no focal motor deficits Psych cooperative and affect normal Assessment Plan Assessment/Plan (1) Lung mass: PLAN: The patient presented to the outpatient pulmonary office for the evaluation of lung masses which was identified on CT imaging of the chest through [facility] dated January 31, 2025. The dominant lesions are located in the right paratracheal region along with the subcarinal region. In light of the patient's tobacco abuse history, these findings are worrisome for malignancy. Accordingly, I would recommend that we proceed with EBUS facilitated transbronchial needle aspiration to obtain a definitive diagnosis. The risks and benefits of the proposed procedure were discussed with the patient. She is in agreement to proceed. The patient was instructed to continue to hold her Plavix until after the biopsies have been completed. 02/13/25 1338 Cosigner Signature (if applicable): CC: Dr. Andres Meyer DO; Dr. Bonita Ireland MD Signed ADDENDUM by Dr. Andres Meyer DO on 02/16/25 at 1055 Addendum I have examined the patient and the H P has been reviewed. There are no clinical changes since date of exam. 02/16/25 1055 Cosigner Signature (if applicable): cc: Dr. Andres Meyer DO; Dr. Bonita Ireland MD * [facility]* Diagnosis Onset Date Resolution Status Admit Date Lung mass acute February 09 9:39am [facility] Work Phone: 1(559) 713-585006-19-2025 Evaluation note* Diagnosis Onset Date Resolution Status Admit Date Lung mass acute February 09 9:39am Lung mass acute February 16 10:42am [facility] Work Phone: 1(650) 119-503606-19-2025 Evaluation note* Diagnosis Onset Date Resolution Status Admit Date Lung mass acute February 09 9:39am Lung mass acute February 16 10:42am Neuroendocrine neoplasm of lung acut e February 28, 2025 2:48pm COPD (chronic obstructive pulmonary disease) chronic February 28 2:48pm [facility] Work Phone: 1(268) 448-361808-30-2023 Hospital Discharge instructions Patient Education 04/22/2023 12:47:22 [...] can sometimes be life-threatening. However, if someone havinga stroke gets medical treatment right away, he [...] 11/27/2017 Document Revised: 07/23/2018 Document Reviewed: 11/27/2017 [facility] Patient Education 2020 [employer]. 04/22/2023 12:47:19 Stroke Prevention, Vwwq-et-Anev Stroke Prevention Some medical conditions and lifestyle [...] only healthy fats for cooking. These include: ?Lubbock oil. ?Canola oil. ?Modoc oil. ?Counting how many carbohydrates you eat [...] day for non women and 2 drinks aday for men. One drink equals 12 oz of beer, 5 oz of wine, or 1 oz of hard liquor. Do not use drugs. Avoid taking control pills. Talk to your doctor about the risks of taking control pillsif: ?You are over 35 years old. ?You smoke. ?You get migraines. ?You have had a blood clot. What other changes can be made? Manage your cholesterol. ?It is important to eat a healthy diet. ?If your cholesterol cannot be managed through your diet, you may also need to take medicines. Takemedicines as told by your doctor. Manage your [...] ?Snoring a lot. ?Feeling very tired. Take znbf-ave-mzqlofr and prescription medicines only as told by your doctor. These may include aspirin or blood thinners (antiplatelets or anticoagulants). Make sure that any other medical conditions you have are managed. Where to find more information [place] Stroke Association: www.strokeassociation.org National Stroke Association: www.stroke.org [...] the face, or the face or eyelid droopingon one side. ?A - Arms. Signs are [...] 02/08/2013 Document Revised: 10/06/2019 Document Reviewed: 11/11/2017 [facility] Patient Education 2020 [facility] [employer] 04/22/2023 12:47:18 Stroke Prevention Stroke Prevention [...] care provider about the risks of taking birthcontrol pills if: ?You are over 35 years [...] if your blood pressure is normal. Blood pressureincreases with age and some medical conditions. Get evaluated for sleep disorders (sleep apnea). Talk to your health care provider about getting a sleep evaluation if you snore a lot or have excessive sleepiness. Take pseh-gko-rzoxona and prescription medicines only as told by your health care provider. Aspirinor blood thinners (antiplatelets or anticoagulants) may be [...] find more information For more information, visit: [place] Stroke Association: www.strokeassociation.org National Stroke Association: www.stroke.org [...] 09/17/2005 Document Revised: 07/23/2018 Document Reviewed: 09/15/2017 [facility] Patient Education 2020 Bex. Follow Up Care 04/17/2023 20:31:47 With:[facility], Skilled [phone] Address:Unknown When:1-2 days With:JOAN HUERTA APRN-NEWSPAPER MANAGING EDITOR Address: [address] [place], [place] [address]- [phone] When:5 to 7 days With:[facility] Address: [address] [place] [address]- When:Within 5 Week(s) Comments:Stroke follow-up With:ROMMEL FOSTER MD Address: [address] [facility] Heart and Vascular [facility] [place] [address]- When:Within 3 Week(s) Comments:Left atrial mass [facility] 08-30-2023 Note Discharge Instructions Thank you for allowing [facility] to assist you with your healthcare needs. The following is importantdischarge information regarding your hospital visit. Your Care Team JOAN HUERTA SHOULDER SAWYER-NEWSPAPER MANAGING EDITOR Your Diagnosis Stroke like symptoms What to do next Instructions From Your Doctor -> Continue apixaban, Lipitor 80 for stroke -> [facility] with [facility] -> Given mobile atheroma, continue apixaban 5 mg twice daily, continue to follow-up with cardiology as outpatient -> intermodal customer service goal BP < 130/80 mmHg, goal LDL < 70, goal Hba1c <7% -> She will need 30-day monitor on DC. Follow Up Appointments Follow Up with [facility] Skilled [phone] When Within 1-2 days Follow Up with JOAN HUERTA APRN-NEWSPAPER MANAGING EDITOR When Within 5 to 7 days Where: [address] [place] [address]- [phone] [facility] When In 5 weeks Why: Stroke follow-up Where: [address] [place] [address]- Follow Up with ROMMEL FOSTER MD When In 3 weeks Why: Left atrial mass Where: [address] [facility] and V[facility] [place] [address]- The Following Activity and Diet Have Been [...] within 7 days after discharge, please call [facility] at [phone]. Transfer of Care OT - Ordered -- Reason for therapy: Stroke, 04/22/23 11:22:00 EDT Transfer of Care PT - Ordered -- Reason for therapy: Stroke, 04/22/23 11:22:00 EDT Post Acute Orders Transfer of Care Code Status - Ordered -- Full Code, Constant Order Transfer of Care Orders Electronically Signed By - Ordered -- 04/22/23 11:22:00 EDTNAS KYLE DO Transfer of Care Prognosis - Ordered -- Fair, Patient Aware: Yes Transfer of Care Rehab Potential - Ordered -- Rehab potential frantz, 04/22/23 11:22:37 EDT Someone Will Contact You Regarding These Home Health Referrals No home referrals have been ordered for you. No one will call you. Allergies traMADol Medications Please ask your primary doctor or pharmacist before taking any other medication not listed, including over the counter drugs, herbal medications, vitamins and or supplements as they may interact withyour home medications. What How Much When Instructions Last Dose New acetaminophen 650 Milligram by mouth Every six (6) hours WHILE AWAKE as needed for Pain, scale 1-10 New apixaban (Eliquis 5 mg oral tablet) 1 tab(s) by mouth Two (2) times a day Duration: 30 Days Pickup at [facility]24 Unchanged amLODIPine (amLODIPine 5 mg oral [...] Three (3) times a day Pharmacy Information [facility]: [address] [place], [place] [phone] What How Much When Comments Stop Taking [...] can sometimes be life-threatening. However, if someone havinga stroke gets medical treatment right away, he [...] 11/27/2017 Document Revised: 07/23/2018 Document Reviewed: 11/27/2017 [facility] Patient Education 2020 [facility] [employer] Stroke Prevention Some medical conditions and lifestyle [...] healthy fats for cooking. These include: ? [place] oil. ? Canola oil. ? [place]oc oil. ? Counting how many carbohydrates you [...] day for non women and 2 drinks aday for men. One drink equals 12 oz of beer, 5 oz of wine, or 1 oz of hard liquor. Do not use drugs. Avoid taking control pills. Talk to your doctor about the risks of taking control pillsif: ? You are over 35 years old. [...] and exercise, you may need to take medicines.Take medicines as told by your doctor. ? Ask your doctor if you should check your blood pressure at home. ? Have your blood pressure checked every year. Do this even if your blood pressure is normal. Talk to your doctor about getting checked for a sleep disorder. Signs of this can include: ? Snoring a lot. ? Feeling very tired. Take rmxs-vpc-nuqiatu and prescription medicines only as told by your doctor. These may include aspirin or blood thinners (antiplatelets or anticoagulants). Make sure that any other medical conditions you have are managed. Where to find more information [place] Stroke Association: www.strokeassociation.org National Stroke Association: www.stroke.org [...] arm. This happens suddenly and usually on oneside of the body. ? S - Speech. Signs are sudden trouble speaking, slurred speech, or trouble understanding what peoplesay. ? T - Time. Time to call [...] 02/08/2013 Document Revised: 10/06/2019 Document Reviewed: 11/11/2017 [facility] Patient Education 2020 [facility] [employer] Stroke Prevention Some medical conditions and [...] care provider about the risks of taking birthcontrol pills if: ? You are over 35 [...] important parts of managing your blood sugar. Ifyour blood sugar cannot be managed through diet [...] a lot or have excessive sleepiness. Take zwhk-rvj-ijtjtxz and prescription medicines only as told by your health care provider. Aspirinor blood thinners (antiplatelets or anticoagulants) may be [...] find more information For more information, visit: [place] Stroke Association: www.strokeassociation.org National Stroke Association: www.stroke.org [...] 09/17/2005 Document Revised: 07/23/2018 Document Reviewed: 09/15/2017 Elsevier Patient Education 2020 [facility] Additional Information VACCINATE! IT SAVES LIVES! Members of the community who have not yet received the COVID-19 vaccine and would like to receive it can visit one of [facility] vaccine clinics. There are many vaccine clinic locations within the [facility]. For locations and available times, please visit https://gettheshot.coronavirus.[place].gov/. It is important to note that some COVID mobile vaccine clinics are held outdoors and may be canceled in rainy or stormy conditions. To learn more about pediatric vaccinations (ages 5-11), we invite you to visit the [employer]is[employer]tos webpage. https://www.Cellfires.org/pages/3124-Bhwer-Qvruthvgfff-Exwmrkdljm-Tmqqe-Xza stions.htmlTo learn more about the COVID-19 vaccine, we invite you to visit the CDC website for a list of frequently asked questions.https://www.cdc.gov/coronavirus/2019-ncov/vaccines/faq.html [facility] [employer] Patient Portal Access Instructions: Stay connected with your healthcare team and access your personal medical information anytime with the [facility] [employer] Patient Portal. Please follow the directions below to create your [facility] [employer] account: 1.Access the email account you provided upon registration to the hospital/physician office.2.Look for an invitation email from [facility].3.Open the email and access the invitation link: AcceptInvitation to [facility] [employer].4.Fill in the required nguyen to create your account. To access your account, visit [employer] Planet[employer]. Click the blue button labeled Access Patient Portal and then log in with the username and password that you created in the steps above. You will be able to view your test results, lab results, a summary of your visits, upcoming appointments and more. There is also a convenient messaging option where you can send secure messages to your p rovider. In addition, you will have the ability to download any documents or summaries to your computer and/or send the information securely to a physician. Remember that your healthcare information is confidential, so carefully consider who you will allowto register on the [facility] Patient Portal for access to your information. You can also access the [facility] Patient Portal on the [facility] bacilio. Simply click on Patient Portal and then log into your account. If you would like to receive a full copy of your medical records, please contact the [facility] Medical Records Department by calling [phone], Thursday through Thursday between 8 a.m. and 4:30 p.m. HOW TO SAFELY DISPOSE OF PRESCRIPTION MEDICATIONS Please use one of the following methods to safely dispose of your unused medications. 1.Use a drug disposal kit: the drug disposal pouch allows you to safely discard your old and unuseddrugs. Ask your nurse to give you one when you are discharged.2.Visit a local take-back location: Many local pharmacies and police departments have programs that collect old and unwanted prescriptiondrugs. Call your local pharmacy or go to http://Anergis/6I8Qr5w to find one close to you.3.Make use of household items: Use cat litter or old coffee grounds to dispose medications if other options arenot available. Mix your drugs with these household products, seal them in an airtight container andthrow it into the garbage. Call [facility]: [phone] to be sure your drugs can be [...] Warning Signs of a Stroke Stroke Prevention, Self-zq-Rkpr Stroke Prevention Medication Leaflets My discharge plan and instructions have been reviewed and explained to me and I,MARYANN GWEN Edith understand my current condition and have read and understand these discharge instructions. I have received a written copy of the plan/instructions. If I have questions, I am aware that I should contact my doctor. Patient/Assistant Program Manager Signature: Date/Time: Relationship to Patient: Witness Name/Signature: Date/Time: [id number] Note Discharge Instructions Thank you for allowing [facility] to assist you with your healthcare needs. The following is importantdischarge information regarding your hospital visit. Your Care Team JOAN HUERTA APRN-RD Your Diagnosis Stroke like symptoms What to do next Instructions From Your Doctor -> Continue apixaban, Lipitor 80 for stroke -> [facility] -> Given mobile atheroma, continue apixaban 5 mg twice daily, continue to follow-up with cardiology as outpatient -> detention goal BP < 130/80 mmHg, goal LDL < 70, goal Hba1c <7% -> She will need 30-day monitor on DC. Follow Up Appointments Follow Up with [facility] Skilled [phone] When Within 1-2 days Follow Up with JOAN HUERTA APRN-RD When Within 5 to 7 days Where: [address] [place] [address] [phone] [facility] When In 5 weeks Why: Stroke follow-up Where: [address] [place] [address]- Follow Up with ROMMEL FOSTER MD When In 3 weeks Why: Left atrial mass Where: [address] [facility] Heart and Vascular [facility] [place] [address]- The Following Activity and Diet Have Been [...] within 7 days after discharge, please call [facility] at [phone]. Transfer of Care OT - Ordered -- [...] and or supplements as they may interact withyour home medications. What How Much When Instructions Last Dose New acetaminophen 650 Milligram by mouth Every six (6) hours WHILE AWAKE as needed for Pain, scale 1-10 New apixaban (Eliquis 5 mg oral tablet) 1 tab(s) by mouth Two (2) times a day Duration: 30 Days Pickup at [facility] Unchanged amLODIPine (amLODIPine 5 mg oral [...] Three (3) times a day Pharmacy Information [facility]: [address], [place] [phone] What How Much When Comments Stop Taking [...] can sometimes be life-threatening. However, if someone havinga stroke gets medical treatment right away, he [...] 11/27/2017 Document Revised: 07/23/2018 Document Reviewed: 11/27/2017 [facility] Patient Education 2020 [employer]ex. Stroke Prevention Some medical conditions and lifestyle [...] healthy fats for cooking. These include: ? [place] oil. ? Canola oil. ? Modoc oil. ? Counting how many carbohydrates you [...] day for non women and 2 drinks aday for men. One drink equals 12 oz of beer, 5 oz of wine, or 1 oz of hard liquor. Do not use drugs. Avoid taking control pills. Talk to your doctor about the risks of taking control pillsif: ? You are over 35 years old. [...] and exercise, you may need to take medicines.Take medicines as told by your doctor. ? Ask your doctor if you should check your blood pressure at home. ? Have your blood pressure checked every year. Do this even if your blood pressure is normal. Talk to your doctor about getting checked for a sleep disorder. Signs of this can include: ? Snoring a lot. ? Feeling very tired. Take gkmy-pew-igfhudx and prescription medicines only as told by your doctor. These may include aspirin or blood thinners (antiplatelets or anticoagulants). Make sure that any other medical conditions you have are managed. Where to find more information [place] Stroke Association: www.strokeassociation.org National Stroke Association: www.stroke.org [...] arm. This happens suddenly and usually on oneside of the body. ? S - Speech. Signs are sudden trouble speaking, slurred speech, or trouble understanding what peoplesay. ? T - Time. Time to call [...] 02/08/2013 Document Revised: 10/06/2019 Document Reviewed: 11/11/2017 [facility] Patient Education 2020 [employer] [facility] [employer] Stroke Prevention Some medical conditions and [...] care provider about the risks of taking birthcontrol pills if: ? You are over 35 [...] important parts of managing your blood sugar. Ifyour blood sugar cannot be managed through diet [...] a lot or have excessive sleepiness. Take iqit-hcg-jhbbmlo and prescription medicines only as told by your health care provider. Aspirinor blood thinners (antiplatelets or anticoagulants) may be [...] find more information For more information, visit: [place] Stroke Association: www.strokeassociation.org National Stroke Association: www.stroke.org [...] 09/17/2005 Document Revised: 07/23/2018 Document Reviewed: 09/15/2017 [employer] Patient Education 2020 [facility] [employer] Additional Information VACCINATE! IT SAVES LIVES! Members of the community who have not yet received the COVID-19 vaccine and would like to receive it can visit one of [facility] vaccine clinics. There are many vaccine clinic locations within the [facility]. For locations and available times, please visit https://gettheshot.coronavirus.[place].gov/. It is important to note that some COVID mobile vaccine clinics are held outdoors and may be canceled in rainy or stormy conditions. To learn more about pediatric vaccinations (ages 5-11), we invite you to visit the [facility] [facility] webpage. https://www.akronSAY Medias.org/pages/3143-Tyyma-Xaqshhwlltu-Kkefchaawp-Bhevq-Sic stions.htmlTo learn more about the COVID-19 vaccine, we invite you to visit the CDC website for a list of frequently asked questions.https://www.cdc.gov/coronavirus/2019-ncov/vaccines/faq.html [facility] [employer] Patient Portal Access Instructions: Stay connected with your healthcare team and access your personal medical information anytime with the [facility] [employer] Patient Portal. Please follow the directions below to create your [facility] [employer] account: 1.Access the email account you provided upon registration to the hospital/physician office.2.Look for an invitation email from [facility].3.Open the email and access the invitation link: AcceptInvitation to [employer].4.Fill in the required nguyen to create your account. To access your account, visit [employer]. Click the blue button labeled Access Patient Portal and then log in with the username and password that you created in the steps above. You will be able to view your test results, lab results, a summary of your visits, upcoming appointments and more. There is also a convenient messaging option where you can send secure messages to your p rovider. In addition, you will have the ability to download any documents or summaries to your computer and/or send the information securely to a physician. Remember that your healthcare information is confidential, so carefully consider who you will allowto register on the [employer] [employer] Patient Portal for access to your information. You can also access the [facility] Patient Portal on the [employer]aren[employer]where bacilio. Simply click on Patient Portal and then log into your account. If you would like to receive a full copy of your medical records, please contact the [facility] Medical Records Department by calling [phone], Thursday through Thursday between 8 a.m. and 4:30 p.m. HOW TO SAFELY DISPOSE OF PRESCRIPTION MEDICATIONS Please use one of the following methods to safely dispose of your unused medications. 1.Use a drug disposal kit: the drug disposal pouch allows you to safely discard your old and unuseddrugs. Ask your nurse to give you one when you are discharged.2.Visit a local take-back location: Many local pharmacies and police departments have programs that collect old and unwanted prescriptiondrugs. Call your local pharmacy or go to http://MondeCafes.Adstrix/9C9Ad4y to find one close to you.3.Make use of household items: Use cat litter or old coffee grounds to dispose medications if other options arenot available. Mix your drugs with these household products, seal them in an airtight container andthrow it into the garbage. Call [facility]: [phone] to be sure your drugs can be [...] Warning Signs of a Stroke Stroke Prevention, Ifmw-dt-Zbxi Stroke Prevention Medication Leaflets My discharge plan and instructions have been reviewed and explained to me and I,GWEN WOLF understand my current condition and have read and understand these discharge instructions. I have received a written copy of the plan/instructions. If I have questions, I am aware that I should contact my doctor. Patient/Assistant Program Manager Signature: Date/Time: Relationship to Patient: Witness Name/Signature: Date/Time: [id number] Note Discharge Instructions Thank you for allowing [facility] to assist you with your healthcare needs. The following is importantdischarge information regarding your hospital visit. Your Care Team JOAN HUERTA APRN-NEWSPAPER MANAGING EDITOR Your Diagnosis Stroke like symptoms What to do next Instructions From Your Doctor -> Continue apixaban, Lipitor 80 for stroke -> Follow-up with [facility] as [facility] -> Given mobile atheroma, continue apixaban 5 mg twice daily, continue to follow-up with cardiology as outpatient -> intermodal customer service goal BP < 130/80 mmHg, goal LDL < 70, goal Hba1c <7% -> She will need 30-day monitor on DC. Follow Up Appointments Follow Up with [facility], Skilled [phone] When Within 1-2 days Follow Up with JOAN HUERTA SHOULDER SAWYER-NEWSPAPER MANAGING EDITOR When Within 5 to 7 days Where: [address] [place] [address]- [phone] Follow Up with [facility] When In 5 weeks Why: Stroke follow-up Where: [address] [place] [address]- Follow Up with ROMMEL FOSTER MD When In 3 weeks Why: Left atrial mass Where: [address] [facility] [place] [address]- The Following Activity and Diet Have Been [...] within 7 days after discharge, please call [facility] at [phone]. Transfer of Care OT - Ordered -- [...] and or supplements as they may interact withyour home medications. What How Much When Instructions Last Dose New acetaminophen 650 Milligram by mouth Every six (6) hours WHILE AWAKE as needed for Pain, scale 1-10 New apixaban (Eliquis 5 mg oral tablet) 1 tab(s) by mouth Two (2) times a day Duration: 30 Days Pickup at [facility]2 Unchanged amLODIPine (amLODIPine 5 mg oral tablet) [...] Three (3) times a day Pharmacy Information [facility]: [address] [place], [place] [phone] What How Much When Comments Stop Taking [...] to receive it can visit one of [facility] vaccine clinics. There are many vaccine clinic locations within the [facility]. For locations and available times, please visit https://gettheshot.coronavirus.[place].gov/. It is important to note that some COVID mobile vaccine clinics are held outdoors and may be canceled in rainy or stormy conditions. To learn more about pediatric vaccinations (ages 5-11), we invite you to visit the [facility] webpage. https://www.[facility].org/pages/5054-Hsxyq-Cgglgfwbtob-Jdtqapndoa-Tygah-Cgy stions.htmlTo learn more about the COVID-19 vaccine, we invite you to visit the CDC website for a list of frequently asked questions.https://www.cdc.gov/coronavirus/2019-ncov/vaccines/faq.html [facility] [employer] Patient Portal Access Instructions: Stay connected with your healthcare team and access your personal medical information anytime with the [employer] [facility] [employer] Patient Portal. Please follow the directions below to create your [facility] [employer] account: 1.Access the email account you provided upon registration to the hospital/physician office.2.Look for an invitation email from [facility].3.Open the email and access the invitation link: AcceptInvitation to [facility].4.Fill in the required nguyen to create your account. To access your account, visit aredaleAscenta [employer]rapeutics/PitkinOneChart. Click the blue button labeled Access Patient Portal and then log in with the username and password that you created in the steps above. You will be able to view your test results, lab results, a summary of your visits, upcoming appointments and more. There is also a convenient messaging option where you can send secure messages to your p rovider. In addition, you will have the ability to download any documents or summaries to your computer and/or send the information securely to a physician. Remember that your healthcare information is confidential, so carefully consider who you will allowto register on the [employer] Patient Portal for access to your information. You can also access the [facility] Patient Portal on the [employer] Anywhere bacilio. Simply click on Patient Portal and then log into your account. If you would like to receive a full copy of your medical records, please contact the [facility] Medical Records Department by calling [phone], Thursday through Thursday between 8 a.m. and 4:30 p.m. HOW TO SAFELY DISPOSE OF PRESCRIPTION MEDICATIONS Please use one of the following methods to safely dispose of your unused medications. 1.Use a drug disposal kit: the drug disposal pouch allows you to safely discard your old and unuseddrugs. Ask your nurse to give you one when you are discharged.2.Visit a local take-back location: Many local pharmacies and police departments have programs that collect old and unwanted prescriptiondrugs. Call your local pharmacy or go to http://bit.Adstrix/2N4Ix4b to find one close to you.3.Make use of household items: Use cat litter or old coffee grounds to dispose medications if other options arenot available. Mix your drugs with these household products, seal them in an airtight container andthrow it into the garbage. Call [facility]: [phone] to be sure your drugs can be [...] been reviewed and explained to me and I,GWEN WOLF understand my current condition and have read and understand these discharge instructions. I have received a written copy of the plan/instructions. If I have questions, I am aware that I should contact my doctor. Patient/Assistant Program Manager Signature: Date/Time: Relationship to Patient: Witness Name/Signature: Date/Time: [facility] [id number] Discharge summary Date of Service 04/22/23 Discharge [...] fell due to her right-sided weakness. Patient hadCT scan of the brain which showed caudate infarct. This was followed by an MRI which also confirmedthe infarct. Patient had a 2D echocardiogram which shows 7 x 5 immobile lesion mass near the mitralvalve and for this she underwent a PRINCE . 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 Few bubbles were noted on the 45th beat concerning for extracardiac shunt. Given these findings, it was determinedthat patient would benefit from anticoagulation. Patient was [...] Result Date: April 18, 2023 Verified By: GUERLINE JIANG MD CLINICAL STATEMENT: IMPRESSION: Acute infarct [...] to follow-up with cardiology as outpatient -> detention goal BP < 130/80 mmHg, goal LDL < 70, goal Hba1c <7% -> She will need 30-day monitor on DC. Medications New Prescription Milligram by mouth every six (6) hours [...] 7 days Where: [address] [place] [address]- [phone] Follow Up with [facility] When In 5 weeks Why: Stroke follow-up Where: [address] [place] [address]- Follow Up with ROMMEL FOSTER MD When In 3 weeks Why: Left atrial mass Where: [address] [facility] [place] [address]- Follow Up Appointments No qualifying data available. [...] LUCRECIA LOVELL DO on 04/22/2023 11:23 AM [facility] [id number] Note Date of Service 04/22/23 Chief Complaint [...] fell due to her right-sided weakness. Patient hadCT scan of the brain which showed caudate infarct. This was followed by an MRI which also confirmedthe infarct. Patient had a 2D echocardiogram which shows 7 x 5 immobile lesion mass near the mitralvalve and for this she underwent a PRINCE . 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 Few bubbles were noted on the 45th beat concerning for extracardiac shunt. Given these findings, it was determinedthat patient would benefit from anticoagulation. Patient was [...] Result Date: April 18, 2023 Verified By: GUERLINE JIANG MD CLINICAL STATEMENT: IMPRESSION: Acute infarct [...] to follow-up with cardiology as outpatient -> intermodal customer service goal BP < 130/80 mmHg, goal LDL < 70, goal Hba1c <7% -> She will need 30-day monitor on DC. DVT aspirin Patient is full code Disposition: Pending Placement. (precert pending) Digitally Signed by LUCRECIA LOVELL DO on 04/22/2023 09:40 AM [facility] [id number] Note Date of Service 04/21/23 Chief Complaint [...] fell due to her right-sided weakness. Patient hadCT scan of the brain which showed left [...] is tired and did not get much sleepovernight. She does report some improvement in her [...] Result Date: April 18, 2023 Verified By: GUERLINE JIANG MD CLINICAL STATEMENT: IMPRESSION: Acute infarct [...] 30-day monitor. Seen by neurology. Continue statin/Eliquis. intermodal customer service goal BP < 130/80 mmHg, goal LDL < 70, goal Hba1c <7% Patient has received 3 days of ceftriaxone for empiric treatment of urinary tract infection. Cultures contaminated. PT/OT recommending inpatient therapy, patient is agreeable. DVT aspirin Patient is full code Disposition: Pending Placement. Digitally Signed by LUCRECIA LOVELL DO on 04/21/2023 12:15 PM [facility] [id number] Cardiology Progress note Date of Service 04/20/2023 [...] GUERA RIVERA MD on 04/20/2023 06:27 PM [facility] [id number] Cardiology Progress note Date of Service 04/20/2023 [...] GUERA RIVERA MD on 04/20/2023 06:27 PM [facility] [id number] Cardiology Progress note Date of Service 04/20/2023 [...] GUERA RIVERA MD on 04/20/2023 06:27 PM [facility] [id number] Note* Exam Date Time Procedure Performing Provider Status 04/20/23 11:45 AM Transesophageal Echo cardiogram - CV Auth (Verified) [facility] 08-28-2023 Note Date of Service 04/20/23 [...] fell due to her right-sided weakness. Patient hadCT scan of the brain which showed left caudate infarct. This was followed by an MRI which also confirmed the infarct. Patient had a 2D echocardiogram which shows 7 x 5 immobile lesion mass near the mitral valve and for this she is going to undergo PRINCE . Patient is on aspirin and statin atthis time. Cardiology is consulted as well as neurology. Patient to be discharged to the [facility] because of family being there versus [facility]. Subjective Patient seen and examined after [...] Intake 0.00 Total Output 2000.00 Fluid Balance -1999.00 Physical Exam Constitutional - well nourished, alert, [...] no leukocytosis. No fevers. Are likely thrombus. intermodal customer service goal BP < 130/80 mmHg, goal LDL < 70, goal Hba1c <7% Patient has received 3 days of ceftriaxone for empiric treatment of urinary tract infection. Cultures contaminated. Okay to discontinue PT/OT recommending inpatient therapy, patient is agreeable. DVT aspirin Patient is full code Disposition: Pending PRINCE results. Depending on appearance May need infectious disease consult versus anticoagulation. Digitally Signed by LUCRECIA LOVLEL DO on 04/20/2023 06:14 PM [facility] [id number] Neurology Progress note Date of Service April [...] Intake 0.00 Total Output 2000.00 Fluid Balance -1999.00 Physical Exam Neurologic Exam Mental Status: Orientation: oriented to person, [facility], and month Language: normal fluency, normal simple [...] patient was pulling away/unable to relax Coordination: Cnujag-qybg-asntve movements intact bilaterally Weight Dosing Weight: 103 [...] Result Date: April 18, 2023 Verified By: GUERLINE JIANG MD CLINICAL STATEMENT: IMPRESSION: Acute infarct [...] & stroke prevention discussed in length by JOSE. Patient receptive to education at this time. ->Frequent neurochecks ->detention goal BP < 130/80 mmHg, goal LDL [...] by HINA MCCLAIN on 04/20/2023 03:28 PM [facility] [id number] Cardiology Consult note Date of Service 04/19/2023 [...] ROMMEL FOSTER MD on 04/19/2023 05:53 PM [facility] [id number] Note. MICRO - Microbiology PROCEDURE: Blood Culture [...] Locations *1: This test was performed at: [facility], [address] [place] [address], [facility] , [facility] ([place])04-19-2023 Note. MICRO - Microbiology PROCEDURE: Blood Culture [...] Locations *1: This test was performed at: [facility], [address] [place] [address], [phone] , [facility] ([place])04-19-2023 Neurology Consult note Date of Service April [...] 5 Bicep 5 5 Tricep 4- 5 Turret Lathe Tender 4- 5 Wrist Flex 5 5 Wrist [...] performed normally bilaterally. Unable to fully assess yvbq-bt-tana due to current weakness. Gait: Deferred at [...] Result Date: April 18, 2023 Verified By: GUERLINE JIANG MD CLINICAL STATEMENT: IMPRESSION: Acute infarct [...] DO Neurology >35 mins was spent in hnat-ta-xitq time and coordination of care for this [...] YUN ROWAN DO on 04/19/2023 12:38 PM [facility] [id number] Note. MICRO - Microbiology PROCEDURE: Urine Culture [...] Locations *1: This test was performed at: [facility], [address] [place] [address], [id number] , [facility] ([place])04-18-2023 Note ORIGINAL EXAMINATION: MRI OF THE BRAIN WITHOUT CONTRAST 04/18/2023 1:51 pm TECHNIQUE: Multiplanar multisequence MRI of the brain was performed without the administration of intravenous contrast. COMPARISON: Head CT [id number] from outside facility the. HISTORY: ORDERING SYSTEM [...] to the left periventricular region. Interpreted by: Guerline Jiang MD Preliminary Report By: Guerline Jiang MD Electronically signed By Guerline Jiang MD Dictated Date: 04/18/2023 4:17:50 PM Prelim Date: 04/18/2023 4:21:44 PM Sign Date: 04/18/2023 4:21:44 PM Ordering Provider: [facility]08-26-2023 Note* Exam Date Time Procedure Performing Provider Status 04/18/23 9:09 AM Echocardiogram, Adul t with Bubble Study- Auth (Verified) [facility] 08-26-2023 History and physical note Date [...] my evaluation. Labs and imaging obtained at [facility] on 04/17/[address] head showed [...] with intermittent dysarthria. 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 She was transferred [...] OMARI COOPER MD on 04/17/2023 09:55 PM [facility] [id number] History and physical note Date of Service [...] my evaluation. Labs and imaging obtained at [facility] on 04/17/[address] head showed [...] with intermittent dysarthria. 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 She was transferred [...] OMARI COOPER MD on 04/17/2023 09:55 PM [facility] [id number] Evaluation + Plan noteExtracted from: Title:History and Physical Author:ARCADIO COOPER MD Date:04/17/23 Left caudate nucleus CVA. Pa tient with right-sided deficits over at least the past 2 days. Also with intermittent dysarthria. 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 She was transferred [...] not yet verified. They will need reconciled. [facility] Evaluation note* Diagnosis Onset Date Resolution Status Admit Date Lung mass acute February 09 9:39am [facility] Work Phone: Hospital course Narrative No data available for this section [facility] Hospital Discharge instructionsAmbulatory Orders* Fast Pass: Oncology Referral [facility] Location: None Selected [facility] Work Phone: Reason for referral (narrative)No reason for referral information availableBlNatividad [facility] Work Phone: Summary Purpose Family History No Family History Records Found No data available for this section No Family History Records FoundNo Family History Records FoundNo Family History Records FoundNo Family History Records FoundNo Family History Records Found Advance Directives No Advanced Directives Records Found Advance Directive Response Recorded Date/ Time 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 February 14, 2025 11:59am Chief Complaint and Reason for Visit Chief Complaint Admit Date Pulmonary Nodules February 09, 2025 9:39 am EORDERS February 09, 2025 10:2 4am Reason for Visit Admit Date Lung mass February 09, 2025 9:39 am Chief Complaint Admit Date Pulmonary Nodules February 09, 2025 9:39 am Reason for Visit Admit Date Lung mass February 09, 2025 9:39 am Lung mass February 16, 2025 10:4 2am Chief Complaint Admit Date Pulmonary Nodules February 09, 2025 9:39 am EORDERS February 09, 2025 10:2 4am Biopsy Results February 28, 2025 2:48p m Reason for Visit Admit Date Lung mass February 09, 2025 9:39 am Lung mass February 16, 2025 10:4 2am Neuroendocrine neoplasm of lung February 2:48pm COPD (chronic obstructive pulmonary dise ase) February 28, 2025 2:48pm Additional Source Comments INFORMATION SOURCE (unrecogn ized section and content) DATE CREATED AUTHOR 07/10/2020 [facility] DATE CREATED AUTHOR AUTHOR'S ORGANIZ ATION 04/23/2023 [facility] ([place]) DATE CREATED AUTHOR AUTHOR'S ORGANIZ ATION 11/05/2024 [facility] DATE CREATED AUTHOR AUTHOR'S ORGANIZ ATION 01/08/2025 [facility] DATE CREATED AUTHOR AUTHOR'S ORGANIZ ATION 02/08/2025 [facility] DATE CREATED AUTHOR AUTHOR'S ORGANIZ ATION 03/04/2025 [facility] Patient Care team informatio n (unrecognized section and content) Team Status: Active Member Role Status Dates Dr. Bonita Ireland MD Primary Care Provider Active Team Status: Inactive Member Role Status Dates Dr. Neo Castillo MD Referring Provider Active Start: February 09, 2025 End: February 09, 2025 Dr. Andres Meyer DO Attending Provider Active S tart: February 09, 2025 End: February 09, 2025 Dr. Bonita Ireland MD Primary Care Provider Active Start: February 09, 2025 End: February 09, 2025 Team Status: Inactive Member Role Status Dates Dr. Bonita Ireland MD Primary Care Provider Active Start: February 09, 2025 End: February 09, 2025 Dr. Andres Meyer DO Attending Provider Active S tart: February 09, 2025 End: February 09, 2025 Dr. Andres Meyer DO Referring Provider Active S tart: February 09, 2025 End: February 09, 2025 Team Status: Active Member Role Status Dates Dr. Bonita Ireland MD Primary Care Provider Active Start: February 13, 2025 Dr. Andres Meyer DO Attending Provider Active S tart: February 13, 2025 Dr. Andres Meyer DO Other Provider Active Start : February 13, 2025 Team Status: Inactive Member Role Status Dates Dr. Bonita Ireland MD Primary Care Provider Active Start: February 16, 2025 End: February 16, 2025 Dr. Andres Meyer DO Attending Provider Active S tart: February 16, 2025 End: February 16, 2025 Dr. Andres Meyer DO Referring Provider Active S tart: February 16, 2025 End: February 16, 2025 Team Status: Active Member Role Status Dates Dr. Bonita Ireland MD Primary Care Provider Active Start: February 16, 2025 Dr. Andres Meyer DO Attending Provider Active S tart: February 16, 2025 Team Status: Active Member Role/Relationship Status Dates Dr. Bonita Ireland MD Primary Care Provider Active Team Status: Inactive Member Role/Relationship Status Dates Dr. Neo Castillo MD Referring Provider Active Start: February 09, 2025 End: February 09, 2025 Dr. Andres Meyer DO Attending Provider Active S tart: February 09, 2025 End: February 09, 2025 Dr. Bonita Ireland MD Primary Care Provider Active Start: February 09, 2025 End: February 09, 2025 Team Status: Inactive Member Role/Relationship Status Dates Dr. Bonita Ireland MD Primary Care Provider Active Start: February 09, 2025 End: February 09, 2025 Dr. Andres Meyer DO Attending Provider Active S tart: February 09, 2025 End: February 09, 2025 Dr. Andres Meyer DO Referring Provider Active S tart: February 09, 2025 End: February 09, 2025 Team Status: Active Member Role/Relationship Status Dates Dr. Bonita Ireland MD Primary Care Provider Active Start: February 13, 2025 Dr. Andres Meyer DO Attending Provider Active S tart: February 13, 2025 Dr. Andres Meyer DO Other Provider Active Start : February 13, 2025 Team Status: Inactive Member Role/Relationship Status Dates Dr. Bonita Ireland MD Primary Care Provider Active Start: February 16, 2025 End: February 16, 2025 Dr. Andres Meyer DO Attending Provider Active S tart: February 16, 2025 End: February 16, 2025 Dr. Andres Meyer , Referring Provider Active S tart: February 16, 2025 End: February 16, 2025 Team Status: Active Member Role/Relationship Status Dates Dr. Bonita Ireland MD Primary Care Provider Active Start: February 16, 2025 Dr. Andres Meyer DO Attending Provider Active S tart: February 16, 2025 Team Status: Inactive Member Role/Relationship Status Dates Dr. Bonita Ireland MD Primary Care Provider Active Start: February 28, 2025 End: February 28, 2025 Dr. Bonita Ireland MD Referring Provider Active Start: February 28, 2025 End: February 28, 2025 Latoya Ibrahim GLIDING PILOT INSTRUCTOR, GLIDING PILOT INSTRUCTOR-C Attending Provider Active Start: February 28, 2025 End: February 28, 2025 Goals (unrecognized section and content) Goals [...] BE BASED ON THE PRIMARY CLINICAL RECORDS. [employer] provides no warranty or guarantee of the accuracy or completeness of information in this document.
--- OUTSIDE RECORDS SUMMARY | 2025-03-07 11:20 | XMS RPT_ITS | CCD ---
Author Organization [facility] Care Team Providers Care Circular Saw Filer Name Role Phone JOAN MATHEW Primary Care [...] Provider Mitch SAENZ, Dr. Campos Attending Provider [phone] Shu HERNANDEZ, Dr. Mesa Primary Care Provider Dr. Andres Meyer DO Referring Provider Mitch SAENZ, Dr. Campos Other Provider Shu HERNANDEZ, Dr. Mesa Referring Provider Patriec COMPUTER NETWORKING INSTRUCTOR ADJUNCT-C, Latoya Attending Provider Kalashleightti, Bonita Primary Care [...] Referring Unavailable Kalisetti, Bonita Referring Unavailable Patrice COMPUTER NETWORKING INSTRUCTOR ADJUNCT, Latoya Attending Unavailable Kalisetti, Bonita Primary Care Unavailable Kalisetti, Bonita Primary Care Unavailable Patrice COMPUTER NETWORKING INSTRUCTOR ADJUNCT, Latoya Attending Unavailable Patrice COMPUTER NETWORKING INSTRUCTOR ADJUNCT, Latoya Referring Unavailable Allergies Allergy Classification Reported Allergen(s) Allergy Type Date of Onset Reaction(s) Facility (5 sources) traMADol; Translations: [tramadol] Drug Allergy 02-09-2025 unknown [facility] (1 source) traMADol Drug Allergy [facility] Repository (1 source) traMADol Drug Allergy 02-28-2025 [facility] Repository Medications Current Medications Medication Drug [...] 0 Refill(s) Start Date: 04/22/23 Status: Ordered [id number] 200 actuat albuterol 0.09 mg/actuat metered dose [...] BID, # 60 tab(s), 0 Refill(s), Pharmacy: [facility] 1724, 152.4, cm, 04/18/23 19:54:00 EDT, [...] Start: 02-09-2025 take 2 tablets by [facility] once daily Metformin 500 mg tablet Active [...] 01-24-2025 Episodic Other aftercare (1 source) Other extermination inspector (current) drug therapy; Translations: [Other extermination inspector (current) drug therapy] Onset: 01-24-2025 Episodic Other [...] Facility Pulmonary Visit Reporton Pulmonary Visit Report [facility] [address] [place] [address] OFFICE VISIT Date of Service: 02/28/25 MR#: [id number] Acct: [id number] Name: GWEN WOLF Rep #: [id number] : 1955 Provider: SID Ibrahim Age/Sex: 69/F Location: [facility] Status: Signed Assessment and Plan Assessment and Plan (1) Neuroendocrine neoplasm of lung: Status: Acute Plan: New. I am referring her to [facility] by way of Fast Pass [...] Additional Comments: This note was generated with Mixpoation software. It may contain incorrect words, spelling, [...] utilized. She does have a greater than 21-sbrm-xzpf smoking history smoking between 1/2 to 1 [...] sleep. She is currently residing in a residential and reports that they check her oxygen [...] room air Intake Visit Reasons: Biopsy Results Eating Disorder Psychologist Required: No DME Vendor: yarely canales Accompanied [...] tablet,extended release(par (more content not included)... Normal [facility] Bedside Glucoseon 02-16-2025 FINGERSTICK GLU 141 mg/dL High 74-106 [facility] Comment on above: Result Comment: REMY BRADSHAW OF PATIENT CARE PER NURSING PROTOCOL Performed By: #### L 501.080 #### [facility] Laboratory [address] [place], [address] Bronchoscopy Reporton 2024 Bronchoscopy Report [facility] Medical Records Department [address] [place] [address] Bronchoscopy Report MR#: [id number] Acct: [id number] Name: GWEN WOLF Rep #: [id number] : 1955 69 From: Andres Meyer DO PCP: Dr. Bonita Ireland MD Status:REG [facility] Patient Name: Gwen Wolf Procedure Date: 02/16/2025 [...] biopsy results. Procedure Code(s): --- Professional --- 28579, Bronchoscopy, rigid or flexible, including fluoroscopic guidance, [...] circulatory and respiratory systems CPT copyright 2021 [employer]. All rights reserved. The codes documented in this report are preliminary and upon ice rink attendant review may be revised to meet current compliance requirements. DO Andres Bailey MD 02/16/2025 12:36:15 PM This report has been signed electronically. Number of Addenda: 0 Note Initiated On: 02/16/2025 11:28 AM 02/16/25 1236 Date Andres Meyer DO Cosigner Signature: Date (if indicated) CC: Dr. Andres Meyer DO; Dr. Bonita Ireland MD Date Dictated: 02/16/258 Date Transcri (more content not included)... Normal [facility] Gl[facility] deOrdered By: Andres Meyer on 02-16-2025 Glucose [Mass/Vol] 141 mg/dL High 74-106 [facility] Comment on above: MANAGEMENT OF PATIEN T CARE PER NURSING PROTOCOL Immunohistochemical Stainson 02-16-2025 Immunohistochemical Stains Patient Age/Sex Location Account Attending Physician GWEN WOLF 69/F EN [id number] Dr. Andres Meyer, Specimen: [id number] Received: 02/16/25-1200 Status: DIANA Jean Num: [id number] Spec Type: ASP OUT Subm Dr: DO [...] by Dr Perry Johansen (thoracic pathology division, [facility]. COMMENT The specimen is evaluated at the [...] developed and their performance characteristics determined by [facility] Laboratory. They may not have been cleared or approved by the U.S. Food and Drug Administration. The FDA has determined that such clearance or approval is not Patient Age/Sex Location Account Attending Physician MARYANNGWEN Edith 69/F EN [id number] Dr. Andres Meyer, DO necessary.??? The above [...] of two stained smears for AMANUEL. CPT: 74619d5,17195d3,8834 2,16140b68 Signed (signature on file) Dr. Greer Chiu MD 02/23/25 1521 Normal [facility] Comment on above: Performed By: #### P [id number] #### [facility] [place], [address] MR/POSTOP.ANEon 02-16-2025 MR/POSTOP.[facility] Medical Records Department [address] [place] [address] Anesthesia Postop Eval I 02/16/25 1235 MR#: [id number] Acct: [id number] Name: GWEN WOLF Rep #: [id number] : 1955 69 From: Beena Juarez CRNA PCP: Dr. Bonita Ireland MD Status:[facility] Y Race: C Location: EN Anesthesia: Postop [...] CRNA Cosigner Signature: Date CC: Signed Normal [facility] MR/[id number] 02-16-2025 MR/POSTOPAN2 [facility] Medical Records Department [address] [place] [address] Anesthesia Postop Eval II 02/16/25 181 MR#: [id number] Acct: [id number] Name: GWEN WOLF Rep #: [id number] : 1955 69 From: Beena Juarez CRNA PCP: Dr. Bonita Ireland MD Status:[facility] Y Race: C Location: EN Anesthesia Postop Eval I Sum Postop Eval Completion status Anesthesia document: Postop Eval 1 completed: Yes Anesthesia Postop Eval I Summary Anesthesia Postop Eval I Summary: Anesthesia Postop Eval I: Assessment Summary Airway patent Yes 02/16/25 18:11 TRANSPORT OPERATIONS INSPECTOR.CSIR Spontaneous unlabored Yes 02/16/25 18:11 TRANSPORT OPERATIONS INSPECTOR.CSIR respirations Mental status nausea No 02/16/25 18:11 TRANSPORT OPERATIONS INSPECTOR.CSIR Vomiting No 02/16/25 18:11 TRANSPORT OPERATIONS INSPECTOR.CSIR Anesthesia Postop Eval I: Fluid Summary Crystalloid volume administer 300 02/16/25 18:11 TRANSPORT OPERATIONS INSPECTOR.CSIR (ml) Colloids volume administered ( ml) Blood Product volume administered (ml) Total IV fluid infused 300 02/16/25 18:11 TRANSPORT OPERATIONS INSPECTOR.CSIR Anesthesia Postop Eval I: Summary Notes Anesthesia Complication No 02/16/25 18:11 TRANSPORT OPERATIONS INSPECTOR.CSIR Anesthesia Complication Comment: Post-operative progress note Anesthesia: Postop Eval II Evaluation Mental status: Awake Pain Level: 1 nausea: No Vomiting: No 02/16/25 181 Date Beena Juarez TRANSPORT OPERATIONS INSPECTOR Cosigner Signature: Date CC: Signed Normal [facility] MR/TRISTIANon 02-14-2025 /[facility] Medical Records Department [address] [place] [address] PAT - Anesthesia 02/14/252118 MR#: [id number] Acct: [id number] Name: GWEN WOLF Rep #: [id number] : 1955 69 From: Nicola Hameed MD PCP: Dr. 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 History - commercial housekeeper Hx Hospitalization No 02/14/25 11:59 Any Problems [...] take am of surgery PONV PONV - commercial housekeeper: PONV - commercial housekeeper Female Yes 02/14/25 11:59 HX of Motion Sickness Yes 02/14/25 11:59 HX of N/V After Surgery No 02/14/25 11:59 Non-Smoker Yes 02/14/25 11:59 Duration of Surgery greater Yes 02/14/25 11:59 than 60 minutes Number of Risk Factors 4 02/14/25 11:59 PONV Score Severe Risk 02/14/25 11:59 Height Weight Height Weight: Anesthesia: Height Weight Height 5 ft 02/09/25 09:50 Respiratory Assessment Respiratory Assessment - commercial housekeeper: Respiratory Tract Infection Hx - commercial housekeeper Hx Respiratory Tract Infection No 02/14/25 11:59 STOP Sleep Apnea STOP Sleep Apnea - commercial housekeeper: STOP Sleep Apnea - commercial housekeeper Hx Hypertension Yes: CONTROLLED WITH MED 02/14/25 [...] Tobacco Use History Tobacco Use History - commercial housekeeper: Tobacco Use History - commercial housekeeper Tobacco Use Smoking Status Former smoker 02/14/25 11:59 Hx Tobacco Use No 02/14/25 11:59 Years Smoking Packs Smoked per Day Smoking Cessation Date was Yes - quit smoking within 15 02/14/25 11:59 within the last 15 years years Hx Smoking Cessation Date Hx Smoking Cessation No 02/14/25 11:59 Counseling Hematologic Medial History Hematologic Hx - commercial housekeeper: 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 Normal [facility] Activated partial thrombopla stin time (aPTT) in platelet poor plasma by coagulation aOrdered By: Andres Meyer on 02-09-2025 aPTT Coag (PPP) [Time] 25.4 s 24.1-36.2 [facility] International normalized rat io (INR) calculationOrdered By: Andres Meyer on 02-09-2025 INR Coag (Bld) [Relative time] 1.1 {INR} [facility] PLATELET COUNTon 02-09-2025 Platelets (Bld) [#/Vol] 320 10*3/uL Normal 150-450 [facility] Comment on above: Performed By: #### L 300.3900, L100.0625, L300.4310 #### [facility] [address] [place], [address] Partial Thromboplast Timeon 02-09-2025 aPTT Coag (Bld) [Time] 25.4 s Normal 24.1-36.2 [facility] Comment on above: Performed By: #### L 300.3900, L100.0625, L300.4310 ####[facility] [id number] [place], [address] Platelet countOrdered By: Nguyen on 02-09-2025 Platelets (Bld) [#/Vol] 320 10*3/uL 150-450 [facility] Prothrombin Time w/INRon INR Coag (PPP) [Relative time] 1.1 {INR} Normal [facility] Comment on above: Performed By: #### L 300.3900, L100.0625, L300.4310 ####[facility] [address] [place], [address] PT Coag (PPP) [Time] 14.0 s Normal 11.7-14.9 [facility] Comment on above: Performed By: #### L 300.3900, L100.0625, L300.4310 ####[facility] [id number] [place], [address] Prothrombin timeOrdered By: Andres Meyer on 02-09-2025 PT Coag (PPP) [Time] 14.0 s 11.7-14.9 [facility] Pulmonary Visit Reporton Pulmonary Visit Report [facility] [address] [place] [address] OFFICE VISIT Date of Service: 02/09/25 MR#: [id number] Acct: [id number] Name: GWEN WOLF Rep #: [id number] : 1955 Provider: Dr. Andres Meyer DO Age/Sex: 69/F Location: [facility] Status: Signed Assessment and Plan Assessment and Plan (1) Lung mass: Status: Acute Plan: The patient presented today for the evaluation of lung masses which were identified on CT imaging of the chest through [facility] dated January 31, 2025. The dominant lesions [...] follow-up. That imaging study was completed through [facility], dated January 31, 2025, and demonstrated a large peritracheal mass measuring 3 x 3.3 cm along with a large subcarinal mass measuring 7 cm and multiple additional subcentimeter nodules scattered bilaterally. The patient has a 56-ygmp-neoz smoking history, having quit completely in 2021. She did not grow up in a smoking household. The patient has never been evaluated by a stone driller in the past. She has never completed [...] room air Intake Visit Reasons: Pulmonary Nodules Eating Disorder Psychologist Required: No Is patient in pain?: No [...] AP diameter. (more content not included)... Normal [facility] MODIFIED BARIUM SWALLOWon MODIFIED BARIUM SWALLOW [facility] [address] [place], [place] [id number] Patient: GWEN WOLF Phone#: : 1955 Age: 69 Gender: F Pt. Type: Out Account: [id number] Location: [facility] Ordering: JOAN HUERTA Exam Date: 02/02/2025/9:11 Family Phys: Charge Code: 177271 Physician: Newton Order #: [id number] Dose#: PROCEDURE: CINERADIOGRAPHY MODIFIED BARIUM SWALLOW COMPARISON: [place], [place], MODIFIED BARIUM SWALLOW, 07/22/2023, 8:52. INDICATIONS: [...] Fitzgerald MD on 02/02/2025 at 11:22 Normal [facility] CT CHEST W/CONTRASTon 2024 CT CHEST W/CONTRAST [address] [address] Patient: GWEN WOLF Phone#: : 1955 Age: 69 Gender: F Pt. Type: Out Account: [id number] Location: 052 Ordering: JOAN HUERTA Exam Date: 01/31/20259:27 Family Phys: Charge Code: 962331 Physician: Newton Order #: [id number] Dose#: 4.70 PROCEDURE: CT CHEST WITH CONTRAST [...] 69 Gender: F Pt. Type: Out Account: [id number] Location: 052 Ordering: JOAN HUERTA Exam Date: 01/31/2025/9:27 Family Phys: Charge Code: 232643 Physician: Newton Order #: [id number] Dose#: 4.70 CONCLUSION: 1. Right paratracheal and subcarinal mass is present. Right hilar adenopathy is present. Multiple bilateral pulmonary nodules are present. The largest are in the right lower lobe. Dictated by: Mckayla Ying MD on 01/31/2025 at 16:32 Approved by: Mckayla Ying MD on 01/31/2025 at 16:39 Normal [facility] CBC + DIFFon 01-30-2025 Baso # 0.01 x10EE3/UL Normal 0.00 - 0.10 [facility] Comment on above: Performed By: #### 2 [address]1017 #### [place] [address] Basophils/100 WBC (Bld) 0.3 % Normal 0.0 - 2.0 [facility] Comment on above: Performed By: #### 2 03465 #### [facility],[address] [place] [address] CBC + DIFF Normal [facility] Comment on above: Result Comment: CBC- COMPLETE BLOOD COUNT Performed By: #### 2 63934 #### [place] [address] EO # 0.22 x10EE3/UL Normal 0.00 - 0.50 [facility] Comment on above: Performed By: #### 2 56908 #### [facility],[address] [place] [address] Eosinophils/100 WBC (Bld) 4.1 % Normal 0.0 - 7.0 [facility] Comment on above: Performed By: #### 2 97764 #### [place] [address] Erythrocyte distribution width (RBC) [Ratio] 14.7 % Normal 12.0 - 15.6 [facility] Comment on above: Performed By: #### 2 73061 #### [facility],[address] [place] [address] Hematocrit (Bld) [Volume fraction] 31.4 % Low 34.0 - 46.0 [facility] Comment on above: Performed By: #### 2 28988 #### [facility],[address] [place], [place] [address] Hemoglobin (Bld) [Mass/Vol] 10.8 g/dL Low 12.0 - 16.0 [facility] Comment on above: Performed By: #### 2 21912 #### [facility],[address] [place] [address] Lymph # 1.51 x10EE3/UL Normal 0.80 - 2.80 [facility] Comment on above: Performed By: #### 2 92711 #### [facility],[address] [place] [address] Lymphocytes/100 WBC (Bld) 27.6 % Normal 20.0 - 45.0 [facility] Comment on above: Performed By: #### 2 41625 #### [facility],[address] [place] [address] 66668 MANUAL DIFF N/A Normal [facility] Comment on above: Performed By: #### 2 04353 #### [facility],[address] [place], [place] [address] MCH (RBC) [Entitic mass] 30 pg Normal 27 - 33 [facility] Comment on above: Performed By: #### 2 55098 #### [facility],[address] [place], [place] [address] MCHC 34 X10 3 Normal 32 - 36 [facility] Comment on above: Performed By: #### 2 38727 #### [facility],[address] [place], [place] [address] MCV (RBC) [Entitic vol] 87 fL Normal 80 - 99 [facility] Comment on above: Performed By: #### 2 61248 #### [facility],[address] [place] [address] 71393 [place]son # 0.50 x10EE3/UL Normal 0.20 - 1.00 [facility] Comment on above: Performed By: #### 2 80549 #### [facility],[address] [place] [address] 27686 MONOS % 9.1 % Normal 0.0 - 10.0 [facility] Comment on above: Performed By: #### 2 21287 #### [facility],[address] [place] [address] 18524 Morphology [place] (Bld) [Interp] N/A Normal [facility] Comment on above: Performed By: #### 2 40540 #### [facility],[address] [place] [address] 26300 Neut # 3.22 x10EE3/UL Normal 1.50 - 7.10 [facility] Comment on above: Performed By: #### 2 72995 #### [facility],[address] [place] [address] 24595 Neutrophils/100 WBC (Bld) 59.0 % Normal 46.0 - 76.0 [facility] Comment on above: Performed By: #### 2 02844 #### [facility],[address] [place] [address] 28541 PLATELET 251 x10EE3/UL Normal 150 - 450 [facility] Comment on above: Performed By: #### 2 01459 #### [facility],[address] [place] [address] 40207 Platelet mean volume (Bld) [Entitic vol] 10.5 fL Normal 6.6 - 10.5 [facility] Comment on above: Result Comment: AUTO MATED DIFFERENTIAL Performed By: #### 2 18549 #### [facility],[address] [place] [address] 78630 RBC 3.62 x 10EE6/UL Low 4.10 - 5.30 [facility] Comment on above: Performed By: #### 2 04935 #### [facility],[address] [place] [address] 91687 WBC 5.5 x 10EE3/UL Normal 4.5 - 10.8 [facility] Comment on above: Performed By: #### 2 95365 #### [facility],[address] [place] [address] 87807 CMP with eGFRon 01-30-2025 AGE 69 years Normal [facility] Comment on above: Performed By: #### 2 86384 #### [facility],[address] [place] [address] 07630 Albumin [Mass/Vol] 2.7 g/dL Low 3.4 - 5.0 [facility] Comment on above: Performed By: #### 2 36476 #### [facility],[address] [place], [place] [address] Albumin/Globulin [Mass ratio] 0.6 {ratio} Low 0.9 - 1.6 [facility] Comment on above: Performed By: #### 2 86024 #### [facility],[address] [place] [address] 56096 ALK PHOS 109 U/L Normal 46 - 116 [facility] Comment on above: Performed By: #### 2 15967 #### [facility],[address] [place] [address] 11295 ALT [Catalytic activity/Vol] 16 U/L Normal 16 - 63 [facility] Comment on above: Performed By: #### 2 99799 #### [facility],[address] [place] [address] 38933 Anion gap [Moles/Vol] 12 mmol/L Normal 10 - 20 [facility] Comment on above: Performed By: #### 2 37753 #### [facility],[address] [place] [address] 89388 AST [Catalytic activity/Vol] 33 U/L Normal 13 - 39 [facility] Comment on above: Performed By: #### 2 63672 #### [facility],[address] [place] [address] 12734 B/C RATIO 13 ratio Normal 0 - 30 [facility] Comment on above: Performed By: #### 2 96303 #### [facility],[address] [place] [address] 49042 Bilirubin [Mass/Vol] 1.2 mg/dL High 0.2 - 1.0 [facility] Comment on above: Performed By: #### 2 87425 #### [facility],[address] [place] [address] 80114 Calcium [Mass/Vol] 8.9 mg/dL Normal 8.5 - 10.1 [facility] Comment on above: Performed By: #### 2 71022 #### [facility],[address] [place] [address] 00518 Chloride [Moles/Vol] 104 mmol/L Normal 98 - 107 [facility] Comment on above: Performed By: #### 2 32617 #### [facility],[address] [place] [address] 56868 CMP with eGFR Normal [facility] Comment on above: Result Comment: COMP REHENSIVE METABOLIC PANEL Performed By: #### 2 79566 #### [facility],[address] [place] [address] 42332 CO2 [Moles/Vol] 27.9 mmol/L Normal 21.0 - 32.0 [facility] Comment on above: Performed By: #### 2 19843 #### [facility],[address] [place] [address] 40574 Creatinine [Mass/Vol] 0.88 mg/dL Normal 0.55 - 1.02 [facility] Comment on above: Performed By: #### 2 90745 #### [facility],[address] [place] [address] 68133 GFR/1.73 sq M.predicted among non-blacks MDRD (S/P/Bld) [Vol rate/Area] mL/min/{1.73_m2} Normal 60 - 999 [facility] Comment on above: Performed By: #### 2 75360 #### [facility],[address] [place] [address] 02632 Result Comment: ACCO RDING TO THE NATIONAL KIDNEY DISEASE EDUCATION PROGRAM(NKDE), A NORMAL eGFR IS A VALUE GREATER THAN OR EQUAL TO 60 ML/MIN/1.73 SQ METERS. CHRONIC KIDNEY DISEASE: <60mL/MIN/1.73 SQ METERS KIDNEY FAILURE: <15mL/MIN/1.73 SQ METERS THIS TEST SHOULD ONLY BE USED FOR PATIENTS 18 YEARS OF AGE AND OLDER. Globulin (S) [Mass/Vol] 4.2 g/dL High 1.5 - 3.8 [facility] Comment on above: Performed By: #### 2 08253 #### [facility],[address] [place] [address] 45802 Glucose [Mass/Vol] 108 mg/dL High 74 - 106 [facility] Comment on above: Performed By: #### 2 24991 #### [facility],[address] [place] [address] 03210 Potassium [Moles/Vol] 3.3 mmol/L Low 3.5 - 5.1 [facility] Comment on above: Performed By: #### 2 15786 #### [facility],[address] [place] [address] 76649 Protein [Mass/Vol] 6.9 g/dL Normal 6.4 - 8.2 [facility] Comment on above: Performed By: #### 2 09749 #### [facility],[address] [place] [address] 53391 Sodium [Moles/Vol] 141 mmol/L Normal 136 - 145 [facility] Comment on above: Performed By: #### 2 58958 #### [facility],[address] [place] [address] 92330 Urea nitrogen [Mass/Vol] 11 mg/dL Normal 7 - 18 [facility] Comment on above: Performed By: #### 2 16317 #### [facility],[address] [place], [place] [address] ABDOMEN 2 VIEWSon 01-24-2025 ABDOMEN 2 VIEWS [place] [address] Patient: GWEN WOLF Phone#: : [phone] Age: 69 Gender: F Pt. Type: Out Account: [id number] Location: 052 Ordering: JOAN HUERTA Exam Date: 01/24/2025/10:17 Family Phys: Charge Code: 417302 Physician: Newton Order #: [id number] Dose#: PROCEDURE: ABDOMEN 2 VIEWS COMPARISON: None. [...] Ying MD on 01/24/2025 at 15:13 Normal [facility] C-REACTIVE PROTEINon 025 CRP 0.85 mg/dl Normal 0.00 - 0.90 [facility] Comment on above: Performed By: #### 2 61731 #### [facility],[address] [place] [address] CBC + DIFFon 01-24-2025 Baso # 0.03 x10EE3/UL Normal 0.00 - 0.10 [facility] Comment on above: Performed By: #### 2 38946 #### [address] [address] Basophils/100 WBC (Bld) 0.3 % Normal 0.0 - 2.0 [facility] Comment on above: Performed By: #### 2 36857 #### [address],[place] [address] CBC + DIFF Normal [facility] Comment on above: Result Comment: CBC- COMPLETE BLOOD COUNT Performed By: #### 2 53158 #### [facility],[address] [place] [address] EO # 0.13 x10EE3/UL Normal 0.00 - 0.50 [facility] Comment on above: Performed By: #### 2 54982 #### [facility],[address] [place] [address] Eosinophils/100 WBC (Bld) 1.6 % Normal 0.0 - 7.0 [facility] Comment on above: Performed By: #### 2 38751 #### [facility],[address] [place] [address] Erythrocyte distribution width (RBC) [Ratio] 14.2 % Normal 12.0 - 15.6 [facility] Comment on above: Performed By: #### 2 24876 #### [facility],[address] [place] [address] Hematocrit (Bld) [Volume fraction] 36.3 % Normal 34.0 - 46.0 [facility] Comment on above: Performed By: #### 2 13777 #### [facility],[address] [place] [address] Hemoglobin (Bld) [Mass/Vol] 12.4 g/dL Normal 12.0 - 16.0 [facility] Comment on above: Performed By: #### 2 55316 #### [facility],[address] [place] [address] Lymph # 1.12 x10EE3/UL Normal 0.80 - 2.80 [facility] Comment on above: Performed By: #### 2 35872 #### [facility],[address] [place] [address] Lymphocytes/100 WBC (Bld) 13.4 % Low 20.0 - 45.0 [facility] Comment on above: Performed By: #### 2 14389 #### [facility],[address] [place] [address] MANUAL DIFF N/A Normal [facility] Comment on above: Performed By: #### 2 96164 #### [facility],[address] [place] [address] MCH (RBC) [Entitic mass] 29 pg Normal 27 - 33 [facility] Comment on above: Performed By: #### 2 75097 #### [facility],[address] [place] [address] MCHC 34 X10 3 Normal 32 - 36 [facility] Comment on above: Performed By: #### 2 27873 #### [facility],[address] [place] [address] MCV (RBC) [Entitic vol] 86 fL Normal 80 - 99 [facility] Comment on above: Performed By: #### 2 27123 #### [facility],[address] [place] [address] Anson # 0.53 x10EE3/UL Normal 0.20 - 1.00 [facility] Comment on above: Performed By: #### 2 37104 #### [facility],[address] [place] [address] MONOS % 6.4 % Normal 0.0 - 10.0 [facility] Comment on above: Performed By: #### 2 66696 #### [facility],[address] [place] [address] Morphology [place] (Bld) [Interp] N/A Normal [facility] Comment on above: Performed By: #### 2 71115 #### [facility],[address] [place] [address] Neut # 6.56 x10EE3/UL Normal 1.50 - 7.10 [facility] Comment on above: Performed By: #### 2 84793 #### [facility],[address] [place] [address] Neutrophils/100 WBC (Bld) 78.3 % High 46.0 - 76.0 [facility] Comment on above: Performed By: #### 2 76812 #### [facility],[address] [place] [address]137 PLATELET 291 x10EE3/UL Normal 150 - 450 [facility] Comment on above: Performed By: #### 2 26566 #### [facility],[address] [place] [address] Platelet mean volume (Bld) [Entitic vol] 11.2 fL High 6.6 - 10.5 [facility] Comment on above: Result Comment: AUTO MATED DIFFERENTIAL Performed By: #### 2 95542 #### [facility],[address] [place] [address]52 RBC 4.20 x 10EE6/UL Normal 4.10 - 5.30 [facility] Comment on above: Performed By: #### 2 12725 #### [facility],[address] [place] [address] WBC 8.4 x 10EE3/UL Normal 4.5 - 10.8 [facility] Comment on above: Performed By: #### 2 60181 #### [facility],[address] [place] [address] CHEST 2 VIEWSon 01-24-2025 CHEST 2 VIEWS [place] [address] Patient: GWEN WOLF Phone#: : 1955 Age: 69 Gender: F Pt. Type: Out Account: [id number] Location: [facility] Ordering: JOAN HUERTA Exam Date: 01/24/2025/10:13 Family Phys: Charge Code: 670943 Physician: Newton Order #: [id number] Dose#: PROCEDURE: X-RAY CHEST 2 VIEWS COMPARISON: [facility], XR, CHEST 1 VIEW, 04/17/2023, 13:20. INDICATIONS: [...] Ying MD on 01/24/2025 at 15:11 Normal [facility] CMP with eGFRon 01-24-2025 AGE 69 years Normal [facility] Comment on above: Performed By: #### 2 49856 #### [facility],[address] [place] [address]257 Albumin [Mass/Vol] 3.3 g/dL Low 3.4 - 5.0 [facility] Comment on above: Performed By: #### 2 91702 #### [facility],[address] [place] [address] Albumin/Globulin [Mass ratio] 0.6 {ratio} Low 0.9 - 1.6 [facility] Comment on above: Performed By: #### 2 66499 #### [facility],[address] [place] [address] ALK PHOS 131 U/L High 46 - 116 [facility] Comment on above: Performed By: #### 2 38616 #### [facility],[address] [place] [address]76 ALT [Catalytic activity/Vol] 15 U/L Low 16 - 63 [facility] Comment on above: Performed By: #### 2 65063 #### [facility],[address] [place] [address] Anion gap [Moles/Vol] 16 mmol/L Normal 10 - 20 [facility] Comment on above: Performed By: #### 2 67835 #### [facility],[address] [place] [address] 11603 AST [Catalytic activity/Vol] 25 U/L Normal 13 - 39 [facility] Comment on above: Performed By: #### 2 02686 #### [facility],[address] [place] [address] B/C RATIO 16 ratio Normal 0 - 30 [facility] Comment on above: Performed By: #### 2 41588 #### [facility],[address] [place] [address] Bilirubin [Mass/Vol] 1.5 mg/dL High 0.2 - 1.0 [facility] Comment on above: Performed By: #### 2 54898 #### [facility],[address] [place] [address]88 Calcium [Mass/Vol] 10.1 mg/dL Normal 8.5 - 10.1 [facility] Comment on above: Performed By: #### 2 58784 #### [facility],[address] [place] [address] Chloride [Moles/Vol] 96 mmol/L Low 98 - 107 [facility] Comment on above: Performed By: #### 2 47283 #### [facility],[address] [place] [address] CMP with eGFR Normal [facility] Comment on above: Result Comment: COMP REHENSIVE METABOLIC PANEL Performed By: #### 2 72893 #### [facility],[address] [place] [address] 40636 CO2 [Moles/Vol] 26.6 mmol/L Normal 21.0 - 32.0 [facility] Comment on above: Performed By: #### 2 23208 #### [facility],[address] [place] [address] Creatinine [Mass/Vol] 1.48 mg/dL High 0.55 - 1.02 [facility] Comment on above: Performed By: #### 2 08989 #### [facility],[address] [place] [address] 51325 eGFR 35 ML/MINUTE Low 60 - 999 [facility] Comment on above: Performed By: #### 2 25133 #### [facility],[address] [place] [address] 45393 eGFR(AA) 42 ML/MINUTE Low 60 - 999 [facility] Comment on above: Result Comment: ACCO RDING TO THE NATIONAL KIDNEY DISEASE EDUCATION PROGRAM(NKDE), A NORMAL eGFR IS A VALUE GREATER THAN OR EQUAL TO 60 ML/MIN/1.73 SQ METERS. CHRONIC KIDNEY DISEASE: <60mL/MIN/1.73 SQ METERS KIDNEY FAILURE: <15mL/MIN/1.73 SQ METERS THIS TEST SHOULD ONLY BE USED FOR PATIENTS 18 YEARS OF AGE AND OLDER. Performed By: #### 2 53182 #### [facility],[address] [place] [address]183 Globulin (S) [Mass/Vol] 5.2 g/dL High 1.5 - 3.8 [facility] Comment on above: Performed By: #### 2 60479 #### [facility],[address] [place] [address] Glucose [Mass/Vol] 152 mg/dL High 74 - 106 [facility] Comment on above: Performed By: #### 2 05552 #### [facility],[address] [place] [address] Potassium [Moles/Vol] 3.0 mmol/L Low 3.5 - 5.1 [facility] Comment on above: Performed By: #### 2 54959 #### [facility],[address] [place] [address] 89239 Protein [Mass/Vol] 8.5 g/dL High 6.4 - 8.2 [facility] Comment on above: Performed By: #### 2 27063 #### [facility],[address] [place], [place] [address] Sodium [Moles/Vol] 136 mmol/L Normal 136 - 145 [facility] Comment on above: Performed By: #### 2 16359 #### [facility],[address] [place], [place] [address] Urea nitrogen [Mass/Vol] 23 mg/dL High 7 - 18 [facility] Comment on above: Performed By: #### 2 40271 #### [facility],[address] [place], [place] [address] HEMOGLOBIN A1C (POM)on 01-24 Glucose [Mass/Vol] 162.8 mg/dL High 0.0 - 0.0 [facility] Comment on above: Result Comment: BLDo HEMOGLOBIN A1C REFERENCE RANGESBLDo Suggested Diagnosis HbA1c(%) HbA1C (mmol/mol Diabetic >/=6.5 >/=48 Prediabetes 5.7 - 6.4 39 - 47 Normal <5.7 <39 Performed By: #### 2 58678 #### [facility],[address] [place], [place] [address] HbA1c (Bld) [Mass fraction] 7.3 % High 0.0 - 6.5 [facility] Comment on above: Performed By: #### 2 88524 #### [facility],[address] [place], [place] [address] LIPASEon 01-24-2025 Lipase [Catalytic activity/Vol] 31.0 U/L Normal 15.0 - 78.0 [facility] Comment on above: Result Comment: *PLE ASE NOTE THAT RANGES FOR LIPASE HAVE CHANGED OF 08/21/23 DUE TO AN ASSAY UPDATE BY THE METAL BUILDINGS ASSEMBLER.THE NEW ASSAY RANGE IS 6-250 U/L, WITH A REFERENCE RANGE OF 16-77 U/L. Performed By: #### 2 04911 #### [facility],[address] [place] [address] MAGNESIUMon 01-24-2025 Magnesium [Mass/Vol] 1.6 mg/dL Low 1.8 - 2.4 [facility] Comment on above: Performed By: #### 2 59231 #### [facility],[address] [place], [place] [address] SEDRATEon 01-24-2025 SEDRATE 74 mm/hr High 0 - 30 [facility] Comment on above: Performed By: #### 2 35406 #### [facility],[address] [place] [address] T4-FREE (FREE THYROXINE)on 0 01-24-2025 Free T4 [Mass/Vol] 3.23 ng/dL High 0.76 - 1.46 [facility] Comment on above: Result Comment: P otential of falsely elevated results when biotin concentrations are > 10 ng/mL. Performed By: #### 2 53449 #### [facility],[address] [place], [place] [address] TSHon 01-24-2025 TSH Qn m[IU]/L Low 0.35 - 3.74 [facility] Comment on above: Performed By: #### 2 72243 #### [facility],[address] [place], [place] [address] WOUND CULTURE WITH GRAM STAI Non 01-05-2025 WOUND CULTURE WITH GRAM STAIN WOUND CULTURE 114CANDIDA ALBICANS 1+ Rosa albicans GRAM STAIN OF CULTURE No organisms seen Normal [facility] Comment on above: Performed By: #### 4 [id number] #### [facility] [address] T4, FREE [CCL]on 11-03-2024 Free T4 [Mass/Vol] 0.7 ng/dL Low 0.9-1.7 [facility] Comment on above: Result Comment: [facility] [address] [place] [address] Uli Goodrich III, M.D. [id number] Performed By: #### 2 64103 #### [facility],[address] [place], [place] [address] T4 Free SerPl-mCncon 025 Free T4 [Mass/Vol] 0.7 ng/dL Low 0.9-1.[address] [facility] Comment on above: Order Comment: Speci men Type: BLOOD SPECIMEN Ordering Facility: [facility] Address: [address] [place] [address] Performed By: #### 3 024-7 #### [facility] CLIA [id number] [address] [place] [address] [place] TSHon 11-01-2024 TSH Qn 27.16 m[IU]/L High 0.35 - 3.74 [facility] Comment on above: Performed By: #### 2 12813 #### [facility],[address] [place] [address] LABORATORYOrdered By: Ho Vides on 04-22-2023 Blood Glucose Testing Reason Routine (04/22/23 11:27 AM) [facility] Glucose [Mass/Vol] 106 mg/dL Invalid Interpretation Code 82 - 115 mg/dL [facility] LABORATORYOrdered By: Daniela Ramachandran on 04-22-2023 Glucose [Mass/Vol] 134 mg/dL Invalid Interpretation Code 82 - 115 mg/dL [facility] .Auto Diffon 04-21-2023 Basophil, Absolute 0.0 10 3/mcL Normal 0.0-0.3 [facility] ([place]) Comment on above: Performed By: #### G FR, ANEU, BMP, MDW, CBC, ADIFF #### [facility] [address] [place] [address] Basophils/100 WBC (Bld) 0.7 % Normal 0.0-2.5 A [facility] ([place]) Comment on above: Performed By: #### G FR, ANEU, BMP, MDW, CBC, ADIFF #### [address] [address] Eosinophil, Absolute 0.3 10 3/mcL Normal 0.0-0.7 [facility] ([place]) Comment on above: Performed By: #### G FR, ANEU, BMP, MDW, CBC, ADIFF #### [address] [address] Eosinophils/100 WBC (Bld) 4.4 % Normal 0.0-6.0 [facility] ([place]) Comment on above: Performed By: #### G FR, ANEU, BMP, MDW, CBC, ADIFF #### [address] [address] Lymphocyte, Absolute 1.8 10 3/mcL Normal 0.9-4.3 [facility] ([place]) Comment on above: Performed By: #### G FR, ANEU, BMP, MDW, CBC, ADIFF #### [address] [address] Lymphocytes/100 WBC (Bld) 29.3 % Normal 20.0-40.0 [facility] ([place]) Comment on above: Performed By: #### G FR, ANEU, BMP, MDW, CBC, ADIFF #### [address] [address] Monocyte, Absolute 0.4 10 3/mcL Normal 0.1-1.4 [facility] ([place]) Comment on above: Performed By: #### G FR, ANEU, BMP, MDW, CBC, ADIFF #### [address] [address] Monocytes/100 WBC (Bld) 7.1 % Normal 2.0-13.0 A [facility] ([place]) Comment on above: Performed By: #### G FR, ANEU, BMP, MDW, CBC, ADIFF #### [address] [address] Neutrophils/100 WBC (Bld) 58.5 % Normal 50.0-75.0 [facility] ([place]) Comment on above: Performed By: #### G FR, IVAAN, RAFAEL, VINCENT, CBC, ADIFF #### [address] [address] .GFRon 04-21-2023 GFR Non- >60 Normal [facility] ([place]) Comment on above: Result Comment: GFR Population [...] FR, ANEU, RAFAEL, VINCENT, CBC, ADIFF #### [address] [address] GFR >60 Normal [facility] ([place]) Comment on above: Result Comment: GFR Population [...] FR, ANEU, BMP, VINCENT, CBC, ADIFF #### [address] [address] .NEUABSon 04-21-2023 Neutrophil, Absolute 3.6 10 3/mcL Normal 2.3-8.1 [facility] ([place]) Comment on above: Performed By: #### G FR, ANEU, BMP, MDW, CBC, ADIFF #### [address] [address] BMPon 04-21-2023 BUN/Creatinine Ratio 13.8 ratio Normal 10.0-22.0 [facility] ([place]) Comment on above: Performed By: #### G FR, ANEU, BMP, MDW, CBC, ADIFF #### [place] [id number] Calcium [Mass/Vol] 8.7 mg/dL Normal 8.7-10.4 [facility] ([place]) Comment on above: Performed By: #### G FR, ANEU, BMP, MDW, CBC, ADIFF #### [place] [id number] Chloride [Moles/Vol] 106 mmol/L Normal 98-110 [facility] ([place]) Comment on above: Performed By: #### G FR, ANEU, BMP, MDW, CBC, ADIFF #### [place] [id number] CO2 [Moles/Vol] 30 mmol/L Normal 22-32 [facility] ([place]) Comment on above: Performed By: #### G FR, ANEU, BMP, MDW, CBC, ADIFF #### [address] [address] Creatinine [Mass/Vol] 0.65 mg/dL Normal 0.50-1.20 [facility] ([place]) Comment on above: Performed By: #### G FR, ANEU, BMP, MDW, CBC, ADIFF #### [address] [address] Electrolyte Balance 4.0 mEq/L Normal 4.0-15.0 [facility] ([place]) Comment on above: Performed By: #### G FR, ANEU, BMP, MDW, CBC, ADIFF #### [address] [address] Glucose [Mass/Vol] 123 mg/dL High 82-115 [facility] ([place]) Comment on above: Performed By: #### G FR, ANEU, BMP, MDW, CBC, ADIFF #### [place] [id number] Potassium [Moles/Vol] 4.4 mmol/L Normal 3.5-5.0 [facility] ([place]) Comment on above: Performed By: #### G FR, ANEU, BMP, MDW, CBC, ADIFF #### [place] [id number] Sodium [Moles/Vol] 140 mmol/L Normal 136-145 [facility] ([place]) Comment on above: Performed By: #### G FR, ANEU, BMP, MDW, CBC, ADIFF #### [place] [address] Urea nitrogen [Mass/Vol] 9.0 mg/dL Normal 8.0-22.0 [facility] ([place]) Comment on above: Performed By: #### G FR, ANEU, BMP, MDW, CBC, ADIFF #### [place] [address] CBCon 04-21-2023 Erythrocyte distribution width (RBC) [Ratio] 13.6 % Normal 11.5-15.5 [facility] ([place]) Comment on above: Performed By: #### G FR, ANEU, BMP, MDW, CBC, ADIFF #### [place] [address] Hematocrit (Bld) [Volume fraction] 36.7 % Normal 34.0-46.0 [facility] ([place]) Comment on above: Performed By: #### G FR, ANEU, BMP, MDW, CBC, ADIFF #### [place] [id number] Hgb 12.5 G/dL Normal 12.0-16.0 [facility] ([place]) Comment on above: Performed By: #### G FR, ANEU, BMP, MDW, CBC, ADIFF #### [place] [address] MCH (RBC) [Entitic mass] 31.6 pg Normal 27.0-33.0 [facility] ([place]) Comment on above: Performed By: #### G FR, IVANA, BMP, MDW, CBC, ADIFF #### [place] [address] MCHC 33.9 G/dL Normal 32.0-36.0 [facility] ([place]) Comment on above: Performed By: #### G FR, IVANA, BMP, MDW, CBC, ADIFF #### [place] [address] MCV (RBC) [Entitic vol] 93.1 fL Normal 80.0-99.0 A [facility] ([place]) Comment on above: Performed By: #### G , IVANA, BMP, MDW, CBC, ADIFF #### [place] [address] Platelet 184 10 3/mcL Normal 150-450 [facility] ([place]) Comment on above: Performed By: #### G , IVANA, BMP, MDW, CBC, ADIFF #### [place] [address] Platelet mean volume (Bld) [Entitic vol] 10.3 fL Normal 6.6-10.5 [facility] ([place]) Comment on above: Performed By: #### G FR, ANEU, BMP, MDW, CBC, ADIFF #### [place] [address] RBC 3.94 10 6/mcL Low 4.10-5.30 [facility] ([place]) Comment on above: Performed By: #### G FR, ANEU, BMP, MDW, CBC, ADIFF #### [place] [address] WBC 6.1 10 3/mcL Normal 4.5-10.8 [facility] ([place]) Comment on above: Performed By: #### G FR, ANEU, BMP, MDW, CBC, ADIFF #### [place] [address] LABORATORYOrdered By: Carly Cerda on 04-21-2023 Glucose [Mass/Vol] 121 mg/dL Invalid Interpretation Code 82 - 115 mg/dL [facility] LABORATORYOrdered By: SYSTEM SYSTEM on 04-21-2023 [...] 04-21-2023 Magnesium [Mass/Vol] 1.6 mg/dL Normal 1.6-2.4 [facility] ([place]) Comment on above: Performed By: #### G FR, ANEU, BMP, MDW, CBC, ADIFF #### [address] [address] .Auto Diffon 04-20-2023 Basophil, Absolute 0.0 10 3/mcL Normal 0.0-0.3 [facility] ([place]) Comment on above: Performed By: #### A PARMINDER, BMP, ADIFF, GFR, CBC #### [address] [address] Basophils/100 WBC (Bld) 0.7 % Normal 0.0-2.5 A [facility] ([place]) Comment on above: Performed By: #### A PARMINDER, BMP, ADIFF, GFR, CBC #### [address] [address] Eosinophil, Absolute 0.1 10 3/mcL Normal 0.0-0.7 [facility] ([place]) Comment on above: Performed By: #### A PARMINDER, BMP, ADIFF, GFR, CBC #### [address] [address] Eosinophils/100 WBC (Bld) 2.2 % Normal 0.0-6.0 [facility] ([place]) Comment on above: Performed By: #### A PARMINDER, BMP, ADIFF, GFR, CBC #### [address] [address] Lymphocyte, Absolute 1.4 10 3/mcL Normal 0.9-4.3 [facility] ([place]) Comment on above: Performed By: #### A PARMINDER, BMP, ADIFF, GFR, CBC #### [address] [address] Lymphocytes/100 WBC (Bld) 20.5 % Normal 20.0-40.0 [facility] ([place]) Comment on above: Performed By: #### A PARMINDER, BMP, ADIFF, GFR, CBC #### [address] [address] Monocyte, Absolute 0.4 10 3/mcL Normal 0.1-1.4 [facility] ([place]) Comment on above: Performed By: #### A PARMINDER, BMP, ADIFF, GFR, CBC #### [address] [address] Monocytes/100 WBC (Bld) 5.6 % Normal 2.0-13.0 [facility] ([place]) Comment on above: Performed By: #### A PARMINDER, BMP, ADIFF, GFR, CBC #### [address] [address] Neutrophils/100 WBC (Bld) 71.0 % Normal 50.0-75.0 [facility] ([place]) Comment on above: Performed By: #### A PARMINDER, BMP, ADIFF, GFR, CBC #### [address] [address] .GFRon 04-20-2023 GFR Non- >60 Normal [facility] ([place]) Comment on above: Result Comment: GFR Population [...] FR, ANEU, BMP, W, CBC, ADIFF #### [place] [address] GFR >60 Normal [facility] ([place]) Comment on above: Result Comment: GFR Population [...] FR, ANEU, BMP, MDW, CBC, ADIFF #### [place] [id number] [place] [address] .NEUABSon 04-20-2023 Neutrophil, Absolute 4.9 10 3/mcL Normal 2.3-8.1 [facility] ([place]) Comment on above: Performed By: #### G FR, ANEU, BMP, MDW, CBC, ADIFF #### [place]ace [address] [address] BMPon 04-20-2023 BUN/Creatinine Ratio 14.3 ratio Normal 10.0-22.0 [facility] ([place]) Comment on above: Performed By: #### G FR, ANEU, BMP, MDW, CBC, ADIFF #### [address] [address] Calcium [Mass/Vol] 8.8 mg/dL Normal 8.7-10.4 [facility] ([place]) Comment on above: Performed By: #### G FR, ANEU, BMP, MDW, CBC, ADIFF #### [place] [id number] Chloride [Moles/Vol] 107 mmol/L Normal 98-110 [facility] ([place]) Comment on above: Performed By: #### G FR, ANEU, BMP, MDW, CBC, ADIFF #### [place] [phone] CO2 [Moles/Vol] 28 mmol/L Normal 22-32 [facility] ([place]) Comment on above: Performed By: #### G FR, ANEU, BMP, MDW, CBC, ADIFF #### [place] [phone] Creatinine [Mass/Vol] 0.63 mg/dL Normal 0.50-1.20 [facility] ([place]) Comment on above: Performed By: #### G FR, ANEU, BMP, MDW, CBC, ADIFF #### [place] [id number] Electrolyte Balance 5.0 mEq/L Normal 4.0-15.0 [facility] ([place]) Comment on above: Performed By: #### G FR, ANEU, BMP, MDW, CBC, ADIFF #### [place] [id number] Glucose [Mass/Vol] 118 mg/dL High 82-115 [facility] ([place]) Comment on above: Performed By: #### G FR, ANEU, BMP, MDW, CBC, ADIFF #### [address] [address] Potassium [Moles/Vol] 4.3 mmol/L Normal 3.5-5.0 [facility] ([place]) Comment on above: Performed By: #### G IVANA TOBIN, RAFAEL, W, CBC, ADIFF #### [place] [address] Sodium [Moles/Vol] 140 mmol/L Normal 136-145 [facility] ([place]) Comment on above: Performed By: #### G , IVANA, RAFAEL, W, CBC, ADIFF #### [place] [address] Urea nitrogen [Mass/Vol] 9.0 mg/dL Normal 8.0-22.0 [facility] ([place]) Comment on above: Performed By: #### G IVANA TOBIN, RAFAEL, W, CBC, ADIFF #### [place] [address] CBCon 04-20-2023 Erythrocyte distribution width (RBC) [Ratio] 13.6 % Normal 11.5-15.5 [facility] ([place]) Comment on above: Performed By: #### A PARMINDER, BMP, ADIFF, GFR, CBC #### [place] [address] Hematocrit (Bld) [Volume fraction] 38.3 % Normal 34.0-46.0 [facility] ([place]) Comment on above: Performed By: #### A PARMINDER, BMP, ADIFF, GFR, CBC #### [place] [address] Hgb 12.8 G/dL Normal 12.0-16.0 [facility] ([place]) Comment on above: Performed By: #### A PARMINDER, BMP, ADIFF, GFR, CBC #### [place] [address] MCH (RBC) [Entitic mass] 31.4 pg Normal 27.0-33.0 [facility] ([place]) Comment on above: Performed By: #### A PARMINDRE, BMP, ADIFF, GFR, CBC #### [place] [address] MCHC 33.5 G/dL Normal 32.0-36.0 [facility] ([place]) Comment on above: Performed By: #### A PARMINDER, BMP, ADIFF, GFR, CBC #### [address] [address] MCV (RBC) [Entitic vol] 93.7 fL Normal 80.0-99.0 A [facility] ([place]) Comment on above: Performed By: #### A PARMINDER, BMP, ADIFF, GFR, CBC #### [address] [address] Platelet 196 10 3/mcL Normal 150-450 [facility] ([place]) Comment on above: Performed By: #### A PARMINDER, BMP, ADIFF, GFR, CBC #### [address] [address] Platelet mean volume (Bld) [Entitic vol] 10.4 fL Normal 6.6-10.5 [facility] ([place]) Comment on above: Performed By: #### A PARMINDER, BMP, ADIFF, GFR, CBC #### [address] [address] RBC 4.09 10 6/mcL Low 4.10-5.30 [facility] ([place]) Comment on above: Performed By: #### A PARMINDER, BMP, ADIFF, GFR, CBC #### [address] [address] WBC 6.9 10 3/mcL Normal 4.5-10.8 [facility] ([place]) Comment on above: Performed By: #### A PARMINDER, BMP, ADIFF, GFR, CBC #### [address] [address] LABORATORYOrdered By: Kaveh Drake on 04-20-2023 Blood Glucose Testing Reason Routine (04/20/23 9:44 PM) [facility] LABORATORYOrdered By: Byron Ramachandran on 04-20-2023 Blood Glucose Testing Reason Routine (04/20/23 4:15 PM) [facility] LABORATORYOrdered By: [employer] on 04-20-2023 Basophils (Bld) [#/Vol] 0.0 [...] Workflow SS .GFRon 04-19-2023 GFR >60 Normal [facility] ([place]) Comment on above: Result Comment: GFR Population [...] Performed By: #### G FR, CMP #### [place] [address] GFR Non- >60 Normal [facility] ([place]) Comment on above: Result Comment: GFR Population [...] Performed By: #### G FR, CMP #### [address] [address] A1Con 04-19-2023 HbA1c (Bld) [Mass fraction] 7.2 % High 4.0-6.0 [facility] ([place]) Comment on above: Performed By: #### G , ANEU, BMP, MDW, CBC, ADIFF #### [address] [address] CMPon 04-19-2023 Albumin Level 3.3 G/dL Normal 3.2-4.8 [facility] ([place]) Comment on above: Performed By: #### G , CMP #### [place] [id number] Albumin/Globulin [Mass ratio] 1.1 {ratio} Normal 0.9-1.6 [facility] ([place]) Comment on above: Performed By: #### Edith TOBIN, CMP #### [address] [address] ALP [Catalytic activity/Vol] 98 U/L Normal 38-126 [facility] ([place]) Comment on above: Performed By: #### G FR, CMP #### [address] [address] ALT [Catalytic activity/Vol] 17 U/L Normal 10-49 [facility] ([place]) Comment on above: Performed By: #### Edith FR, CMP #### [address] [address] AST [Catalytic activity/Vol] 18 U/L Normal 8-34 [facility] ([place]) Comment on above: Performed By: #### G , CMP #### [address] [address] Bili Total 1.00 mg/dL Normal 0.20-1.20 [facility] ([place]) Comment on above: Result Comment: Use of this assay is not recommended for patients undergoing treatment with eltrombopag due to the potential for falsely elevated results. Performed By: #### Edith TOBIN, CMP #### [place] [id number] BUN/Creatinine Ratio 19.4 ratio Normal 10.0-22.0 [facility] ([place]) Comment on above: Performed By: #### Edith TOBIN, CMP #### [address] [address] Calcium [Mass/Vol] 8.2 mg/dL Low 8.7-10.4 [facility] ([place]) Comment on above: Performed By: #### Edith TOBIN, CMP #### [address] [address] Chloride [Moles/Vol] 108 mmol/L Normal 98-110 [facility] ([place]) Comment on above: Performed By: #### Edith TOBIN, CMP #### [place] [phone] CO2 [Moles/Vol] 27 mmol/L Normal 22-32 [facility] ([place]) Comment on above: Performed By: #### Edith TOBIN, CMP #### [place] [phone] Creatinine [Mass/Vol] 0.62 mg/dL Normal 0.50-1.20 [facility] ([place]) Comment on above: Performed By: #### G , CMP #### [address] [address] Electrolyte Balance 5.0 mEq/L Normal 4.0-15.0 [facility] ([place]) Comment on above: Performed By: #### G , CMP #### [place] [id number] Globulin 3.0 G/dL Normal 1.5-3.8 [facility] ([place]) Comment on above: Performed By: #### G , CMP #### [address] [address] Glucose [Mass/Vol] 138 mg/dL High 82-115 [facility] ([place] Comment on above: Performed By: #### G , CMP #### [address] [address] Potassium [Moles/Vol] 4.0 mmol/L Normal 3.5-5.0 [facility] ([place]) Comment on above: Performed By: #### G , CMP #### [address] [address] Sodium [Moles/Vol] 140 mmol/L Normal 136-145 [facility] ([place] Comment on above: Performed By: #### Edith TOBIN, CMP #### [address] [address] Total Protein 6.3 G/dL Normal 5.7-8.2 [facility] ([place]) Comment on above: Result Comment: No te - New Reference Range in effect 20 Performed By: #### G , CMP #### [address] [address] Urea nitrogen [Mass/Vol] 12.0 mg/dL Normal 8.0-22.0 [facility] ([place]) Comment on above: Performed By: #### Edith TOBIN, CMP #### [address] [address] LABORATORYOrdered By: SYSTEM SYSTEM on 04-19-2023 Albumin [...] Routine cultures are held for 5 days. [facility] .Auto Diffon 04-18-2023 Basophil, Absolute 0.1 10 3/mcL Normal 0.0-0.3 [facility] ([place] Comment on above: Performed By: #### G , ANEU, BMP, MDW, CBC, ADIFF #### [address] [address] Basophils/100 WBC (Bld) 1.0 % Normal 0.0-2.5 A [facility] ([place]) Comment on above: Performed By: #### G FR, ANEU, BMP, MDW, CBC, ADIFF #### [address] [address] Eosinophil, Absolute 0.1 10 3/mcL Normal 0.0-0.7 [facility] ([place]) Comment on above: Performed By: #### G FR, ANEU, BMP, MDW, CBC, ADIFF #### [address] [address] Eosinophils/100 WBC (Bld) 1.3 % Normal 0.0-6.0 [facility] ([place]) Comment on above: Performed By: #### G FR, ANEU, BMP, MDW, CBC, ADIFF #### [address] [address] Lymphocyte, Absolute 1.8 10 3/mcL Normal 0.9-4.3 [facility] ([place]) Comment on above: Performed By: #### G FR, ANEU, BMP, MDW, CBC, ADIFF #### [address] [address] Lymphocytes/100 WBC (Bld) 23.8 % Normal 20.0-40.0 [facility] ([place]) Comment on above: Performed By: #### G FR, ANEU, BMP, MDW, CBC, ADIFF #### [address] [address] Monocyte, Absolute 0.6 10 3/mcL Normal 0.1-1.4 [facility] ([place]) Comment on above: Performed By: #### G FR, ANEU, BMP, MDW, CBC, ADIFF #### [address] [address] Monocytes/100 WBC (Bld) 7.7 % Normal 2.0-13.0 [facility] ([place]) Comment on above: Performed By: #### G FR, ANEU, BMP, MDW, CBC, ADIFF #### [address] [address] Neutrophils/100 WBC (Bld) 66.2 % Normal 50.0-75.0 [facility] ([place]) Comment on above: Performed By: #### G FR, ANEU, BMP, MDW, CBC, ADIFF #### [address] [address] .GFRon 04-18-2023 GFR >60 Normal [facility] ([place]) Comment on above: Result Comment: GFR Population [...] FR, ANEU, BMP, MDW, CBC, ADIFF #### [address] [address] GFR Non- >60 Normal [facility] ([place]) Comment on above: Result Comment: GFR Population [...] FR, ANEU, BMP, MDW, CBC, ADIFF #### [address] [address] .MDWon 04-18-2023 Monocyte Distribution Width 17.68 Normal 0.00-20.00 [facility] ([place]) Comment on above: Result Comment: For ED adult patients suspected of sepsis, MDW<=20.0 does not rule out sepsis or risk of sepsis Performed By: #### G FR, ANEU, BMP, MDW, CBC, ADIFF #### [address] [address] .NEUABSon 04-18-2023 Neutrophil, Absolute 4.9 10 3/mcL Normal 2.3-8.1 [facility] ([place]) Comment on above: Performed By: #### G FR, ANEU, BMP, MDW, CBC, ADIFF #### [address] [address] BMPon 04-18-2023 BUN/Creatinine Ratio 13.5 ratio Normal 10.0-22.0 [facility] ([place]) Comment on above: Performed By: #### G FR, ANEU, BMP, MDW, CBC, ADIFF #### [place] [id number] Calcium [Mass/Vol] 8.9 mg/dL Normal 8.7-10.4 [facility] ([place]) Comment on above: Performed By: #### G FR, ANEU, RAFAEL, MDW, CBC, ADIFF #### [place] [address] Chloride [Moles/Vol] 106 mmol/L Normal 98-110 [facility] ([place]) Comment on above: Performed By: #### G FR, IVANA, RAFAEL, W, CBC, ADIFF #### [place] [address] CO2 [Moles/Vol] 26 mmol/L Normal 22-32 [facility] ([place]) Comment on above: Performed By: #### G FR, ANEU, BMP, MDW, CBC, ADIFF #### [place] [address] Creatinine [Mass/Vol] 0.74 mg/dL Normal 0.50-1.20 [facility] ([place]) Comment on above: Performed By: #### G FR, ANEU, BMP, MDW, CBC, ADIFF #### [place] [phone] Electrolyte Balance 8.0 mEq/L Normal 4.0-15.0 [facility] ([place]) Comment on above: Performed By: #### G FR, ANEU, BMP, MDW, CBC, ADIFF #### [address] [address] Glucose [Mass/Vol] 152 mg/dL High 82-115 [facility] ([place] Comment on above: Performed By: #### G FR, ANEU, BMP, W, CBC, ADIFF #### [address] [address] Potassium [Moles/Vol] 3.4 mmol/L Low 3.5-5.0 [facility] ([place]) Comment on above: Performed By: #### G FR, ANEU, BMP, MDW, CBC, ADIFF #### [address] [address] Sodium [Moles/Vol] 140 mmol/L Normal 136-145 [facility] ([place] Comment on above: Performed By: #### G FR, IVANA, RAFAEL, MDW, CBC, ADIFF #### [place] [phone] Urea nitrogen [Mass/Vol] 10.0 mg/dL Normal 8.0-22.0 [facility] ([place]) Comment on above: Performed By: #### G , VIANA, RAFAEL, W, CBC, ADIFF #### [address] [address] CBCon 04-18-2023 Erythrocyte distribution width (RBC) [Ratio] 13.4 % Normal 11.5-15.5 [facility] ([place]) Comment on above: Performed By: #### G FR, ANEU, BMP, MDW, CBC, ADIFF #### [place] [phone] Hematocrit (Bld) [Volume fraction] 39.8 % Normal 34.0-46.0 [facility] ([place]) Comment on above: Performed By: #### G FR, ANEU, BMP, MDW, CBC, ADIFF #### [address] [address] Hgb 13.4 G/dL Normal 12.0-16.0 [facility] ([place]) Comment on above: Performed By: #### G FR, ANEU, BMP, MDW, CBC, ADIFF #### [address] [address] MCH (RBC) [Entitic mass] 31.1 pg Normal 27.0-33.0 [facility] ([place]) Comment on above: Performed By: #### G FR, ANEU, BMP, MDW, CBC, ADIFF #### [place] [address] MCHC 33.6 G/dL Normal 32.0-36.0 [facility] ([place]) Comment on above: Performed By: #### G FR, ANEU, BMP, MDW, CBC, ADIFF #### [place] [address] MCV (RBC) [Entitic vol] 92.6 fL Normal 80.0-99.0 A [facility] ([place] Comment on above: Performed By: #### G FR, ANEU, BMP, MDW, CBC, ADIFF #### [place] [address] Platelet 199 10 3/mcL Normal 150-450 [facility] ([place]) Comment on above: Performed By: #### G FR, ANEU, BMP, MDW, CBC, ADIFF #### [place] [address] Platelet mean volume (Bld) [Entitic vol] 10.5 fL Normal 6.6-10.5 [facility] ([place]) Comment on above: Performed By: #### G FR, ANEU, BMP, MDW, CBC, ADIFF #### [place] [address] RBC 4.30 10 6/mcL Normal 4.10-5.30 [facility] ([place]) Comment on above: Performed By: #### G FR, ANEU, BMP, MDW, CBC, ADIFF #### [place] [address] WBC 7.5 10 3/mcL Normal 4.5-10.8 [facility] ([place]) Comment on above: Performed By: #### G FR, ANEU, BMP, MDW, CBC, ADIFF #### [place] [address] LABORATORYOrdered By: SYSTEM SYSTEM on 04-18-2023 Basophils [...] 04-18-2023 Cholesterol [Mass/Vol] 179 mg/dL Normal 50-199 [facility] ([place]) Comment on above: Result Comment: Chol esterol Reference Interval: Less than 200 Desirable 200-239 Borderline high risk 240 and above High risk Performed By: #### G , IVANA, RAFAEL, W, CBC, ADIFF #### [address] [address] Cholesterol in HDL [Mass/Vol] 30 mg/dL Low 40-59 [facility] ([place]) Comment on above: Performed By: #### G , IVANA, RAFAEL, MDW, CBC, ADIFF #### [facility] [address] [place] [address] Cholesterol in LDL [Mass/Vol] 116 mg/dL Normal 0-129 [facility] ([place]) Comment on above: Performed By: #### G , RAFAEL HEATH, VINCENT, CBC, ADIFF #### [facility] [address] [place] [address] Triglyceride [Mass/Vol] 163 mg/dL High 3-149 A [facility] ([place] Comment on above: Performed By: #### G , RAFAEL HEATH, VINCENT, CBC, ADIFF #### [facility] [address] [place] [address] MRI BRAIN W/O CONTRASTon MRI BRAIN W/O CONTRAST ORIGINAL EXAMINATION: MRI OF THE BRAIN WITHOUT CONTRAST 04/18/2023 1:51 pm TECHNIQUE: Multiplanar multisequence MRI of the brain was performed without the administration of intravenous contrast. COMPARISON: Head CT [id number] from outside facility the. HISTORY: ORDERING SYSTEM [...] 4:21:44 PM Ordering Provider: OMARI COOPER Normal [facility] ([place]) UAon 04-18-2023 Color (U) Yellow Normal [facility] ([place]) Comment on above: Performed By: #### Edith TOBIN, RAFAEL HEATH, VINCENT, CBC, ADIFF #### [address] [address] Glucose (U) [Mass/Vol] Negative Normal Negative [facility] ([place]) Comment on above: Performed By: #### G , IVANA, RAFAEL, VINCENT, CBC, ADIFF #### [address] [address] Ketones Ql (U) 15 mg/dL Abnormal Neg-Trace [facility] ([place]) Comment on above: Performed By: #### G , IVANA, RAFAEL, VINCENT, CBC, ADIFF #### [place] [address] UA Appear Clear Normal Clear [facility] ([place]) Comment on above: Performed By: #### Edith TOBIN, IVANA, RAFAEL, VINCENT, CBC, ADIFF #### [address] [address] UA Blood Negative Normal Neg-Trace [facility] ([place]) Comment on above: Performed By: #### Edith TOBIN, IVANA, RAFAEL, VINCENT, CBC, ADIFF #### [address] [address] UA Leuk Est Negative Normal Negative [facility] ([place]) Comment on above: Performed By: #### Edith TOBIN, IVANA, RAFAEL, VINCENT, CBC, ADIFF #### [address] [address] UA Nitrite Negative Normal Negative [facility] ([place]) Comment on above: Performed By: #### G , IVANA, RAFAEL, VINCENT, CBC, ADIFF #### [place] [id number] UA pH 5.0 Normal 5.0 - 8.0 [facility] ([place]) Comment on above: Performed By: #### G , IVANA, RAFAEL, VINCENT, CBC, ADIFF #### [place] [phone] UA Protein 30 mg/dL Normal Negative [facility] ([place]) Comment on above: Performed By: #### G , IVANA, RAFAEL, W, CBC, ADIFF #### [place] [address] UA Spec Grav >=1.030 Abnormal 1.006-1.029 [facility] ([place]) Comment on above: Performed By: #### Edith TOBIN, IVANA, RAFAEL, W, CBC, ADIFF #### [place] [address] UA Specimen Type Clean Catch Normal [facility] ([place]) Comment on above: Performed By: #### Edith TOBIN, IVANA, RAFAEL, W, CBC, ADIFF #### [place] [address] UA Urobilinogen 1.0 E.U./dL Normal 0.2-1.0 [facility] ([place]) Comment on above: Performed By: #### Edith TOBIN, IVANA, RAFAEL, W, CBC, ADIFF #### [place] [address] Urobilinogen (U) [Mass/Vol] Negative Normal Neg-Trace [facility] ([place]) Comment on above: Performed By: #### Edith TOBIN, IVANA, RAFAEL, W, CBC, ADIFF #### [place] [address] .Auto Diffon 04-17-2023 Basophil, Absolute 0.1 10 3/mcL Normal 0.0-0.3 [facility] ([place]) Comment on above: Performed By: #### G , IVANA, RAFAEL, MDW, CBC, ADIFF #### [place] [address] Basophils/100 WBC (Bld) 1.1 % Normal 0.0-2.5 A [facility] ([place]) Comment on above: Performed By: #### G , IVANA, RAFAEL, W, CBC, ADIFF #### [place] [address] Eosinophil, Absolute 0.1 10 3/mcL Normal 0.0-0.7 [facility] ([place]) Comment on above: Performed By: #### G FR, ANEU, BMP, MDW, CBC, ADIFF #### [address] [address] Eosinophils/100 WBC (Bld) 0.9 % Normal 0.0-6.0 [facility] ([place]) Comment on above: Performed By: #### G FR, ANEU, BMP, MDW, CBC, ADIFF #### [address] [address] Lymphocyte, Absolute 1.6 10 3/mcL Normal 0.9-4.3 [facility] ([place] Comment on above: Performed By: #### G FR, ANEU, BMP, MDW, CBC, ADIFF #### [address] [address] Lymphocytes/100 WBC (Bld) 22.9 % Normal 20.0-40.0 [facility] ([place]) Comment on above: Performed By: #### G FR, ANEU, BMP, MDW, CBC, ADIFF #### [address] [address] Monocyte, Absolute 0.5 10 3/mcL Normal 0.1-1.4 [facility] ([place]) Comment on above: Performed By: #### G FR, ANEU, BMP, MDW, CBC, ADIFF #### [address] [address] Monocytes/100 WBC (Bld) 6.5 % Normal 2.0-13.0 [facility] ([place] Comment on above: Performed By: #### G FR, ANEU, BMP, MDW, CBC, ADIFF #### [address] [address] Neutrophils/100 WBC (Bld) 68.6 % Normal 50.0-75.0 [facility] ([place]) Comment on above: Performed By: #### G FR, ANEU, BMP, MDW, CBC, ADIFF #### [address] [address] .GFRon 08-25-2023 GFR >60 Normal [facility] ([place]) Comment on above: Result Comment: GFR Population [...] FR, ANEU, BMP, MDW, CBC, ADIFF #### [address] [address] GFR Non- >60 Normal [facility] ([place]) Comment on above: Result Comment: GFR Population [...] FR, ANEU, BMP, MDW, CBC, ADIFF #### [address] [address] .MDWon 04-17-2023 Monocyte Distribution Width 18.24 Normal 0.00-20.00 [facility] ([place]) Comment on above: Result Comment: For ED adult patients suspected of sepsis, MDW<=20.0 does not rule out sepsis or risk of sepsis Performed By: #### G FR, ANEU, BMP, MDW, CBC, ADIFF #### [address] [address] .NEUABSon 04-17-2023 Neutrophil, Absolute 4.9 10 3/mcL Normal 2.3-8.1 [facility] ([place]) Comment on above: Performed By: #### G FR, ANEU, BMP, MDW, CBC, ADIFF #### [address] [address] BMPon 04-17-2023 BUN/Creatinine Ratio 13.2 ratio Normal 10.0-22.0 [facility] ([place]) Comment on above: Performed By: #### G FR, ANEU, BMP, MDW, CBC, ADIFF #### [place] [address] Calcium [Mass/Vol] 8.7 mg/dL Normal 8.7-10.4 [facility] ([place]) Comment on above: Performed By: #### G FR, ANEU, BMP, MDW, CBC, ADIFF #### [place] [address] Chloride [Moles/Vol] 105 mmol/L Normal 98-110 [facility] ([place]) Comment on above: Performed By: #### G FR, ANEU, BMP, MDW, CBC, ADIFF #### [place] [address] CO2 [Moles/Vol] 23 mmol/L Normal 22-32 [facility] ([place]) Comment on above: Performed By: #### G FR, ANEU, BMP, MDW, CBC, ADIFF #### [place] [address] Creatinine [Mass/Vol] 0.68 mg/dL Normal 0.50-1.20 [facility] ([place]) Comment on above: Performed By: #### G FR, ANEU, BMP, MDW, CBC, ADIFF #### [place] [address] Electrolyte Balance 8.0 mEq/L Normal 4.0-15.0 [facility] ([place]) Comment on above: Performed By: #### G FR, ANEU, BMP, MDW, CBC, ADIFF #### [address] [address] Glucose [Mass/Vol] 120 mg/dL High 82-115 [facility] ([place]) Comment on above: Performed By: #### G , IVANA, RAFAEL, W, CBC, ADIFF #### [address] [address] Potassium [Moles/Vol] 3.5 mmol/L Normal 3.5-5.0 [facility] ([place]) Comment on above: Result Comment: Spec imen slightly hemolyzed. Performed By: #### G , IVANA, RAFAEL, MDW, CBC, ADIFF #### [place] [phone] Sodium [Moles/Vol] 136 mmol/L Normal 136-145 [facility] ([place] Comment on above: Performed By: #### G , IVANA, RAFAEL, W, CBC, ADIFF #### [place] [phone] Urea nitrogen [Mass/Vol] 9.0 mg/dL Normal 8.0-22.0 [facility] ([place]) Comment on above: Performed By: #### G , IVANA, RAFAEL, W, CBC, ADIFF #### [address] [address] CBCon 04-17-2023 Erythrocyte distribution width (RBC) [Ratio] 13.4 % Normal 11.5-15.5 [facility] ([place]) Comment on above: Performed By: #### G , IVANA, RAFAEL, MDW, CBC, ADIFF #### [address] [address] Hematocrit (Bld) [Volume fraction] 40.8 % Normal 34.0-46.0 [facility] ([place]) Comment on above: Performed By: #### G , IVANA, RAFAEL, MDW, CBC, ADIFF #### [address] [address] Hgb 13.5 G/dL Normal 12.0-16.0 [facility] ([place]) Comment on above: Performed By: #### G FR, ANEU, BMP, MDW, CBC, ADIFF #### [place] [phone] MCH (RBC) [Entitic mass] 30.9 pg Normal 27.0-33.0 [facility] ([place]) Comment on above: Performed By: #### G FR, ANEU, BMP, MDW, CBC, ADIFF #### [place] [phone] MCHC 33.2 G/dL Normal 32.0-36.0 [facility] ([place]) Comment on above: Performed By: #### G FR, ANEU, BMP, MDW, CBC, ADIFF #### [place] [address] MCV (RBC) [Entitic vol] 93.3 fL Normal 80.0-99.0 A [facility] ([place] Comment on above: Performed By: #### G FR, ANEU, BMP, MDW, CBC, ADIFF #### [place] [address] Platelet 219 10 3/mcL Normal 150-450 [facility] ([place]) Comment on above: Performed By: #### G FR, ANEU, BMP, MDW, CBC, ADIFF #### [place] [address] Platelet mean volume (Bld) [Entitic vol] 10.4 fL Normal 6.6-10.5 [facility] ([place]) Comment on above: Performed By: #### G FR, ANEU, BMP, MDW, CBC, ADIFF #### [place] [address] RBC 4.38 10 6/mcL Normal 4.10-5.30 [facility] ([place]) Comment on above: Performed By: #### G FR, ANEU, BMP, MDW, CBC, ADIFF #### [place] [address] WBC 7.1 10 3/mcL Normal 4.5-10.8 [facility] ([place]) Comment on above: Performed By: #### G FR, ANEU, BMP, MDW, CBC, ADIFF #### [facility] [address] [place] [address] LABORATORYOrdered By: Rosana Bauer on 04-17-2023 Appearance [...] Probable Contamination. Suggest recollection if clinically indicated. [facility] VitD, 1,25 Dihydroxyon 07-10 1,25 Dihydroxy VitD2 11.9 pg/mL Normal [facility] Comment on above: Performed By: #### 1 25VTD #### [facility] [address] [place], [place] [address] 1,25 Dihydroxy VitD3 48.3 pg/mL Normal [facility] Comment on above: Performed By: #### 1 25VTD #### [facility] [address] [place], [place] [address] Vit D,1,25 DiOH High 15.0-60.0 [facility] Reference Lab Comment on above: Result Comment: 60.2 This test was developed and its performance characteristics determined by [facility]'s [facility] [place] ( [facility]). It has not been cleared or approved by the FDA. [facility] is regulated under CLIA as qualified to perform high complexity testing. This test is used for clinical purposes. It should not be regarded as investigational or for research. Performed By: #### 1 25VTD #### [facility] [address] [place], [place] [address] Hemoglobin A1con 07-04-2020 HbA1c (Bld) [Mass fraction] 7.2 % High 4.3-5.6 [facility] Reference Lab Comment on above: Performed By: #### H BA1C #### [facility] [address] [place], [place] [address] HbA1c (Bld) [Mass fraction] 160 mg/dL Normal [facility] Reference Lab Comment on above: Performed By: #### H BA1C #### [facility] [address] [place], [place] [address] Hemoglobin A1con 12-24-2019 HbA1c (Bld) [Mass fraction] 6.7 % High 4.3-5.6 [facility] Reference Lab Comment on above: Performed By: #### H BA1C #### [facility] [address] [place], [place] [address] HbA1c (Bld) [Mass fraction] 146 mg/dL Normal [facility] Reference Lab Comment on above: Performed By: #### H BA1C #### [facility] Routine Lab [address] [place], [place] [id number] Hemoglobin A1con 09-28-2019 HbA1c (Bld) [Mass fraction] 7.1 % High 4.3-5.6 [facility] Reference Lab Comment on above: Performed By: #### H BA1C #### [facility] Routine Lab [address] [place], [place] [id number] HbA1c (Bld) [Mass fraction] 157 mg/dL Normal [facility] Reference Lab Comment on above: Performed By: #### H BA1C #### [facility] Routine Lab [address] [place], [place] [id number] Vital Signs Date Time Vital Sign Value Performing Clinician Facility 02-28-2025 09:51-0400 Body height 152.[address] Neo Castillo MD Work Phone: [facility] 02-28-2025 09:51-0400 Body mass index (BMI) [Ratio] 27.7 kg/m2 Dr. Neo Castillo MD Work Phone: [facility] 02-28-2025 09:51-0400 Body temperature 97.5 [degF] Dr. Neo Castillo MD Work Phone: [facility] 02-28-2025 09:51-0400 Body weight 64.[address] Neo Castillo MD Work Phone: [facility] [facility] 02-28-2025 09:51-0400 Diastolic blood pressure 60 mm[Hg] Dr. Neo Castillo MD Work Phone: [facility] 02-28-2025 09:51-0400 Heart rate 113 /min Dr. Neo Castillo MD Work Phone: [facility] 02-28-2025 09:51-0400 Respiratory rate 18 /min Dr. Neo Castillo MD Work Phone: [facility] 02-28-2025 09:51-0400 SaO2% (BldA) [Mass fraction] 98 % Dr. Neo Castillo MD Work Phone: [facility] 02-28-2025 09:51-0400 Systolic blood pressure 96 mm[Hg] Dr. Neo Castillo MD Work Phone: [facility] 02-16-2025 18:11-0400 Body temperature 98.4 [degF] Dr. Neo Castillo MD Work Phone: [facility] 02-16-2025 18:11-0400 Diastolic blood pressure 70 mm[Hg] Dr. Neo Castillo MD Work Phone: [facility] 02-16-2025 18:11-0400 Heart rate 118 /min Dr. Neo Castillo MD Work Phone: [facility] 02-16-2025 18:11-0400 Respiratory rate 20 /min Dr. Neo Castillo MD Work Phone: [facility] 02-16-2025 18:11-0400 SaO2% (BldA) [Mass fraction] 93 % Dr. Neo Castillo MD Work Phone: [facility] 02-16-2025 18:11-0400 Systolic blood pressure 139 mm[Hg] Dr. Neo Castillo MD Work Phone: [facility] 02-16-2025 13:00-0400 Diastolic blood pressure 63 mm[Hg] Dr. Neo Castillo MD Work Phone: [facility] 02-16-2025 13:00-0400 Heart rate 98 /min Dr. Neo Castillo MD Work Phone: [facility] 02-16-2025 13:00-0400 Respiratory rate 18 /min Dr. Neo Castillo MD Work Phone: [facility] 02-16-2025 13:00-0400 Systolic blood pressure 93 mm[Hg] Dr. Neo Castillo MD Work Phone: [facility] 02-16-2025 12:27-0400 Inhaled oxygen flow rate 11 L/min Dr. Neo Castillo MD Work Phone: [facility] 02-16-2025 11:08-0400 Body height 152.[address] Neo Castillo MD Work Phone: 7(303)192-823557 [place] [address] 02-16-2025 11:08-0400 Body mass index (BMI) [Ratio] 28 kg/m2 Dr. Neo Castillo MD Work Phone: 1(641)245-519639 [address] 02-16-2025 11:08-0400 Body weight [address] Neo Castillo MD Work Phone: 0(100)789-507039 [address] 02-09-2025 09:50-0400 Body height 152.[address] Neo Castillo MD Work Phone: 9(850)550-659957 [place] [address] 02-09-2025 09:50-0400 Body mass index (BMI) [Ratio] 28.5 kg/m2 Dr. Neo Castillo MD Work Phone: 7(287)587-666457 [place] [address] 02-09-2025 09:50-0400 Body temperature 97.5 [degF] Dr. Neo Castillo MD Work Phone: 6(267)750-376257 [place] [address] 02-09-2025 09:50-0400 Body weight 66.[address] Neo Castillo MD Work Phone: [facility] 02-09-2025 09:50-0400 Diastolic blood pressure 69 mm[Hg] Dr. Neo Castillo MD Work Phone: 1(792)605-091657 [place] [address] 02-09-2025 09:50-0400 Heart rate 92 /min Dr. Neo Castillo MD Work Phone: 7(727)513-715757 [place] [address] 02-09-2025 09:50-0400 Respiratory rate 18 /min Dr. Neo Castillo MD Work Phone: 2(570)576-708957 [place] [address] 02-09-2025 09:50-0400 SaO2% (BldA) [Mass fraction] 92 % Dr. Neo Castillo MD Work Phone: [facility] 02-09-2025 09:50-0400 Systolic blood pressure 114 mm[Hg] Dr. Neo Castillo MD Work Phone: [facility] 04-22-2023 11:45-0400 Reason For Taking VItal Signs DR OMARI COOPER MD [address] [place] [id number] 04-22-2023 10:19-04[address] Pressure Cuff Size DR OMARI COOPER MD [address] 04-22-2023 10:19-[address] OMARI COOPER MD [address] 04-22-2023 10:19-[address] OMARI COOPER MD [address] [place] [id number] 04-22-2023 10:19-0400 Body temperature 98.42 [degF] DR OMARI COOPER MD [address] 04-22-2023 10:19-0400 Diastolic Blood Pressure Non-Invasive [address] OMARI COOPER MD [address] [place] [id number] 04-22-2023 10:19-0400 Heart rate 77 /min DR OMARI COOPER MD [address] [place] [id number] 04-22-2023 10:19-0400 Respiratory rate 16 /min DR OMARI COOPER MD [address] [place] [id number] 04-22-2023 10:19-0400 Systolic Blood Pressure Non-Invasive [address] OMARI COOPER MD [address] [place] [id number] 04-22-2023 06:20-04[address] Cuff Size DR OMARI COOPER MD [address] [place] [id number] 04-22-2023 06:20-[address] OMARI COOPER MD [address] [place] [id number] 04-22-2023 06:20-[address] OMARI COOPER MD [address] [place] [id number] 04-22-2023 06:20-0400 Body temperature 98.6 [degF] DR OMARI COOPER MD [address] [place] [address] 04-22-2023 06:20-0400 Diastolic Blood Pressure Non-Invasive [address] OMARI COOPER MD [address] [place] [address] 04-22-2023 06:20-0400 Heart rate 71 /min DR OMARI COOPER MD [address] [place] [address] 04-22-2023 06:20-0400 Respiratory rate 20 /min DR OMARI COOPER MD [address] [place] [address] 04-22-2023 06:20-0400 Systolic Blood Pressure Non-Invasive [address] OMARI COOPER MD [address] [place] [address] 04-22-2023 05:24-0400 Reason For Taking VItal Signs DR OMARI COOPER MD [address] [place] [address] 04-22-2023 02:38-04[address] Cuff Size DR OMARI COOPER MD [address] [place] [address] 04-22-2023 02:38-[address] OMARI COOPER MD [address] [place] [address] 04-22-2023 02:38-[address] OMARI COOPER MD [address] [place] [address] 04-22-2023 02:38-0400 Body temperature 98.42 [degF] DR OMARI COOPER MD [address] [place] [address] 04-22-2023 02:38-0400 Diastolic Blood Pressure Non-Invasive [address] OMARI COOPER MD [address] [place] [address] 04-22-2023 02:38-0400 Heart rate 66 /min DR OMARI COOPER MD [address] [place] [address] 04-22-2023 02:38-0400 Respiratory rate 18 /min DR OMARI COOPER MD [address] [place] [address] 04-22-2023 02:38-0400 Systolic Blood Pressure Non-Invasive [address] OMARI COOPER MD [address] [place] [address] 04-21-2023 23:04-0400 Heart rate 66 /min DR OMARI COOPER MD [address] [place] [address] 04-21-2023 15:50-0400 Body height 152.[address] OMARI COOPER MD [address] [place] [address] 04-21-2023 15:50-0400 Body weight [address] OMARI COOPER MD [address] [place] [address] 04-21-2023 15:50-0400 Body weight 44.35 kg/m2 DR OMARI COOPER MD [address] [place] [address] 04-21-2023 03:02-0400 Heart rate 58 /min DR OMARI COOPER MD [address] [place] [address] 04-20-2023 23:22-0400 Heart rate 65 /min DR OMARI COOPER MD [address] [place] [address] 04-20-2023 18:51-0400 Heart rate 72 /min DR OMARI COOPER MD [address] [place] [address] 04-20-2023 16:11-0400 Heart rate 69 /min DR OMARI COOPER MD [address] [place] [address] 04-20-2023 07:45-0400 Mean blood pressure 85 mm[Hg] DR OMARI COOPER MD [address] [place] [address] 04-20-2023 07:00-0400 Mean blood pressure 93 mm[Hg] DR OMARI COOPER MD [address] [place] [address] 04-19-2023 03:00-0400 Heart rate 70 /min DR OMARI COOPER MD [address] [place] [address] 04-17-2023 20:55-0400 Body weight [address] OMARI COOPER MD [address] [place] [address] Encounters Encounter Date Encounter Type Care Provider Facility Start: 03-09-2025 ambulatory Bonita Segundo ty:[facility] Start: 02-28-2025 End: 02-28-2025 Patient encounter procedure Latoya Ibrahim NP-C -[facility] Work Phone: Start: 02-28-2025 End: 02-28-[address] Neo Castillo MD Work Phone: -[facility] Start: 02-16-2025 Non-patient / Non-visit Dr. Andres Hart own DO -[facility] Start: 02-16-2025 End: 02-16-2025 Admission to same day surgery center Dr. Andres Meyer DO -Endoscopy Work Phone: Start: 02-16-2025 End: 02-16-[address] Neo Castillo MD Work Phone: [facility] Work Phone: Start: 02-13-2025 ambulatory Andres Meyer Facility:[facility] Start: 02-13-2025 Non-patient / Non-visit Dr. Andres Hart own DO -[facility] Start: 02-09-2025 End: 02-09-[address] Andres Meyer DO -[facility] Work Phone: Start: 02-09-2025 End: 02-09-[address] 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 Neo Castillo MD Work Phone: Carpal tunnel syndro me (disorder) DR OMARI COOPER MD Plan of Treatment Date Care Activity Detail Author Start: 02-16-2025 [facility] guided sampl 1/2 node station/strux BRONCH EBUS SAMPLNG 1/2 NODE [facility] Start: 02-16-2025 Patient discharge [facility] Measurement of respi ratory function [facility] Partial thromboplast in time, activated [facility] Patient referral [facility] Work Phone: Platelets [#/volume] in Blood [facility] Positron emission tomography with computed tomography [facility] Prothrombin time [facility] Payers Date Payer Category Payer Unknown [id number] 2025 Self-pay 2023 Medicaid [id number] 2023 Medicare [id number] 2023 Private Health Insurance [id number] 1955 Unknown [id number] 2.16.8 [id number] 1955 Unknown [id number] 2.16. [id number] 1955 Unknown [id number] 2.16.8 40.1.295202.3.579.2.651 1955 Unknown [id number] 2.16.8 40.1.117294.3.579.2.651 1955 Unknown [id number] 2.16.8 40.1.272118.3.579.2.651 1955 Unknown [id number] 2.16.8 40.1.048204.3.579.2.651 1955 Unknown [id number] 2.16.8 40.1.518873.3.579.2.651 1955 Unknown [id number] 2.16.8 40.1.215893.3.579.2.651 1954 Unknown [id number] 2.16.8 40.1.103964.3.579.2.651 1955 Unknown [id number] 2.16.8 40.1.919709.3.579.2.651 Unknown [id number] Unknown [id number] 2.16.8 40.1.705228.3.579.2.462 Unknown [id number] 2.16.8 40.1.015150.3.579.2.462 Unknown [id number] 2.16.8 40.1.885895.3.579.2.462 Unknown [id number] 2.16.8 40.1.407229.3.579.2.462 Unknown [id number] 2.16.8 40.1.877773.3.579.2.462 Unknown [id number] 2.16.8 40.1.153374.3.579.2.462 Unknown [id number] 2.16.8 40.1.654504.3.579.2.462 Social History Date Type Detail Facility Start: 04-17-2023 End: 02-14-2025 Tobacco smoking status Ex-smoker (finding) [facility] Sex Assigned At Sex [facility] Start: 1955 Sex Assigned At Female [facility] NEGATED: Highlighted row Not [facility] Goals Date Patient Goal Desired Activity /State Functional Status Date Assessment Result Facility 04-22-2023 Functional Status Current Home Treatments Oxygen therapy [facility] 04-22-2023 Functional Status Adult Protective Servic es [facility] 04-22-2023 Functional Status Room check performed [facility] 04-22-2023 Functional Status [facility] 04-22-2023 Functional Status Done [facility] 04-22-2023 Functional Status Min A 13 [facility] 04-22-2023 Functional Status [facility] 04-22-2023 Functional Status Hospital bed [facility] 04-21-2023 Functional Status [facility] 04-21-2023 Functional Status One assist [facility] 04-21-2023 Functional Status [facility] 04-21-2023 Functional Status One assist [facility] 04-21-2023 Functional Status [facility] 04-21-2023 Functional Status Min A 26 [facility] 04-21-2023 Functional Status [facility] 04-20-2023 Functional Status Multilevel home [facility] 04-20-2023 Functional Status [facility] 04-20-2023 Functional [facility] Functional Status [facility] 04-19-2023 Functional Status [facility] 04-19-2023 Functional Status No Living Envi ronment Information Available [facility] 04-18-2023 Functional Status [facility] Mental Status Date Assessment Result Facility 02-16-2025 Cognitive function Voice/Name [facility] Work Phone: 04-22-2023 Mental Status Oriented x [facility] 04-22-2023 [facility] 04-22-2023 [facility] Status [facility] Clinical Notes 04-17-2023 to 02-16-2025 Note Date & Type Note Facility 02-16-2025 Consult note Note Date/Time February 16, 2025 11:41am [facility] Medical Records Department [address] [place] [address] Pre-Anesthesia Evaluation 02/16/25 1122 MR#: [id number] Acct: [id number] Name: GWEN WOLF Rep #:[id number] : 1955 69 From: Nicola Hameed MD PCP: Dr. 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 Increasingin frequency more recently. STOP Sleep Apnea STOP Sleep Apnea - commercial housekeeper: STOP Sleep Apnea - commercial housekeeper Hx Hypertension Yes: CONTROLLED WITH MED 02/14/25 [...] Tobacco Use History Tobacco Use History - commercial housekeeper: Tobacco Use History - commercial housekeeper Tobacco Use Smoking Status Former smoker 02/14/25 11:59 Hx Tobacco Use No 02/14/25 11:59 Years Smoking Packs Smoked per Day Smoking Cessation Date was Yes - quit smoking within 15 02/14/25 11:59 within the last 15 years years Hx Smoking Cessation Date Hx Smoking Cessation No 02/14/25 11:59 Counseling Hematologic Medial History Hematologic Hx - commercial housekeeper: 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 Hx of Blood Transfusion No 02/14/25 11:59 [...] confused, unrespo /Reproduction History /Reproductive History - commercial housekeeper: /Reproductive Hx- commercial housekeeper Hx Now No 02/14/25 11:59 Gestational Age [...] MD Cosigner Signature: Date CC: ~ Signed [facility] Work Phone: 1(318) 200-986906-26-2025 History and physical note Author Andres Meyer [facility] Note Date/Time February 16, 2025 10:5 5am [facility] Medical Records Department [address] [place] [address] History & Physical Exam 02/13/25 1335 MR#: [id number] Acct: [id number] Name: GWEN WOLF Rep #:[id number] : 1955 69 From: Andres Meyer DO PCP: Dr. Bonita Ireland MD Status:R [facility] Location: [place] [address] HPI - General HPI Narrative The patient [...] up. That imaging study was completed through [facility], datedJanuary 31, 2025, and demonstrated a large peritracheal mass measuring 3 x 3.3 cm along with a large subcarinal mass measuring 7 cm and multiple additional subcentimeter nodules scattered bilaterally. The patient has a 11-ilma-oqho smoking history, having quit completely in 2021. She did not grow up in a smoking household. The patient has never been evaluated by a stone driller in the past. She has never completed pulmonary function studies. The patient does not utilize any inhalers at her baseline. However, she does report that she utilizes 2 L/min of supplemental oxygen on a nightly basis. In addition, the patient is currently prescribed Plavix due to a history of CVA. [facility] Home Medications ?Medication ?Instructions ?Recorded [...] quit smokin stopped smoke 1.5 packs days. [employer] 10 systems were reviewed with pertinent positives [...] on CT imaging of the chest through [facility] dated January 31, 2025. The dominant lesions [...] after the biopsies have been completed. 02/13/25 6607 <Electronically signed by Andres Meyer DO> Cosigner [...] DO; Dr. Bonita Ireland MD ~* Signed [facility] Work Phone: 1(958) 341-329206-26-2025 Procedure note [facility] Medical Records Department [address] [place] [address] Bronchoscopy Report MR#: [id number] Acct: [id number] Name: GWEN WOLF Rep #:[id number] : 1955 69 From: Andres Meyer DO PCP: Dr. Bonita Ireland MD Status:R [facility] Patient Name: Gwen Wolf Procedure Date: [...] biopsy results. Procedure Code(s): --- Professional --- 57296, Bronchoscopy, rigid or flexible, including fluoroscopic guidance, [...] circulatory and respiratory systems CPT copyright 2021 [employer]. All rights reserved. The codes documented in this report are preliminary and upon ice rink attendant review may be revised to meet current compliance requirements. DO Andres Bailey MD 02/16/2025 12:36:15 PM This report has been signed electronically. Number of Addenda: 0 Note Initiated On: 02/16/2025 11:28 AM 02/16/25 1236 Date _ Andres Meyer DO Cosigner Signature: Date (if indicated) CC: Dr. Andres Meyer DO; Dr. Bonita Ireland MD ~ Date Dictated: 02/16/25 1128 Date Transcribed: Editor Farm Journal: DB Signed [facility]06-26-2025 Consult note [facility] Medical Records Department [address] [place] [address] Pre-Anesthesia Evaluation 02/16/251121 MR#: [id number] Acct: [id number] Name: GEWN WOLF Rep #:[id number] : 1955 69 From: Nicola Hameed MD PCP: Dr. 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 Increasingin frequency more recently. STOP Sleep Apnea STOP Sleep Apnea - commercial housekeeper: STOP Sleep Apnea - commercial housekeeper Hx Hypertension Yes: CONTROLLED WITH MED 02/14/25 [...] Tobacco Use History Tobacco Use History - commercial housekeeper: Tobacco Use History - commercial housekeeper Tobacco Use Smoking Status Former smoker 02/14/25 11:59 Hx Tobacco Use No 02/14/25 11:59 Years Smoking Packs Smoked per Day Smoking Cessation Date was Yes - quit smoking within 15 02/14/25 11:59 within the last 15 years years Hx Smoking Cessation Date Hx Smoking Cessation No 02/14/25 11:59 Counseling Hematologic Medial History Hematologic Hx - 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: 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 Bonita Ireland MD Status:[facility] Location: [place] [address] HPI - General HPI Narrative The patient [...] follow-up. That imaging study was completed through [facility], datedJanuary 31, 2025, and demonstrated a large peritracheal mass measuring 3 x 3.3 cm along with a large subcarinal mass measuring 7 cm and multiple additional subcentimeter nodules scattered bilaterally. The patient has a 95-fbfk-uejk smoking history, having quit completely in 2021. She did not grow upin a smoking household. The patient has never been evaluated by a stone driller in the past. She has never completed pulmonary function studies. The patient does not utilize any inhalers at her baseline. However, she does report that she utilizes 2 L/min of supplemental oxygen on a nightly basis. In addition, the patient is currently prescribed Plavix due to a history of CVA. [facility] Home Medications ?Medication ?Instructions ?Recorded [...] on CT imaging of the chest through [facility] dated January 31, 2025. The dominant lesions [...] DO; Dr. Bonita Ireland MD ~* Signed [facility]06-23-2025 [facility] Medical Records Department [address] [place] [address] History Physical Exam 02/13/25 1335 MR#: [id number] Acct: [id number] Name: GWEN WOLF Rep #: [id number] : 1955 69 From: Andres Meyer DO PCP: Dr. Bonita Ireland MD Status:REG [facility] Location: [place] [address] HPI - General HPI Narrative The patient [...] follow-up. That imaging study was completed through [facility], dated January 31, 2025, and demonstrated a large peritracheal mass measuring 3 x 3.3 cm along with a large subcarinal mass measuring 7 cm and multiple additional subcentimeter nodules scattered bilaterally. The patient has a 34-wwol-iqga smoking history, having quit completely in 2021. She did not grow up in a smoking household. The patient has never been evaluated by a stone driller in the past. She has never completed pulmonary function studies. The patient does not utilize any inhalers at her baseline. However, she does report that she utilizes 2 L/min of supplemental oxygen on a nightly basis. In addition, the patient is currently prescribed Plavix due to a history of CVA. [facility] Home Medications ???Medication ???Instructions ???Recorded [...] on CT imaging of the chest through [facility] dated January 31, 2025. The dominant lesions [...] Meyer DO; Dr. Bonita Ireland MD * [facility] Evaluation note* Diagnosis Onset Date Resolution Status Admit Date Lung mass acute February 09 9:39am [facility] Work Phone: 1(810) 929-834806-19-2025 Evaluation note* Diagnosis Onset Date Resolution Status Admit Date Lung mass acute February 09 9:39am Lung mass acute February 16 10:42am [facility] Work Phone: 1(740) 575-638406-19-2025 Evaluation note* Diagnosis Onset Date Resolution Status Admit Date Lung mass acute February 09 9:39am Lung mass acute February 16 10:42am Neuroendocrine neoplasm of lung acut e February 28, 2025 2:48pm COPD (chronic obstructive pulmonary disease) chronic February 28 2:48pm [facility] Work Phone: 1(588) 795-805808-30-2023 Hospital Discharge instructions Patient Education 04/22/2023 12:47:22 [...] 11/27/2017 Document Revised: 07/23/2018 Document Reviewed: 11/27/2017 [employer] Patient Education 2020 [employer]. 04/22/2023 12:47:19 Stroke Prevention, Rkzm-un-Nfne Stroke Prevention Some medical conditions and lifestyle [...] only healthy fats for cooking. These include: ?Salem oil. ?Canola oil. ?[place] oil. ?Counting how many carbohydrates you eat [...] ?Snoring a lot. ?Feeling very tired. Take bqxb-hdd-uykngwq and prescription medicines only as told by your doctor. These may include aspirin or blood thinners (antiplatelets or anticoagulants). Make sure that any other medical conditions you have are managed. Where to find more information [place] Stroke Association: www.strokeassociation.org National Stroke Association: www.stroke.org [...] 02/08/2013 Document Revised: 10/06/2019 Document Reviewed: 11/11/2017 Viv[employer] Patient Education 2020 [employer] Inc. 04/22/2023 12:47:18 Stroke Prevention Stroke Prevention [...] a lot or have excessive sleepiness. Take rouy-jln-brziamh and prescription medicines only as told by [...] find more information For more information, visit: [place] Stroke Association: www.strokeassociation.org National Stroke Association: www.stroke.org [...] 09/17/2005 Document Revised: 07/23/2018 Document Reviewed: 09/15/2017 [employer] Patient Education 2020 [employer]. Follow Up Care 04/17/2023 20:31:47 With:[facility], Skilled [phone] Address:Unknown When:1-2 days With:JOAN HUERTA APRN-GRINDER OPERATOR SURFACE TOOL Address: [address] [place], [place] [address]- [phone] When:5 to 7 days With:[facility] Address: [address] [place] [address]- When:Within 5 Week(s) Comments:Stroke follow-up With:ROMMEL FOSTER MD Address: [address] [facility] [place] [address]- When:Within 3 Week(s) Comments:Left atrial mass [facility] 08-30-2023 Note Discharge Instructions Thank you for allowing [facility] to assist you with your healthcare needs. The following is importantdischarge information regarding your hospital visit. Your Care Team JOAN HUERTA E LEARNING SPECIALIST-GRINDER OPERATOR SURFACE TOOL Your Diagnosis Stroke like symptoms What to do next Instructions From Your Doctor -> Continue apixaban, Lipitor 80 for stroke -> Follow-up with [facility] as [facility] -> Given mobile atheroma, continue apixaban 5 mg twice daily, continue to follow-up with cardiology as outpatient -> [employer] goal BP < 130/80 mmHg, goal LDL < 70, goal Hba1c <7% -> She will need 30-day monitor on DC. Follow Up Appointments Follow Up with [facility], Skilled [phone] When Within 1-2 days Follow Up with JOAN HUERTA APRN-GRINDER OPERATOR SURFACE TOOL When Within 5 to 7 days Where: [address] [place] [address]- [phone] [facility] When In 5 weeks Why: Stroke follow-up Where: [address] [place] [address]- Follow Up with ROMMEL FOSTER MD When In 3 weeks Why: Left atrial mass Where: [address] [facility] [place] [address]- The Following Activity and Diet Have Been [...] days after discharge, please call [facility] at [phone]. Transfer of Care OT - Ordered -- [...] Duration: 30 Days Pickup at [facility] 1724 Unchanged amLODIPine (amLODIPine 5 mg oral [...] times a day Pharmacy Information [facility]24: [address] [place], [place] [phone] What How Much When Comments Stop Taking [...] 11/27/2017 Document Revised: 07/23/2018 Document Reviewed: 11/27/2017 [employer] Patient Education 2020 [employer] Inc. Stroke Prevention Some medical conditions and [...] healthy fats for cooking. These include: ? [place] oil. ? Canola oil. ? [place] oil. ? Counting how many carbohydrates you [...] a lot. ? Feeling very tired. Take swxk-ojv-rtomkya and prescription medicines only as told by your doctor. These may include aspirin or blood thinners (antiplatelets or anticoagulants). Make sure that any other medical conditions you have are managed. Where to find more information Vincent[place] Stroke Association: www.strokeassociation.org National Stroke Association: www.stroke.org [...] 02/08/2013 Document Revised: 10/06/2019 Document Reviewed: 11/11/2017 Vivoxid Patient Education 2020 [employer] Inc. Stroke Prevention Some medical conditions and [...] a lot or have excessive sleepiness. Take pjwj-jxz-bvezucn and prescription medicines only as told by [...] find more information For more information, visit: [place] Stroke Association: www.strokeassociation.org National Stroke Association: www.stroke.org [...] Document Reviewed: 09/15/2017 Elsevier Patient Education 2020 [employer] Inc. Additional Information VACCINATE! IT SAVES LIVES! Members of the community who have not yet received the COVID-19 vaccine and would like to receive it can visit one of [facility] vaccine clinics. There are many vaccine clinic locations within the [facility]. For locations and available times, please visit https://gettheshot.coronavirus.[place].gov/. It is important to note that some COVID mobile vaccine clinics are held outdoors and may be canceled in rainy or stormy conditions. To learn more about pediatric vaccinations (ages 5-11), we invite you to visit the [facility] webpage. https://www.GME Medical Engineerings.org/pages/3582-Pxbls-Fujibeaxlbw-Lpyfjzywjk-Txzza-Wch stions.htmlTo learn more about the COVID-19 vaccine, we invite you to visit the CDC website for a list of frequently asked questions.https://www.cdc.gov/coronavirus/2019-ncov/vaccines/faq.html uStudio Patient Portal Access Instructions: Stay connected with your healthcare team and access your personal medical information anytime with the uStudio Patient Portal. Please follow the directions below to create your uStudio account: 1.Access the email account you provided upon registration to the hospital/physician office.2.Look for an invitation email from [facility].3.Open the email and access the invitation link: AcceptInvitation to uStudio.4.Fill in the required nguyen to create your account. To access your account, visit Neurala/SherpaaOneChart. Click the blue button labeled Access Patient [...] who you will allowto register on the [facility] EtixChart Patient Portal for access to your information. You can also access the [facility] on the [facility] Anywhere bacilio. Simply click on Patient Portal and then log into your account. If you would like to receive a full copy of your medical records, please contact the [facility] Medical Records Department by calling [phone], Thursday through Thursday between 8 a.m. and [...] Call your local pharmacy or go to [email or web address] to find one close to you.3.Make use of household items: Use cat litter or old coffee grounds to dispose medications if other options arenot available. Mix your drugs with these household products, seal them in an airtight container andthrow it into the garbage. Call [facility]: [phone] to be sure your drugs can be [...] Warning Signs of a Stroke Stroke Prevention, Wuzz-dp-Akne Stroke Prevention Medication Leaflets My discharge plan and instructions have been reviewed and explained to me and I,MARYANN GWEN Edith understand my current condition and have read and understand these discharge instructions. I have received a written copy of the plan/instructions. If I have questions, I am aware that I should contact my doctor. Patient/Bar Machine Operator Signature: Date/Time: Relationship to Patient: Witness Name/Signature: Date/Time: [id number] Note Discharge Instructions Thank you for allowing [facility] to assist you with your healthcare needs. [...] to follow-up with cardiology as outpatient -> prison goal BP < 130/80 mmHg, goal LDL < 70, goal Hba1c <7% -> She will need 30-day monitor on DC. Follow Up Appointments Follow Up with [facility], Skilled [phone] When Within 1-2 days Follow Up with JOAN HUERTA APRN-RD When Within 5 to 7 days Where: [address] [place] [phone] [facility] with [facility] When In 5 weeks Why: Stroke follow-up Where: [address] [place] [address]- Follow Up with ROMMEL FOSTER MD When In 3 weeks Why: Left atrial mass Where: [address] [facility] [place] [address]- The Following Activity and Diet Have Been [...] within 7 days after discharge, please call [facility] at [phone]. Transfer of Care OT - Ordered -- [...] Duration: 30 Days Pickup at [facility] 1724 Unchanged amLODIPine (amLODIPine 5 mg oral [...] times a day Pharmacy Information [facility]24: [address], [place] [phone] What How Much When Comments Stop Taking [...] 11/27/2017 Document Revised: 07/23/2018 Document Reviewed: 11/27/2017 Vivoxid Patient Education 2020 [employer]. Stroke Prevention Some medical conditions and lifestyle [...] healthy fats for cooking. These include: ? [place] oil. ? Canola oil. ? [place] oil. ? Counting how many carbohydrates you [...] a lot. ? Feeling very tired. Take itdn-tis-zvwbgje and prescription medicines only as told by your doctor. These may include aspirin or blood thinners (antiplatelets or anticoagulants). Make sure that any other medical conditions you have are managed. Where to find more information Vincent[place] Stroke Association: www.strokeassociation.org National Stroke Association: www.stroke.org [...] 02/08/2013 Document Revised: 10/06/2019 Document Reviewed: 11/11/2017 Vivoxid Patient Education 2020 Viv[employer] Inc. Stroke Prevention Some medical conditions and [...] a lot or have excessive sleepiness. Take wqrh-tmd-rqgtlhp and prescription medicines only as told by [...] find more information For more information, visit: [place] Stroke Association: www.strokeassociation.org National Stroke Association: www.stroke.org [...] 09/17/2005 Document Revised: 07/23/2018 Document Reviewed: 09/15/2017 ElseTru-Friends Patient Education 2020 Viv[employer] Inc. Additional Information VACCINATE! IT SAVES LIVES! Members of the community who have not yet received the COVID-19 vaccine and would like to receive it can visit one of [facility] vaccine clinics. There are many vaccine clinic locations within the [facility]. For locations and available times, please visit https://gettheshot.coronavirus.[place].gov/. It is important to note that some COVID mobile vaccine clinics are held outdoors and may be canceled in rainy or stormy conditions. To learn more about pediatric vaccinations (ages 5-11), we invite you to visit the [facility] webpage. https://www.akronBeacon Enterprise Solutionss.org/pages/0067-Odmum-Falksjmypvn-Cmxsqigyor-Vyuts-Zxr stions.htmlTo learn more about the COVID-19 vaccine, we invite you to visit the CDC website for a list of frequently asked questions.https://www.cdc.gov/coronavirus/2019-ncov/vaccines/faq.html uStudio Patient Portal Access Instructions: Stay connected with your healthcare team and access your personal medical information anytime with the uStudio Patient Portal. Please follow the directions below to create your uStudio account: 1.Access the email account you provided upon registration to the hospital/physician office.2.Look for an invitation email from [facility].3.Open the email and access the invitation link: AcceptInvitation to [facility].4.Fill in the required nguyen to create your account. To access your account, visit Neurala/App TOKY[employer] Co.t. Click the blue button labeled Access Patient [...] who you will allowto register on the uStudio Patient Portal for access to your information. You can also access the [facility] OneChart Patient Portal on the Brainiac TVwhere bacilio. Simply click on Patient Portal and then log into your account. If you would like to receive a full copy of your medical records, please contact the [facility] Medical Records Department by calling [phone], Thursday through Thursday between 8 a.m. and [...] Call your local pharmacy or go to http://[employer]/5Z0Qd1r to find one close to you.3.Make use of household items: Use cat litter or old coffee grounds to dispose medications if other options arenot available. Mix your drugs with these household products, seal them in an airtight container andthrow it into the garbage. Call [facility]: [phone] to be sure your drugs can be [...] Warning Signs of a Stroke Stroke Prevention, Eivo-dw-Jbji Stroke Prevention Medication Leaflets My discharge plan and instructions have been reviewed and explained to me and I,GWEN WOLF understand my current condition and have read and understand these discharge instructions. I have received a written copy of the plan/instructions. If I have questions, I am aware that I should contact my doctor. 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 The following is importantdischarge information regarding your hospital visit. 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 Follow Up Appointments Follow Up with [facility], Skilled [phone] When Within 1-2 days Follow Up with JOAN HUERTA E LEARNING SPECIALIST-GRINDER OPERATOR SURFACE TOOL When Within 5 to 7 days Where: [address] [place] [phone] Follow [facility] with [facility] When In 5 weeks Why: Stroke follow-up Where: [address] [place] [address]- Follow Up with ROMMEL FOSTER MD When In 3 weeks Why: Left atrial mass Where: [address] [facility] [place] [address]- The Following Activity and Diet Have Been [...] within 7 days after discharge, please call [facility] at [phone]. Transfer of Care OT - Ordered -- [...] a day Duration: [address] [facility] 1834 Unchanged amLODIPine (amLODIPine 5 mg oral tablet) [...] Three (3) times a day Pharmacy Information [facility]: [address], [place] [phone] What How Much When Comments Stop Taking [...] to receive it can visit one of [facility] vaccine clinics. There are many vaccine clinic locations within the [facility]. For locations and available times, please visit https://gettheshot.coronavirus.[place].gov/. It is important to note that some COVID mobile vaccine clinics are held outdoors and may be canceled in rainy or stormy conditions. To learn more about pediatric vaccinations (ages 5-11), we invite you to visit the [facility] webpage. https://www.[facility]childrens.org/pages/6347-Duvfl-Kvkkkynsole-Nqkyvhqtnc-Ditzn-Dit stions.htmlTo learn more about the COVID-19 vaccine, we invite you to visit the CDC website for a list of frequently asked questions.https://www.cdc.gov/coronavirus/2019-ncov/vaccines/faq.html uStudio Patient Portal Access Instructions: Stay connected with your healthcare team and access your personal medical information anytime with the uStudio Patient Portal. Please follow the directions below to create your uStudio account: 1.Access the email account you provided upon registration to the hospital/physician office.2.Look for an invitation email from [facility].3.Open the email and access the invitation link: AcceptInvitation to [facility].4.Fill in the required nguyen to create your account. To access your account, visit [email or web address]. Click the blue button labeled Access Patient [...] who you will allowto register on the [facility] MyPronostic Patient Portal for access to your information. You can also access the [facility] Patient Portal on the [facility] Any[facility] bacilio. Simply click on Patient Portal and then log into your account. If you would like to receive a full copy of your medical records, please contact the [facility] Medical Records Department by calling [phone], Thursday through Thursday between 8 a.m. and [...] Call your local pharmacy or go to http://bit.[employer]uga [employer] Associates/1S4Ob6e to find one close to you.3.Make use of household items: Use cat litter or old coffee grounds to dispose medications if other options arenot available. Mix your drugs with these household products, seal them in an airtight container andthrow it into the garbage. Call [facility]: [phone] to be sure your drugs can be [...] aware that I should contact my doctor. Patient/Bar Machine Operator Signature: Date/Time: Relationship to Patient: Witness Name/Signature: Date/Time: [facility] HospitalYitdsxnn11-28-0823 Discharge summary Date of Service 04/22/23 Discharge [...] to follow-up with cardiology as outpatient -> prison goal BP < 130/80 mmHg, goal LDL < 70, goal Hba1c <7% -> She will need 30-day monitor on DC. Medications New Prescription [id number] Milligram by mouth every six (6) hours [...] 7 days Where: [address] [place] [phone] [facility] When In 5 weeks Why: Stroke follow-up Where: [address] [place] [address]- Follow Up with ROMMEL FOSTER MD When In 3 weeks Why: Left atrial mass Where: [address] [facility] [place] [address]- Follow Up Appointments No qualifying data available. 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 DVT aspirin Patient is full code Disposition: Pending Placement. (precert pending) Digitally Signed by LUCRECIA LOVELL DO on 04/22/2023 09:40 AM [facility] HospitalRmkilgmt62-20-3073 Note Date of Service 04/21/23 Chief Complaint [...] 30-day monitor. Seen by neurology. Continue statin/Eliquis. [employer] goal BP < 130/80 mmHg, goal LDL < 70, goal Hba1c <7% Patient has received 3 days of ceftriaxone for empiric treatment of urinary tract infection. Cultures contaminated. PT/OT recommending inpatient therapy, patient is agreeable. DVT aspirin Patient is full code Disposition: Pending Placement. Digitally Signed by LUCRECIA LOVELL DO on 04/21/2023 12:15 PM [facility] HospitalMxyfguaj69-57-3580 Cardiology Progress note Date of Service 04/20/2023 [...] Smith with Neurology service. Digitally Signed by GUREA RIVERA MD on 04/20/2023 06:27 PM [facility] [id number] Cardiology Progress note Date of Service 04/20/2023 [...] GUERA RIVERA MD on 04/20/2023 06:27 PM [facility] HospitalFclfpzgy66-54-9948 Cardiology Progress note Date of Service 04/20/2023 [...] GUERA RIVERA MD on 04/20/2023 06:27 PM [facility] HospitalKhwyfkuc28-15-5840 Note* Exam Date Time Procedure Performing Provider Status 04/20/23 11:45 AM Transesophageal Echo cardiogram - CV Auth (Verified) [facility] 08-28-2023 Note Date of Service 04/20/23 [...] neurology. Patient to be discharged to the [facility] because of family being there versus [facility]. Subjective Patient seen and examined after [...] no leukocytosis. No fevers. Are likely thrombus. [employer] goal BP < 130/80 mmHg, goal LDL [...] LUCRECIA LOVELL DO on 04/20/2023 06:14 PM [facility] HospitalDlzzddow90-21-0261 Neurology Progress note Date of Service April [...] Exam Mental Status: Orientation: oriented to person, [facility], and month Language: normal fluency, normal simple [...] patient was pulling away/unable to relax Coordination: Xlweqr-ovgm-uzozsf movements intact bilaterally Weight Dosing Weight: 103 [...] to education at this time. ->Frequent neurochecks ->prison goal BP < 130/80 mmHg, goal LDL [...] by HINA MCCLAIN on 04/20/2023 03:28 PM [facility] HospitalYfyrxwac17-25-7262 Cardiology Consult note Date of Service 04/19/2023 [...] ROMMEL FOSTER MD on 04/19/2023 05:53 PM [facility] HospitalRivrrwkd98-68-4984 Note. MICRO - Microbiology PROCEDURE: Blood Culture [...] Locations *1: This test was performed at: [facility], [address] [place] [address], [facility] , [facility] ([place])04-19-2023 Note. MICRO - Microbiology PROCEDURE: Blood Culture [...] Locations *1: This test was performed at: [facility], [address] [place] [address], [id number] , [facility] ([place])04-19-2023 Neurology Consult note Date of Service April [...] 5 Bicep 5 5 Tricep 4- 5 Automatic Clipper 4- 5 Wrist Flex 5 5 Wrist [...] performed normally bilaterally. Unable to fully assess qwwt-ks-fmjq due to current weakness. Gait: Deferred at [...] DO Neurology >35 mins was spent in hlon-js-titu time and coordination of care for this [...] YUN ROWAN DO on 04/19/2023 12:38 PM [facility] HospitalFyztuybg63-35-5618 Note. MICRO - Microbiology PROCEDURE: Urine Culture [...] Locations *1: This test was performed at: [facility], [address] [place] [address], [address] , [facility] ([place])04-18-2023 Note ORIGINAL EXAMINATION: MRI OF THE BRAIN WITHOUT CONTRAST 04/18/2023 1:51 pm TECHNIQUE: Multiplanar multisequence MRI of the brain was performed without the administration of intravenous contrast. COMPARISON: Head CT [id number] from outside facility the. HISTORY: ORDERING SYSTEM [...] Date: 04/18/2023 4:21:44 PM Ordering Provider: [facility]08-26-2023 Note* Exam Date Time Procedure Performing Provider Status 04/18/23 9:09 AM Echocardiogram, Adul t with Bubble Study- Auth (Verified) [facility] 08-26-2023 History and physical note Date [...] my evaluation. Labs and imaging obtained at [facility] on 04/17/[address] head showed [...] with intermittent dysarthria. NIH was 4 on grain processor presentation at her home. She was transferred [...] OMARI COOPER MD on 04/17/2023 09:55 PM [facility] HospitalTbvgzcsf63-83-3384 History and physical note Date of Service [...] my evaluation. Labs and imaging obtained at [facility] on 04/17/[address] head showed [...] with intermittent dysarthria. NIH was 4 on grain processor presentation at her home. She was transferred [...] OMARI COOPER MD on 04/17/2023 09:55 PM [facility] [id number] Evaluation + Plan noteExtracted from: Title:History and Physical Author:ARCADIO COOPER MD Date:04/17/23 Left caudate nucleus CVA. Pa tient with right-sided deficits over at least the past 2 days. Also with intermittent dysarthria. NIH was 4 on grain processor presentation at her home. She was transferred [...] not yet verified. They will need reconciled. [facility] Evaluation note* Diagnosis Onset Date Resolution Status Admit Date Lung mass acute February 09 9:39am [facility] Work Phone: Hospital course Narrative No data available for this section [facility] Hospital Discharge instructionsAmbulatory Orders* Fast Pass: Oncology Referral [facility] Location: None Selected [facility] Work Phone: Reason for referral (narrative)No reason for referral information availableBlTemecula [facility] Work Phone: Summary Purpose Family History No Family History Records Found No data available for this section No Family History Records FoundNo Family History Records FoundNo Family History Records FoundNo Family History Records FoundNo Family History Records Found Advance Directives No Advanced Directives Records Found Advance Directive Response Recorded Date/ Time Do you have a Healthcare Power of Edi Analyst? Yes February 14, 2025 11:59am Chief Complaint [...] section and content) DATE CREATED AUTHOR 07/10/2020 [facility] DATE CREATED AUTHOR AUTHOR'S ORGANIZ ATION 04/23/2023 [facility] ([place]) DATE CREATED AUTHOR AUTHOR'S ORGANIZ ATION 11/05/2024 [facility] DATE CREATED AUTHOR AUTHOR'S ORGANIZ ATION 01/08/2025 [facility] DATE CREATED AUTHOR AUTHOR'S ORGANIZ ATION 02/08/2025 [facility] DATE CREATED AUTHOR AUTHOR'S ORGANIZ ATION 03/04/2025 [facility] Patient Care team informatio n (unrecognized section [...] 2025 End: February 28, 2025 Latoya Ibrahim COMPUTER NETWORKING INSTRUCTOR ADJUNCT, COMPUTER NETWORKING INSTRUCTOR ADJUNCT-C Attending Provider Active Start: February 28, 2025 [...] BE BASED ON THE PRIMARY CLINICAL RECORDS. [employer] provides no warranty or guarantee of the accuracy or completeness of information in this document.
== END | disposition home or self-care (01) ==
LOC: ONC 09:12
PROVIDERS: PCP Student in an Organized Health Care Education/Training Program; Referring Provider Nurse Practitioner Acute Care; Visit Provider Nurse Practitioner Acute Care
DX: R91.8 Other nonspecific abnormal finding of lung field (principal); D3A.8 Other benign neuroendocrine tumors
CPT/HCPCS: 78815; A9552

== ENCOUNTER → 2025-03-09 | Outpatient (CLI) | payer MEDICARE, MEDICAID, SELFPAY ==
--- NOTE | 2025-03-09 10:15 | CPS ---
Pt arrived for PFT this morning. Pt's daughter stated that the pt had vomited twice already this morning. Pt has cancer and this is her normal daily occurrence as a result of rx. Pt and family were informed that PFT would not be able to be done today with pt's H/O vomiting. Pt's daughter also mentioned that pt had a PET SCAN on Thursday to see if the cancer has spread. Ordering STREAMING MEDIA SPECIALIST, Latoya Ibrahim was called and informed of the above. Latoya was in an agreement to cancel PFT and that they could deal with rescheduling it down the road at a later time. Pt and her family were informed that the PFT was canceled and it would be reschedule later on down road if need be.
== END | disposition home or self-care (01) ==
LOC: PSN 09:54
PROVIDERS: PCP Student in an Organized Health Care Education/Training Program; Referring Provider Nurse Practitioner Acute Care; Visit Provider Nurse Practitioner Acute Care
DX: Z00.00 Encounter for general adult medical examination without abnormal findings (principal)

== ENCOUNTER 2025-03-15 13:27 | Outpatient (RCR) | payer MEDICARE, MEDICAID, SELFPAY | END 2025-03-23 23:59 | LOC: NS 13:27 | PROVIDERS: PCP Student in an Organized Health Care Education/Training Program; Visit Provider Internal Medicine Medical Oncology | DX: Z71.3 Dietary counseling and surveillance (principal); D3A.8 Other benign neuroendocrine tumors ==

== ENCOUNTER → 2025-03-20 | Outpatient (CLI) | payer MEDICARE, MEDICAID, SELFPAY ==
--- NOTE | 2025-03-20 10:36 | MRI_ITS ---
EXAM: BRAIN W/WO CONTRAST CLINICAL HISTORY: N V, LUNG MASS COMPARISON: None. TECHNIQUE: Multiplanar, multisequence MR images of the brain were obtained without and with 12 cc Clariscan gadolinium contrast material. 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 No intracranial hemorrhage, mass, mass effect, midline shift or pathologic extra- axial fluid collection. No hydrocephalus. Preservation of the eng- white parenchymal differentiation. No areas of restricted diffusion to suggest acute ischemia or infarction. No gradient signal blooming artifacts are identified. No cerebellar tonsillar ectopia. No sellar/suprasellar signal abnormalities. The ocular globes and intraorbital soft tissues are symmetrically unremarkable. Paranasal sinuses are essentially clear. There are no suspicious enhancing lesions. 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 No acute abnormality or suspicious enhancing lesion is identified in the brain. Reading Location: [facility]
[2025-03-20 10:52] LABS: Hematocrit 35.0 % (37-47); Hemoglobin 11.2 g/dL (12.0-15.0); Immature Granulocytes Count 0.030 X10^3/uL (0.0-0.0); Mean Corp Hgb Conc 32.0 g/dL (32-36); Mean Corpuscular Volume 86.4 fL (81-99); Mean Platelet Vol. 12.7 fl (6.2-12.0); NRBC Flagged by Analyzer 0 % (0-5); Platelet Count 368 K/mm3 (150-450); RBC Distribution Width CV 13.8 % (11.6-14.6); RBC Distribution Width SD 43.5 fl (35.1-43.9); Red Blood Count 4.05 M/mm3 (4.2-5.4); White Blood Count 8.0 K/mm3 (4.4-11.0)
[2025-03-20 11:58] LABS: AST(SGOT) 34 U/L (<=31); Alanine Aminotransfer ALT/SGPT 13 U/L (<=34); Albumin, Serum 3.9 g/dL (3.4-4.8); Alkaline Phosphatase 138 U/L (35-104); Anion Gap 17 (5-15); BUN 17 mg/dL (4-19); BUN/Creat Ratio 16.1 RATIO (10-20); Calcium,Total 9.9 mg/dL (7.6-11.0); Carbon Dioxide 21.9 mmol/L (21.0-32.0); Chloride 98 mmol/L (98-108); Globulin 4.1 g/dL (2.2-4.2); Glucose 149 mg/dL (70-99); Potassium 3.8 mmol/L (3.3-5.1)
[2025-03-20 12:40] LABS: LDH 219 U/L (84-246); Uric Acid 8.9 mg/dL (2.6-6.0)
[2025-03-21 04:07] LABS: Carcinoembryonic Antigen 142.0 ng/mL (0.0-4.7)
[2025-03-23 13:08] LABS: Serotonin, Serum 51 ng/mL (8-217)
== END | disposition home or self-care (01) ==
PROVIDERS: PCP Student in an Organized Health Care Education/Training Program; Referring Provider Internal Medicine Medical Oncology; Visit Provider Internal Medicine Medical Oncology
DX: D3A.8 Other benign neuroendocrine tumors (principal); C79.9 Secondary malignant neoplasm of unspecified site; C34.90 Malignant neoplasm of unspecified part of unspecified bronchus or lung; R11.2 Nausea with vomiting, unspecified
CPT/HCPCS: 36415; 70553; 80053; 82378; 83615; 84260; 84550; 85025; 86316; A9575

== ENCOUNTER 2025-03-28 08:19 | Outpatient (CLI) | payer MEDICARE, MEDICAID, SELFPAY ==
[2025-03-28] VITALS (26 sets, daily range): BP systolic 90–109; BP diastolic 54–79; PULSE 76–89; RESP 13–18; TEMP 37.2; O2SAT 89–97; BMI 25.9
--- NOTE | 2025-03-28 | ASPIGT_PTH ---
PATIENT: WASHINGTON WOLF LOC: CT U#:[id number] AGE/SX: 69/F ROOM: RE03/28/[address]: Dr. Дмитрий Mcdowell MD : 1955 BED: DIS: 03/28/2025 SPEC #: [id number] RECD: 03/28/25 10:45 STATUS: DIANA REBhupinder #: [id number] PAOLO: 03/28/25 00:[address]: Дмитрий Mcdowell DEPT: SURGICAL PATHOLOGY RECD BY: Crow Ingram ENTERED: 03/28/25 13:29 SP TYPE: ASP RAD OTHR DR: Dr. Bonita Ireland MD Tissues: A - Lung, NOS Procedures: FNA Specimen Adequacy Immunohistochemical Stains Special Stain Group II Surgery Specimen Level IV Imprint (control) IHC Stain ADDITIONAL HEADER OPERATION: CT guided lung biopsy PRE-OP DIAGNOSIS: Lung cancer, abnormal PET scan TISSUE SUBMITTED: A- Right lower lobe biopsy - 5 cores MICROSCOPIC DIAGNOSIS A. 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 Note: IHC performed. The tumor cells are: Positive for pankeratin, CK7, Chromogranin, Synaptophysin, TTF-1 (focal). Negative for CK20, CK5/6, p40, Napsin. Ki67q proliferative index is approximately 40% COMMENT: The immunophenotype supports the histologic impression of large cell neuroendocrine carcinoma and is compatible with lung origin; clinical and radiographic correlation is necessary. Selected slides/images were reviewed in intradepartmental consultation by Dr Perry Johansen (thoracic pathology division, [facility]). COMMENT The specimen is evaluated at the time of biopsy by Dr. Chiu. Immediate Evaluation = 4. Malignant. 5. Malignant. MICROSCOPIC DESCRIPTION Slides are reviewed. All matched controls reacted appropriately. These tests were developed and their performance characteristics determined by [facility]. They may not have been cleared or approved by the U.S. Food and Drug Administration. The FDA has determined that such clearance or approval is not necessary.? The above immunohistochemical/dualISH?markers are reviewed by the Pathologist. GROSS DESCRIPTION A. Received in formalin labeled with the patient's name and date of . Designated as R lower lobe lung BX is a 0.8 x 0.7 x 0.1 cm aggregate of mason-pink to red tissue core fragments. Entirely submitted in 2 cassettes. [place] 03/28/2025 CPT:[id number] ADDENDUM ADDENDUM ADDENDUM ADDENDUM ADDENDUM ADDENDUM ADDENDUM ADDENDUM ADDENDUM ADDENDUM ADDENDUM ADDENDUM ADDENDUM ADDENDUM ADDENDUM ADDENDUM ADDENDUM ADDENDUM ADDENDUM ADDENDUM ADDENDUM ADDENDUM ADDENDUM ADDENDUM ADDENDUM ADDENDUM ADDENDUM ADDENDUM ADDENDUM ADDENDUM ADDENDUM ADDENDUM ADDENDUM ADDENDUM ADDENDUM ADDENDUM ADDENDUM ADDENDUM ADDENDUM 04/17/2025 16:29 ADDENDUM 04/17/2025 16:29 ADDENDUM 04/17/2025 16:29 ADDENDUM 04/17/2025 16:29 ADDENDUM 04/17/2025 16:29 This addendum is added to incorporate an outside pathology consultation report. The case was examined at [facility] by Dr. Gao (#[id number]) and the following diagnosis was rendered. A. Lung, right lower lobe, CT-guided biopsy: PD-L1 IHC 22C3 pharmDx result, TPS: Positive, 50% See separate molecular report for NGS and NTRK fusion panel results: Lung cancer mutation panel result: Interpretation: Mutations in KRAS and TP53 detected in this tumor, as well as a KEAP1 variant noted. NTRK Fusion Panel Result: NTRK Fusion Result: Not detected NTRK Fusion Interpretation: No NTRK1, NTRK2, NTRK3, or other reportable gene fusions identified by RNA fusion panel. COMMENT: Given the NTRK negative result, additional analysis was performed for 227 additional genes recurrently associated with gene fusions in solid tumors. Sample and run controls are adequate. Microscopic description: Tissue was assessed by a molecular pathologist to select areas for analysis and to correlate immunostaining with histology. No morphology assessment was requested. PD-L1 protein expression in NSCLC is determined by manual quantification and reported as Tumor Proportion Score (TPS). TPS is the percentage of viable tumor cells showing partial or complete membrane staining at any intensity. PD-l1 expression is interpreted as positive if TPS> 1%. PD-L1 expression level TPS >50% may be of interest to treating physician but does not determine eligibility for KEYTRUDA monotherapy. The sample is adequate if >100 tumor cells are present. Please see complete above mentioned consultation report in EMR
--- OUTSIDE RECORDS SUMMARY | 2025-03-28 08:43 | XMS RPT_ITS | CCD ---
Author Organization [facility] Care Team Providers Care Returns Clerk Name Role Phone JOAN MATHEW Primary Care [...] Provider Mitch SAENZ, Dr. Campos Attending Provider Shu HERNANDEZ, Dr. Mesa Primary Care Provider Mitch SAENZ, Dr. Campos Referring Provider Mitch SAENZ, Dr. Campos Other Provider Shu HERNANDEZ, Dr. Mesa Referring Provider Patrice BRAIDER TENDER-C, Latoya Attending Provider Patrice BRAIDER TENDER-C, Latoya Referring Provider Dr. Дмитрий Mcdowell MD Attending Provider Jeremias HERNANDEZ, Dr. Choe Referring Provider BrownDaik Attending Unavailable Brown, Andres Referring Unavailable Kalisetti, Bonita Primary Care Unavailable Brown, Andres Consulting Unavailable Brown, Andres Referring Unavailable Brown, Andres Attending Unavailable Kalisetti, Bonita Primary Care Unavailable Kalisetti, Bonita Primary Care Unavailable Neo Castillo Referring Unavailable Brown, Andres Attending Unavailable Brown, Andres Referring Unavailable Brown, Andres Attending Unavailable Kalisetti, Bonita Primary Care Unavailable Brown, Andres Attending Unavailable Brown, Andres Referring Unavailable Kalisetti, Bonita Primary Care Unavailable Дмитрий Mcdowell Attending Unavailable Kalisetti, Bonita Primary Care Unavailable Ibrahim BRAIDER TENDER, Latoya Referring Unavailable Ibrahim BRAIDER TENDER, Latoya Attending Unavailable Kalisetti, Bonita Primary Care Unavailable Ibrahim BRAIDER TENDER, Latoya Referring Unavailable Ibrahim BRAIDER TENDER, Latoya Attending Unavailable Kalisetti, Bonita Primary Care Unavailable Дмитрий Mcdowell Attending Unavailable Kalisetti, Bonita Primary Care Unavailable Дмитрий Mcdowell Referring Unavailable Kalisetti, Bonita Primary Care Unavailable Дмитрий Mcdowell Attending Unavailable Ibrahim BRAIDER TENDER, Latoya Attending Unavailable Kalisetti, Bonita Referring Unavailable Kalisetti, Bonita Primary Care Unavailable Kalisetti, Bonita Primary Care Unavailable Ibrahim BRAIDER TENDER, Latoya Referring Unavailable Дмитрий Mcdowell Attending Unavailable Bonita Ireland Primary Care Unavailable Дмитрий Mcdowell Referring Unavailable Дмитрий Mcdowell Attending Unavailable Allergies Allergy Classification Reported Allergen(s) Allergy Type Date of Onset Reaction(s) Facility (10 sources) traMADol; Translations: [tramadol] Drug Allergy 02-09-2025 unknown [facility] (1 source) traMADol Drug Allergy [facility] Repository (1 source) traMADol Drug Allergy 03-14-[address] [facility] Repository Medications Current Medications Medication Drug Class(es) Dates Sig (Normalized) Sig (Original) acetaminophen 325 mg oral capsule (10 sources) Start: 02-09-2025 take 2 capsules by mouth every six hours as needed for pain Acetaminophen 325 mg capsule Active 650 mg PO EVERY 6 HOURS as needed for pain February 09, 2025 12:00am Start: 04-22-2023 acetaminophen Dose : 650 mg = 2 tab(s), Oral, q6hWA, PRN Pain, scale 1-10, 0 Refill(s) Start Date: 04/22/23 Status: Ordered [id number] 200 actuat albuterol 0.09 mg/actuat metered dose inhaler (8 sources) beta2-Adrenergic Agonist Start: 02-09-2025 Albuterol Sulfate 90 mcg/actuation HFA aerosol inhaler Active 2 NMA INHALATION EVERY 6 HOURS as needed for shortness of breath or wheezing February 09, 2025 12:00am Albuterol Sulfate 90 mcg/actuation HFA aerosol inhaler (1 source) Start: 02-09-2025 Albuterol Sulfate 90 mcg/actuation HFA aerosol inhaler Active INHALATION February 09, 2025 12:00am amLODIPine 5 mg oral tablet (9 sources) Dihydropyridine Calcium Channel Javier Start: 02-14-2025 [...] # 60 tab(s), 0 Refill(s), Pharmacy: [id number], 152.4, cm, 04/18/23 19:54:00 EDT, Height, 103, kg, 04/18/23 19:54:00 EDT, Dosing Weight Start Date: 04/22/23 Stop Date: 05/22/23 Status: Ordered aspirin 81 mg delayed release oral tablet (8 sources) Platelet Aggregation Inhibitor, Nonsteroidal Anti-inflammatory Drug Start: 02-14-2025 take 1 tablet by mouth once daily Aspirin (Adult Aspirin Regimen) 81 mg tablet,delayed release (DR/EC) Active 81 mg PO DAILY February 14, 2025 12:00am atorvastatin 80 mg oral tablet (9 sources) HMG-CoA Reductase Inhibitor Start: 02-14-2025 take 1 tablet by mouth at bedtime Atorvastatin (Lipitor) 80 mg tablet Active 80 mg PO AT BEDTIME February 14, 2025 12:00am Start: 04-18-2023 Lipitor 80 mg oral tablet Dose : 80 mg = 1 tab(s), Oral, qDay Start Date: 04/18/23 Status: Ordered clopidogrel 75 mg oral tablet (9 sources) P2Y12 Platelet Inhibitor Start: 02-09-2025 take 1 tablet by mouth once daily Clopidogrel 75 mg tablet Active 75 mg PO daily February 09, 2025 12:00am famotidine 20 mg oral tablet (8 sources) Histamine-2 Receptor Antagonist Start: 02-14-2025 take 1 tablet by mouth once daily Famotidine (Pepcid) 20 mg tablet Active 20 mg PO DAILY February 14, 2025 12:00am FLUoxetine 20 mg oral capsule (10 sources) Serotonin Reuptake Inhibitor Start: 02-09-2025 take 1 capsule by mouth once daily Fluoxetine 20 mg capsule Active 20 mg PO daily February 09, 2025 12:00am Start: 04-18-2023 FLUoxetine 20 mg oral capsule Dose : 20 mg = 1 cap(s), Oral, qDay Start Date: 04/18/23 Status: Ordered gabapentin 100 mg oral capsule (9 sources) Anti-epileptic Agent Start: 02-09-2025 take 2 capsules by mouth at bedtime Gabapentin 100 mg capsule Active 200 mg PO AT BEDTIME February 09, 2025 12:00am Start: 02-09-2025 Gabapentin 100 mg capsule Active mg PO February 09, 2025 12:00am hydroCHLOROthiazide 25 mg oral tablet (10 sources) Thiazide Diuretic Start: 02-09-2025 take 1 tablet by mouth once daily Hydrochlorothiazide 25 mg tablet Active 25 mg PO daily February 09, 2025 12:00am Start: 04-18-2023 hydroCHLOROthi azide 25 mg oral tablet Dose : 25 mg = 1 tab(s), Oral, qDay Start Date: 04/18/23 Status: Ordered levothyroxine sodium 0.2 mg oral tablet (10 sources) l-Thyroxine Start: 02-09-2025 take 1 tablet by mouth once daily Levothyroxine 200 mcg tablet Active 200 ug PO daily February 09, 2025 12:00am Start: 04-18-2023 levothyroxine 200 mcg (0.2 mg) oral tablet Dose : 200 mcg = 1 tab(s), Oral, qDay Start Date: 04/18/23 Status: Ordered metFORMIN hydrochloride 500 mg oral tablet (18 sources) Biguanide Start: 02-14-2025 take 1 tablet by mouth at bedtime Metformin 500 mg tablet Active 500 mg PO AT BEDTIME February 14, 2025 12:00am Start: 02-09-2025 take 2 tablets by mo nyh once daily Metformin 500 mg tablet Active 1000 mg PO DAILY February 09, 2025 12:00am Start: 02-09-2025 take 1 tablet by sherice th three times daily Metformin 500 mg tablet Active 500 mg PO THREE TIMES A DAY February 09, 2025 12:00am Start: 04-18-2023 metFORMIN 500 mg oral tablet (IR) Dose : 500 mg = 1 tab(s), Oral, TID Start Date: 04/18/23 Status: Ordered microencapsulated potassium chloride 20 meq extended release oral tablet (9 sources) Start: 02-09-2025 take 1 tablet by [...] Episodic Chronic obstructive pulmonary disease and bronchiectasis (16 sources) Chronic obstructive lung disease; Translations: [Chronic [...] nodes; Translations: [Localized enlarged lymph nodes] Onset: 03-06-2025 Episodic Malaise and fatigue (3 sources) Weakness; Translations: [Weakness] Onset: 01-28-2025 Episodic Malignant neoplasm without specification of site (9 sources) Widespread metastatic malignant neoplastic disease; Translations: [Disseminated malignant neoplasm, unspecified] Onset: 03-15-2025 03-14-2025 Chronic Comment on above: involving Lymph node s, lungs, bones. Nausea and vomiting (5 sources) Vomiting, unspecified; Translations: [Nausea with vomiting, unspecified] Onset: 01-24-2025 Episodic Other aftercare (1 source) Other group home (current) drug therapy; Translations: [Other [employer] (current) drug therapy] Onset: 01-24-2025 Episodic Other and unspecified benign neoplasm (16 sources) Neuroendocrine neoplasm of lung; Translations: [Other benign neuroendocrine tumors] 02-28-2025 Episodic Comment on above: Not enough tissue fo r further evaluation. She does not want Chemotherapy or Radiation therapy. Tissue is not enough for further evaluation. She does not want Chemotherapy or Radiation therapy. Other and unspecified benign neoplasm (2 sources) Other benign neuroendocrine tumors; Translations: [Other benign neuroendocrine tumors] Onset: 03-15-2025 Episodic Other circulatory disease (1 source) Personal [...] involving the circulatory and respiratory systems] Onset: 03-06-2025 Episodic Other gastrointestinal disorders (1 source) Diarrhea, unspecified; Translations: [Diarrhea, unspecified] Onset: 02-02-2025 Episodic Other lower respiratory disease (6 sources) Other nonspecific abnormal finding of lung field; Translations: [Other nonspecific abnormal finding of lung field] Onset: 01-24-2025 Episodic Other lower respiratory disease (1 source) Chronic cough; Translations: [Chronic cough] Onset: 01-24-2025 Episodic Other lower respiratory disease (20 sources) Lung mass; Translations: [Other nonspecific abnormal finding of lung field] 02-09-2025 Episodic Other nervous system disorders (1 source) Slurred speech; Translations: [Slurred speech] Episodic Other nutritional; endocrine; and metabolic disorders (3 sources) Abnormal weight loss; Translations: [Abnormal weight loss] Onset: 01-24-2025 Episodic Other screening for suspected conditions (not mental disorders or infectious disease) (1 source) Abnormal results of function studies of other organs and systems; Translations: [Abnormal results of function studies of other organs and systems] Onset: 03-15-2025 Episodic Skin and subcutaneous tissue infections (1 source) Cellulitis of right finger; Translations: [Cellulitis of right finger] Onset: 01-05-2025 Episodic Thyroid disorders (4 sources) Hypothyroidism, unspecified; Translations: [Hypothyroidism, unspecified] Onset: 11-01-2024 Chronic Unclassified (6 sources) Neuroendocrine neoplasm of lung Unclassified (16 sources) D3A.8 - Other benign neuroendocrine tumors Urinary tract infections (1 source) Urinary tract infectious disease; Translations: [Urinary tract infection, site not specified] Episodic Results Test Name Value Interpretation Reference Range Facility L3100.4810on 03-23-2025 Chromogranin A 291.4 ng/mL Abnormal 0.0-101.[address] [facility] Comment on above: Order Comment: Test( s) [id number], Serumwas developed and its performance characteristicsdetermined by [facility]. It has not been cleared or approvedby the Food and Drug Administration. Result Comment: [employer] mogranin A performed by [employer] methodology Values obtained with different assay methods or kits cannot be used interchangeably. Performed By: #### L 100.0625, L300.4310, L300.3900 #### [facility] [address] [place], [address] Serotonin, Serumon 5 SEROTONIN,SERUM 51 ng/mL Normal 8-[address] [facility] Comment on above: Order Comment: Test( s) [id number], Serumwas developed and its performance characteristicsdetermined by [facility]. It has not been cleared or approvedby the Food and Drug Administration. Result Comment: Perf ormed at: [address] [id number] Library [employer] Specialist: Logan Templeton MD, Phone: [phone] Performed By: #### L 100.0625, L300.4310, L300.3900 #### [facility] [address] [place], [address] Carcinoembryonic Antigenon 0 03-21-2025 CEA 142.0 ng/mL High 0.0-4.[address] [facility] Comment on above: Result Comment: Nons mokers <3.9 Smokers <5.6 [facility] Electrochemiluminescence Immunoassay (ECLIA) Values obtained with different assay methods or kits cannot be used interchangeably. Results cannot be interpreted as absolute evidence of the presence or absence of malignant disease. Performed at: [address] [id number] [employer] Specialist: Zoran Arzate PhD, Phone: [phone] Performed By: #### L 3100.2300, L100.0100, L500.4050, L504.2610, L501.1400 #### [facility] [address] [place], [place], [id number] Absolute lymphocyte countOrd ered By: Дмитрий Mcdowell on 03-20-2025 Lymphocytes Auto (Unsp spec) [#/Vol] 1.32 10*3/uL 0.83-4.[address] [facility] Absolute neutrophil countOrd ered By: Дмитрий Mcdowell on 03-20-2025 Neutrophils (Bld) [#/Vol] 5.7 10*3/uL 2.0-7.[address] [facility] Anion gap in Serum or Plasma Ordered By: Дмитрий Mcdowell on 03-20-2025 Anion gap [Moles/Vol] 17 mmol/L High 5-15 [facility] Automated lymphocyte count a s percentage of total leukocytesOrdered By: Дмитрий Mcdowell on 03-20-2025 Lymphocytes/100 WBC Auto (Unsp spec) 16.5 % Low 19-[address] [facility] BUN/creatinine ratioOrdered By: [place] Jeremias on 03-20-2025 Urea nitrogen/Creatinine [Mass ratio] 16.1 mg/mg 10-[address] [facility] Basophil percentageOrdered B y: Дмитрий Mcdowell on 03-20-2025 Basophils/100 WBC (Bld) 0.9 % 0-[address] [facility] Bilirubin, totalOrdered By: Дмитрий Mcdowell on 03-20-2025 Bilirubin [Mass/Vol] 0.80 mg/dL 0.00-1.30 [facility] Brain W/WO Contraston 2024 Brain W/WO Contrast [facility] [address] [place], [place] [id number] Brain W/WO Contrast MR#: [id number] Acct: [id number] Name: GWEN WOLF Rep #: [id number] : [id number] F 69 From: Antonio Cleveland MD PCP: Dr. Bonita Ireland MD Status: REG CLI Study: Brain W/WO Contrast Date of Exam: 03/20/25 Exam# [id number] Ordering Dr: Дмитрий Mcdowell MD EXAM: BRAIN W/WO CONTRAST CLINICAL HISTORY: N V, LUNG MASS COMPARISON: None. TECHNIQUE: Multiplanar, multisequence MR images of the brain were obtained without and with 12 cc Clariscan gadolinium contrast material. 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 No intracranial hemorrhage, mass, mass effect, midline shift or pathologic extra- axial fluid collection. No hydrocephalus. Preservation of the eng- white parenchymal differentiation. No areas of restricted diffusion to suggest acute ischemia or infarction. No gradient signal blooming artifacts are identified. No cerebellar tonsillar ectopia. No sellar/suprasellar signal abnormalities. The ocular globes and intraorbital soft tissues are symmetrically unremarkable. Paranasal sinuses are essentially clear. There are no suspicious enhancing lesions. 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 No acute abnormality or suspicious enhancing lesion is identified in the brain. [facility]: Dr. Дмитрий Mcdowell MD; Dr. Bonita Ireland MD Residence Director: Signed Normal [facility] CBC W/Diff, Automatedon - Absolute Lymph 1.32 X10 3/uL Normal 0.83-4.[address] [facility] Comment on above: Performed By: #### L 3100.2300, L100.0100, L500.4050, L504.2610, L501.1400 #### [facility] [address] [place], [address] Absolute Neut 5.7 X10 3/uL Normal 2.0-7.[address] [facility] Comment on above: Performed By: #### L 3100.2300, L100.0100, L500.4050, L504.2610, L501.1400 #### [facility] [address] [place], [address] Basophils/100 WBC (Bld) 0.9 % Normal 0-[address] [facility] Comment on above: Performed By: #### L 3100.2300, L100.0100, L500.4050, L504.2610, L501.1400 #### [facility] [address] [place], [address] Eosinophils/100 WBC (Bld) 2.4 % Normal 0-[address] [facility] Comment on above: Performed By: #### L 3100.2300, L100.0100, L500.4050, L504.2610, L501.1400 #### [facility] [address] [place], [address] Erythrocyte distribution width (RBC) [Ratio] 13.8 % Normal 11.6-14.[address] [facility] Comment on above: Performed By: #### L 3100.2300, L100.0100, L500.4050, L504.2610, L501.1400 #### [facility] [address] [place], [address] Hematocrit (Bld) [Volume fraction] 35.0 % Low 37-[address] [facility] Comment on above: Performed By: #### L 3100.2300, L100.0100, L500.4050, L504.2610, L501.1400 #### [facility] [address] [place], [address] Hemoglobin (Bld) [Mass/Vol] 11.2 g/dL Low 12.0-15.[address] [facility] Comment on above: Performed By: #### L 3100.2300, L100.0100, L500.4050, L504.2610, L501.1400 #### [facility] [address] [place], [address] IG% 0.400 Normal 0.0-0.[address] [facility] Comment on above: Result Comment: IG% - Immature Granulocytes (promyelocytes, myelocytes and metamyelocytes) > 1% indicates that a LEFT SHIFT is Present. Performed By: #### L 3100.2300, L100.0100, L500.4050, L504.2610, L501.1400 #### [facility] [address] [place], [address] Lymphocytes/100 WBC (Bld) 16.5 % Low 19-[address] [facility] Comment on above: Performed By: #### L 3100.2300, L100.0100, L500.4050, L504.2610, L501.1400 #### [facility] [address] [place], [address] MCH (RBC) [Entitic mass] 27.7 pg Normal 27.0-32.[address] [facility] Comment on above: Performed By: #### L 3100.2300, L100.0100, L500.4050, L504.2610, L501.1400 #### [facility] [address] [place], [address] MCHC (RBC) [Mass/Vol] 32.0 g/dL Normal 32-36 [facility] Comment on above: Performed By: #### L 3100.2300, L100.0100, L500.4050, L504.2610, L501.1400 #### [facility] [address] [place], [address] MCV (RBC) [Entitic vol] 86.4 fL Normal 81-[address] [facility] Comment on above: Performed By: #### L 3100.2300, L100.0100, L500.4050, L504.2610, L501.1400 #### [facility] [address] [place], [address] Monocytes/100 WBC (Bld) 8.4 % Normal 0-[address] [facility] Comment on above: Performed By: #### L 3100.2300, L100.0100, L500.4050, L504.2610, L501.1400 #### [facility] [address] [place], [address] Neutrophils/100 WBC (Bld) 71.4 % High 47-[address] [facility] Comment on above: Performed By: #### L 3100.2300, L100.0100, L500.4050, L504.2610, L501.1400 #### [facility] [address] [place], [address] Nucleated RBC (Bld) [#/Vol] 0 10*3/uL Normal 0-[address] [facility] Comment on above: Performed By: #### L 3100.2300, L100.0100, L500.4050, L504.2610, L501.1400 #### [facility] [address] [place], [address] Platelet mean volume (Bld) [Entitic vol] 12.7 fL High 6.2-12.[address] [facility] Comment on above: Performed By: #### L 3100.2300, L100.0100, L500.4050, L504.2610, L501.1400 #### [facility] [address] [place], [address] Platelets (Bld) [#/Vol] 368 10*3/uL Normal 150-[address] [facility] Comment on above: Performed By: #### L 3100.2300, L100.0100, L500.4050, L504.2610, L501.1400 #### [facility] [address] [place], [address] RBC (Bld) [#/Vol] 4.05 10*6/uL Low 4.2-5.4 [facility] Comment on above: Performed By: #### L 3100.2300, L100.0100, L500.4050, L504.2610, L501.1400 #### [facility] [address] [place], [address] RDW SD 43.5 fl Normal 35.1-43.[address] [facility] Comment on above: Performed By: #### L 3100.2300, L100.0100, L500.4050, L504.2610, L501.1400 #### [facility] [address] [place], [address] WBC (Bld) [#/Vol] 8.0 10*3/uL Normal 4.4-11.0 [facility] Comment on above: Performed By: #### L 3100.2300, L100.0100, L500.4050, L504.2610, L501.1400 #### [facility] [address] [place], [address] Carbon dioxide, total [Moles /volume] in Central venous bloodOrdered By: Дмитрий Mcdowell on 03-20-2025 CO2 [Moles/Vol] 21.9 mmol/L 21.0-32.[address] [facility] Chloride assayOrdered By: Kim Mcdowell on 03-20-2025 Chloride [Moles/Vol] 98 mmol/L 98-108 [facility] Comprehensive Metabolic Prof ilon 03-20-2025 Albumin [Mass/Vol] 3.9 g/dL Normal 3.4-4.8 [facility] Comment on above: Performed By: #### L 3100.2300, L100.0100, L500.4050, L504.2610, L501.1400 #### [facility] [address] [place], [address] Albumin/Globulin [Mass ratio] 0.9 {ratio} Normal 0.9-2.[address] [facility] Comment on above: Performed By: #### L 3100.2300, L100.0100, L500.4050, L504.2610, L501.1400 #### [facility] [address] [place], [address] ALK PHOS 138 U/L High 35-[address] [facility] Comment on above: Performed By: #### L 3100.2300, L100.0100, L500.4050, L504.2610, L501.1400 #### [facility] [address] [place], [address] ALT [Catalytic activity/Vol] 13 U/L Normal <=[address] [facility] Comment on above: Performed By: #### L 3100.2300, L100.0100, L500.4050, L504.2610, L501.1400 #### [facility] [address] [place], [address] AST [Catalytic activity/Vol] 34 U/L High <=[address] [facility] Comment on above: Performed By: #### L 3100.2300, L100.0100, L500.4050, L504.2610, L501.1400 #### [facility] [address] [place], [address] Bilirubin [Mass/Vol] 0.80 mg/dL Normal 0.00-1.30 [facility] Comment on above: Performed By: #### L 3100.2300, L100.0100, L500.4050, L504.2610, L501.1400 #### [facility] [address] [place], [address] BUN/CRE 16.1 RATIO Normal 10-[address] [facility] Comment on above: Performed By: #### L 3100.2300, L100.0100, L500.4050, L504.2610, L501.1400 #### [facility] [address] [place], [address] Calcium [Mass/Vol] 9.9 mg/dL Normal 7.6-11.0 [facility] Comment on above: Performed By: #### L 3100.2300, L100.0100, L500.4050, L504.2610, L501.1400 #### [facility] [address] [place], [address] Chloride [Moles/Vol] 98 mmol/L Normal 98-108 [facility] Comment on above: Performed By: #### L 3100.2300, L100.0100, L500.4050, L504.2610, L501.1400 #### [facility] [address] [place], [address] CO2 [Moles/Vol] 21.9 mmol/L Normal 21.0-32.[address] [facility] Comment on above: Performed By: #### L 3100.2300, L100.0100, L500.4050, L504.2610, L501.1400 #### [facility] [address] [place], [address] Creatinine [Mass/Vol] 1.03 mg/dL Normal 0.70-1.20 [facility] Comment on above: Performed By: #### L 3100.2300, L100.0100, L500.4050, L504.2610, L501.1400 #### [facility] [address] [place], [address] GAP 17 High 5-[address] [facility] Comment on above: Performed By: #### L 3100.2300, L100.0100, L500.4050, L504.2610, L501.1400 #### [facility] [address] [place], [address] GFR/1.73 sq M.predicted among non-blacks MDRD (S/P/Bld) [Vol rate/Area] 58 mL/min/{1.73_m2} Low >[address] [facility] Comment on above: Result Comment: mL/m in/1.73m2 CKD-EPI Creatinine Equation (2020) Performed By: #### L 3100.2300, L100.0100, L500.4050, L504.2610, L501.1400 #### [facility] [address] [place], [address] Globulin (S) [Mass/Vol] 4.1 g/dL Normal 2.2-4.[address] [facility] Comment on above: Performed By: #### L 3100.2300, L100.0100, L500.4050, L504.2610, L501.1400 #### [facility] [address] [place], [address] Glucose [Mass/Vol] 149 mg/dL High 70-99 [facility] Comment on above: Performed By: #### L 3100.2300, L100.0100, L500.4050, L504.2610, L501.1400 #### [facility] [address] [place], [address] Potassium [Moles/Vol] 3.8 mmol/L Normal 3.3-5.1 [facility] Comment on above: Performed By: #### L 3100.2300, L100.0100, L500.4050, L504.2610, L501.1400 #### [facility] [address] [place], [address] Sodium [Moles/Vol] 137 mmol/L Normal 133-145 [facility] Comment on above: Performed By: #### L 3100.2300, L100.0100, L500.4050, L504.2610, L501.1400 #### [facility] [address] [place], [address] T PROT 8.0 g/dL Normal 5.9-8.[address] [facility] Comment on above: Performed By: #### L 3100.2300, L100.0100, L500.4050, L504.2610, L501.1400 #### [facility] [address] [place], [address] Urea nitrogen [Mass/Vol] 17 mg/dL Normal 4-[address] [facility] Comment on above: Performed By: #### L 3100.2300, L100.0100, L500.4050, L504.2610, L501.1400 #### [facility] [address] [place], [address] Eosinophil percentageOrdered By: [place] Jeremias on 03-20-2025 Eosinophils/100 WBC (Bld) 2.4 % 0-[address] [facility] Erythrocyte distribution wid th ratioOrdered By: [facility] on 03-20-2025 Erythrocyte distribution width (RBC) [Ratio] 13.8 % 11.6-14.[address] [facility] Erythrocyte distribution wid th standard deviationOrdered By: [facility] on 03-20-2025 Erythrocyte distribution width (RBC) [Ratio] 43.5 fl 35.1-43.[address] [facility] Glomerular filtration rate ( GFR) estimation/1.73 sq m using serum, plasma, or whole bOrdered By: [facility] on 03-20-2025 GFR/1.73 sq M.predicted among non-blacks MDRD (S/P/Bld) [Vol rate/Area] 58 mL/min/{1.73_m2} Low >[address] [facility] Comment on above: mL/min/1.73m2 CKD-EP I Creatinine Equation (2020) Hematocrit Auto (Bld) [Volum e fraction]Ordered By: Дмитрий Jeremias on 03-20-2025 Hematocrit (Bld) [Volume fraction] 35.0 % Low 37-[address] [facility] Hemoglobin measurementOrdere d By: [facility] on 03-20-2025 Hemoglobin (Bld) [Mass/Vol] 11.2 g/dL Low 12.0-15.[address] [facility] Immature granulocytes/100 WB C Auto (Bld)Ordered By: Дмитрий Mcdowell on 03-20-2025 Immature granulocytes/100 WBC (Bld) 0.400 % 0.0-0.[address] [facility] Comment on above: IG% - Immature Granu locytes (promyelocytes, myelocytes and metamyelocytes) > 1% indicates that a LEFT SHIFT is Present. LDHon 03-20-2025 LDH 219 U/L Normal 84-[address] [facility] Comment on above: Order Comment: 1 Performed By: #### L 3100.2300, L100.0100, L500.4050, L504.2610, L501.1400 #### [facility] [address] [place], [address] Laboratory - Chemistry and C hemistry - challengeOrdered By: Дмитрий Mcdowell on 03-20-2025 AST [Catalytic activity/Vol] 34 U/L High <[address] [facility] Lactate dehydrogenase (LDH) measurementOrdered By: Дмитрий Mcdowell on 03-20-2025 LDH [Catalytic activity/Vol] 219 U/L 84-[address] [facility] MCV (mean corpuscular volume ) determinationOrdered By: Дмитрий Mcdowell on 03-20-2025 MCV (RBC) [Entitic vol] 86.4 fL 81-[address] [facility] Magnetic resonance imaging r eportOrdered By: Antonio Cleveland on 03-20-2025 Study report [facility] Imaging Services [address] [place] [address] Brain W/WO Contrast MR#: [id number] Acct: [id number] Name: GWEN WOLF Rep #: [id number] : 1955 F 69 From: Lynda Cleveland MD PCP: Dr. Bonita Ireland MD Status: R EG CLI Study:Brain W/WO Contrast Date of Exam: 03/20/25 Exam# [id number] Ordering Dr: Kareem Mcdwoell MD EXAM: BRAIN W/WO CONTRAST CLINICAL HISTORY: N V, LUNG MASS COMPARISON: None. TECHNIQUE: Multiplanar, multisequence MR images of the brain were obtained without and with12 cc Clariscan gadolinium contrast material. 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 No intracranial hemorrhage, mass, mass effect, midline shift or pathologic extra- axial fluid collection. No hydrocephalus. Preservation of the eng- white parenchymal differentiation. No areas of restricted diffusion to suggest acute ischemia or infarction. No gradient signal blooming artifacts are identified. No cerebellar tonsillar ectopia. No sellar/suprasellar signal abnormalities. The ocular globes and intraorbital soft tissues are symmetrically unremarkable. Paranasal sinuses are essentially clear. There are no suspicious enhancing lesions. 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 No acute abnormality or suspicious enhancing lesion is identified in the brain. Reading Location: [facility] CC: Dr. Дмитрий Mcdowell MD; Dr. Bonita Ireland MD ~ Residence Director: Signed [facility] Mean corpuscular hemoglobin (MCH) determinationOrdered By: Дмитрий Mcdowell on 03-20-2025 MCH (RBC) [Entitic mass] 27.7 pg 27.0-32.[address] [facility] Mean corpuscular hemoglobin concentration (MCHC) determinationOrdered By: Дмитрий Mcdowell on 03-20-2025 MCHC (RBC) [Mass/Vol] 32.0 g/dL 32-36 [facility] Mean platelet volume determi nationOrdered By: Дмитрий Mcdowell on 03-20-2025 Platelet mean volume (Bld) [Entitic vol] 12.7 fL High 6.2-12.[address] [facility] Monocyte percentageOrdered B y: Дмитрий Mcdowell on 03-20-2025 Monocytes/100 WBC (Bld) 8.4 % 0-[address] [facility] Neutrophil percentageOrdered By: Дмитрий Mcdowell on 03-20-2025 Neutrophils/100 WBC (Bld) 71.4 % High 47-[address] [facility] Nucleated red blood cell per centageOrdered By: Дмитрий Mcdowell on 03-20-2025 Nucleated RBC/100 WBC (Bld) [Ratio] 0 % 0-[address] [facility] Plasma serotonin measurement (mass/volume)Ordered By: Дмитрий Mcdowell on 03-20-2025 Serotonin (P) [Mass/Vol] 51 ng/mL 8-[address] [facility] Comment on above: Performed at: [address] [id number] Director: Logan Templeton MD, Phone: [phone] Platelet countOrdered By: Kim Mcdowell on 03-20-2025 Platelets (Bld) [#/Vol] 368 10*3/uL 150-[address] [facility] Potassium measurement (mass/ volume)Ordered By: Дмитрий Mcdowell on 03-20-2025 Potassium (Unsp spec) [Mass/Vol] 3.8 mmol/L 3.3-5.[address] [facility] RBC Auto (Bld) [#/Vol]Ordere d By: Дмитрий Mcdowell on 03-20-2025 RBC (Bld) [#/Vol] 4.05 10*6/uL Low 4.2-5.4 [facility] Serum chromogranin A measure mentOrdered By: Дмитрий Mcdowell on 03-20-2025 Serum chromogranin A measurement 291.4 ng/mL High 0.0-101.[address] [facility] Comment on above: Chromogranin A perfo rmed by [employer] KRYPTORmethodologyValues obtained with different assay methods or kits cannotbe used interchangeably. Serum creatinine measurement (mass/volume)Ordered By: Дмитрий Mcdowell on 03-20-2025 Creatinine [Mass/Vol] 1.03 mg/dL 0.70-1.20 [facility] Serum globulin measurementOr dered By: Дмитрий Mcdowell on 03-20-2025 Globulin (S) [Mass/Vol] 4.1 g/dL 2.2-4.[address] [facility] Serum glucose measurement (m ass/volume)Ordered By: Дмитрий Mcdowell on 03-20-2025 Glucose [Mass/Vol] 149 mg/dL High 70-99 [facility] Serum or plasma alanine mejia otransferase (ALT) measurementOrdered By: Дмитрий Mcdowell on 03-20-2025 ALT [Catalytic activity/Vol] 13 U/L <[address] [facility] Serum or plasma albumin rojelio urement (mass/volume)Ordered By: Дмитрий Mcdowell on 03-20-2025 Albumin [Mass/Vol] 3.9 g/dL 3.4-4.8 [facility] Serum or plasma albumin/glob ulin mass ratioOrdered By: Дмитрий Mcdowell on 03-20-2025 Albumin/Globulin [Mass ratio] 0.9 {ratio} 0.9-2.[address] [facility] Serum or plasma alkaline bautista sphatase measurementOrdered By: Дмитрий Mcdowell on 03-20-2025 ALP [Catalytic activity/Vol] 138 U/L High 35-[address] [facility] Serum or plasma calcium rojelio urement (mass/volume)Ordered By: Дмитрий Mcdowell on 03-20-2025 Calcium [Mass/Vol] 9.9 mg/dL 7.6-11.0 [facility] Serum or plasma carcinoembry onic antigen measurement (mass/volume)Ordered By: Дмитрий Mcdowell on 03-20-2025 Carcinoembryonic Ag [Mass/Vol] 142.0 ng/mL High 0.0-4.[address] [facility] Comment on above: Nonsmokers <3.9 [facility]ok ers <5.6[facility] Electrochemiluminescence Immunoassay(ECLIA)Values obtained with different assay methods or kitscannot be used interchangeably. Results cannot beinterpreted as absolute evidence of the presence orabsence of malignant disease.Performed at: [facility] [place] [id number] Director: Zoran Arzate PhD, Phone: [phone] Serum or plasma urea nitroge n measurement (mass/volume)Ordered By: Дмитрий Mcdowell on 03-20-2025 Urea nitrogen [Mass/Vol] 17 mg/dL 4-[address] [facility] Serum or plasma uric acid me asurement (mass/volume)Ordered By: Дмитрий Mcdowell on 03-20-2025 Urate [Mass/Vol] 8.9 mg/dL High 2.6-6.[address] [facility] Comment on above: The drugs N-Acetylcy steine and Metamizole may falsely depress this assay. Sodium levelOrdered By: Monico Mcdowell on 03-20-2025 Sodium [Moles/Vol] 137 mmol/L 133-145 [facility] Total proteinOrdered By: Kareem Mcdowell on 03-20-2025 Protein [Mass/Vol] 8.0 g/dL 5.9-8.4 [facility] Uric Acidon 03-20-2025 URIC 8.9 mg/dL High 2.6-6.[address] [facility] Comment on above: Result Comment: The drugs N-Acetylcysteine and Metamizole may falsely depress this assay. Performed By: #### L 3100.2300, L100.0100, L500.4050, L504.2610, L501.1400 #### [facility] [address] [place], [address] White blood cell (WBC) count Ordered By: Дмитрий Mcdowell on 03-20-2025 WBC (Bld) [#/Vol] 8.0 10*3/uL 4.4-11.0 [facility] Oncology Visit Reporton 02-22 Oncology Visit Report [facility] [address] [place] [address] OFFICE VISIT Date of Service: 03/14/25 0900 MR#: [id number] Acct: [id number] Name: GWEN WOLF Rep #: [id number] : 1955 From: Дмитрий Mcdowell MD Age/Sex: 69/F Location: [facility] Status: Signed HPI Subjective Date of Service 03/14/25 Chief Complaint Referred for NET. History of Present Illness 69-year-old woman was found to have multiple lung nodules, right paratracheal and subcarinal masses with right hilar adenopathy [facility] on CT done on 01/31/2025. She had FOB with biopsy on 02/16/2025. And lymph node sample pleural mass sampling was done via endobronchial ultrasound of suspected lung cancer subcarinal and right lower paratracheal nodes were sampled. Cytology showed 4R node to have neuroendocrine tumor, tissue amount was limited so cannot distinguish between atypical carcinoid and large cell neuroendocrine carcinoma. She is now referred for further evaluation and management. She has nausea, denies cough, shortness of breath, uses a walker to help ambulation. [facility] Medical History Wears glasses Wears dentures Depression Thyroid disease Diabetes Rheumatoid arthritis Walker as ambulation aid High cholesterol Easy bruising Stroke/cerebrovascular accident Syncope Dietary restriction Vomiting History of IBS Gastric reflux Former smoker On home oxygen therapy COPD (chronic obstructive pulmonary disease) Shortness of breath on exertion History of edema Cardiology follow-up encounter Hypertension Surgical History History of lung biopsy History of carpal tunnel surgery History of Hx laparoscopic cholecystectomy Family History Brother Thyroid cancer Sister Pancreatic cancer Social History adopted: Yes Smoking Status: Former smoker how long ago did patient quit smokin stopped smoke 1.5 packs days. alcohol intake: never substance use type: does not use ROS Constitutional Constitutional: Reports systems reviewed and no addt'l complaints, except as documented Eyes Eyes: Reports systems reviewed and no addt'l complaints, except as documented ENT HEENT: Reports systems reviewed and no addt'l complaints, except as documented Cardiovascular Cardiovascular: Reports systems reviewed and no addt'l complaints, except as documented Respiratory/Chest Respiratory/Chest: Reports systems reviewed and no addt'l complaints, except as documented Gastrointestinal Gastrointestinal: Reports systems reviewed and no addt'l complaints, except as documented Genitourinary Genitourinary: Reports systems reviewed and no addt'l complaints, except as documented Musculoskeletal Musculoskeletal: Reports systems reviewed and no addt'l complaints, except as documented Integumentary Integumentary: Reports systems reviewed and no addt'l complaints, except as documented Neurologic Neurologic: Reports systems reviewed and no addt'l complaints, except as documented Psychiatric Psychiatric: Reports systems reviewed and no addt'l complaints, except as documented Endocrine Endocrinology: Reports systems reviewed and no addt'l complaints, except as documented Hematologic/Lymphatic Hematologic/Lymphatic: Reports systems reviewed and no addt'l complaints, except as documented Allergic/Immunologic Allergic/Immunologic: Reports systems reviewed and no addt'l complaints, except as documented Intake Vital Signs 02/28/25 09:51 03/14/25 09:07 03/14/25 09:14 Height 5 ft 5 ft 5 ft Weight: 62.227 kg 62.227 kg BMI 26.8 26.8 BP 87/54 L Blood Pressure Location Rt brachial Position Sitting Respiration 18 Pulse 96 Pulse Source Monitor Temp 97.8 F Temperature Source Temporal Artery Pulse Oximetry (%) 92 Oxygen Delivery Method room air Intake Is patient in pain?: Yes (stomach and left shoulder) Pain scale (1-10): 8 Allergies tramadol Allergy (Unknown, Verified 03/14/25 09:01) unknown Medications ???Medication ???Instructions ???Recorded ???Confirmed ???Type acetaminophen 325 mg capsule 650 mg PO Q6H PRN pain 02/09/25 History albuterol sulfate 90 mcg/actuation 2 puff inhalation Q6H PRN 03/14/25 History aerosol inhaler shortness of breath or wheezing clopidogrel 75 mg tablet 75 mg PO QDAY 02/09/25 03/14/25 Hi story fluoxetine 20 mg capsule 20 mg PO QDAY 02/09/25 03/14/25 Hi story gabapentin 100 mg capsule 200 mg PO QHS 02/09/25 03/14/25 Hi story hydrochlorothiazide 25 mg tablet 25 mg PO QDAY 02/09/25 03/14/25 Hi story levothyroxine 200 mcg tablet 200 mc (more content not included)... Normal [facility] Positron emission tomography scan reportOrdered By: Brian Glass on 03-12-2025 PT Unspecified body region [facility] Services [address], [place] [address] PET/CT Tumor Base -Thigh Init MR#: [id number] Acct: [id number] Name: GWEN WOLF Rep #: [id number] : 1955 F 69 From: Pet er Peer DO PCP: Dr. Bonita Ireland MD Status: R EG CLI Study:PET/CT Tumor Base -Thigh Init Date of E xam: 03/07/25 Exam# [id number] Ordering Dr: Warren Ibrahim BRAIDER TENDER BRAIDER TENDER-C PROCEDURE: PET/CT TUMOR BASE -THIGH INIT 03/07/2025 REASON FOR EXAM: 69 y/o F with LUNG TECHNIQUE: Following the intravenous administration of radionucleotide, image acquisition on a dedicated PET/CT unit was performed at one hour post injection. A preliminary CT study encompassing the Skull base, neck, chest, abdomen, pelvis, and proximal thighs was performed for purposes of attenuation correction and anatomic localization. The proximal thighs were also included. The patient's blood glucose level was 125 mg/dL (allowable range: 50-180 mg/dL). RADIOPHARMACEUTICAL: 14.034 mCi 18F-FDG (Fluorodeoxyglucose F18) IV was injectedinto he patient. RADIATION DOSE SUMMARY: Effective Dose: Approximately 7 mSv for a standard whole-body PET scan Organ Doses: Varies by organ, with higher doses typically to the bladder, liver,and brain COMPARISON: COMPARISON FROM CT, PET OR OTHER PERTINENT EXAMS: . FINDINGS: Physiologic uptake: There may be expected metabolic uptake within the brain, tongue and floor of the mouth and larynx/vocal cords, heart, trixie (many normal individuals have hilar uptake in less than 3 nodes with mildly avid hilar nodes less than 2.7 SUV), liver and spleen, system, and GI tract and symmetric muscle uptake. FDG AVID AND NON-AVID LESIONS. Reported avid SUV values (g/mL*) are maximum SUV. NECK: Right tonsil uptake and left vocal cord uptake represent tonsillitis. inflammatory process, or physiologic uptake. The vocal cord uptake may represent phonation prior to imaging. At the base of the neck there is a paratracheal FDG avid lesion/estimated 2.5 cm FDG avid lymph node is seen in the right subclavicular right lobe of the thyroid gland demonstrates a 1 cm hypermetabolic focus. There is a hypermetabolic lesion in the left T1 vertebral body CHEST: Chest wall-the FDG-avid nodules are seen in the left axilla close to the left shoulder joint. Axilla-subcentimeter left axillary nodule is FDG avid. Subpleural low-level nodule is seen. Subcentimeter lesion in the right axilla is FDG avid Lung parenchyma- There are two tiny subcentimeter FDG avid pulmonary nodules. There are 7 subcentimeter left subpleural nodules and two on the right. Mediastinum-2.8 cm right periaortic FDG avid lesion. Marked FDG-avid in the pericardium includes a 2.5 and a 3.2 cm AP window lymph nodes are identified which are FDG-avid. A subcarinal 5.6 cm mass is FDG avid. Pleura- Seven left side and two right side subcentimeter FDG avid A 3.6 cm right perihilar mass is highly FDG avid. ABDOMEN: Stomach- No significant abnormalities. Liver- No significant abnormalities. Spleen- No significant abnormalities. Pancrease- No significant abnormalities. Kidneys- The pattern of uptake in the kidneys is suspicious, but difficult to prove metastatic due to the normal physiologic uptake.. Bowel- Normal bowel activity. Spine- FDG avid L3 lesion.. Also in left sacral alum and distal sacral lesion. PELVIS: Bowel- Normal physiologic bowel activity is identified. Masses- There are no pelvic masses. LOWER EXTREMITIES: Bones- With the use of bone window settings, there are no osteolytic or osteoblastic lesions. There are no FDG avid lesions within the visualized portion of the axial skeleton. PET/PET/CT Tumor Base -Thigh Init IMPRESSION: FDG avid- Numerous metastatic lesions in base of neck, through the chest including mediastinal, right perihilar, pulmonary and subpleural and spinal and sacral foci. Suspicious- suspicious kidney uptake pattern Non-FDG avid- No non-FDG avid cysts. Other: No additional comments. Please note the low-dose CT scan was performed to facilitate PET image reconstruction and anatomic localization and does not replace a diagnostic CT. Any diagnostic CT requested and performed at the time of the PET will be reported separately. Reading [facility] CC: BRAIDER TENDER-C Latoya Ibrahim; Dr. Bonita Ireland MD ~ Residence Director: Signed [facility] PET/CT Tumor Base -Thigh Ini dru 03-07-2025 PET/CT Tumor Base -Thigh Init [facility] [address] [place] [id number] PET/CT Tumor Base -Thigh Init MR#: [id number] Acct: [id number] Name: GWEN WOLF Rep #: [id number] : 1955 F 69 From: Brian Glass DO PCP: Dr. Bonita Ireland MD Status: REG CLI Study: PET/CT Tumor Base -Thigh Init Date of Exam: Exam# [id number] Ordering Dr: Latoya Ibrahim BRAIDER TENDER BRAIDER TENDER-C PROCEDURE: PET/CT TUMOR BASE -THIGH INIT 03/07/2025 REASON FOR EXAM: 69 y/o F with LUNG TECHNIQUE: Following the intravenous administration of radionucleotide, image acquisition on a dedicated PET/CT unit was performed at one hour post injection. A preliminary CT study encompassing the Skull base, neck, chest, abdomen, pelvis, and proximal thighs was performed for purposes of attenuation correction and anatomic localization. The proximal thighs were also included. The patient's blood glucose level was 125 mg/dL (allowable range: 50-180 mg/dL). RADIOPHARMACEUTICAL: 14.034 mCi 18F-FDG (Fluorodeoxyglucose F18) IV was injected into he patient. RADIATION DOSE SUMMARY: Effective Dose: Approximately 7 mSv for a standard whole-body PET scan Organ Doses: Varies by organ, with higher doses typically to the bladder, liver, and brain COMPARISON: COMPARISON FROM CT, PET OR OTHER PERTINENT EXAMS: . FINDINGS: Physiologic uptake: There may be expected metabolic uptake within the brain, tongue and floor of the mouth and larynx/vocal cords, heart, trixie (many normal individuals have hilar uptake in less than 3 nodes with mildly avid hilar nodes less than 2.7 SUV), liver and spleen, system, and GI tract and symmetric muscle uptake. FDG AVID AND NON-AVID LESIONS. Reported avid SUV values (g/mL*) are maximum SUV. NECK: Right tonsil uptake and left vocal cord uptake represent tonsillitis. inflammatory process, or physiologic uptake. The vocal cord uptake may represent phonation prior to imaging. At the base of the neck there is a paratracheal FDG avid lesion/estimated 2.5 cm FDG avid lymph node is seen in the right subclavicular right lobe of the thyroid gland demonstrates a 1 cm hypermetabolic focus. There is a hypermetabolic lesion in the left T1 vertebral body CHEST: Chest wall-the FDG-avid nodules are seen in the left axilla close to the left shoulder joint. Axilla-subcentimeter left axillary nodule is FDG avid. Subpleural low-level nodule is seen. Subcentimeter lesion in the right axilla is FDG avid Lung parenchyma- There are two tiny subcentimeter FDG avid pulmonary nodules. There are 7 subcentimeter left subpleural nodules and two on the right. Mediastinum-2.8 cm right periaortic FDG avid lesion. Marked FDG-avid in the pericardium includes a 2.5 and a 3.2 cm AP window lymph nodes are identified which are FDG-avid. A subcarinal 5.6 cm mass is FDG avid. Pleura- Seven left side and two right side subcentimeter FDG avid A 3.6 cm right perihilar mass is highly FDG avid. ABDOMEN: Stomach- No significant abnormalities. Liver- No significant abnormalities. Spleen- No significant abnormalities. Pancrease- No significant abnormalities. Kidneys- The pattern of uptake in the kidneys is suspicious, but difficult to prove metastatic due to the normal physiologic uptake.. Bowel- Normal bowel activity. Spine- FDG avid L3 lesion.. Also in left sacral alum and distal sacral lesion. PELVIS: Bowel- Normal physiologic bowel activity is identified. Masses- There are no pelvic masses. LOWER EXTREMITIES: Bones- With the use of bone window settings, there are no osteolytic or osteoblastic lesions. There are no FDG avid lesions within the visualized portion of the axial skeleton. PET/PET/CT Tumor Base -Thigh Init IMPRESSION: FDG avid- Numerous metastatic lesions in base of neck, through the chest including mediastinal, right perihilar, pulmonary and subpleural and spinal and sacral foci. Suspicious- suspicious kidney uptake pattern Non-FDG avid- No non-FDG avid cysts. Other: No additional comments. Please note the low-dose CT scan was performed to facilitate PET image reconstruction and anatomic localization and does not replace a diagnostic CT. Any diagnostic CT requested and performed at the time of the PET will be reported separately. Reading Location: [facility] CC: SID Ibrahim; Dr. Bonita Ireland MD Residence Director: Signed Normal [facility] Pulmonary Visit Reporton Pulmonary Visit Report [facility] Pulmonary Medicine of [address] [place] [address] OFFICE VISIT Date of Service: 02/28/25 MR#: [id number] Acct: [id number] Name: GWEN WOLF Rep #: [id number] : 1955 Provider: SID Ibrahim Age/Sex: 69/F Location: BMS.PMW Status: Signed Assessment and Plan Assessment and Plan (1) Neuroendocrine neoplasm of lung: Status: Acute Plan: New. I am referring her to [facility] by way of [facility] Pass for evaluation [...] Additional Comments: This note was generated with [employer] dictation software. It may contain incorrect words, spelling, [...] utilized. She does have a greater than 74-zgze-bvde smoking history smoking between 1/2 to 1 [...] sleep. She is currently residing in a long term and reports that they check her oxygen [...] room air Intake Visit Reasons: Biopsy Results Wash House Supervisor Required: No DME Vendor: yarely canales Accompanied [...] tablet,extended release(par (more content not included)... Normal [facility] Bedside Glucoseon 02-16-2025 FINGERSTICK GLU 141 mg/dL High 74-[address] [facility] Comment on above: Result Comment: REMY BRADSHAW OF PATIENT CARE PER NURSING PROTOCOL Performed By: #### L 501.080 #### [facility] Laboratory [address] [place], [address] Bronchoscopy Reporton 2024 Bronchoscopy Report [facility] Medical Records Department [address] [place] [address] Bronchoscopy Report MR#: [id number] Acct: [id number] Name: GWEN WOLF Rep #: [id number] : 1955 69 From: Andres Meyer DO PCP: Dr. Bonita Ireland MD Status:[facility] Patient Name: Gwen Wolf Procedure Date: [...] aspiration was also performed using an Olympus AzulStariShot 21 gauge needle in the right lower [...] biopsy results. Procedure Code(s): --- Professional --- 46595, Bronchoscopy, rigid or flexible, including fluoroscopic guidance, [...] circulatory and respiratory systems CPT copyright 2021 [employer]. All rights reserved. The codes documented in this report are preliminary and upon physicist astrophysics review may be revised to meet current compliance requirements. DO Andres Bailey MD 02/16/2025 12:36:15 PM This report has been signed electronically. Number of Addenda: 0 Note Initiated On: 02/16/2025 11:28 AM 02/16/25 1236 Date Andres Meyer DO Cosigner Signature: Date (if indicated) CC: Dr. Andres Meyer DO; Dr. Bonita Ireland MD Date Dictated: 02/16/25 1128 Date Transcri (more content not included)... Normal [facility] Gl[facility] at [facility] deOrdered By: Andres Meyer on 02-16-2025 Glucose [Mass/Vol] 141 mg/dL High 74-106 [facility] Comment on above: MANAGEMENT OF PATIEN T CARE PER NURSING PROTOCOL Immunohistochemical Stainson 02-16-2025 Immunohistochemical Stains Patient Age/Sex Location Account Attending Physician GWEN WOLF 69/F EN [id number] Dr. Andres Meyer DO Specimen: [id number] Received: 02/16/25-1199 Status: DIANA Jean Num: [id number] Spec Type: ASP OUT Subm Dr: Dr. Andres Meyer, DO [facility] OPERATION: Endobronchial ultrasound PRE-OP DIAGNOSIS: Lung mass [...] by Dr Perry Johansen (thoracic pathology division, [facility]. COMMENT The specimen is evaluated at the [...] developed and their performance characteristics determined by [facility] Laboratory. They may not have been cleared or approved by the U.S. Food and Drug Administration. The FDA has determined that such clearance or approval is not Patient Age/Sex Location Account Attending Physician GWEN WOLF 69/F EN [id number] Dr. Andres Meyer, DO necessary.??? The above immunohistochemical/dualISH ???markers are reviewed by the Pathologist. CYTOLOGY GROSS A. Received labeled with the patient's name and and designated EBUS, TBNA, site 7 #1-3. The specimen consists of two stained smears for AMANUEL. B. Received labeled with the patient's name and and designated EBUS, TBNA, site 4R #4-6. The specimen consists of two stained smears for AMANUEL. CPT: 14408o0,14691i1,34000,93931 x12 Signed (signature on file) Dr. Greer Chiu MD 02/23/[address] [facility] Comment on above: Performed By: #### L 100.0625, L300.4310, L300.3900 #### [facility] Laboratory [address] [place], [address] MR/POSTOP.Mario Alberto 02-16-2025 MR/POSTOP.[facility] Medical Records Department [address] [place] [address] Anesthesia Postop Eval I 02/16/25 1235 MR#: [id number] Acct: [id number] Name: GWEN WOLF Rep #: [id number] : 1955 69 From: Beena Juarez CRNA PCP: Dr. Bonita Ireland MD Status:[facility] Y Race: C Location: EN Anesthesia: Postop Eval I Current Vital Signs Temperature: 98.4 F Pulse Rate: 118 Blood Pressure: 139/70 Respiratory Rate: 20 Pulse Ox: 93 Assessment Airway patent: Yes Spontaneous unlabored respirations: Yes nausea: No Vomiting: No Anesthesia Complication: No Fluid Hydration Crystalloid volume administer (ml): 300 Total IV fluid infused: 300 Progress Note Anesthesia document: Postop Eval 1 completed: Yes 02/16/25 181 Date Beena Juarez QUILLER HAND Cosigner Signature: Date CC: Signed Normal [facility] MR/[id number] 02-16-2025 [facility] Medical Records Department [address] [place] [address] Anesthesia Postop Eval II 02/16/251811 MR#: [id number] Acct: [id number] Name: GWEN WOLF Rep #: [id number] : 1955 69 From: Beena Juarez QUILLER HAND PCP: Dr. Bonita Ireland MD Status:DEP [facility] Y Race: C Location: EN Anesthesia Postop Eval I Sum Postop Eval Completion status Anesthesia document: Postop Eval 1 completed: Yes Anesthesia Postop Eval I Summary Anesthesia Postop Eval I Summary: Anesthesia Postop Eval I: Assessment Summary Airway patent Yes 02/16/25 18:11 QUILLER HAND.CSIR Spontaneous unlabored Yes 02/16/25 18:11 QUILLER HAND.CSIR respirations Mental status nausea No 02/16/25 18:11 QUILLER HAND.CSIR Vomiting No 02/16/25 18:11 QUILLER HAND.CSIR Anesthesia Postop Eval I: Fluid Summary Crystalloid volume administer 300 02/16/25 18:11 QUILLER HAND.CSIR (ml) Colloids volume administered ( ml) Blood Product volume administered (ml) Total IV fluid infused 300 02/16/25 18:11 QUILLER HAND.CSIR Anesthesia Postop Eval I: Summary Notes Anesthesia Complication No 02/16/25 18:11 QUILLER HAND.CSIR Anesthesia Complication Comment: Post-operative progress note Anesthesia: Postop Eval II Evaluation Mental status: Awake Pain Level: 1 nausea: No Vomiting: No 02/16/251812 Beena Juarez QUILLER HAND Cosigner Signature: Date CC: Signed [facility] MR/PAT.DAVIDon 02-14-2025 MR/PAT.ANE [facility] Medical Records Department [address] [place] [address] PAT - Anesthesia 02/14/252118 MR#: [id number] Acct: [id number] Name: GWEN WOLF Rep #: [id number] : 1955 69 From: Nicola Hameed MD PCP: Dr. 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: Anesthesia History - product tester fiberglass Hx Hospitalization No 02/14/25 11:59 Any Problems [...] take am of surgery PONV PONV - product tester fiberglass: PONV - product tester fiberglass Female Yes 02/14/25 11:59 HX of Motion Sickness Yes 02/14/25 11:59 HX of N/V After Surgery No 02/14/25 11:59 Non-Smoker Yes 02/14/25 11:59 Duration of Surgery greater Yes 02/14/25 11:59 than 60 minutes Number of Risk Factors 4 02/14/25 11:59 PONV Score Severe Risk 02/14/25 11:59 Height Weight Height Weight: Anesthesia: Height Weight Height 5 ft 02/09/25 09:50 Respiratory Assessment Respiratory Assessment - product tester fiberglass: Respiratory Tract Infection Hx - product tester fiberglass Hx Respiratory Tract Infection No 02/14/25 11:59 STOP Sleep Apnea STOP Sleep Apnea - product tester fiberglass: STOP Sleep Apnea - product tester fiberglass Hx Hypertension Yes: CONTROLLED WITH MED 02/14/25 [...] Tobacco Use History Tobacco Use History - product tester fiberglass: Tobacco Use History - product tester fiberglass Tobacco Use Smoking Status Former smoker 02/14/25 11:59 Hx Tobacco Use No 02/14/25 11:59 Years Smoking Packs Smoked per Day Smoking Cessation Date was Yes - quit smoking within 15 02/14/25 11:59 within the last 15 years years Hx Smoking Cessation Date Hx Smoking Cessation No 02/14/25 11:59 Counseling Hematologic Medial History Hematologic Hx - product tester fiberglass: Hematologic Medical Hx - [employer] Hx of Blood Transfusion No 02/14/25 11:59 [...] confused, unrespo /Reproduction History /Reproductive History - product tester fiberglass: /Reproductive Hx- product tester fiberglass Hx Now No 02/14/25 11:59 Gestational Age (in weeks): EDC: Hx Hx Para Hx Section SAB No 02/14/25 11:59 PFSH Medical History (Updated 02/14/25 @ 12:11 by [...] 20 mg (more content not included)... Normal [facility] Activated partial thrombopla stin time (aPTT) in platelet poor plasma by coagulation aOrdered By: Andres Meyer on 02-09-2025 aPTT Coag (PPP) [Time] 25.4 s 24.1-36.2 [facility] International normalized rat io (INR) calculationOrdered By: Andres Meyer on 02-09-2025 INR Coag (Bld) [Relative time] 1.1 {INR} [facility] PLATELET COUNTon 02-09-2025 Platelets (Bld) [#/Vol] 320 10*3/uL Normal 150-[address] [facility] Comment on above: Performed By: #### L 100.0625, L300.4310, L300.3900 #### [facility] Laboratory [address] [place], [address] Partial Thromboplast Timeon 02-09-2025 aPTT Coag (Bld) [Time] 25.4 s Normal 24.1-36.2 [facility] Comment on above: Performed By: #### L 100.0625, L300.4310, L300.3900 #### [facility] Laboratory [address] [place], [address] Platelet countOrdered By: Nguyen on 02-09-2025 Platelets (Bld) [#/Vol] 320 10*3/uL 150-[address] [facility] Prothrombin Time w/INRon INR Coag (PPP) [Relative time] 1.1 {INR} Normal [facility] Comment on above: Performed By: #### L 100.0625, L300.4310, L300.3900 #### [facility] Laboratory [address] [place], [address] PT Coag (PPP) [Time] 14.0 s Normal 11.7-14.9 [facility] Comment on above: Performed By: #### L 100.0625, L300.4310, L300.3900 #### [facility] Laboratory [address] [place], [address] Prothrombin timeOrdered By: Andres Meyer on 02-09-2025 PT Coag (PPP) [Time] 14.0 s 11.7-14.9 [facility] Pulmonary Visit Reporton Pulmonary Visit Report [facility] Pulmonary Medicine of [place] [address] [place], [place] [address] OFFICE VISIT Date of Service: 02/09/25 MR#: [id number] Acct: [id number] Name: GWEN WOLF Rep #: [id number] : 1955 Provider: Dr. Andres Meyer, Age/Sex: 69/F Location: [facility].PM[facility] Status: Signed Assessment and Plan Assessment and Plan (1) Lung mass: Status: Acute Plan: The patient presented today for the evaluation of lung masses which were identified on CT imaging of the chest through [facility] dated January 31, 2025. The dominant [...] follow-up. That imaging study was completed through [facility], dated January 31, 2025, and demonstrated a large peritracheal mass measuring 3 x 3.3 cm along with a large subcarinal mass measuring 7 cm and multiple additional subcentimeter nodules scattered bilaterally. The patient has a 53-vecv-ngqr smoking history, having quit completely in 2021. She did not grow up in a smoking household. The patient has never been evaluated by a electrical system specialist in the past. 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 (more content not included)... Normal [facility] MODIFIED BARIUM SWALLOWon MODIFIED BARIUM SWALLOW [address] [address] Patient: GWEN WOLF Phone#: : 1955 Age: 69 Gender: F Pt. Type: Out Account: [id number] Location: 052 Ordering: JOAN HUERTA Exam Date: 02/02/2025/9:11 Family Phys: Charge Code: 246430 Physician: Travis Order #: [id number] Dose#: PROCEDURE: CINERADIOGRAPHY MODIFIED BARIUM SWALLOW COMPARISON: [place], [place], MODIFIED BARIUM SWALLOW, 07/22/2023, 8:52. INDICATIONS: [...] Fitzgerald MD on 02/02/2025 at 11:22 Normal [facility] CT CHEST W/CONTRASTon 2024 CT CHEST W/CONTRAST [place] [address] Patient: GWEN WOLF Phone#: : 1955 Age: 69 Gender: F Pt. Type: Out Account: [id number] Location: [facility] Ordering: JOAN HUERTA Exam Date: 01/31/2025/9:27 Family Phys: Charge Code: [id number] Physician: Travis Order #: [id number] Dose#: 4.70 PROCEDURE: CT CHEST WITH CONTRAST [...] No visible pulmonary arterial thrombus or attenuation. TRIXIE: Normal. No mass or adenopathy. MEDIASTINUM: Hypodense [...] 69 Gender: F Pt. Type: Out Account: [id number] Location: 052 Ordering: JOAN HUERTA Exam Date: 01/31/2025/9:27 Family Phys: Charge Code: 612993 Physician: Travis Order #: [id number] Dose#: 4.70 CONCLUSION: 1. Right paratracheal and subcarinal mass is present. Right hilar adenopathy is present. Multiple bilateral pulmonary nodules are present. The largest are in the right lower lobe. Dictated by: Mckayla Ying MD on 01/31/2025 at 16:32 Approved by: Mckayla Ying MD on 01/31/2025 at 16:39 Normal [facility] CBC + DIFFon 01-30-2025 Baso # 0.01 x10EE3/UL Normal 0.00 - 0.10 [facility] Comment on above: Performed By: #### 2 56405 #### [place] [address] Basophils/100 WBC (Bld) 0.3 % Normal 0.0 - 2.0 [facility] Comment on above: Performed By: #### 2 46162 #### [place] [address] CBC + DIFF Normal [facility] Comment on above: Result Comment: CBC- COMPLETE BLOOD COUNT Performed By: #### 2 45122 #### [place] [address] EO # 0.22 x10EE3/UL Normal 0.00 - 0.50 [facility] Comment on above: Performed By: #### 2 10101 #### [facility],[address] [place] [address] Eosinophils/100 WBC (Bld) 4.1 % Normal 0.0 - 7.0 [facility] Comment on above: Performed By: #### 2 05125 #### [facility],[address] [place] [address] Erythrocyte distribution width (RBC) [Ratio] 14.7 % Normal 12.0 - 15.6 [facility] Comment on above: Performed By: #### 2 81931 #### [facility],[address] [place] [address] Hematocrit (Bld) [Volume fraction] 31.4 % Low 34.0 - 46.0 [facility] Comment on above: Performed By: #### 2 51522 #### [facility],[address] [place], [place] [address] Hemoglobin (Bld) [Mass/Vol] 10.8 g/dL Low 12.0 - 16.0 [facility] Comment on above: Performed By: #### 2 90657 #### [facility],[address] [place] [address] Lymph # 1.51 x10EE3/UL Normal 0.80 - 2.80 [facility] Comment on above: Performed By: #### 2 16088 #### [facility],[address] [place], [place] [address] Lymphocytes/100 WBC (Bld) 27.6 % Normal 20.0 - 45.0 [facility] Comment on above: Performed By: #### 2 70181 #### [facility],[address] [place], [place] [address] MANUAL DIFF N/A Normal [facility] Comment on above: Performed By: #### 2 27372 #### [facility],[address] [place] [address] MCH (RBC) [Entitic mass] 30 pg Normal 27 - 33 [facility] Comment on above: Performed By: #### 2 21523 #### [facility],[address] [place] [address] MCHC 34 X10 3 Normal 32 - 36 [facility] Comment on above: Performed By: #### 2 02718 #### [facility],[address] [place] [address] MCV (RBC) [Entitic vol] 87 fL Normal 80 - 99 [facility] Comment on above: Performed By: #### 2 75096 #### [place] [address] [place] # 0.50 x10EE3/UL Normal 0.20 - 1.00 [facility] Comment on above: Performed By: #### 2 62473 #### [facility],[address] [place] [address] MONOS % 9.1 % Normal 0.0 - 10.0 [facility] Comment on above: Performed By: #### 2 75552 #### [place] [address] Morphology [place] (Bld) [Interp] N/A Normal [facility] Comment on above: Performed By: #### 2 90617 #### [place] [address] Neut # 3.22 x10EE3/UL Normal 1.50 - 7.10 [facility] Comment on above: Performed By: #### 2 49507 #### [place] [address] Neutrophils/100 WBC (Bld) 59.0 % Normal 46.0 - 76.0 [facility] Comment on above: Performed By: #### 2 35049 #### [place] [address] PLATELET 251 x10EE3/UL Normal 150 - 450 [facility] Comment on above: Performed By: #### 2 14290 #### [facility],[address] [place], [place] [address] Platelet mean volume (Bld) [Entitic vol] 10.5 fL Normal 6.6 - 10.5 [facility] Comment on above: Result Comment: AUTO MATED DIFFERENTIAL Performed By: #### 2 34874 #### [facility],[address] [place] [address] RBC 3.62 x 10EE6/UL Low 4.10 - 5.30 [facility] Comment on above: Performed By: #### 2 10443 #### [facility],[address] [place], [place] [address] WBC 5.5 x 10EE3/UL Normal 4.5 - 10.8 [facility] Comment on above: Performed By: #### 2 63583 #### [facility],[address] [place] [address] CMP with eGFRon 01-30-2025 AGE 69 years Normal [facility] Comment on above: Performed By: #### 2 62869 #### [facility],[address] [place], [place] [address] Albumin [Mass/Vol] 2.7 g/dL Low 3.4 - 5.0 [facility] Comment on above: Performed By: #### 2 61974 #### [facility],[address] [place], [place] [address] Albumin/Globulin [Mass ratio] 0.6 {ratio} Low 0.9 - 1.6 [facility] Comment on above: Performed By: #### 2 39787 #### [facility],[address] [place], [place] [address] ALK PHOS 109 U/L Normal 46 - 116 [facility] Comment on above: Performed By: #### 2 54821 #### [facility],[address] [place] [address] ALT [Catalytic activity/Vol] 16 U/L Normal 16 - 63 [facility] Comment on above: Performed By: #### 2 98276 #### [facility],[address] [place] [address] Anion gap [Moles/Vol] 12 mmol/L Normal 10 - 20 [facility] Comment on above: Performed By: #### 2 58939 #### [facility],[address] [place], [place] [address] AST [Catalytic activity/Vol] 33 U/L Normal 13 - 39 [facility] Comment on above: Performed By: #### 2 60688 #### [facility],[address] [place], [place] [address] B/C RATIO 13 ratio Normal 0 - 30 [facility] Comment on above: Performed By: #### 2 93182 #### [facility],[address] [place] [address] Bilirubin [Mass/Vol] 1.2 mg/dL High 0.2 - 1.0 [facility] Comment on above: Performed By: #### 2 65437 #### [facility],[address] [place] [address] Calcium [Mass/Vol] 8.9 mg/dL Normal 8.5 - 10.1 [facility] Comment on above: Performed By: #### 2 03737 #### [facility],[address] [place] [address] Chloride [Moles/Vol] 104 mmol/L Normal 98 - 107 [facility] Comment on above: Performed By: #### 2 61644 #### [facility],[address] [place], [place] [address] CMP with eGFR Normal [facility] Comment on above: Result Comment: COMP REHENSIVE METABOLIC PANEL Performed By: #### 2 71760 #### [facility],[address] [place] [address] CO2 [Moles/Vol] 27.9 mmol/L Normal 21.0 - 32.0 [facility] Comment on above: Performed By: #### 2 60171 #### [facility],[address] [place] [address] Creatinine [Mass/Vol] 0.88 mg/dL Normal 0.55 - 1.02 [facility] Comment on above: Performed By: #### 2 12485 #### [facility],[address] [place] [address] GFR/1.73 sq M.predicted among non-blacks MDRD (S/P/Bld) [Vol rate/Area] mL/min/{1.73_m2} Normal 60 - 999 [facility] Comment on above: Performed By: #### 2 52431 #### [place] [address] Result Comment: ACCO RDING TO THE NATIONAL KIDNEY DISEASE EDUCATION PROGRAM(NKDE), A NORMAL eGFR IS A VALUE GREATER THAN OR EQUAL TO 60 ML/MIN/1.73 SQ METERS. CHRONIC KIDNEY DISEASE: <60mL/MIN/1.73 SQ METERS KIDNEY FAILURE: <15mL/MIN/1.73 SQ METERS THIS TEST SHOULD ONLY BE USED FOR PATIENTS 18 YEARS OF AGE AND OLDER. Globulin (S) [Mass/Vol] 4.2 g/dL High 1.5 - 3.8 [facility] Comment on above: Performed By: #### 2 35775 #### [facility],[address] [place] [address] Glucose [Mass/Vol] 108 mg/dL High 74 - 106 [facility] Comment on above: Performed By: #### 2 88460 #### [place] [address] Potassium [Moles/Vol] 3.3 mmol/L Low 3.5 - 5.1 [facility] Comment on above: Performed By: #### 2 27169 #### [address],[place] [address] Protein [Mass/Vol] 6.9 g/dL Normal 6.4 - 8.2 [facility] Comment on above: Performed By: #### 2 66465 #### [facility],[address] [place] [address] Sodium [Moles/Vol] 141 mmol/L Normal 136 - 145 [facility] Comment on above: Performed By: #### 2 16101 #### [facility],[address] [place] [address] Urea nitrogen [Mass/Vol] 11 mg/dL Normal 7 - 18 [facility] Comment on above: Performed By: #### 2 42586 #### [facility],[address] [place] [address] ABDOMEN 2 VIEWSon 01-24-2025 ABDOMEN 2 VIEWS [place] [address] Patient: GWEN WOLF Phone#: : 1955 Age: 69 Gender: F Pt. Type: Out Account: [id number] Location: [facility] Ordering: JOAN HUERTA Exam Date: 01/24/2025/10:17 Family Phys: Charge Code: [id number] Physician: Travis Order #: [id number] Dose#: PROCEDURE: ABDOMEN 2 VIEWS COMPARISON: None. [...] Ying MD on 01/24/2025 at 15:13 Normal [facility] C-REACTIVE PROTEINon 025 CRP 0.85 mg/dl Normal 0.00 - 0.90 [facility] Comment on above: Performed By: #### 2 60923 #### [facility],[address] [place] [address] CBC + DIFFon 01-24-2025 Baso # 0.03 x10EE3/UL Normal 0.00 - 0.10 [facility] Comment on above: Performed By: #### 2 54930 #### [facility],[address] [place] [address] Basophils/100 WBC (Bld) 0.3 % Normal 0.0 - 2.0 [facility] Comment on above: Performed By: #### 2 85643 #### [place] [address] CBC + DIFF Normal [facility] Comment on above: Result Comment: CBC- COMPLETE BLOOD COUNT Performed By: #### 2 02749 #### [place] [address] EO # 0.13 x10EE3/UL Normal 0.00 - 0.50 [facility] Comment on above: Performed By: #### 2 72754 #### [facility],[address] [place] [address] Eosinophils/100 WBC (Bld) 1.6 % Normal 0.0 - 7.0 [facility] Comment on above: Performed By: #### 2 74851 #### [facility],[address] [place] [address] Erythrocyte distribution width (RBC) [Ratio] 14.2 % Normal 12.0 - 15.6 [facility] Comment on above: Performed By: #### 2 96782 #### [place] [address] Hematocrit (Bld) [Volume fraction] 36.3 % Normal 34.0 - 46.0 [facility] Comment on above: Performed By: #### 2 53104 #### [facility],[address] [place] [address] Hemoglobin (Bld) [Mass/Vol] 12.4 g/dL Normal 12.0 - 16.0 [facility] Comment on above: Performed By: #### 2 23523 #### [facility],[address] [place] [address] Lymph # 1.12 x10EE3/UL Normal 0.80 - 2.80 [facility] Comment on above: Performed By: #### 2 23017 #### [facility],[address] [place] [address] Lymphocytes/100 WBC (Bld) 13.4 % Low 20.0 - 45.0 [facility] Comment on above: Performed By: #### 2 79867 #### [facility],[address] [place] [address] MANUAL DIFF N/A Normal [facility] Comment on above: Performed By: #### 2 72252 #### [facility],[address] [place] [address] MCH (RBC) [Entitic mass] 29 pg Normal 27 - 33 [facility] Comment on above: Performed By: #### 2 07765 #### [facility],[address] [place] [address] MCHC 34 X10 3 Normal 32 - 36 [facility] Comment on above: Performed By: #### 2 01983 #### [facility],[address] [place] [address] MCV (RBC) [Entitic vol] 86 fL Normal 80 - 99 [facility] Comment on above: Performed By: #### 2 32309 #### [facility],[address] [place] [address] [place] # 0.53 x10EE3/UL Normal 0.20 - 1.00 [facility] Comment on above: Performed By: #### 2 48812 #### [facility],[address] [place] [address] MONOS % 6.4 % Normal 0.0 - 10.0 [facility] Comment on above: Performed By: #### 2 43552 #### [facility],[address] [place], [place] [id number] Morphology [place] (Bld) [Interp] N/A Normal [facility] Comment on above: Performed By: #### 2 98734 #### [facility],[address] [place] [address] Neut # 6.56 x10EE3/UL Normal 1.50 - 7.10 [facility] Comment on above: Performed By: #### 2 42474 #### [facility],[address] [place] [address] Neutrophils/100 WBC (Bld) 78.3 % High 46.0 - 76.0 [facility] Comment on above: Performed By: #### 2 99704 #### [facility],[address] [place], [place] [id number] PLATELET 291 x10EE3/UL Normal 150 - 450 [facility] Comment on above: Performed By: #### 2 49075 #### [facility],[address] [place] [address] Platelet mean volume (Bld) [Entitic vol] 11.2 fL High 6.6 - 10.5 [facility] Comment on above: Result Comment: AUTO MATED DIFFERENTIAL Performed By: #### 2 67608 #### [facility],[address] [place], [place] [id number] RBC 4.20 x 10EE6/UL Normal 4.10 - 5.30 [facility] Comment on above: Performed By: #### 2 31758 #### [facility],[address] [place], [place] [phone] WBC 8.4 x 10EE3/UL Normal 4.5 - 10.8 [facility] Comment on above: Performed By: #### 2 90243 #### [facility],[address] [place] [address]6982 CHEST 2 VIEWSon 01-24-2025 CHEST [address] [address] Patient: GWEN WOLF Phone#: : [phone] Age: 69 Gender: F Pt. Type: Out Account: [id number] Location: [facility] Ordering: JONA HUERTA Exam Date: 01/24/2025/10:13 Family Phys: Charge Code: [id number] Physician: Travis Order #: [id number] Dose#: PROCEDURE: X-RAY CHEST 2 VIEWS COMPARISON: [facility], XR, CHEST 1 VIEW, 04/17/2023, 13:20. [...] Ying MD on 01/24/2025 at 15:11 Normal [facility] CMP with eGFRon 01-24-2025 AGE 69 years Normal [facility] Comment on above: Performed By: #### 2 10368 #### [facility],[address] [place] [address]33 Albumin [Mass/Vol] 3.3 g/dL Low 3.4 - 5.0 [facility] Comment on above: Performed By: #### 2 87591 #### [facility],[address] [place] [address] 60810 Albumin/Globulin [Mass ratio] 0.6 {ratio} Low 0.9 - 1.6 [facility] Comment on above: Performed By: #### 2 97758 #### [facility],[address] [place] [address] 84777 ALK PHOS 131 U/L High 46 - 116 [facility] Comment on above: Performed By: #### 2 96492 #### [facility],[address] [place] [address] 29298 ALT [Catalytic activity/Vol] 15 U/L Low 16 - 63 [facility] Comment on above: Performed By: #### 2 81413 #### [facility],[address] [place] [address] 38203 Anion gap [Moles/Vol] 16 mmol/L Normal 10 - 20 [facility] Comment on above: Performed By: #### 2 61892 #### [facility],[address] [place] [address] 19438 AST [Catalytic activity/Vol] 25 U/L Normal 13 - 39 [facility] Comment on above: Performed By: #### 2 18966 #### [facility],[address] [place] [address] 65375 B/C RATIO 16 ratio Normal 0 - 30 [facility] Comment on above: Performed By: #### 2 65487 #### [facility],[address] [place] [address] 55153 Bilirubin [Mass/Vol] 1.5 mg/dL High 0.2 - 1.0 [facility] Comment on above: Performed By: #### 2 18253 #### [facility],[address] [place] [address]77 Calcium [Mass/Vol] 10.1 mg/dL Normal 8.5 - 10.1 [facility] Comment on above: Performed By: #### 2 33362 #### [facility],[address] [place] [address] 69247 Chloride [Moles/Vol] 96 mmol/L Low 98 - 107 [facility] Comment on above: Performed By: #### 2 64175 #### [facility],[address] [place] [address] 74097 CMP with eGFR Normal [facility] Comment on above: Result Comment: COMP REHENSIVE METABOLIC PANEL Performed By: #### 2 30879 #### [facility],[address] [place] [address] 04768 CO2 [Moles/Vol] 26.6 mmol/L Normal 21.0 - 32.0 [facility] Comment on above: Performed By: #### 2 94929 #### [facility],[address] [place] [address] 38568 Creatinine [Mass/Vol] 1.48 mg/dL High 0.55 - 1.02 [facility] Comment on above: Performed By: #### 2 52926 #### [facility],[address] [place] [address] 60742 eGFR 35 ML/MINUTE Low 60 - 999 [facility] Comment on above: Performed By: #### 2 96282 #### [facility],[address] [place] [address] 45521 eGFR(AA) 42 ML/MINUTE Low 60 - 999 [facility] Comment on above: Result Comment: ACCO RDING TO THE NATIONAL KIDNEY DISEASE EDUCATION PROGRAM(NKDE), A NORMAL eGFR IS A VALUE GREATER THAN OR EQUAL TO 60 ML/MIN/1.73 SQ METERS. CHRONIC KIDNEY DISEASE: <60mL/MIN/1.73 SQ METERS KIDNEY FAILURE: <15mL/MIN/1.73 SQ METERS THIS TEST SHOULD ONLY BE USED FOR PATIENTS 18 YEARS OF AGE AND OLDER. Performed By: #### 2 08753 #### [facility],[address] [place] [address] 42340 Globulin (S) [Mass/Vol] 5.2 g/dL High 1.5 - 3.8 [facility] Comment on above: Performed By: #### 2 95614 #### [facility],[address] [place] [address] 33912 Glucose [Mass/Vol] 152 mg/dL High 74 - 106 [facility] Comment on above: Performed By: #### 2 01730 #### [facility],[address] [place] [address] 49541 Potassium [Moles/Vol] 3.0 mmol/L Low 3.5 - 5.1 [facility] Comment on above: Performed By: #### 2 93758 #### [address] [address] Protein [Mass/Vol] 8.5 g/dL High 6.4 - 8.2 [facility] Comment on above: Performed By: #### 2 23217 #### [facility],[address] [place] [address] 81677 Sodium [Moles/Vol] 136 mmol/L Normal 136 - 145 [facility] Comment on above: Performed By: #### 2 87733 #### [place] [id number] Urea nitrogen [Mass/Vol] 23 mg/dL High 7 - 18 [facility] Comment on above: Performed By: #### 2 75481 #### [place] [id number] HEMOGLOBIN A1C (POM)on 01-24 Glucose [Mass/Vol] 162.8 mg/dL High 0.0 - 0.0 [facility] Comment on above: Result Comment: BLDo HEMOGLOBIN A1C REFERENCE RANGESBLDo Suggested Diagnosis HbA1c(%) HbA1C (mmol/mol Diabetic >/=6.5 >/=48 Prediabetes 5.7 - 6.4 39 - 47 Normal <5.7 <39 Performed By: #### 2 39654 #### [address] [address] HbA1c (Bld) [Mass fraction] 7.3 % High 0.0 - 6.5 [facility] Comment on above: Performed By: #### 2 43928 #### [facility],[address] [place], [place] [address] LIPASEon 01-24-2025 Lipase [Catalytic activity/Vol] 31.0 U/L Normal 15.0 - 78.0 [facility] Comment on above: Result Comment: *PLE ASE NOTE THAT RANGES FOR LIPASE HAVE CHANGED OF 08/21/23 DUE TO AN ASSAY UPDATE BY THE BANKER MASON.THE NEW ASSAY RANGE IS 6-250 U/L, WITH A REFERENCE RANGE OF 16-77 U/L. Performed By: #### 2 08944 #### [facility],[address] [place], [place] [address] MAGNESIUMon 01-24-2025 Magnesium [Mass/Vol] 1.6 mg/dL Low 1.8 - 2.4 [facility] Comment on above: Performed By: #### 2 33446 #### [facility],[address] [place] [address] 06862 SEDRATEon 01-24-2025 SEDRATE 74 mm/hr High 0 - 30 [facility] Comment on above: Performed By: #### 2 14675 #### [facility],[address] [place] [address] 40241 T4-FREE (FREE THYROXINE)on 0 01-24-2025 Free T4 [Mass/Vol] 3.23 ng/dL High 0.76 - 1.46 [facility] Comment on above: Result Comment: P otential of falsely elevated results when biotin concentrations are > 10 ng/mL. Performed By: #### 2 12685 #### [facility],[address] [place] [address] 07562 TSHon 01-24-2025 TSH Qn m[IU]/L Low 0.35 - 3.74 [facility] Comment on above: Performed By: #### 2 63593 #### [facility],[address] [place] [address] 81846 WOUND CULTURE WITH GRAM STAI Non 01-05-2025 WOUND CULTURE WITH GRAM STAIN WOUND CULTURE 114CANDIDA ALBICANS 1+ Rosa albicans GRAM STAIN OF CULTURE No organisms seen Normal [facility] Comment on above: Performed By: #### 4 [id number] #### [facility] [address] [place], [place] [id number] [facility] T4, FREE [CCL]on 11-03-2024 Free T4 [Mass/Vol] 0.7 ng/dL Low 0.9-1.7 [facility] Comment on above: Result Comment: [place] [address] Uli Goodrich III, M.D. [id number] Performed By: #### 2 95803 #### [facility],[address] [place], [place] [address] T4 Free SerPl-mCncon 025 Free T4 [Mass/Vol] 0.7 ng/dL Low 0.9-1.7 [facility] Comment on above: Order Comment: Speci men Type: BLOOD SPECIMEN Ordering Facility: [facility] Address: [address] [place] [address] Performed By: #### 3 024-7 #### [facility] CLIA [id number] [address] [place] [address] [place] TSHon 11-01-2024 TSH Qn 27.16 m[IU]/L High 0.35 - 3.74 [facility] Comment on above: Performed By: #### 2 57114 #### [facility],[address] [place], [place] [address] LABORATORYOrdered By: Ho Vides on 04-22-2023 Blood Glucose Testing Reason Routine (04/22/23 11:27 AM) [facility] Work Phone: Glucose [Mass/Vol] 106 mg/dL Invalid Interpretation Code 82 - 115 mg/dL [facility] Work Phone: LABORATORYOrdered By: Daniela Ramachandran on 04-22-2023 Glucose [Mass/Vol] 134 mg/dL Invalid Interpretation Code 82 - 115 mg/dL [facility] Work Phone: .Auto Diffon 04-21-2023 Basophil, Absolute 0.0 10 3/mcL Normal 0.0-0.3 [facility] ([place]) Comment on above: Performed By: #### G FR, ANEU, BMP, MDW, CBC, ADIFF #### [address] [address] Basophils/100 WBC (Bld) 0.7 % Normal 0.0-2.5 [facility] ([place]) Comment on above: Performed By: #### G FR, ANEU, BMP, MDW, CBC, ADIFF #### [address] [address] Eosinophil, Absolute 0.3 10 3/mcL Normal 0.0-0.7 [facility] ([place]) Comment on above: Performed By: #### G FR, ANEU, BMP, MDW, CBC, ADIFF #### [address] [address] Eosinophils/100 WBC (Bld) 4.4 % Normal 0.0-6.0 [facility] ([place]) Comment on above: Performed By: #### G FR, ANEU, BMP, MDW, CBC, ADIFF #### [address] [address] Lymphocyte, Absolute 1.8 10 3/mcL Normal 0.9-4.3 [facility] ([place] Comment on above: Performed By: #### G FR, ANEU, BMP, MDW, CBC, ADIFF #### [address] [address] Lymphocytes/100 WBC (Bld) 29.3 % Normal 20.0-40.0 [facility] ([place]) Comment on above: Performed By: #### G FR, ANEU, BMP, MDW, CBC, ADIFF #### [address] [address] Monocyte, Absolute 0.4 10 3/mcL Normal 0.1-1.4 [facility] ([place] Comment on above: Performed By: #### G FR, ANEU, BMP, MDW, CBC, ADIFF #### [address] [address] Monocytes/100 WBC (Bld) 7.1 % Normal 2.0-13.0 [facility] ([place]) Comment on above: Performed By: #### G FR, ANEU, BMP, MDW, CBC, ADIFF #### [address] [address] Neutrophils/100 WBC (Bld) 58.5 % Normal 50.0-75.0 [facility] ([place]) Comment on above: Performed By: #### G FR, ANEU, BMP, MDW, CBC, ADIFF #### [address] [address] .GFRon 04-21-2023 GFR Non- >60 Normal [facility] ([place]) Comment on above: Result Comment: GFR Population [...] FR, ANEU, BMP, MDW, CBC, ADIFF #### [address] [address] GFR >60 Normal [facility] ([place]) Comment on above: Result Comment: GFR Population [...] FR, ANEU, BMP, MDW, CBC, ADIFF #### [address] [address] .NEUABSon 04-21-2023 Neutrophil, Absolute 3.6 10 3/mcL Normal 2.3-8.1 [facility] ([place] Comment on above: Performed By: #### G FR, ANEU, BMP, MDW, CBC, ADIFF #### [address] [address] BMPon 04-21-2023 BUN/Creatinine Ratio 13.8 ratio Normal 10.0-22.0 [facility] ([place]) Comment on above: Performed By: #### G FR, ANEU, BMP, MDW, CBC, ADIFF #### [address] [address] Calcium [Mass/Vol] 8.7 mg/dL Normal 8.7-10.4 [facility] ([place]) Comment on above: Performed By: #### G FR, ANEU, BMP, MDW, CBC, ADIFF #### [address] [address] Chloride [Moles/Vol] 106 mmol/L Normal 98-110 [facility] ([place] Comment on above: Performed By: #### G FR, ANEU, BMP, MDW, CBC, ADIFF #### [address] [address] CO2 [Moles/Vol] 30 mmol/L Normal 22-32 [facility] ([place] Comment on above: Performed By: #### G FR, ANEU, BMP, MDW, CBC, ADIFF #### [address] [address] Creatinine [Mass/Vol] 0.65 mg/dL Normal 0.50-1.20 [facility] ([place]) Comment on above: Performed By: #### G , IVANA, RAFAEL, VINCENT, CBC, ADIFF #### [place] [id number] Electrolyte Balance 4.0 mEq/L Normal 4.0-15.0 [facility] ([place]) Comment on above: Performed By: #### G , IVANA, RAFAEL, W, CBC, ADIFF #### [place] [id number] Glucose [Mass/Vol] 123 mg/dL High 82-115 [facility] ([place] Comment on above: Performed By: #### G , IVANA, RAFAEL, W, CBC, ADIFF #### [place] [id number] Potassium [Moles/Vol] 4.4 mmol/L Normal 3.5-5.0 [facility] ([place]) Comment on above: Performed By: #### G , IVANA, RAFAEL, W, CBC, ADIFF #### [place] [id number] Sodium [Moles/Vol] 140 mmol/L Normal 136-145 [facility] ([place] Comment on above: Performed By: #### G , IVANA, RAFAEL, W, CBC, ADIFF #### [place] [id number] Urea nitrogen [Mass/Vol] 9.0 mg/dL Normal 8.0-22.0 [facility] ([place]) Comment on above: Performed By: #### G , IVANA, RAFAEL, W, CBC, ADIFF #### [address] [address] CBCon 04-21-2023 Erythrocyte distribution width (RBC) [Ratio] 13.6 % Normal 11.5-15.5 [facility] ([place]) Comment on above: Performed By: #### G FR, IVANA, RAFAEL, W, CBC, ADIFF #### [place] [id number] Hematocrit (Bld) [Volume fraction] 36.7 % Normal 34.0-46.0 [facility] ([place]) Comment on above: Performed By: #### G FR, ANEU, BMP, MDW, CBC, ADIFF #### [place] [address] Hgb 12.5 G/dL Normal 12.0-16.0 [facility] ([place]) Comment on above: Performed By: #### G FR, ANEU, BMP, MDW, CBC, ADIFF #### [place] [address] MCH (RBC) [Entitic mass] 31.6 pg Normal 27.0-33.0 [facility] ([place]) Comment on above: Performed By: #### G FR, ANEU, BMP, MDW, CBC, ADIFF #### [place] [address] MCHC 33.9 G/dL Normal 32.0-36.0 [facility] ([place]) Comment on above: Performed By: #### G FR, ANEU, BMP, MDW, CBC, ADIFF #### [place] [address] MCV (RBC) [Entitic vol] 93.1 fL Normal 80.0-99.0 [facility] ([place]) Comment on above: Performed By: #### G FR, ANEU, BMP, MDW, CBC, ADIFF #### [place] [address] Platelet 184 10 3/mcL Normal 150-450 [facility] ([place]) Comment on above: Performed By: #### G FR, ANEU, BMP, MDW, CBC, ADIFF #### [place] [address] Platelet mean volume (Bld) [Entitic vol] 10.3 fL Normal 6.6-10.5 [facility] ([place]) Comment on above: Performed By: #### G FR, ANEU, BMP, MDW, CBC, ADIFF #### [place] [address] RBC 3.94 10 6/mcL Low 4.10-5.30 [facility] ([place]) Comment on above: Performed By: #### G FR, IVANA, RAFAEL, W, CBC, ADIFF #### [address] [address] WBC 6.1 10 3/mcL Normal 4.5-10.8 [facility] ([place]) Comment on above: Performed By: #### G FR, IVANA, RAFAEL, MDW, CBC, ADIFF #### [facility] [address] [place] [address] LABORATORYOrdered By: Carly Cerda on 04-21-2023 Glucose [Mass/Vol] 121 mg/dL Invalid Interpretation Code 82 - 115 mg/dL [facility] Work Phone: LABORATORYOrdered By: SYSTEM SYSTEM on 04-21-2023 Basophils (Bld) [#/Vol] 0.0 103/mcL Invalid Interpretation Code 0.0 - 0.3 10^3/mcL Workflow SS Basophils/100 WBC (Bld) 0.7 % Invalid Interpretation Code 0.0 - 2.5 % Workflow SS Calcium [Mass/Vol] 8.7 mg/dL Invalid [...] (S/P/Bld) [Vol rate/Area] ml/min/1.73sqm Invalid Interpretation Code [employer] Chemistry S Comment on above: Interpretive Data: [...] Code 3.5 - 5.0 mEq/L ADM SS RBC (Bld) [#/Vol] 3.94 106/mcL Invalid Interpretation Code 4.10 - 5.30 10^6/mcL AH Workflow SS Sodium [Moles/Vol] 140 mmol/L Invalid Interpretation Code 136 - 145 mEq/L ADM SS Urea nitrogen [Mass/Vol] 9.0 mg/dL Invalid Interpretation Code 8.0 - 22.0 mg/dL ADM SS Urea nitrogen/Creatinine [Mass ratio] 13.8 ratio Invalid Interpretation Code 10.0 - 22.0 ratio ADM SS WBC (Bld) [#/Vol] 6.1 103/mcL Invalid Interpretation Code 4.5 - 10.8 10^3/mcL Workflow SS MGon 04-21-2023 Magnesium [Mass/Vol] 1.6 mg/dL Normal 1.6-2.4 [facility] ([place]) Comment on above: Performed By: #### G FR, ANEU, BMP, MDW, CBC, ADIFF #### [address] [address] .Auto Diffon 04-20-2023 Basophil, Absolute 0.0 10 3/mcL Normal 0.0-0.3 [facility] ([place]) Comment on above: Performed By: #### A PRAMINDER, BMP, ADIFF, GFR, CBC #### [address] [address] Basophils/100 WBC (Bld) 0.7 % Normal 0.0-2.5 [facility] ([place]) Comment on above: Performed By: #### A PARMINDER, BMP, ADIFF, GFR, CBC #### [address] [address] Eosinophil, Absolute 0.1 10 3/mcL Normal 0.0-0.7 [facility] ([place]) Comment on above: Performed By: #### A PARMINDER, BMP, ADIFF, GFR, CBC #### [address] [address] Eosinophils/100 WBC (Bld) 2.2 % Normal 0.0-6.0 [facility] ([place]) Comment on above: Performed By: #### A PARMINDER, BMP, ADIFF, GFR, CBC #### [address] [address] Lymphocyte, Absolute 1.4 10 3/mcL Normal 0.9-4.3 [facility] ([place] Comment on above: Performed By: #### A PARMINDER, BMP, ADIFF, GFR, CBC #### [address] [address] Lymphocytes/100 WBC (Bld) 20.5 % Normal 20.0-40.0 [facility] ([place]) Comment on above: Performed By: #### A PARMINDER, BMP, ADIFF, GFR, CBC #### [address] [address] Monocyte, Absolute 0.4 10 3/mcL Normal 0.1-1.4 [facility] ([place]) Comment on above: Performed By: #### A PARMINDER, BMP, ADIFF, GFR, CBC #### [address] [address] Monocytes/100 WBC (Bld) 5.6 % Normal 2.0-13.0 [facility] ([place]) Comment on above: Performed By: #### A PARMINDER, BMP, ADIFF, GFR, CBC #### [address] [address] Neutrophils/100 WBC (Bld) 71.0 % Normal 50.0-75.0 [facility] ([place]) Comment on above: Performed By: #### A PARMINDER, BMP, ADIFF, GFR, CBC #### [address] [address] .GFRon 04-20-2023 GFR Non- >60 Normal [facility] ([place]) Comment on above: Result Comment: GFR Population [...] FR, ANEU, BMP, MDW, CBC, ADIFF #### [address] [address] GFR >60 Normal [facility] ([place]) Comment on above: Result Comment: GFR Population [...] FR, ANEU, BMP, W, CBC, ADIFF #### [address] [address] .NEUABSon 04-20-2023 Neutrophil, Absolute 4.9 10 3/mcL Normal 2.3-8.1 [facility] ([place] Comment on above: Performed By: #### G FR, IVANA, BMP, MDW, CBC, ADIFF #### [address] [address] BMPon 04-20-2023 BUN/Creatinine Ratio 14.3 ratio Normal 10.0-22.0 [facility] ([place]) Comment on above: Performed By: #### G FR, IVANA, RAFAEL, W, CBC, ADIFF #### [address] [address] Calcium [Mass/Vol] 8.8 mg/dL Normal 8.7-10.4 [facility] ([place] Comment on above: Performed By: #### G , IVANA, RAFAEL, W, CBC, ADIFF #### [address] [address] Chloride [Moles/Vol] 107 mmol/L Normal 98-110 [facility] ([place] Comment on above: Performed By: #### G FR, ANEU, BMP, MDW, CBC, ADIFF #### [address] [address] CO2 [Moles/Vol] 28 mmol/L Normal 22-32 [facility] ([place] Comment on above: Performed By: #### G FR, IVANA, RAFAEL, W, CBC, ADIFF #### [address] [address] Creatinine [Mass/Vol] 0.63 mg/dL Normal 0.50-1.20 [facility] ([place] Comment on above: Performed By: #### G FR, ANEU, BMP, MDW, CBC, ADIFF #### [address] [address] Electrolyte Balance 5.0 mEq/L Normal 4.0-15.0 [facility] ([place]) Comment on above: Performed By: #### G FR, ANEU, BMP, MDW, CBC, ADIFF #### [address] [address] Glucose [Mass/Vol] 118 mg/dL High 82-115 [facility] ([place] Comment on above: Performed By: #### G FR, ANEU, BMP, MDW, CBC, ADIFF #### [address] [address] Potassium [Moles/Vol] 4.3 mmol/L Normal 3.5-5.0 [facility] ([place] Comment on above: Performed By: #### G FR, ANEU, BMP, MDW, CBC, ADIFF #### [address] [address] Sodium [Moles/Vol] 140 mmol/L Normal 136-145 [facility] ([place] Comment on above: Performed By: #### G FR, ANEU, BMP, MDW, CBC, ADIFF #### [address] [address] Urea nitrogen [Mass/Vol] 9.0 mg/dL Normal 8.0-22.0 [facility] ([place]) Comment on above: Performed By: #### G FR, ANEU, BMP, MDW, CBC, ADIFF #### [address] [address] CBCon 04-20-2023 Erythrocyte distribution width (RBC) [Ratio] 13.6 % Normal 11.5-15.5 [facility] ([place]) Comment on above: Performed By: #### A PARMINDER, BMP, ADIFF, GFR, CBC #### [address] [address] Hematocrit (Bld) [Volume fraction] 38.3 % Normal 34.0-46.0 [facility] ([place]) Comment on above: Performed By: #### A PARMINDER, BMP, ADIFF, GFR, CBC #### [address] [address] Hgb 12.8 G/dL Normal 12.0-16.0 [facility] ([place]) Comment on above: Performed By: #### A PARMINDER, BMP, ADIFF, GFR, CBC #### [address] [address] MCH (RBC) [Entitic mass] 31.4 pg Normal 27.0-33.0 [facility] ([place]) Comment on above: Performed By: #### A PARMINDER, BMP, ADIFF, GFR, CBC #### [place] [address] MCHC 33.5 G/dL Normal 32.0-36.0 [facility] ([place]) Comment on above: Performed By: #### A PARMINDER, BMP, ADIFF, GFR, CBC #### [place] [address] MCV (RBC) [Entitic vol] 93.7 fL Normal 80.0-99.0 [facility] ([place]) Comment on above: Performed By: #### A PARMINDER, BMP, ADIFF, GFR, CBC #### [place] [address] Platelet 196 10 3/mcL Normal 150-450 [facility] ([place]) Comment on above: Performed By: #### A PARMINDER, BMP, ADIFF, GFR, CBC #### [place] [address] Platelet mean volume (Bld) [Entitic vol] 10.4 fL Normal 6.6-10.5 [facility] ([place]) Comment on above: Performed By: #### A PARMINDER, BMP, ADIFF, GFR, CBC #### [place] [address] RBC 4.09 10 6/mcL Low 4.10-5.30 [facility] ([place]) Comment on above: Performed By: #### A PARMINDER, BMP, ADIFF, GFR, CBC #### [place] [address] WBC 6.9 10 3/mcL Normal 4.5-10.8 [facility] ([place]) Comment on above: Performed By: #### A PARMINDER, BMP, ADIFF, GFR, CBC #### [place] [address] [place] [address] LABORATORYOrdered By: Kaveh Drake on 04-20-2023 Blood Glucose Testing Reason Routine (04/20/23 9:44 PM) [facility] Work Phone: LABORATORYOrdered By: Byron Ramachandran on 04-20-2023 Blood Glucose Testing Reason Routine (04/20/23 4:15 PM) [facility] [facility] Work Phone: LABORATORYOrdered By: SYSTEM SYSTEM on 04-20-2023 Basophils [...] AH Workflow SS MCV (RBC) [Entitic vol] 93.7 fL Invalid Interpretation Code 80.0 - 99.0 fL AH Workflow SS Monocytes (Bld) [#/Vol] 0.4 103/mcL Invalid Interpretation Code 0.1 - 1.4 10^3/mcL AH Workflow SS Monocytes/100 WBC (Bld) 5.6 % Invalid Interpretation Code 2.0 - 13.0 % AH Workflow SS Neutrophils (Bld) [#/Vol] 4.9 103/mcL Invalid Interpretation Code 2.3 - 8.1 10^3/mcL AH Workflow SS Neutrophils/100 WBC (Bld) 71.0 % Invalid Interpretation Code 50.0 - 75.0 % AH Workflow SS Platelet mean volume (Bld) [Entitic vol] 10.4 fL Invalid Interpretation Code 6.6 - 10.5 fL AH Workflow SS Platelets (Bld) [#/Vol] 196 103/mcL [...] AH ADM SS Urea nitrogen/Creatinine [Mass ratio] 14.3 ratio Invalid Interpretation Code 10.0 - 22.0 ratio AH ADM SS WBC (Bld) [#/Vol] 6.9 103/mcL Invalid Interpretation Code 4.5 - 10.8 10^3/mcL AH Workflow SS .GFRon 04-19-2023 GFR >60 Normal [facility] ([place] Comment on above: Result Comment: GFR Population [...] Performed By: #### G , CMP #### [address] [address] GFR Non- >60 Normal [facility] ([place]) Comment on above: Result Comment: GFR Population [...] 15 mL/min/1.73 square meters Performed By: #### Edith TOBIN CMP #### [place] [address] A1C 04-19-2023 HbA1c (Bld) [Mass fraction] 7.2 % High 4.0-6.0 [facility] ([place]) Comment on above: Performed By: #### G , ANEU, BMP, MDW, CBC, ADIFF #### [place] [id number] [facility] 04-19-2023 Albumin Level 3.3 G/dL Normal 3.2-4.8 [facility] ([place]) Comment on above: Performed By: #### G , CMP #### [place] [address] Albumin/Globulin [Mass ratio] 1.1 {ratio} Normal 0.9-1.6 [facility] ([place]) Comment on above: Performed By: #### Edith TOBIN, CMP #### [address] [address] ALP [Catalytic activity/Vol] 98 U/L Normal 38-126 [facility] ([place]) Comment on above: Performed By: #### G , CMP #### [address] [address] ALT [Catalytic activity/Vol] 17 U/L Normal 10-49 [facility] ([place] Comment on above: Performed By: #### G FR, CMP #### [address] [address] AST [Catalytic activity/Vol] 18 U/L Normal 8-34 [facility] ([place] Comment on above: Performed By: #### Edith TOBIN, CMP #### [place] [id number] Bili Total 1.00 mg/dL Normal 0.20-1.20 [facility] ([place]) Comment on above: Result Comment: Use of this assay is not recommended for patients undergoing treatment with eltrombopag due to the potential for falsely elevated results. Performed By: #### Edith TOBIN, CMP #### [address] [address] BUN/Creatinine Ratio 19.4 ratio Normal 10.0-22.0 [facility] ([place]) Comment on above: Performed By: #### Edith TOBIN, CMP #### [address] [address] Calcium [Mass/Vol] 8.2 mg/dL Low 8.7-10.4 [facility] ([place]) Comment on above: Performed By: #### Edith FR, CMP #### [address] [address] Chloride [Moles/Vol] 108 mmol/L Normal 98-110 [facility] ([place] Comment on above: Performed By: #### G FR, CMP #### [address] [address] CO2 [Moles/Vol] 27 mmol/L Normal 22-32 [facility] ([place] Comment on above: Performed By: #### G FR, CMP #### [address] [address] Creatinine [Mass/Vol] 0.62 mg/dL Normal 0.50-1.20 [facility] ([place] Comment on above: Performed By: #### Edith TOBIN, CMP #### [address] [address] Electrolyte Balance 5.0 mEq/L Normal 4.0-15.0 [facility] ([place]) Comment on above: Performed By: #### Edith TOBIN, CMP #### [address] [address] Globulin 3.0 G/dL Normal 1.5-3.8 [facility] ([place] Comment on above: Performed By: #### Edith TOBIN, CMP #### [place] [id number] Glucose [Mass/Vol] 138 mg/dL High 82-115 [facility] ([place] Comment on above: Performed By: #### Edith TOBIN, CMP #### [place] [id number] Potassium [Moles/Vol] 4.0 mmol/L Normal 3.5-5.0 [facility] ([place] Comment on above: Performed By: #### Edith TOBIN, CMP #### [address] [address] Sodium [Moles/Vol] 140 mmol/L Normal 136-145 [facility] ([place] Comment on above: Performed By: #### Edith TOBIN, CMP #### [place] [id number] Total Protein 6.3 G/dL Normal 5.7-8.2 [facility] ([place]) Comment on above: Result Comment: No te - New Reference Range in effect 20 Performed By: #### Edith TOBIN, CMP #### [address] [address] Urea nitrogen [Mass/Vol] 12.0 mg/dL Normal 8.0-22.0 [facility] ([place]) Comment on above: Performed By: #### Edith TOBIN, CMP #### [address] [address] LABORATORYOrdered By: SYSTEM SYSTEM on 04-19-2023 Albumin BCP dye [Mass/Vol] 3.3 G/dL Invalid Interpretation Code 3.2 - 4.8 G/dL AH ADM SS Albumin/Globulin [Mass ratio] 1.1 {ratio} Invalid Interpretation Code 0.9 - 1.6 ratio AH ADM SS ALP [Catalytic activity/Vol] 98 U/L Invalid Interpretation Code 38 - 126 U/L AH ADM SS ALT No additional P-5'-P [Catalytic [...] (S/P/Bld) [Vol rate/Area] ml/min/1.73sqm Invalid Interpretation Code AH ADM SS Comment on above: Interpretive [...] 145 mEq/L ADM SS Urea nitrogen [Mass/Vol] 12.0 mg/dL Invalid Interpretation Code 8.0 - 22.0 mg/dL ADM SS Urea nitrogen/Creatinine [Mass ratio] 19.4 ratio Invalid Interpretation Code 10.0 - 22.0 ratio ADM SS No Panel Informationon 04-19 Microscopic examination of blood, culture Culture has been received in lab and is no growth to date. Routine cultures are held for 5 days. [facility] Work Phone: .Auto Diffon 04-18-2023 Basophil, Absolute 0.1 10 3/mcL Normal 0.0-0.3 [facility] ([place]) Comment on above: Performed By: #### G FR, ANEU, BMP, MDW, CBC, ADIFF #### [address] [address] Basophils/100 WBC (Bld) 1.0 % Normal 0.0-2.5 [facility] ([place]) Comment on above: Performed By: #### G FR, ANEU, BMP, MDW, CBC, ADIFF #### [address] [address] Eosinophil, Absolute 0.1 10 3/mcL Normal 0.0-0.7 [facility] ([place]) Comment on above: Performed By: #### G FR, ANEU, BMP, MDW, CBC, ADIFF #### [address] [address] Eosinophils/100 WBC (Bld) 1.3 % Normal 0.0-6.0 [facility] ([place] Comment on above: Performed By: #### G FR, ANEU, BMP, MDW, CBC, ADIFF #### [address] [address] Lymphocyte, Absolute 1.8 10 3/mcL Normal 0.9-4.3 [facility] ([place] Comment on above: Performed By: #### G FR, ANEU, BMP, MDW, CBC, ADIFF #### [address] [address] Lymphocytes/100 WBC (Bld) 23.8 % Normal 20.0-40.0 [facility] ([place]) Comment on above: Performed By: #### G FR, ANEU, BMP, MDW, CBC, ADIFF #### [address] [address] Monocyte, Absolute 0.6 10 3/mcL Normal 0.1-1.4 [facility] ([place] Comment on above: Performed By: #### G FR, ANEU, BMP, MDW, CBC, ADIFF #### [address] [address] Monocytes/100 WBC (Bld) 7.7 % Normal 2.0-13.0 [facility] ([place] Comment on above: Performed By: #### G , IVANA, RAFAEL, VINCENT, CBC, ADIFF #### [address] [address] Neutrophils/100 WBC (Bld) 66.2 % Normal 50.0-75.0 [facility] ([place] Comment on above: Performed By: #### G , IVANA, RAFAEL, VINCENT, CBC, ADIFF #### [address] [address] .GFRon 04-18-2023 GFR >60 Normal [facility] ([place] Comment on above: Result Comment: GFR Population [...] , IVANA, RAFAEL, VINCENT, CBC, ADIFF #### [address] [address] GFR Non- >60 Normal [facility] ([place] Comment on above: Result Comment: GFR Population [...] meters Performed By: #### G , IVANA, BMP, W, CBC, ADIFF #### [address] [address] .MDWon 04-18-2023 Monocyte Distribution Width 17.68 Normal 0.00-20.00 [facility] ([place]) Comment on above: Result Comment: For ED adult patients suspected of sepsis, MDW<=20.0 does not rule out sepsis or risk of sepsis Performed By: #### G , IVANA, BMP, MDW, CBC, ADIFF #### [address] [address] .NEUABSon 04-18-2023 Neutrophil, Absolute 4.9 10 3/mcL Normal 2.3-8.1 [facility] ([place] Comment on above: Performed By: #### G , IVANA, RAFAEL, W, CBC, ADIFF #### [place] [id number] BMPon 04-18-2023 BUN/Creatinine Ratio 13.5 ratio Normal 10.0-22.0 [facility] ([place] Comment on above: Performed By: #### G , IVANA, BMP, MDW, CBC, ADIFF #### [address] [address] Calcium [Mass/Vol] 8.9 mg/dL Normal 8.7-10.4 [facility] ([place] Comment on above: Performed By: #### G FR, IVANA, BMP, MDW, CBC, ADIFF #### [address] [address] Chloride [Moles/Vol] 106 mmol/L Normal 98-110 [facility] ([place] Comment on above: Performed By: #### G FR, ANEU, BMP, MDW, CBC, ADIFF #### [place] [address] CO2 [Moles/Vol] 26 mmol/L Normal 22-32 [facility] ([place] Comment on above: Performed By: #### G FR, ANEU, BMP, MDW, CBC, ADIFF #### [address] [address] Creatinine [Mass/Vol] 0.74 mg/dL Normal 0.50-1.20 [facility] ([place] Comment on above: Performed By: #### G FR, IVANA, BMP, MDW, CBC, ADIFF #### [address] [address] Electrolyte Balance 8.0 mEq/L Normal 4.0-15.0 [facility] ([place] Comment on above: Performed By: #### G FR, IVANA, BMP, MDW, CBC, ADIFF #### [place] [id number] Glucose [Mass/Vol] 152 mg/dL High 82-115 [facility] ([place] Comment on above: Performed By: #### G , IVANA, RAFAEL, MDW, CBC, ADIFF #### [place] [phone] Potassium [Moles/Vol] 3.4 mmol/L Low 3.5-5.0 [facility] ([place] Comment on above: Performed By: #### G , IVANA, BMP, MDW, CBC, ADIFF #### [place] [phone] Sodium [Moles/Vol] 140 mmol/L Normal 136-145 [facility] ([place] Comment on above: Performed By: #### G FR, IVANA, BMP, MDW, CBC, ADIFF #### [place] [phone] Urea nitrogen [Mass/Vol] 10.0 mg/dL Normal 8.0-22.0 [facility] ([place] Comment on above: Performed By: #### G FR, IVANA, BMP, MDW, CBC, ADIFF #### [address] [address] CBCon 04-18-2023 Erythrocyte distribution width (RBC) [Ratio] 13.4 % Normal 11.5-15.5 [facility] ([place] Comment on above: Performed By: #### G FR, ANEU, BMP, MDW, CBC, ADIFF #### [place] [address] Hematocrit (Bld) [Volume fraction] 39.8 % Normal 34.0-46.0 [facility] ([place] Comment on above: Performed By: #### G FR, ANEU, BMP, MDW, CBC, ADIFF #### [place] [id number] Hgb 13.4 G/dL Normal 12.0-16.0 [facility] ([place] Comment on above: Performed By: #### G FR, ANEU, BMP, MDW, CBC, ADIFF #### [place] [address] MCH (RBC) [Entitic mass] 31.1 pg Normal 27.0-33.0 [facility] ([place] Comment on above: Performed By: #### G FR, ANEU, BMP, MDW, CBC, ADIFF #### [place] [address] MCHC 33.6 G/dL Normal 32.0-36.0 [facility] ([place] Comment on above: Performed By: #### G , IVANA, BMP, MDW, CBC, ADIFF #### [place] [address] MCV (RBC) [Entitic vol] 92.6 fL Normal 80.0-99.0 [facility] ([place] Comment on above: Performed By: #### G FR, ANEU, BMP, MDW, CBC, ADIFF #### [place] [id number] Platelet 199 10 3/mcL Normal 150-450 [facility] ([place] Comment on above: Performed By: #### G FR, ANEU, BMP, MDW, CBC, ADIFF #### [place] [address] Platelet mean volume (Bld) [Entitic vol] 10.5 fL Normal 6.6-10.5 [facility] ([place]) Comment on above: Performed By: #### G FR, ANEU, BMP, MDW, CBC, ADIFF #### [facility] [address] [place] [address] RBC 4.30 10 6/mcL Normal 4.10-5.30 [facility] ([place]) Comment on above: Performed By: #### G FR, ANEU, BMP, MDW, CBC, ADIFF #### [facility] [address] [place] [address] WBC 7.5 10 3/mcL Normal 4.5-10.8 [facility] ([place]) Comment on above: Performed By: #### G FR, ANEU, BMP, MDW, CBC, ADIFF #### [facility] [address] [place] [address] LABORATORYOrdered By: SYSTEM SYSTEM on 04-18-2023 Basophils [...] 46.0 % Workflow SS Hemoglobin (Bld) [Mass/Vol] 13.4 G/dL Invalid Interpretation Code 12.0 - 16.0 G/dL Workflow SS Lymphocytes (Bld) [#/Vol] 1.8 103/mcL Invalid Interpretation Code 0.9 - 4.3 10^3/mcL AH Workflow SS Lymphocytes/100 WBC (Bld) 23.8 % Invalid Interpretation Code 20.0 - 40.0 % Workflow SS MCH (RBC) [Entitic mass] 31.1 [...] Invalid Interpretation Code 3 - 149 mg/dL AH ADM SS LIPIDon 04-18-2023 Cholesterol [Mass/Vol] 179 mg/dL Normal 50-199 [facility] ([place] Comment on above: Result Comment: Chol esterol Reference Interval: Less than 200 Desirable 200-239 Borderline high risk 240 and above High risk Performed By: #### G FR, ANEU, BMP, MDW, CBC, ADIFF #### [facility] [address] [place] [address] Cholesterol in HDL [Mass/Vol] 30 mg/dL Low 40-59 [facility] ([place] Comment on above: Performed By: #### G FR, ANEU, BMP, MDW, CBC, ADIFF #### [facility] [address] [place] [address] Cholesterol in LDL [Mass/Vol] 116 mg/dL Normal 0-129 [facility] ([place]) Comment on above: Performed By: #### G FR, ANEU, BMP, MDW, CBC, ADIFF #### [facility] [address] [place] [address] Triglyceride [Mass/Vol] 163 mg/dL High 3-149 [facility] ([place] Comment on above: Performed By: #### G FR, ANEU, BMP, MDW, CBC, ADIFF #### [facility] [address] [place] [address] MRI BRAIN W/O CONTRASTon MRI BRAIN W/O CONTRAST ORIGINAL EXAMINATION: MRI OF THE BRAIN WITHOUT CONTRAST 04/18/2023 1:51 pm TECHNIQUE: Multiplanar multisequence MRI of the brain was performed without the administration of intravenous contrast. COMPARISON: Head CT [id number] from outside facility the. HISTORY: ORDERING SYSTEM [...] 04/18/2023 4:21:44 PM Ordering Provider: OMARI COOPER [facility] ([place]) [facility] 04-18-2023 Color (U) Yellow Normal [facility] ([place]) Comment on above: Performed By: #### G FR, IVANA, RAFAEL, W, CBC, ADIFF #### [address] [address] Glucose (U) [Mass/Vol] Negative Normal Negative [facility] ([place] Comment on above: Performed By: #### G FR, IVANA, RAFAEL, MDW, CBC, ADIFF #### [address] [address] Ketones Ql (U) 15 mg/dL Abnormal Neg-Trace [facility] ([place]) Comment on above: Performed By: #### G FR, ANEU, BMP, MDW, CBC, ADIFF #### [address] [address] UA Appear Clear Normal Clear [facility] ([place] Comment on above: Performed By: #### G FR, ANEU, BMP, MDW, CBC, ADIFF #### [address] [address] UA Blood Negative Normal Neg-Trace [facility] ([place] Comment on above: Performed By: #### G FR, ANEU, BMP, MDW, CBC, ADIFF #### [address] [address] UA Leuk Est Negative Normal Negative [facility] ([place] Comment on above: Performed By: #### G FR, ANEU, BMP, MDW, CBC, ADIFF #### [address] [address] UA Nitrite Negative Normal Negative [facility] ([place] Comment on above: Performed By: #### G FR, ANEU, BMP, MDW, CBC, ADIFF #### [address] [address] UA pH 5.0 Normal 5.0 - 8.0 [facility] ([place] Comment on above: Performed By: #### G FR, ANEU, BMP, MDW, CBC, ADIFF #### [address] [address] UA Protein 30 mg/dL Normal Negative [facility] ([place] Comment on above: Performed By: #### G FR, ANEU, BMP, MDW, CBC, ADIFF #### [address] [address] UA Spec Grav >=1.030 Abnormal 1.006-1.02 9 [facility] ([place] Comment on above: Performed By: #### G FR, ANEU, BMP, MDW, CBC, ADIFF #### [address] [address] UA Specimen Type Clean Catch Normal [facility] ([place]) Comment on above: Performed By: #### G FR, ANEU, BMP, MDW, CBC, ADIFF #### [address] [address] UA Urobilinogen 1.0 E.U./dL Normal 0.2-1.0 [facility] ([place]) Comment on above: Performed By: #### G FR, ANEU, BMP, MDW, CBC, ADIFF #### [address] [address] Urobilinogen (U) [Mass/Vol] Negative Normal Neg-Trace [facility] ([place] Comment on above: Performed By: #### G FR, ANEU, BMP, MDW, CBC, ADIFF #### [address] [address] .Auto Diffon 08-25-2023 Basophil, Absolute 0.1 10 3/mcL Normal 0.0-0.3 [facility] ([place] Comment on above: Performed By: #### G FR, ANEU, BMP, MDW, CBC, ADIFF #### [address] [address] Basophils/100 WBC (Bld) 1.1 % Normal 0.0-2.5 [facility] ([place]) Comment on above: Performed By: #### G FR, ANEU, BMP, MDW, CBC, ADIFF #### [address] [address] Eosinophil, Absolute 0.1 10 3/mcL Normal 0.0-0.7 [facility] ([place] Comment on above: Performed By: #### G FR, ANEU, BMP, MDW, CBC, ADIFF #### [address] [address] Eosinophils/100 WBC (Bld) 0.9 % Normal 0.0-6.0 [facility] ([place] Comment on above: Performed By: #### G FR, ANEU, BMP, MDW, CBC, ADIFF #### [address] [address] Lymphocyte, Absolute 1.6 10 3/mcL Normal 0.9-4.3 [facility] ([place] Comment on above: Performed By: #### G FR, ANEU, BMP, MDW, CBC, ADIFF #### [address] [address] Lymphocytes/100 WBC (Bld) 22.9 % Normal 20.0-40.0 [facility] ([place] Comment on above: Performed By: #### G FR, ANEU, BMP, MDW, CBC, ADIFF #### [address] [address] Monocyte, Absolute 0.5 10 3/mcL Normal 0.1-1.4 [facility] ([place] Comment on above: Performed By: #### G FR, ANEU, BMP, MDW, CBC, ADIFF #### [address] [address] Monocytes/100 WBC (Bld) 6.5 % Normal 2.0-13.0 [facility] ([place] Comment on above: Performed By: #### G , IVANA, RAFAEL, VINCENT, CBC, ADIFF #### [address] [address] Neutrophils/100 WBC (Bld) 68.6 % Normal 50.0-75.0 [facility] ([place]) Comment on above: Performed By: #### G FR, IVANA, RAFAEL, VINCENT, CBC, ADIFF #### [address] [address] .GFRon 04-17-2023 GFR >60 Normal [facility] ([place]) Comment on above: Result Comment: GFR Population [...] square meters Performed By: #### G FR, IVANA, RAFAEL, VINCENT, CBC, ADIFF #### [address] [address] GFR Non- >60 Normal [facility] ([place] Comment on above: Result Comment: GFR Population [...] square meters Performed By: #### G FR, IVANA, BMP, W, CBC, ADIFF #### [address] [address] .MDWon 04-17-2023 Monocyte Distribution Width 18.24 Normal 0.00-20.00 [facility] ([place] Comment on above: Result Comment: For ED adult patients suspected of sepsis, MDW<=20.0 does not rule out sepsis or risk of sepsis Performed By: #### G FR, IVANA, BMP, MDW, CBC, ADIFF #### [address] [address] .NEUABSon 04-17-2023 Neutrophil, Absolute 4.9 10 3/mcL Normal 2.3-8.1 [facility] ([place] Comment on above: Performed By: #### G , IVANA, RAFAEL, W, CBC, ADIFF #### [place] [address] BMPon 04-17-2023 BUN/Creatinine Ratio 13.2 ratio Normal 10.0-22.0 [facility] ([place] Comment on above: Performed By: #### G IVANA TOBIN, RAFAEL, W, CBC, ADIFF #### [place] [address] Calcium [Mass/Vol] 8.7 mg/dL Normal 8.7-10.4 [facility] ([place] Comment on above: Performed By: #### G , IVANA, BMP, MDW, CBC, ADIFF #### [place] [id number] Chloride [Moles/Vol] 105 mmol/L Normal 98-110 [facility] ([place] Comment on above: Performed By: #### G FR, IVANA, BMP, MDW, CBC, ADIFF #### [place] [address] CO2 [Moles/Vol] 23 mmol/L Normal 22-32 [facility] ([place] Comment on above: Performed By: #### G FR, ANEU, BMP, MDW, CBC, ADIFF #### [address] [address] Creatinine [Mass/Vol] 0.68 mg/dL Normal 0.50-1.20 [facility] ([place] Comment on above: Performed By: #### G FR, IVANA, RAFAEL, W, CBC, ADIFF #### [address] [address] Electrolyte Balance 8.0 mEq/L Normal 4.0-15.0 [facility] ([place]) Comment on above: Performed By: #### G , IVANA, RAFAEL, W, CBC, ADIFF #### [place] [id number] Glucose [Mass/Vol] 120 mg/dL High 82-115 [facility] ([place] Comment on above: Performed By: #### G , IVANA, RAFAEL, VINCENT, CBC, ADIFF #### [place] [phone] Potassium [Moles/Vol] 3.5 mmol/L Normal 3.5-5.0 [facility] ([place] Comment on above: Result Comment: Spec imen slightly hemolyzed. Performed By: #### G , IVANA, RAFAEL, W, CBC, ADIFF #### [place] [id number] Sodium [Moles/Vol] 136 mmol/L Normal 136-145 [facility] ([place] Comment on above: Performed By: #### G , IVANA, RAFAEL, W, CBC, ADIFF #### [address] [address] Urea nitrogen [Mass/Vol] 9.0 mg/dL Normal 8.0-22.0 [facility] ([place] Comment on above: Performed By: #### G , IVANA, RAFAEL, VINCENT, CBC, ADIFF #### [address] [address] CBCon 04-17-2023 Erythrocyte distribution width (RBC) [Ratio] 13.4 % Normal 11.5-15.5 [facility] ([place] Comment on above: Performed By: #### G FR, ANEU, BMP, MDW, CBC, ADIFF #### [place] [phone] Hematocrit (Bld) [Volume fraction] 40.8 % Normal 34.0-46.0 [facility] ([place] Comment on above: Performed By: #### G FR, ANEU, BMP, MDW, CBC, ADIFF #### [address] [address] Hgb 13.5 G/dL Normal 12.0-16.0 [facility] ([place] Comment on above: Performed By: #### G FR, ANEU, BMP, MDW, CBC, ADIFF #### [place] [phone] MCH (RBC) [Entitic mass] 30.9 pg Normal 27.0-33.0 [facility] ([place] Comment on above: Performed By: #### G FR, ANEU, BMP, MDW, CBC, ADIFF #### [place] [id number] MCHC 33.2 G/dL Normal 32.0-36.0 [facility] ([place] Comment on above: Performed By: #### G FR, ANEU, BMP, MDW, CBC, ADIFF #### [address] [address] MCV (RBC) [Entitic vol] 93.3 fL Normal 80.0-99.0 [facility] ([place] Comment on above: Performed By: #### G FR, ANEU, BMP, MDW, CBC, ADIFF #### [address] [address] Platelet 219 10 3/mcL Normal 150-450 [facility] ([place] Comment on above: Performed By: #### G FR, ANEU, BMP, MDW, CBC, ADIFF #### [address] [address] Platelet mean volume (Bld) [Entitic vol] 10.4 fL Normal 6.6-10.5 [facility] ([place]) Comment on above: Performed By: #### G FR, ANEU, BMP, MDW, CBC, ADIFF #### [facility] [address] [place] [address] RBC 4.38 10 6/mcL Normal 4.10-5.30 [facility] ([place]) Comment on above: Performed By: #### G FR, ANEU, BMP, MDW, CBC, ADIFF #### [facility] [address] [place] [address] WBC 7.1 10 3/mcL Normal 4.5-10.8 [facility] ([place]) Comment on above: Performed By: #### G FR, ANEU, BMP, MDW, CBC, ADIFF #### [facility] [address] [place] [address] LABORATORYOrdered By: Rosana Bauer on 04-17-2023 Appearance [...] *ABN* (04/17/23 11:05 PM) Invalid Interpretation Code 1.006-1.02 9 AH Auto Urine SS UA Specimen Type [...] Informationon 04-17 Culture Urine 10,000 - 50,000 cfu/ ml Multiple bacterial morphotypes present. Probable Contamination. Suggest recollection if clinically indicated. [facility] Work Phone: VitD, 1,25 Dihydroxyon 07-10 1,25 Dihydroxy VitD2 11.9 pg/mL Normal [facility] Comment on above: Performed By: #### 1 25VTD #### [facility] [address] [place] [address] 1,25 Dihydroxy VitD3 48.3 pg/mL Normal [facility] Comment on above: Performed By: #### 1 25VTD #### [facility] [address] [place] [address] Vit D,1,25 DiOH High 15.0-60.0 [facility] Comment on above: Result Comment: 60.2 This test was developed and its performance characteristics determined by [facility]'s [facility] Pathology and Laboratory Medicine [place] ([facility]). It has not been cleared or approved by the FDA. [facility] is regulated under CLIA as qualified to perform high complexity testing. This test is used for clinical purposes. It should not be regarded as investigational or for research. Performed By: #### 1 25VTD #### [facility] en-Gauge Chemistry [address] [place] [address] Hemoglobin A1con 07-04-2020 HbA1c (Bld) [Mass fraction] 7.2 % High 4.3-5.6 [facility] Comment on above: Performed By: #### H BA1C #### [facility] Routine Lab [address] [place] [address] HbA1c (Bld) [Mass fraction] 160 mg/dL Normal [facility] Comment on above: Performed By: #### H BA1C #### [facility] Routine Lab [address] [place], [place] [address] Hemoglobin A1con 12-24-2019 HbA1c (Bld) [Mass fraction] 6.7 % High 4.3-5.6 [facility] Comment on above: Performed By: #### H BA1C #### [facility] Routine Lab [address] [place] [address] HbA1c (Bld) [Mass fraction] 146 mg/dL Normal [facility] Comment on above: Performed By: #### H BA1C #### [facility] Routine Lab [address] [place] [address] Hemoglobin A1con 09-28-2019 HbA1c (Bld) [Mass fraction] 7.1 % High 4.3-5.6 [facility] Comment on above: Performed By: #### H BA1C #### [facility] Routine Lab [address] [place] [address] HbA1c (Bld) [Mass fraction] 157 mg/dL Normal [facility] Comment on above: Performed By: #### H BA1C #### [facility] Routine Lab [address] [place] [address] Vital Signs Date Time Vital Sign Value Performing Clinician Facility 03-15-2025 14:55-0400 Body height 152.[address] Neo Castillo MD Work Phone: [facility] 03-15-2025 14:55-0400 Body weight 62.[address] Neo Castillo MD Work Phone: [facility] 03-14-2025 09:14-0400 Body mass index (BMI) [Ratio] 26.8 kg/m2 Dr. Neo Castillo MD Work Phone: [facility] 03-14-2025 09:11-0400 Body height 152.[address] Neo Castillo MD Work Phone: [facility] 03-14-2025 09:11-0400 Body weight 62.[address] Neo Castillo MD Work Phone: [facility] 03-14-2025 09:07-0400 Body temperature 97.8 [degF] Dr. Neo Castillo MD Work Phone: [facility] 03-14-2025 09:07-0400 Diastolic blood pressure 54 mm[Hg] Dr. Neo Castillo MD Work Phone: [facility] 03-14-2025 09:07-0400 Heart rate 96 /min Dr. Neo Castillo MD Work Phone: [facility] 03-14-2025 09:07-0400 Respiratory rate 18 /min Dr. Neo Castillo MD Work Phone: [facility] 03-14-2025 09:07-0400 SaO2% (BldA) [Mass fraction] 92 % Dr. Neo Castillo MD Work Phone: [facility] 03-14-2025 09:07-0400 Systolic blood pressure 87 mm[Hg] Dr. Neo Castillo MD Work Phone: [facility] 02-28-2025 09:51-0400 Body height 152.[address] Neo Castillo MD Work Phone: [facility] 02-28-2025 09:51-0400 Body mass index (BMI) [Ratio] 27.7 kg/m2 Dr. Neo Castillo MD Work Phone: [facility] 02-28-2025 09:51-0400 Body temperature 97.5 [degF] Dr. Neo Castillo MD Work Phone: [facility] 02-28-2025 09:51-0400 Body weight 64.[address] Neo Castillo MD Work Phone: [facility] 02-28-2025 09:51-0400 Diastolic blood pressure 60 mm[Hg] Dr. Neo Castillo MD Work Phone: [facility] 02-28-2025 09:51-0400 Heart rate 113 /min Dr. Neo Castillo MD Work Phone: [facility] 02-28-2025 09:51-0400 Respiratory rate 18 /min Dr. Neo Castillo MD Work Phone: [facility] 02-28-2025 09:51-0400 SaO2% (BldA) [Mass fraction] 98 % Dr. Neo Castillo MD Work Phone: [facility] 02-28-2025 09:51-0400 Systolic blood pressure 96 mm[Hg] Dr. Neo Castillo MD Work Phone: [facility] 02-16-2025 18:11-0400 Body temperature 98.4 [degF] Dr. Neo Castillo MD Work Phone: 3(104)999-706731 [place] [address] 02-16-2025 18:11-0400 Diastolic blood pressure 70 mm[Hg] Dr. Neo Castillo MD Work Phone: [facility] 02-16-2025 18:11-0400 Heart rate 118 /min Dr. Neo Castillo MD Work Phone: [facility] 02-16-2025 18:11-0400 Respiratory rate 20 /min Dr. Neo Castillo MD Work Phone: [facility] 02-16-2025 18:11-0400 SaO2% (BldA) [Mass fraction] 93 % Dr. Neo Castillo MD Work Phone: [facility] 02-16-2025 18:11-0400 Systolic blood pressure 139 mm[Hg] Dr. Neo Castillo MD Work Phone: [facility] 02-16-2025 13:00-0400 Diastolic blood pressure 63 mm[Hg] Dr. Neo Castillo MD Work Phone: [facility] 02-16-2025 13:00-0400 Heart rate 98 /min Dr. Neo Castillo MD Work Phone: 4(729)204-283054 [address] 02-16-2025 13:00-0400 Respiratory rate 18 /min Dr. Neo Castillo MD Work Phone: 5(375)484-573654 [address] 02-16-2025 13:00-0400 Systolic blood pressure 93 mm[Hg] Dr. Neo Castillo MD Work Phone: 0(059)525-878154 [address] 02-16-2025 12:27-0400 Inhaled oxygen flow rate 11 L/min Dr. Neo Castillo MD Work Phone: 0(063)849-463354 [address] 02-16-2025 11:08-0400 Body height 152.[address] Neo Castillo MD Work Phone: 8(016)128-972454 [address] 02-16-2025 11:08-0400 Body mass index (BMI) [Ratio] 28 kg/m2 Dr. Neo Castillo MD Work Phone: 9(177)073-073654 [address] 02-16-2025 11:08-0400 Body weight [address] Neo Castillo MD Work Phone: 4(990)930-500054 [address] 02-09-2025 09:50-0400 Body height 152.[address] Neo Castillo MD Work Phone: 8(356)599-777054 [address] 02-09-2025 09:50-0400 Body mass index (BMI) [Ratio] 28.5 kg/m2 Dr. Neo Castillo MD Work Phone: 7(900)804-035631 [place] [address] 02-09-2025 09:50-0400 Body temperature 97.5 [degF] Dr. Neo Castillo MD Work Phone: 3(901)089-105831 [place] [address] 02-09-2025 09:50-0400 Body weight 66.[address] Neo Castillo MD Work Phone: 4(780)106-661754 [address] 02-09-2025 09:50-0400 Diastolic blood pressure 69 mm[Hg] Dr. Neo Castillo MD Work Phone: [facility] 02-09-2025 09:50-0400 Heart rate 92 /min Dr. Neo Castillo MD Work Phone: [facility] 02-09-2025 09:50-0400 Respiratory rate 18 /min Dr. Neo Castillo MD Work Phone: [facility] 02-09-2025 09:50-0400 SaO2% (BldA) [Mass fraction] 92 % Dr. Neo Castillo MD Work Phone: [facility] 02-09-2025 09:50-0400 Systolic blood pressure 114 mm[Hg] Dr. Neo Castillo MD Work Phone: [facility] 04-22-2023 11:45-0400 Reason For Taking VItal Signs DR OMARI COOPER MD [address] [place] [address] 04-22-2023 10:19-04[address] Cuff Size DR OMARI COOPER MD [address] 04-22-2023 10:19-[address] OMARI COOPER MD [address] [place] [address] 04-22-2023 10:19-[address] OMARI COOPER MD [facility] 04-22-2023 10:19-0400 Body temperature 98.42 [degF] DR OMARI COOPER MD [address] [place] [address] 04-22-2023 10:19-0400 Diastolic Blood Pressure Non-Invasive [address] OMARI COOPER MD [address] [place] [address] 04-22-2023 10:19-0400 Heart rate 77 /min DR OMARI COOPER MD [facility] 04-22-2023 10:19-0400 Respiratory rate 16 /min DR OMARI COOPER MD [address] [place] [address] 04-22-2023 10:19-0400 Systolic Blood Pressure Non-Invasive [address] OMARI COOPER MD [address] [place] [address] 04-22-2023 06:20-0400 Blood Pressure Cuff Size DR OMARI COOPER MD [address] [place] [address] 04-22-2023 06:20-[address] OMARI COOPER MD [address] [place] [address] 04-22-2023 06:20-[address] OMARI COOPER MD [address] 04-22-2023 06:20-0400 Body temperature 98.6 [degF] DR OMARI COOPER MD [address] 04-22-2023 06:20-0400 Diastolic Blood Pressure Non-Invasive [address] OMARI COOPER MD [address] 04-22-2023 06:20-0400 Heart rate 71 /min DR OMARI COOPER MD [address] 04-22-2023 06:20-0400 Respiratory rate 20 /min DR OMARI COOPER MD [address] 04-22-2023 06:20-0400 Systolic Blood Pressure Non-Invasive [address] OMARI COOPER MD [address] 04-22-2023 05:24-0400 Reason For Taking VItal Signs DR OMARI COOPER MD [address] [place] [address] 04-22-2023 02:38-04[address] Blood Pressure Cuff Size DR OMARI COOPER MD [address] [place] [address] 04-22-2023 02:38-[address] OMARI COOPER MD [address] [place] [address] 04-22-2023 02:38-[address] OMARI COOPER MD [address] [place] [address] 04-22-2023 02:38-0400 Body temperature 98.42 [degF] DR OMARI COOPER MD [address] [place] [address] 04-22-2023 02:38-0400 Diastolic Blood Pressure Non-Invasive [address] OMARI COOPER MD [address] [place] [address] 04-22-2023 02:38-0400 Heart rate 66 /min DR OMARI COOPER MD [address] [place] [address] 04-22-2023 02:38-0400 Respiratory rate 18 /min DR OMARI COOPER MD [address] [place] [address] 04-22-2023 02:38-0400 Systolic Blood Pressure Non-Invasive [address] OMARI COOPER MD [address] [place] [address] 04-21-2023 23:04-0400 Heart rate 66 /min DR OMARI COOPER MD [address] [place] [address] 04-21-2023 15:50-0400 Body height 152.[address] OMARI COOPER MD [address] [place] [address] 04-21-2023 15:50-0400 Body weight [address] OMARI COOPER MD [address] [place] [address] 04-21-2023 15:50-0400 Body weight 44.35 kg/m2 DR OMARI COOPER MD [address] [place] [address] 04-21-2023 03:02-0400 Heart rate 58 /min DR OMARI COOPER MD [address] [place] [address] 04-20-2023 23:22-0400 Heart rate 65 /min DR OMARI COOPER MD [address] [place] [address] 04-20-2023 18:51-0400 Heart rate 72 /min DR OMARI COOPER MD [address] [place] [address] 04-20-2023 16:11-0400 Heart rate 69 /min DR OMARI COOPER MD [address] [place] [address] 04-20-2023 07:45-0400 Mean blood pressure 85 mm[Hg] DR OMARI COOPER MD [address] [place] [address] 04-20-2023 07:00-0400 Mean blood pressure 93 mm[Hg] DR OMARI COOPER MD [facility] 04-19-2023 03:00-0400 Heart rate 70 /min DR OMARI COOPER MD [facility] 04-17-2023 20:55-0400 Body weight [address] OMARI COOPER MD [facility] Encounters Encounter Date Encounter Type Care Provider Facility Start: 04-03-2025 ambulatory [facility] Facili ty:[facility] Start: 03-28-2025 [facility] Start: 03-24-2025 Encounter for other preprocedural examination [facility] Start: 03-20-2025 End: 03-20-[address] Дмитрий Mcdowell MD -[facility] Work Phone: Start: 03-20-2025 End: 03-20-2025 ambulatory [facility] Facility:[facility] Start: 03-15-2025 End: 03-23-[address] Дмитрий Mcdowell MD -[facility] Work Phone: Start: 03-15-2025 End: 03-23-[address] Neo Castillo MD Work Phone: -Nutritional Services Start: 03-14-2025 Encounter for genera l adult medical examination without abnormal findings Latoya Ibrahim NP [facility] Start: 03-14-2025 End: 03-14-[address] Дмитрий Mcdowell MD -[facility] Work Phone: Start: 03-14-2025 End: 03-14-[address] Neo Castillo MD Work Phone: -[facility] Start: 03-09-2025 End: 03-09-[address] Neo Castillo MD Work Phone: -Pulmonary Services/Neurology Start: 03-09-2025 End: 03-09-2025 Patient encounter procedure Latoya Ibrahim BRAIDER TENDER-C -Pulmonary Services/Neurology Work Phone: Start: 03-09-2025 End: 03-09-2025 ambulatory Latoya Ibrahim BRAIDER TENDER Facility:[facility] Start: 03-07-2025 End: 03-07-[address] Neo Castillo MD Work Phone: -[facility] Start: 03-07-2025 End: 03-07-2025 Patient encounter procedure Latoya Ibrahim BRAIDER TENDER-C -[facility] Start: 03-07-2025 End: 03-07-2025 ambulatory Latoya Ibrahim BRAIDER TENDER Facility:[facility] Start: 02-28-2025 End: 02-28-2025 Patient encounter procedure Latoya Ibrahim BRAIDER TENDER-C -[facility] Work Phone: Start: 02-28-2025 End: 02-28-[address] Neo Castillo MD Work Phone: -[facility] Start: 02-16-2025 Non-patient / Non-visit Dr. Andres Hart own DO -[facility] Start: 02-16-2025 End: 02-16-2025 Admission to same day surgery center Dr. Andres Meyer DO -Endoscopy Work Phone: Start: 02-16-2025 End: 02-16-[address] Neo Castillo MD Work Phone: [facility] Work Phone: Start: 02-13-2025 ambulatory Andres Meyer Facility:[facility] Start: 02-13-2025 Non-patient / Non-visit Dr. Andres Hart own DO -[facility] Start: 02-09-2025 End: 02-09-[address] Andres Meyer DO -[facility] Work Phone: Start: 02-09-2025 End: 02-09-[address] Neo Castillo MD Work Phone: [facility] Work Phone: Start: 02-09-2025 End: 02-09-2025 ambulatory Andres Meyer Facility:[facility] Start: 02-06-[address] [facility] Start: 02-02-2025 End: 02-02-[address] [facility] Start: 01-31-2025 End: 01-31-2025 ambulatory JOAN CNP [facility] Start: 01-28-2025 ambulatory JOAN CNP [facility] Start: 01-24-2025 End: 01-24-[address] [facility] Start: 01-05-2025 End: 01-05-2025 ambulatory TEQUILA MEYER [facility] Start: 11-01-2024 End: 11-01-2024 ambulatory JOAN [facility] Start: 04-17-2023 End: 04-22-2023 Evaluation and management of inpatient DR OMARI COOPER MD Facility:A Start: 04-17-2023 End: 04-22-2023 Evaluation and management of inpatient DR OMARI COOPER MD [facility] Procedures Date Procedure Procedure Detail Performing Clinician Start: 03-20-2025 MRI of brain with contrast Dr. Neo Castillo MD Work Phone: Start: 03-07-2025 Positron emission to mography with computed tomography Dr. Neo Castillo MD Work Phone: Start: 02-16-2025 Endoscopic ultrasono [address] of bronchus Dr[address] Neo Castillo MD Work Phone: Carpal tunnel syndro me (disorder) DR OMARI COOPER MD Plan of Treatment Date Care Activity Detail Author Start: 02-16-2025 Brncc ebus guided sampl 1/2 node station/strux BRONCH EBUS SAMPLNG 1/[address] [facility] Start: 02-16-2025 Patient discharge [facility] Measurement of respi ratory function [facility] Measurement of respi ratory function [facility] MR Brain WO and W co ntrast IV [facility] Partial thromboplast in time, activated [facility] Patient referral [facility] Work Phone: Platelets [#/volume] in Blood [facility] Positron emission tomography with computed tomography [facility] Prothrombin time [facility] Payers Date Payer Category Payer Unknown [id number] 2025 Self-pay 2025 Unknown [id number] 2023 Medicaid [id number] 2023 Medicare [id number] 2023 Private Health Insurance [id number] 1955 Unknown [id number] 2.16.8 40.1.638126.3.579.2.627 1955 Unknown [id number] 2.16. 840.1.704477.3.579.2.297 1955 Unknown [id number] 2.16.8 40.1.132196.3.579.2.651 1954 Unknown [id number] 2.16.8 40.1.470239.3.579.2.651 1955 Unknown [id number] 2.16.8 40.1.442892.3.579.2.651 1954 Unknown [id number] 2.16.8 40.1.366813.3.579.2.651 1954 Unknown [id number] 2.16.8 40.1.437073.3.579.2.651 1954 Unknown [id number] 2.16.8 40.1.105216.3.579.2.651 1954 Unknown [id number] 2.16.8 40.1.131076.3.579.2.651 1954 Unknown [id number] 2.16.8 40.1.524523.3.579.2.651 Unknown [id number] Unknown [id number] 2.16.8 40.1.698008.3.579.2.462 Unknown [id number] 2.16.8 40.1.534215.3.579.2.462 Unknown [id number] 2.16.8 40.1.113608.3.579.2.462 Unknown [id number] 2.16.8 40.1.509176.3.579.2.462 Unknown [id number] 2.16.8 40.1.859290.3.579.2.462 Unknown [id number] 2.16.8 40.1.131665.3.579.2.462 Unknown [id number] 2.16.8 40.1.781759.3.579.2.462 Unknown [id number] 2.16.8 40.1.153182.3.579.2.462 Unknown [id number] 2.16.8 40.1.696349.3.579.2.462 Unknown [id number] 2.16.8 40.1.902261.3.579.2.462 Unknown [id number] 2.16.8 40.1.126170.3.579.2.462 Unknown [id number] 2.16.8 40.1.414503.3.579.2.462 Unknown [id number] 2.16.8 40.1.818689.3.579.2.462 Social History Date Type Detail Facility Start: 04-17-2023 End: 03-14-2025 Tobacco smoking status Ex-smoker (finding) [facility] Sex Assigned At Sex [facility] Start: 1955 Sex Assigned At Female [facility] Not [facility] NEGATED: Highlighted row Not [facility] Goals Date Patient Goal Desired Activity /State Functional Status Date Assessment Result Facility 04-22-2023 Functional Status Current Home Treatments Oxygen therapy [facility] 04-22-2023 Functional Status Adult Protective Servic es [facility] 04-22-2023 Functional Status Room check performed [facility] 04-22-2023 Functional Status [facility] 04-22-2023 Functional Status Done [facility] 04-22-2023 Functional Status Min A 13 [facility] 04-22-2023 Functional Status [facility] 04-22-2023 Functional Status [facility] 04-21-2023 Functional Status [facility] 04-21-2023 Functional Status One assist [facility] 04-21-2023 [facility] 04-[facility]20[facility] Functional Status One assist [facility] 04-21-2023 Functional Status [facility] 04-21-2023 Functional Status Min A 26 [facility] 04-21-2023 Functional Status [facility] 04-20-2023 Functional Status Multilevel home [facility] 04-20-2023 Functional Status [facility] 04-20-2023 Functional Status Maintained [facility] 04-19-2023 Functional Status [facility] 04-19-2023 [facility] 04-19-2023 Functional Status No Living Envi ronment Information Available [facility] 04-18-2023 Functional Status [facility] Mental Status Date Assessment Result Facility 02-16-2025 Cognitive function Voice/Name [facility] Work Phone: 04-22-2023 [facility] Status [facility] 04-22-2023 Mental Status [facility] Clinical Notes 04-17-2023 to 02-16-2025 Note Date & Type Note Facility 02-16-2025 Consult note Note Date/Time February 16, 2025 11:41am [facility] Medical Records Department [address] [place] [address] Pre-Anesthesia Evaluation 02/16/25 1122 MR#: [id number] Acct: [id number] Name: GWEN WOLF Rep #:[id number] : 1955 69 From: Nicola Hameed MD PCP: Dr. Bonita Ireland MD Status:R EG SDC Y Race: C Location: [facility]- ASA Classification* ASA Classification ASA Classification: 3 [...] Procedure(s): EBUS Anesthesia History Anesthesia History - product tester fiberglass: Anesthesia History - product tester fiberglass Hx Hospitalization No 02/14/25 11:59 Any Problems [...] take am of surgery PONV PONV - product tester fiberglass: PONV - product tester fiberglass Female Yes 02/14/25 11:59 HX of Motion [...] 02/16/25 11:08 Respiratory Assessment Respiratory Assessment - product tester fiberglass: Respiratory Tract Infection Hx - product tester fiberglass Hx Respiratory Tract Infection No 02/14/25 11:59 Any additional information?: Yes Hx Respiratory Tract Infection: No History of Anesthesia Respiratory Infection details: Patient has chronic cough. Increasingin frequency more recently. STOP Sleep Apnea STOP Sleep Apnea - product tester fiberglass: STOP Sleep Apnea - product tester fiberglass Hx Hypertension Yes: CONTROLLED WITH MED 02/14/25 [...] Tobacco Use History Tobacco Use History - product tester fiberglass: Tobacco Use History - product tester fiberglass Tobacco Use Smoking Status Former smoker 02/14/25 11:59 Hx Tobacco Use No 02/14/25 11:59 Years Smoking Packs Smoked per Day Smoking Cessation Date was Yes - quit smoking within 15 02/14/25 11:59 within the last 15 years years Hx Smoking Cessation Date Hx Smoking Cessation No 02/14/25 11:59 Counseling Hematologic Medial History Hematologic Hx - product tester fiberglass: Hematologic Medical Hx - [employer] Hx of Blood Transfusion No 02/14/25 11:59 [...] confused, unrespo /Reproduction History /Reproductive History - product tester fiberglass: /Reproductive Hx- product tester fiberglass Hx Now No 02/14/25 11:59 Gestational Age [...] MD Cosigner Signature: Date CC: ~ Signed [facility] Work Phone: 1(921) 939-259406-26-2025 History and physical note Author Andres Meyer [facility] Note Date/Time February 16, 2025 10:5 5am [facility] Medical Records Department [address] [place] [address] History & Physical Exam 02/13/25 1335 MR#: [id number] Acct: [id number] Name: GWEN WOLF Rep #:[id number] : 1955 69 From: Andres Meyer DO PCP: Dr. Bonita Ireland MD Status:R [facility] Location: [place] [address] HPI - General HPI Narrative The patient [...] up. That imaging study was completed through [facility], datedJanuary 31, 2025, and demonstrated a large peritracheal mass measuring 3 x 3.3 cm along with a large subcarinal mass measuring 7 cm and multiple additional subcentimeter nodules scattered bilaterally. The patient has a [id number] smoking history, having quit completely in 2021. She did not grow up in a smoking household. The patient has never been evaluated by a electrical system specialist in the past. She has never completed pulmonary function studies. The patient does not utilize any inhalers at her baseline. However, she does report that she utilizes 2 L/min of supplemental oxygen on a nightly basis. In addition, the patient is currently prescribed Plavix due to a history of CVA. [facility] Home Medications ?Medication ?Instructions ?Recorded ?Last Taken [...] 200 mcg tablet 200 mcg PO QDAY 06/19/25 Unknown History metformin 500 mg tablet 500 [...] on CT imaging of the chest through [facility] dated January 31, 2025. The dominant [...] the biopsies have been completed. 02/13/25 1338 <Electronically signed by Andres Meyer DO> Cosigner Signature (if applicable): CC: Dr. Andres Meyer DO; Dr. Bonita Ireland MD~ Signed ADDENDUM by Dr. Andres Meyer DO on 02/16/25 at 1055 Addendum I have examined the patient and the H&P has been reviewed. There are no clinicalchanges since date of exam. 02/16/25 1055<Electronically signed by Andres Brown DO> Cosigner Signature (if applicable): cc: Dr. Andres Meyer DO; Dr. Bonita Ireland MD ~* Signed [facility] Work Phone: 1(542) 200-615106-26-2025 Procedure note [facility] Medical Records Department [address] [place] [address] Bronchoscopy Report MR#: [id number] Acct: [id number] Name: GWEN WOLF Rep #:[id number] : 1955 69 From: Andres Meyer DO PCP: Dr. Bonita Ireland MD Status:R [facility] Patient Name: Gwen Wolf Procedure Date: [...] aspiration was also performed using an Olympus AzulStariShot 21 gauge needle in the right lower [...] biopsy results. Procedure Code(s): --- Professional --- 75236, Bronchoscopy, rigid or flexible, including fluoroscopic guidance, [...] circulatory and respiratory systems CPT copyright 2021 [employer]. All rights reserved. The codes documented in this report are preliminary and upon physicist astrophysics review may be revised to meet current compliance requirements. DO Andres Bailey MD 02/16/2025 12:36:15 PM This report has been signed electronically. Number of Addenda: 0 Note Initiated On: 02/16/2025 11:28 AM 06/26/25 1236 Date _ Andres Meyer DO Cosigner Signature: Date (if indicated) CC: Dr. Andres Meyer DO; Dr. Bonita Ireland MD ~ Date Dictated: 02/16/25 1128 Date Transcribed: Residence Director: DB Signed [facility]06-26-2025 Consult note [facility] Medical Records Department [address] [place] [address] Pre-Anesthesia Evaluation 02/16/251121 MR#: [id number] Acct: [id number] Name: GWEN WOLF Rep #:[id number] : 1955 69 From: Nicola Hameed MD PCP: Dr. Bonita Ireland MD Status:R [facility] Race: C Location: [place] [address] ASA Classification* ASA Classification ASA Classification: 3 [...] Procedure(s): EBUS Anesthesia History Anesthesia History - product tester fiberglass: Anesthesia History - product tester fiberglass Hx Hospitalization No 02/14/25 11:59 Any Problems [...] take am of surgery PONV PONV - product tester fiberglass: PONV - product tester fiberglass Female Yes 02/14/25 11:59 HX of Motion [...] 02/16/25 11:08 Respiratory Assessment Respiratory Assessment - product tester fiberglass: Respiratory Tract Infection Hx - product tester fiberglass Hx Respiratory Tract Infection No 02/14/25 11:59 Any additional information?: Yes Hx Respiratory Tract Infection: No History of Anesthesia Respiratory Infection details: Patient has chronic cough. Increasingin frequency more recently. STOP Sleep Apnea STOP Sleep Apnea - product tester fiberglass: STOP Sleep Apnea - product tester fiberglass Hx Hypertension Yes: CONTROLLED WITH MED 02/14/25 [...] Tobacco Use History Tobacco Use History - product tester fiberglass: Tobacco Use History - product tester fiberglass Tobacco Use Smoking Status Former smoker 02/14/25 11:59 Hx Tobacco Use No 02/14/25 11:59 Years Smoking Packs Smoked per Day Smoking Cessation Date was Yes - quit smoking within 15 02/14/25 11:59 within the last 15 years years Hx Smoking Cessation Date Hx Smoking Cessation No 02/14/25 11:59 Counseling Hematologic Medial History Hematologic Hx - product tester fiberglass: Hematologic Medical Hx - [employer] Hx of Blood Transfusion No 02/14/25 11:59 [...] confused, unrespo /Reproduction History /Reproductive History - product tester fiberglass: /Reproductive Hx- product tester fiberglass Hx Now No 02/14/25 11:59 Gestational Age [...] MD Cosigner Signature: Date CC: ~ Signed [facility]06-26-2025 History and physical note [facility] Medical Records Department [address] [place] [address] History & Physical Exam 02/13/25 1335 MR#: [id number] Acct: [id number] Name: GWEN WOLF Rep #:[id number] : 1955 69 From: Andres Meyer DO PCP: Dr. Bonita Ireland MD Status:R [facility] Location: [place] [address] HPI - General HPI Narrative The patient [...] follow-up. That imaging study was completed through [facility], datedJanuary 31, 2025, and demonstrated a large peritracheal mass measuring 3 x 3.3 cm along with a large subcarinal mass measuring 7 cm and multiple additional subcentimeter nodules scattered bilaterally. The patient has a 61-jzfe-yxyf smoking history, having quit completely in 2021. She did not grow upin a smoking household. The patient has never been evaluated by a electrical system specialist in the past. She has never completed pulmonary function studies. The patient does not utilize any inhalers at her baseline. However, she does report that she utilizes 2 L/min of supplemental oxygen on a nightly basis. In addition, the patient is currently prescribed Plavix due to a history of CVA. [facility] Home Medications ?Medication ?Instructions ?Recorded ?Last Taken [...] smokin stopped smoke 1.5 packs days. ROS Loccie Narrative 10 systems were reviewed with pertinent [...] on CT imaging of the chest through [facility] dated January 31, 2025. The dominant [...] DO; Dr. Bonita Ireland MD ~* Signed [facility]06-23-2025 [facility] Medical Records Department [address] [place] [address] History Physical Exam 02/13/25 1335 MR#: [id number] Acct: [id number] Name: GWEN WOLF Rep #: [id number] : 1955 69 From: Andres Meyer DO PCP: Dr. Bonita Ireland MD Status:[facility] Location: [place] [address] HPI - General HPI Narrative The patient [...] follow-up. That imaging study was completed through [facility], dated January 31, 2025, and demonstrated a large peritracheal mass measuring 3 x 3.3 cm along with a large subcarinal mass measuring 7 cm and multiple additional subcentimeter nodules scattered bilaterally. The patient has a 16-xept-tour smoking history, having quit completely in 2021. She did not grow up in a smoking household. The patient has never been evaluated by a electrical system specialist in the past. She has never completed pulmonary function studies. The patient does not utilize any inhalers at her baseline. However, she does report that she utilizes 2 L/min of supplemental oxygen on a nightly basis. In addition, the patient is currently prescribed Plavix due to a history of CVA. [facility] Home Medications ???Medication ???Instructions ???Recorded ???Last Taken [...] on CT imaging of the chest through [facility] dated January 31, 2025. The dominant [...] Dr. Andres Meyer DO on 02/16/25 at 1058 Addendum I have examined the patient and the H P has been reviewed. There are no clinical changes since date of exam. 02/16/25 1055 Cosigner Signature (if applicable): cc: Dr. Andres Meyer DO; Dr. Bonita Ireland MD * [facility]* Diagnosis Onset Date Resolution Status Admit Date Lung mass acute February 09 9:39am [facility] Work Phone: 1(507) 998-585506-19-2025 Evaluation note* Diagnosis Onset Date Resolution Status Admit Date Lung mass acute February 09 9:39am Lung mass acute February 16 10:42am [facility] Work Phone: 1(651) 936-989606-19-2025 Evaluation note* Diagnosis Onset Date Resolution Status Admit Date Lung mass acute February 09 9:39am Lung mass acute February 16 10:42am Neuroendocrine neoplasm of lung acut e February 28, 2025 2:48pm COPD (chronic obstructive pulmonary disease) chronic February 28 2:48pm [facility] Work Phone: 1(289) 369-458706-19-2025 Evaluation note* Diagnosis Onset Date Resolution Status Admit Date Lung mass acute February 09 9:39am Lung mass acute February 16 10:42am Neuroendocrine neoplasm of lung acut e February 28, 2025 2:48pm COPD (chronic obstructive pulmonary disease) chronic February 28 2:48pm Disseminated cancer acute March 14, 2025 8:53am Neuroendocrine neoplasm of lung acut e March 14, 2025 8:53am [facility] Work Phone: 1(606) 728-966108-30-2023 Hospital Discharge instructions Patient Education 04/22/2023 12:47:22 [...] 11/27/2017 Document Revised: 07/23/2018 Document Reviewed: 11/27/2017 AIT Patient Education 2020 A[employer] Inc. 04/22/2023 12:47:19 Stroke Prevention, Xdtq-du-Tgar Stroke Prevention Some medical conditions and lifestyle [...] only healthy fats for cooking. These include: ?Garrison oil. ?Canola oil. ?Freeborn oil. ?Counting how many carbohydrates you eat [...] ?Snoring a lot. ?Feeling very tired. Take hcfb-hmb-mhpysro and prescription medicines only as told by your doctor. These may include aspirin or blood thinners (antiplatelets or anticoagulants). Make sure that any other medical conditions you have are managed. Where to find more information [place] Stroke Association: www.strokeassociation.org National Stroke Association: www.stroke.org [...] 02/08/2013 Document Revised: 10/06/2019 Document Reviewed: 11/11/2017 AIT Patient Education 2020 A[employer] Inc. 04/22/2023 12:47:18 Stroke Prevention Stroke Prevention [...] a lot or have excessive sleepiness. Take lrfx-qse-bbfyvmv and prescription medicines only as told by [...] find more information For more information, visit: [place] Stroke Association: www.strokeassociation.org National Stroke Association: www.stroke.org [...] 09/17/2005 Document Revised: 07/23/2018 Document Reviewed: 09/15/2017 AIT Patient Education 2020 [employer]. Follow Up Care 04/17/2023 20:31:47 With:[facility], Skilled [phone] Address:Unknown When:1-2 days With:JOAN HUERTA [address] [place] [phone] When:5 to 7 days With:[facility] Address: [address] [place] [address]- When:Within 5 Week(s) Comments:Stroke follow-up With:ROMMEL FOSTER MD Address: [address] [facility] [address] [facility] [place] [address]- When:Within 3 Week(s) Comments:Left atrial mass [facility] 08-30-2023 Note Discharge Instructions Thank you for allowing [facility] to assist you with your healthcare needs. The following is importantdischarge information regarding your hospital visit. Your Care Team BRADLEY, JOAN D FUR TAILOR-CHEMICAL DETECTION EXPERT Your Diagnosis Stroke like symptoms What to do next Instructions From Your Doctor -> Continue apixaban, Lipitor 80 for stroke -> Follow-up with [facility] as outpatient -> Given mobile atheroma, continue apixaban 5 mg twice daily, continue to follow-up with cardiology as outpatient -> buttermaker goal BP < 130/80 mmHg, goal LDL < 70, goal Hba1c <7% -> She will need 30-day monitor on DC. Follow Up Appointments Follow Up with [facility], Skilled [phone] When Within 1-2 days Follow Up with JOAN HUERTA When Within 5 to 7 days Where: [address] [place] [address]- [phone] Follow Up with [facility] When In 5 weeks Why: Stroke follow-up Where: [address] [place] [address]- Follow Up with ROMMEL FOSTER MD When In 3 weeks Why: Left atrial mass Where: [address] [facility] [place] [place] [address]- The Following Activity and Diet Have Been [...] within 7 days after discharge, please call [facility] at [phone]. Transfer of Care OT - Ordered -- [...] Transfer of Care Prognosis - Ordered -- Frantz, Patient Aware: Yes Transfer of Care Rehab [...] Duration: 30 Days Pickup at [facility] 172 Unchanged amLODIPine (amLODIPine 5 mg oral [...] times a day Pharmacy Information [facility] 1724: [address] [place], [place] [phone] What How Much When Comments Stop Taking [...] 11/27/2017 Document Revised: 07/23/2018 Document Reviewed: 11/27/2017 AIT Patient Education 2020 [employer]. Stroke Prevention Some medical conditions and lifestyle [...] healthy fats for cooking. These include: ? Garrison oil. ? Canola oil. ? Freeborn oil. ? Counting how many carbohydrates you [...] a lot. ? Feeling very tired. Take xuxl-ffs-kouxzdj and prescription medicines only as told by your doctor. These may include aspirin or blood thinners (antiplatelets or anticoagulants). Make sure that any other medical conditions you have are managed. Where to find more information [place] Stroke Association: www.strokeassociation.org National Stroke Association: www.stroke.org [...] 02/08/2013 Document Revised: 10/06/2019 Document Reviewed: 11/11/2017 ElseIndianStage Patient Education 2020 [employer]. Stroke Prevention Some medical conditions and [...] a lot or have excessive sleepiness. Take gigz-qnk-ozftoro and prescription medicines only as told by [...] find more information For more information, visit: [place] Stroke Association: www.strokeassociation.org National Stroke Association: www.stroke.org [...] 09/17/2005 Document Revised: 07/23/2018 Document Reviewed: 09/15/2017 ElseIndianStage Patient Education 2020 [employer]. Additional Information VACCINATE! IT SAVES LIVES! Members of the community who have not yet received the COVID-19 vaccine and would like to receive it can visit one of [facility] vaccine clinics. There are many vaccine clinic locations within the [facility]. For locations and available times, please visit https://[email or web address].[place].gov/. It is important to note that some COVID mobile vaccine clinics are held outdoors and may be canceled in rainy or stormy conditions. To learn more about pediatric vaccinations (ages 5-11), we invite you to visit the [facility] webpage. https://www.[employer].s.org/pages/6781-Eubqs-Ddcedapcjna-Cddbfvmkol-Eoplo-Yqq stions.htmlTo learn more about the COVID-19 vaccine, we invite you to visit the CDC website for a list of frequently asked questions.https://www.cdc.gov/coronavirus/2019-ncov/vaccines/faq.html [facility] Patient Portal Access Instructions: Stay connected with your healthcare team and access your personal medical information anytime with the [facility] Patient Portal. Please follow the directions below to create your [facility] account: 1.Access the email account you provided upon registration to the hospital/physician office.2.Look for an invitation email from [facility].3.Open the email and access the invitation link: AcceptInvitation to [facility].4.Fill in the required nguyen to create your account. To access your account, visit [email or web address]. Click the blue button labeled Access Patient [...] who you will allowto register on the [facility] for access to your information. You can also access the [facility] Patient Portal on the [facility] bacilio. Simply click on Patient Portal and then log into your account. If you would like to receive a full copy of your medical records, please contact the [facility] Medical Records Department by calling [phone], Thursday through Thursday between 8 a.m. and [...] Call your local pharmacy or go to [email or web address] [email or web address] [email or web address] to find one close to you.3.Make use of household items: Use cat litter or old coffee grounds to dispose medications if other options arenot available. Mix your drugs with these household products, seal them in an airtight container andthrow it into the garbage. Call [facility]: [phone] to be sure your drugs can be [...] Warning Signs of a Stroke Stroke Prevention, Ehpn-oj-Vndr Stroke Prevention Medication Leaflets My discharge plan and instructions have been reviewed and explained to me and I,GWEN WOLF understand my current condition and have read and understand these discharge instructions. I have received a written copy of the plan/instructions. If I have questions, I am aware that I should contact my doctor. 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 [...] to follow-up with cardiology as outpatient -> buttermaker goal BP < 130/80 mmHg, goal LDL < 70, goal Hba1c <7% -> She will need 30-day monitor on DC. Follow Up Appointments Follow Up with [facility], Skilled [phone] When Within 1-2 days Follow Up with JOAN HUERTA APRN-CHEMICAL DETECTION EXPERT When Within 5 to 7 days Where: [address] [place] [phone] Follow Up with [facility] When In 5 weeks Why: Stroke follow-up Where: [address] [place] [address]- Follow Up with ROMMEL FOSTER MD When In 3 weeks Why: Left atrial mass Where: [address] [facility] [place] [place] [address]- The Following Activity and Diet Have Been [...] within 7 days after discharge, please call [facility] at [phone]. Transfer of Care OT - Ordered -- [...] and or supplements as they may interact [facility] medications. What How Much When Instructions Last Dose New acetaminophen 650 Milligram by mouth Every six (6) hours WHILE AWAKE as needed for Pain, scale 1-10 New apixaban (Eliquis 5 mg oral tablet) 1 tab(s) by mouth Two (2) times a day Duration: 30 Days Pickup at [facility] 1724 Unchanged amLODIPine (amLODIPine 5 mg oral [...] times a day Pharmacy Information [facility] 1724: [address] [place], [place] [phone] What How Much When Comments Stop Taking [...] 11/27/2017 Document Revised: 07/23/2018 Document Reviewed: 11/27/2017 AIT Patient Education 2020 [employer]ence. Stroke Prevention Some medical conditions and lifestyle [...] healthy fats for cooking. These include: ? Garrison oil. ? Canola oil. ? Freeborn oil. ? Counting how many carbohydrates you [...] a lot. ? Feeling very tired. Take syvh-lgh-gcgovyv and prescription medicines only as told by your doctor. These may include aspirin or blood thinners (antiplatelets or anticoagulants). Make sure that any other medical conditions you have are managed. Where to find more information [place] Stroke Association: www.strokeassociation.org National Stroke Association: www.stroke.org [...] 02/08/2013 Document Revised: 10/06/2019 Document Reviewed: 11/11/2017 AIT Patient Education 2020 AIT Inc. Stroke Prevention Some medical conditions and [...] a lot or have excessive sleepiness. Take sknj-fdk-cvpmcgk and prescription medicines only as told by [...] find more information For more information, visit: [place] Stroke Association: www.strokeassociation.org National Stroke Association: www.stroke.org [...] 09/17/2005 Document Revised: 07/23/2018 Document Reviewed: 09/15/2017 AIT Patient Education 2020 AIT Inc. Additional Information VACCINATE! IT SAVES LIVES! Members of the community who have not yet received the COVID-19 vaccine and would like to receive it can visit one of [facility] vaccine clinics. There are many vaccine clinic locations within the [facility]. For locations and available times, please visit https://gettheshot.coronavirus.[place].gov/. It is important to note that some COVID mobile vaccine clinics are held outdoors and may be canceled in rainy or stormy conditions. To learn more about pediatric vaccinations (ages 5-11), we invite you to visit the [facility] webpage. https://www.akronCertify Data Systemss.org/pages/9966-Lucal-Tjplbtwuwqf-Bxjzzurtah-Pdgvb-Ane stions.htmlTo learn more about the COVID-19 vaccine, we invite you to visit the CDC website for a list of frequently asked questions.https://www.cdc.gov/coronavirus/2019-ncov/vaccines/faq.html [facility] Patient Portal Access Instructions: Stay connected with your healthcare team and access your personal medical information anytime with the [facility] Patient Portal. Please follow the directions below to create your [facility] account: 1.Access the email account you provided upon registration to the hospital/physician office.2.Look for an invitation email from [facility].3.Open the email and access the invitation link: AcceptInvitation to [facility].4.Fill in the required nguyen to create your account. To access your account, visit [email or web address]. Click the blue button labeled Access Patient Portal and then log in with the username and password that you created in the steps above. You will be able to view your test results, lab results, a summary of your visits, upcoming appointments and more. There is also a convenient messaging option where you can send secure messages to your p Econic Technologiesvider. In addition, you will have the ability to download any documents or summaries to your computer and/or send the information securely to a physician. Remember that your healthcare information is confidential, so carefully consider who you will allowto register on the [facility] Patient Portal for access to your information. You can also access the [facility] Patient Portal on the [employer] Anywhere bacilio. Simply click on Patient Portal and then log into your account. If you would like to receive a full copy of your medical records, please contact the [facility] Medical Records Department by calling [phone], Thursday through Thursday between 8 a.m. and [...] Call your local pharmacy or go to http://Grupo [email or web address].Arena [email or web address] to find one close to you.3.Make use of household items: Use cat litter or old coffee grounds to dispose medications if other options arenot available. Mix your drugs with these household products, seal them in an airtight container andthrow it into the garbage. Call [facility]: [phone] to be sure your drugs can be [...] Warning Signs of a Stroke Stroke Prevention, Lqxv-he-Wjzn Stroke Prevention Medication Leaflets My discharge plan and instructions have been reviewed and explained to me and I,GWEN WOLF understand my current condition and have read and understand these discharge instructions. I have received a written copy of the plan/instructions. If I have questions, I am aware that I should contact my doctor. Patient/Traditional Chinese Herbalist Signature: Date/Time: Relationship to Patient: Witness Name/Signature: Date/Time: [id number] Note Discharge Instructions Thank you for allowing [facility] to assist you with your healthcare needs. The following is importantdischarge information regarding your hospital visit. Your Care Team JOAN HUERTA APRN-CHEMICAL DETECTION EXPERT Your Diagnosis Stroke like symptoms What to do next Instructions From Your Doctor -> Continue apixaban, Lipitor 80 for stroke -> Follow-up with [facility] as outpatient -> Given mobile atheroma, continue apixaban 5 mg twice daily, continue to follow-up with cardiology as outpatient -> MCFP goal BP < 130/80 mmHg, goal LDL < 70, goal Hba1c <7% -> She will need 30-day monitor on DC. Follow Up Appointments Follow Up with [facility], Skilled [phone] When Within 1-2 days Follow Up with JOAN HUERTA FUR TAILOR-CHEMICAL DETECTION EXPERT When Within 5 to 7 days Where: [address] [place] [address]- [phone] Follow Up with [facility] When In 5 weeks Why: Stroke follow-up Where: [address] [place] [address]- Follow Up with ROMMEL FOSTER MD When In 3 weeks Why: Left atrial mass Where: [address] [facility] [place] [address]- The Following Activity and Diet Have Been [...] within 7 days after discharge, please call [facility] at [phone]. Transfer of Care OT - Ordered -- [...] day Duration: [address] [facility] 9806 Unchanged amLODIPine (amLODIPine 5 mg oral tablet) [...] (3) times a day Pharmacy Information [facility] 1724: [address] [place], [place] [phone] What How Much When Comments Stop Taking [...] to receive it can visit one of [facility] vaccine clinics. There are many vaccine clinic locations within the [facility]. For locations and available times, please visit [email or web address].[place].gov/. It is important to note that some COVID mobile vaccine clinics are held outdoors and may be canceled in rainy or stormy conditions. To learn more about pediatric vaccinations (ages 5-11), we invite you to visit the [facility] webpage. [email or web address] learn more about the COVID-19 vaccine, we invite you to visit the CDC website for a list of frequently asked questions.https://www.cdc.gov/coronavirus/2019-ncov/vaccines/faq.html [facility] Patient Portal Access Instructions: Stay connected with your healthcare team and access your personal medical information anytime with the [facility] Patient Portal. Please follow the directions below to create your [employer] account: 1.Access the email account you provided upon registration to the hospital/physician office.2.Look for an invitation email from [facility].3.Open the email and access the invitation link: AcceptInvitation to [employer].4.Fill in the required nguyen to create your account. To access your account, visit [email or web address]. Click the blue button labeled Access Patient Portal and then log in with the username and password that you created in the steps above. You will be able to view your test results, lab results, a summary of your visits, upcoming appointments and more. There is also a convenient messaging option where you can send secure messages to your p [employer]vider. In addition, you will have the ability to download any documents or summaries to your computer and/or send the information securely to a physician. Remember that your healthcare information is confidential, so carefully consider who you will allowto register on the [employer] Patient Portal for access to your information. You can also access the [employer] Patient Portal on the [employer] Book Farmwhere bacilio. Simply click on Patient Portal and then log into your account. If you would like to receive a full copy of your medical records, please contact the [facility] Medical Records Department by calling [phone], Thursday through Thursday between 8 a.m. and [...] Call your local pharmacy or go to http://bit.ly/5A7Sa1l to find one close to you.3.Make use of household items: Use cat litter or old coffee grounds to dispose medications if other options arenot available. Mix your drugs with these household products, seal them in an airtight container andthrow it into the garbage. Call [facility]: [phone] to be sure your drugs can be [...] been reviewed and explained to me and IMARYANN JANET G understand my current condition and have read and understand these discharge instructions. I have received a written copy of the plan/instructions. If I have questions, I am aware that I should contact my doctor. Patient/Traditional Chinese Herbalist Signature: Date/Time: Relationship to Patient: Witness Name/Signature: Date/Time: [id number] Discharge summary Date of Service 04/22/23 Discharge [...] to follow-up with cardiology as outpatient -> MCFP goal BP < 130/80 mmHg, goal LDL < 70, goal Hba1c <7% -> She will need 30-day monitor on DC. Medications New Prescription [id number] Milligram by mouth every six (6) hours [...] days Where: [address] [place] [address]- [phone] Follow Up with [facility] When In 5 weeks Why: Stroke follow-up Where: [address] [place] [address]- Follow Up with ROMMEL FOSTER MD When In 3 weeks Why: Left atrial mass Where: [address] [facility] [place] [address]- Follow Up Appointments No qualifying data available. [...] LUCRECIA LOVELL DO on 04/22/2023 11:23 AM [id number] Note Date of Service 04/22/23 Chief Complaint [...] to follow-up with cardiology as outpatient -> MCFP goal BP < 130/80 mmHg, goal LDL < 70, goal Hba1c <7% -> She will need 30-day monitor on DC. DVT aspirin Patient is full code Disposition: Pending Placement. (precert pending) Digitally Signed by LUCRECIA LOVELL DO on 04/22/2023 09:40 AM [facility] [id number] Note Date of Service 04/21/23 Chief Complaint [...] 30-day monitor. Seen by neurology. Continue statin/Eliquis. MCFP goal BP < 130/80 mmHg, goal LDL < 70, goal Hba1c <7% Patient has received 3 days of ceftriaxone for empiric treatment of urinary tract infection. Cultures contaminated. PT/OT recommending inpatient therapy, patient is agreeable. DVT aspirin Patient is full code Disposition: Pending Placement. Digitally Signed by LUCRECIA LOVELL DO on 04/21/2023 12:15 PM [id number] Cardiology Progress note Date of Service 04/20/2023 [...] GUERA RIVERA MD on 04/20/2023 06:27 PM [facility] [id number] Cardiology Progress note Date of Service 04/20/2023 [...] GUERA RIVERA MD on 04/20/2023 06:27 PM [facility] [id number] Cardiology Progress note Date of Service 04/20/2023 [...] GUERA RIVERA MD on 04/20/2023 06:27 PM [facility] [id number] Note* Exam Date Time Procedure Performing Provider Status 04/20/23 11:45 AM Transesophageal Echo cardiogram - CV Auth (Verified) [facility] 08-28-2023 Note Date of Service 04/20/23 Chief [...] neurology. Patient to be discharged to the [facility] because of family being there versus [facility]. Subjective Patient seen and examined [...] no leukocytosis. No fevers. Are likely thrombus. MCFP goal BP < 130/80 mmHg, goal LDL [...] LUCRECIA LOVELL DO on 04/20/2023 06:14 PM [facility] [id number] Neurology Progress note Date of Service April [...] Exam Mental Status: Orientation: oriented to person, [facility], and month Language: normal fluency, normal [...] patient was pulling away/unable to relax Coordination: Zrxpye-wntk-iemthu movements intact bilaterally Weight Dosing Weight: 103 [...] & stroke prevention discussed in length by FUR TAILOR. Patient receptive to education at this time. ->Frequent neurochecks ->buttermaker goal BP < 130/80 mmHg, goal LDL [...] by HINA MCCLAIN on 04/20/2023 03:28 PM [facility] [id number] Cardiology Consult note Date of Service 04/19/2023 [...] ROMMEL FOSTER MD on 04/19/2023 05:53 PM [facility] [id number] Note. MICRO - Microbiology PROCEDURE: Blood Culture [...] Locations *1: This test was performed at: [facility], [address] [place] [address], [facility] , [facility] [place]04-19-2023 Note. MICRO - Microbiology PROCEDURE: Blood Culture [...] Locations *1: This test was performed at: [facility], [address] [place] [address], [id number] , [facility] ([place])04-19-2023 Neurology Consult note Date of Service April [...] 5 Bicep 5 5 Tricep 4- 5 Yarn Rewinder 4- 5 Wrist Flex 5 5 Wrist [...] performed normally bilaterally. Unable to fully assess gwjf-vn-hwck due to current weakness. Gait: Deferred at [...] DO Neurology >35 mins was spent in uikm-xh-xyxr time and coordination of care for this [...] YUN ROWAN DO on 04/19/2023 12:38 PM [facility] [id number] Note. MICRO - Microbiology PROCEDURE: Urine Culture [...] Locations *1: This test was performed at: [facility], [address] [place] [address], [id number] , [facility] ([place]04-18-2023 Note ORIGINAL EXAMINATION: MRI OF THE BRAIN WITHOUT CONTRAST 04/18/2023 1:51 pm TECHNIQUE: Multiplanar multisequence MRI of the brain was performed without the administration of intravenous contrast. COMPARISON: Head CT [id number] from outside facility the. HISTORY: ORDERING SYSTEM [...] Sign Date: 04/18/2023 4:21:44 PM Ordering Provider: [facility]08-26-2023 Note* Exam Date Time Procedure Performing Provider Status 04/18/23 9:09 AM Echocardiogram, Adul t with Bubble Study- Auth (Verified) [facility] 08-26-2023 History and physical note Date of [...] my evaluation. Labs and imaging obtained at Hospital on 04/17/[address] head [...] with intermittent dysarthria. NIH was 4 on appliance installer presentation at her home. She was transferred [...] OMARI COOPER MD on 04/17/2023 09:55 PM [facility] [id number] History and physical note Date of Service [...] and had a in the family with . However, at 5 PM the patient fell due to her right-sided weakness. No reported LOC or head impact. The patient denies difficulty swallowing, acute visual changes. She has been having a burning sensation in the feet. Weakness is ongoing. She denies other acute complaints. No current tobacco use. No current ASA use. In the ED she was initially tachycardic. Rate normalized at the time my evaluation. Labs and imaging obtained at [facility] on 04/17/[address] head showed [...] with intermittent dysarthria. NIH was 4 on appliance installer presentation at her home. She was transferred [...] OMARI COOPER MD on 04/17/2023 09:55 PM [facility] [id number] Evaluation + Plan noteExtracted from: Title:History and Physical Author:ARCADIO COOPER MD Date:04/17/23 Left caudate nucleus CVA. Pa tient with right-sided deficits over at least the past 2 days. Also with intermittent dysarthria. NIH was 4 on appliance installer presentation at her home. She was transferred [...] not yet verified. They will need reconciled. [facility] Evaluation note* Diagnosis Onset Date Resolution Status Admit Date Lung mass acute February 09 9:39am [facility] Work Phone: Hospital course Narrative No data available for this section [facility] Hospital Discharge instructionsAmbulatory Orders* Fast Pass: Oncology Referral [facility] Location: None Selected [facility] Work Phone: Hospital Discharge instructionsAmbulatory Orders* Nutrition Referral - [facility] Location: None Selected [facility] Work Phone: Reason for referral (narrative)No reason for referral information [facility] [facility] Work Phone: Summary Purpose Family History Relationship Condition Age at Onset Recorded Date/T taryn brother Malignant neoplasm of thyroid gland Unkno wn sister Malignant neoplasm of pancreas Unknown Advance Directives Advance Directive Response Recorded Date/ Time Do you have a Healthcare Power of Manager Federal? Yes February 14, 2025 11:59am Chief Complaint [...] pulmonary dise ase) February 28, 2025 2:48pm Chief Complaint Admit Date Pulmonary Nodules February 09, 2025 9:39 am EORDERS February 09, 2025 10:2 4am Biopsy Results February 28, 2025 2:48p m LUNG March 07, 2025 9:08 am J44.9 - Chronic obstructive pulmonary di sease, uns March 09, 2025 9:54am Chief Complaint Admit Date Pulmonary Nodules February 09, 2025 9:39 am EORDERS February 09, 2025 10:2 4am Biopsy Results February 28, 2025 2:48p m LUNG March 07, 2025 9:08 am J44.9 - Chronic obstructive pulmonary di sease, uns March 09, 2025 9:54am OTHER BENIGN NEUROENDOCRINE TUMORS - REV IEW PET March 14, 2025 8:53am Reason for Visit Admit Date Lung mass February 09, 2025 9:39 am Lung mass February 16, 2025 10:4 2am Neuroendocrine neoplasm of lung February 2:48pm COPD (chronic obstructive pulmonary dise ase) February 28, 2025 2:48pm Disseminated cancer March 14, 2025 8:53 am Neuroendocrine neoplasm of lung February 8:53am Chief Complaint Admit Date Pulmonary Nodules February 09, 2025 9:39 am EORDERS February 09, 2025 10:2 4am Biopsy Results February 28, 2025 2:48p m LUNG March 07, 2025 9:08 am J44.9 - Chronic obstructive pulmonary di sease, uns March 09, 2025 9:54am OTHER BENIGN NEUROENDOCRINE TUMORS - REV IEW PET March 14, 2025 8:53am ONC March 15, 2025 1:27 pm Other benign neuroendocrine tumors Caitlin 28th, 2025 9:33am Additional Source Comments INFORMATION SOURCE (unrecogn ized section and content) DATE CREATED AUTHOR 07/10/2020 [facility] DATE CREATED AUTHOR AUTHOR'S ORGANIZ ATION 04/23/2023 [facility] ([place]) DATE CREATED AUTHOR AUTHOR'S ORGANIZ ATION 11/05/2024 [facility] DATE CREATED AUTHOR AUTHOR'S ORGANIZ ATION 01/08/2025 Anam [facility] DATE CREATED AUTHOR AUTHOR'S ORGANIZ ATION 02/08/2025 [facility] DATE CREATED AUTHOR AUTHOR'S ORGANIZ ATION 03/25/2025 [facility] Patient Care team informatio n (unrecognized [...] 2025 End: February 28, 2025 Latoya Ibrahim BRAIDER TENDER, BRAIDER TENDER-C Attending Provider Active Start: February 28, 2025 End: February 28, 2025 Team Status: Active Member Role/Relationship Status Dates Dr. Bonita Ireland MD Primary Care Provider Active Start: February 13, 2025 Dr. Andres Meyer DO Attending Provider Active S tart: February 13, 2025 Dr. Andres Meyer DO Referring Provider Active S tart: February 13, 2025 Dr. Andres Meyer DO Other Provider Active Start : February 13, 2025 Team Status: Active Member Role/Relationship Status Dates Dr. Bonita Ireland MD Primary Care Provider Active Start: February 16, 2025 Dr. Andres Meyer DO Attending Provider Active S tart: February 16, 2025 Dr. Andres Meyer DO Referring Provider Active S tart: February 16, 2025 Team Status: Inactive Member Role/Relationship Status Dates Dr. Bonita Ireland MD Primary Care Provider Active Start: March 07, 2025 End: March 07, 2025 Latoya Ibrahim BRAIDER TENDER, BRAIDER TENDER-C Attending Provider Active Start: March 07, 2025 End: March 07, 2025 Latoya Ibrahim BRAIDER TENDER, BRAIDER TENDER-C Referring Provider Active Start: March 07, 2025 End: March 07, 2025 Team Status: Active Member Role/Relationship Status Dates Dr. Bonita Ireland MD Primary Care Provider Active Start: March 09, 2025 Latoya Ibrahim BRAIDER TENDER, BRAIDER TENDER-C Attending Provider Active Start: March 09, 2025 Latoya Ibrahim BRAIDER TENDER, BRAIDER TENDER-C Referring Provider Active Start: March 09, 2025 Team Status: Inactive Member Role/Relationship Status Dates Dr. Дмитрий Mcdowell MD Attending Provider Active S tart: March 14, 2025 End: March 14, 2025 Latoya Ibrahim BRAIDER TENDER, BRAIDER TENDER-C Referring Provider Active Start: March 14, 2025 End: March 14, 2025 Dr. Bonita Ireland MD Primary Care Provider Active Start: March 14, 2025 End: March 14, 2025 Team Status: Inactive Member Role/Relationship Status Dates Dr. Bonita Ireland MD Primary Care Provider Active Start: March 09, 2025 End: March 09, 2025 Latoya Ibrahim BRAIDER TENDER, BRAIDER TENDER-C Attending Provider Active Start: March 09, 2025 End: March 09, 2025 Latoya Ibrahim NP, BRAIDER TENDER-C Referring Provider Active Start: March 09, 2025 End: March 09, 2025 Team Status: Inactive Member Role/Relationship Status Dates Dr. Bonita Ireland MD Primary Care Provider Active Start: March 15, 2025 End: March 23, 2025 Dr. Дмитрий Mcdowell MD Attending Provider Active S tart: March 15, 2025 End: March 23, 2025 Team Status: Active Member Role/Relationship Status Dates Dr. Bonita Ireland MD Primary Care Provider Active Start: March 20, 2025 Dr. Дмитрий Mcdowell MD Attending Provider Active S tart: March 20, 2025 Dr. Дмитрий Mcdowell MD Referring Provider Active S tart: March 20, 2025 Team Status: Inactive Member Role/Relationship Status Dates Dr. Bonita Ireland MD Primary Care Provider Active Start: March 20, 2025 End: March 20, 2025 Dr. Дмитрий Mcdowell MD Attending Provider Active S tart: March 20, 2025 End: March 20, 2025 Dr. Дмитрий Mcdowell MD Referring Provider Active S tart: March 20, 2025 End: March 20, 2025 Goals (unrecognized section and content) Goals [...] BE BASED ON THE PRIMARY CLINICAL RECORDS. [facility] [employer] provides no warranty or guarantee of the accuracy or completeness of information in this document.
[2025-03-28 09:30] LABS: Hematocrit 33.6 % (37-47); Hemoglobin 10.8 g/dL (12.0-15.0); Immature Granulocytes Count 0.040 X10^3/uL (0.0-0.0); Mean Corp Hgb Conc 32.1 g/dL (32-36); Mean Corpuscular Volume 86.2 fL (81-99); Mean Platelet Vol. 12.8 fl (6.2-12.0); NRBC Flagged by Analyzer 0 % (0-5); Platelet Count 328 K/mm3 (150-450); RBC Distribution Width CV 14.1 % (11.6-14.6); RBC Distribution Width SD 43.7 fl (35.1-43.9); Red Blood Count 3.90 M/mm3 (4.2-5.4); White Blood Count 8.5 K/mm3 (4.4-11.0)
[2025-03-28 09:43] LABS: Prothrombin Time (Protime)PT. 14.7 SECONDS (11.7-14.9)
[2025-03-28 09:44] LABS: Partial Thromboplast Time 26.1 Seconds (24.1-36.2)
[2025-03-28] MEDS: 0.9% Normal Saline (250mL Bag) 250 ML 15 ML IV (09:55)
[2025-03-28] MEDS: Midazolam 2 MG/2 ML Syringe IV ×2 (09:55→10:05)
--- NOTE | 2025-03-28 09:55 | CT_ITS ---
EXAM: CT-guided core biopsy a right lower lobe hypermetabolic mass. CLINICAL HISTORY: Lung cancer. Multiple hypermetabolic masses COMPARISON: PET-CT 03/07/[address] of 01/31/2025. TECHNIQUE: Conscious sedation was employed for this procedure, starting at 0955 hours and ending at 1035 hours. A total 2 mg Versed and 50 mcg fentanyl intravenous was utilized. Following informed consent, and using standard sterile technique, a CT-guided core biopsy of a right lower lobe hypermetabolic mass was performed. 2% lidocaine local anesthesia was followed by placement of a 20 gauge 15 cm Unidesk core biopsy system. A total of 5 core samples were then obtained No complication was encountered. Estimated blood loss: Minimal. Dose: DLP 743.58 mGy-cm. CT/Biopsy/Inj or Needle Placement IMPRESSION: Successful CT-guided core biopsy of a hypermetabolic right lower lobe mass. Pa thology results pending. Reading Location: [place] [address]
[2025-03-28] MEDS: fentaNYL 100 MCG/2 ML Ampul IV (09:58)
[2025-03-28] MEDS: Lidocaine 2% (20 ml mdv) 20 ML Vial INFILT (10:07)
--- NOTE | 2025-03-28 11:30 | RAD_ITS ---
EXAM: Chest inspiration expiration views following CT-guided biopsy. CLINICAL HISTORY: CT-guided right lung biopsy. COMPARISON: Prior study dated January 24, 2025. TECHNIQUE: AP inspiration expiration views. FINDINGS: No evidence of pneumothorax. Persistent nodular densities in the right lower lobe RAD/Chest Insp/Exp 2 View IMPRESSION: No evidence of pneumothorax on the post right lung biopsy radiographs. Reading Location: [id number]
--- NOTE | 2025-03-28 12:08 | NURSING ---
ATTEMPTED TO WEAN PATIENT TO ROOM AIR. PATIENT'S OXYGEN SATURATION ON ROOM AIR DIPPED TO 86%. PATIENT STATES SHE DOES WEAR OXYGEN NEEDED AND AT NIGHT NORMALLY. PATIENT IS INTERMITTENTLY FALLING ASLEEP AND RESTING WITH EYES CLOSED. WILL CONTINUE TO MONITOR.
--- NOTE | 2025-03-28 13:15 | NURSING ---
Blood glucose 107.
--- NOTE | 2025-03-28 13:25 | RAD_ITS ---
EXAM: Two-view AP portable upright inspiratory and expiratory chest. CLINICAL HISTORY: 3 hours following right lower lobe lung biopsy. COMPARISON: Chest x-ray of earlier the same day. TECHNIQUE: Two-view AP portable upright inspiratory and expiratory chest. RAD/Chest Insp/Exp 2 View IMPRESSION: No pneumothorax is seen. No significant pleural fluid collection is evident. The remainder of the examination is essentially unchanged. Generalized osteopenia is noted. The cardiomediastinal silhouette is stable, without evidence of cardiomegaly. Reading Location: [place] [address]
--- NOTE | 2025-03-28 13:55 | RAD_ITS ---
EXAM: Double and single contrast esophagram. CLINICAL HISTORY: Nausea and vomiting. Patient has difficulty with sense of food getting stuck in the esophagus. COMPARISON: None. TECHNIQUE: Double and single contrast esophagram. FINDINGS: Recurrent mid to distal esophageal spasm is seen. Significant delay in passage of a 13 mm barium tablet from the distal esophagus into the stomach was noted. On earlier images, no focus of narrowing was seen in this area, however. Otherwise, no area of persistent esophageal narrowing is seen. The examination was limited by the patient vomiting her stomach contents up immediately after completion of the double contrast imaging of the esophagus. This resulted in more limited than usual views of the stomach and duodenum, although no gastric or duodenal abnormality is seen upon limited evaluation thereof. RAD/Esophagus Dual Contrast IMPRESSION: 1. Significant delay in passage of a 13 mm barium tablet from the distal esopha hanh into the stomach was seen. On images, no specific cause of this delay was seen, however. 2. Recurrent mid to distal esophageal spasm. Reading Location: [place] [address]
== END 2025-03-28 23:59 | disposition home or self-care (01) ==
PROVIDERS: Radiology Diagnostic Radiology; PCP Student in an Organized Health Care Education/Training Program; Referring Provider Internal Medicine Medical Oncology; Visit Provider Internal Medicine Medical Oncology
DX: C7A.8 Other malignant neuroendocrine tumors (principal); E11.9 Type 2 diabetes mellitus without complications; R93.3 Abnormal findings on diagnostic imaging of other parts of digestive tract; I10 Essential (primary) hypertension; Z79.01 Long term (current) use of anticoagulants; Z79.02 Long term (current) use of antithrombotics/antiplatelets; Z79.82 Long term (current) use of aspirin; Z79.84 Long term (current) use of oral hypoglycemic drugs; Z79.899 Other long term (current) drug therapy; Z87.891 Personal history of nicotine dependence
CPT/HCPCS: 32408; 36415; 71046; 74220; 74221; 77012; 82962; 85025; 85610; 85730; 88172; 88305; 88313; 88341; 88342; 99156; 99157; J2405